=== PATIENT | male | born 1960 | race Caucasian/White ===

== ENCOUNTER 2017-08-08 12:03 | Emergency (ER) | payer OTHER, SELFPAY | END 2017-08-08 13:15 | disposition home or self-care (01) | PROVIDERS: Emergency Provider Nurse Practitioner Family; Family Provider Nurse Practitioner Family; Visit Provider Nurse Practitioner Family | DX: M54.2 Cervicalgia (principal); M25.511 Pain in right shoulder; F17.210 Nicotine dependence, cigarettes, uncomplicated | CPT/HCPCS: 96372; 99201 ==

== ENCOUNTER → 2017-08-09 | Outpatient (CLI) | payer OTHER, SELFPAY | PROVIDERS: Family Provider Nurse Practitioner Family; Visit Provider Nurse Practitioner Family | DX: M25.511 Pain in right shoulder (principal) | CPT/HCPCS: 73030 ==

== ENCOUNTER → 2017-11-06 11:39 | Outpatient (REF) | payer BC, SELFPAY ==
[2017-11-06 13:39] LABS: Basophils # 0.1 K/mm3 (0-0.2); Basophils % 1.4 % (0.1-2.0); Eosinophils # 0.1 K/mm3 (0.0-0.4); Eosinophils % 1.6 % (0.1-12.0); Hematocrit 45.2 % (42.0-52.0); Hemoglobin 14.9 g/dL (14.1-18.0); Lymphocytes # 1.7 K/mm3 (0.7-4.5); Lymphocytes % 34.7 K/mm3 (10-50); Mean Corpuscular Hemoglobin 30.3 pg (27.0-31.2); Mean Corpuscular Volume 91.9 fl (80-94); Mean Platelet Volume 8.4 fl (7.4-10.4); Monocytes # 0.3 K/mm3 (0.1-1.0); Monocytes % 6.9 % (1.7-9.3); Neutrophils # 2.7 K/mm3 (1.8-7.8); Neutrophils % 55.4 % (37.0-80.0); Platelet Count 253 K/mm3 (142-424); Red Blood Count 4.92 M/mm3 (4.60-6.20)
[2017-11-06 14:12] LABS: Alanine Aminotransferase 15 U/L (12-78); Albumin Level 3.7 gm/dL (3.4-5.0); Albumin/Globulin Ratio 1.2 (1.1-1.8); Alkaline Phosphatase 63 U/L (46-116); Anion Gap 11.3 mEq/L (5-15); Aspartate Amino Transferase 14 U/L (15-37); Bilirubin,Total 0.3 mg/dL (0.2-1.0); Blood Urea Nitrogen 9 mg/dL (7-18); Calcium 8.7 mg/dL (8.5-10.1); Carbon Dioxide 29 mmol/L (21.0-32.0); Chloride 104 mmol/L (98-107); Chol/HDL Ratio 2.9 (1-3.5); Cholesterol 179 mg/dL (140-200); Creatinine,Serum 0.75 mg/dL (0.70-1.30); Estimated Glomerular Filt Rate 109 ml/min (>60); Free T4 (Free Thyroxine) 0.99 ng/dl (0.76-1.46); GFR (African American) 131 ML/MIN (>60); Globulin 3.2 gm/dl (1.3-3.2); Glucose 104 mg/dL (74-106); HDL Cholesterol 62 mg/dL (27-67); LDL Cholesterol 105 mg/dL (0-130); Potassium 4.3 mmoL/L (3.5-5.1); Sodium 140 mmol/L (136-145); Thyroid Stimulating Hormone 0.81 uIU/ml (0.358-3.740); Total Protein,Serum 6.9 gm/dL (6.4-8.2); Triglycerides 60 mg/dL (30-200); VLDL Cholesterol 12 mg/dL (0-40)
[2017-11-06 14:35] LABS: Erythrocyte Sedimentation Rate 7 mm/hr (0-20)
[2017-11-07 06:21] LABS: Vitamin D 25 Hydroxy 13.6 ng/mL (30.0-100.0)
[2017-11-09 09:25] LABS: Vitamin B12 927 pg/mL (232-1245)
== END ==
LOC: LAB 11:39
PROVIDERS: Visit Provider Emergency Medicine
DX: R53.83 Other fatigue (principal); R53.1 Weakness
CPT/HCPCS: 80053; 80061; 82607; 82652; 84439; 84443; 85025; 85651

== ENCOUNTER → 2017-11-09 08:04 | Outpatient (CLI) | payer BC, SELFPAY ==
--- NOTE | 2017-11-09 08:09 | MR_ITS ---
MR cervical spine wo con, MR 3-d myelogram/MRCP HISTORY: Neck pain and numbness. Numbness, stinging, and burning in bilateral arms but worse in the RT. Symptoms Xmonths. No trauma. ORDERING PHYSICIAN: George Chowdhury MD PATIENT AGE: 56 years COMPARISON: Prior X-Ray 12 18 17 TECHNIQUE: Standard multiplanar multiecho sequences are performed without contrast. 3-D MIP and myelographic images are also rendered and reviewed FINDINGS: There is normal alignment. The craniocervical junction has an unremarkable appearance. There is mild degree of motion artifact which somewhat obscures fine detail especially of the cervical cord. C2-C3: Mild degenerative disc disease with minimal bulging disc slightly eccentric towards the right without impingement. C3-C4: Minimal bulging disc with minimal left-sided uncovertebral hypertrophy. C4-C5: Minimal bulging disc. C5-C6: Minimal bulging disc slightly eccentric towards the left. C6-C7: Unremarkable. C7-T1 and T1-T2: Unremarkable.. IMPRESSION: 1. Minimal cervical spondylosis with minimal bulging discs. 2. No canal stenosis, cord impingement, or extruded herniated disc evident.
== END ==
PROVIDERS: Family Provider Nurse Practitioner Family; PCP Nurse Practitioner Family; Visit Provider Emergency Medicine
DX: M54.2 Cervicalgia (principal)
CPT/HCPCS: 72141; 76376

== ENCOUNTER → 2017-12-25 09:34 | Outpatient (POV) | payer BC, SELFPAY ==
[2017-12-26 15:33] LABS: Angiotensin Converting Enzyme 45 U/L (14-82)
[2017-12-26 16:33] LABS: Albumin 3.9 g/dL (2.9-4.4); Alpha-1-Globulin 0.3 g/dL (0.0-0.4); Alpha-2-Globulin 0.8 g/dL (0.4-1.0); Gamma Globulin 1.3 g/dL (0.4-1.8); Protein, Total 7.4 g/dL (6.0-8.5)
== END ==
PROVIDERS: Family Provider Nurse Practitioner Family; PCP Nurse Practitioner Family; Visit Provider Specialist
DX: M54.2 Cervicalgia (principal); R29.898 Other symptoms and signs involving the musculoskeletal system
CPT/HCPCS: 36415; 82164; 84165; 95886; 95911

== ENCOUNTER → 2018-01-08 13:41 | Outpatient (CLI) | payer BC, SELFPAY ==
--- NOTE | 2018-01-08 13:51 | XR_ITS ---
XR shoulder RT min 2V HISTORY: ITS.REASON: pain ORDERING PHYSICIAN: Yesenia Loja MD PATIENT AGE: 57 years Comparison: None FINDINGS: No fracture or dislocation. No lytic or blastic change. There is normal mineralization. The joint spaces are well-preserved. No significant degenerative/arthritic changes. No erosive changes evident. All right fourth and fifth rib fractures noted. No subacromial stenosis IMPRESSION: Old right fourth and fifth rib fractures otherwise negative right shoulder
--- NOTE | 2018-01-08 13:51 | XR_ITS ---
XR chest 2V HISTORY: ITS.REASON: weight loss ORDERING PHYSICIAN: Yesenia Loja MD PATIENT AGE: 57 years COMPARISON: None FINDINGS: The cardiomediastinal silhouette and pulmonary vascularity are within normal limits. The lungs are clear without infiltrates, suspicious nodules, or pleural effusions. No acute bony abnormalities. There are old fractures of the right fourth and fifth ribs anteriorly. IMPRESSION: No acute finding
[2018-01-09 14:30] LABS: HIV Screen 4th Generation wRfx Non Reactive (Non Reactive)
[2018-01-11 19:10] LABS: IgG P18 Ab. Absent (.); IgG P23 Ab. Absent (.); IgG P28 Ab. Absent (.); IgG P30 Ab. Absent (.); IgG P39 Ab. Absent (.); IgG P41 Ab. Absent (.); IgG P45 Ab. Absent (.); IgG P58 Ab. Absent (.); IgG P66 Ab. Absent (.); IgG P93 Ab. Absent (.); IgM P23 Ab. Present (.); IgM P39 Ab. Absent (.); IgM P41 Ab. Absent (.)
[2018-01-11 21:14] LABS: Lyme IgG WB Interp. Negative (.); Lyme IgM WB Interp. Negative (.)
== END ==
PROVIDERS: Family Provider Nurse Practitioner Family; PCP Nurse Practitioner Family; Visit Provider Specialist
DX: M25.511 Pain in right shoulder (principal); M50.90 Cervical disc disorder, unspecified, unspecified cervical region; R63.4 Abnormal weight loss; G62.9 Polyneuropathy, unspecified; F17.200 Nicotine dependence, unspecified, uncomplicated
CPT/HCPCS: 36415; 71046; 73030; 86618; 86703; G0432

== ENCOUNTER → 2018-05-07 11:20 | Outpatient (REF) | payer BC, SELFPAY ==
[2018-05-09 07:49] LABS: PSA, Free 0.34 ng/mL; Prostate Specific Ag 1.6 ng/mL (0.0-4.0)
== END ==
LOC: LAB 11:20
PROVIDERS: Visit Provider Emergency Medicine
DX: R35.0 Frequency of micturition (principal); N42.9 Disorder of prostate, unspecified; R19.07 Generalized intra-abdominal and pelvic swelling, mass and lump
CPT/HCPCS: 84153; 84154; 87086

== ENCOUNTER → 2018-06-20 07:57 | Outpatient (CLI) | payer BC, SELFPAY ==
--- NOTE | 2018-06-20 08:00 | MR_ITS ---
MR lumbar spine wo con, MR 3-d myelogram/MRCP HISTORY: LBP on LT side. Neuropathy in legs. Weakness bilateral legs. X 6-8 Months. No trauma. ITS.REASON: back pain ORDERING PHYSICIAN: George Chowdhury MD PATIENT AGE: 57 years Comparison: None TECHNIQUE: Standard multiplanar multiecho sequences are performed without contrast. 3-D MIP and myelographic images are also rendered and reviewed FINDINGS: There is normal alignment. Spinal cord ends at the L1-L2 level. The disc spaces are well-preserved. No canal stenosis or disc herniation. Mild facet hypertrophic changes are present at L3-L4, L4-5, and L5-S1 but no significant foraminal narrowing or lateral recess narrowing. IMPRESSION: Mild facet hypertrophic change otherwise negative MRI of the lumbar spine
== END ==
PROVIDERS: PCP Emergency Medicine; Visit Provider Emergency Medicine
DX: M54.9 Dorsalgia, unspecified (principal)
CPT/HCPCS: 72148; 76376

== ENCOUNTER → 2018-07-06 14:00 | Outpatient (CLI) | payer BC, SELFPAY ==
[2018-07-06 14:50] LABS: Amphetamine/Metha Screen,Urine Negative ng/mL (<1000); Barbiturates Screen,Urine Negative ng/mL (<200); Benzodiazepines Screen,Urine Negative ng/mL (<200); Cannabinoid Screen,Urine Positive ng/mL (<50); Cocaine Screen,Urine Negative ng/mL (<300); Methadone Screen,Urine Negative ng/mL (<300); Opiate Screen,Urine Negative ng/mL (<300); Phencyclidine Screen,Urine Negative ng/mL (<25)
[2018-07-15 17:34] LABS: Opiates Negative ng/mL (Cutoff=100)
== END ==
PROVIDERS: Visit Provider Emergency Medicine
DX: Z79.899 Other long term (current) drug therapy (principal)
CPT/HCPCS: 80305; 80361; G0480

== ENCOUNTER → 2018-08-03 13:54 | Outpatient (CLI) | payer BC, SELFPAY ==
[2018-08-03 16:34] LABS: Amphetamine/Metha Screen,Urine Negative ng/mL (<1000); Barbiturates Screen,Urine Negative ng/mL (<200); Benzodiazepines Screen,Urine Negative ng/mL (<200); Cannabinoid Screen,Urine Positive ng/mL (<50); Cocaine Screen,Urine Negative ng/mL (<300); Methadone Screen,Urine Negative ng/mL (<300); Opiate Screen,Urine Negative ng/mL (<300); Phencyclidine Screen,Urine Negative ng/mL (<25)
[2018-08-10 09:17] LABS: Alprazolam Negative (Cutoff=100); Benzodiazepines Negative ng/mL (Cutoff=100); Clonazepam Negative (Cutoff=100); Flurazepam Negative (Cutoff=100); Lorazepam Negative (Cutoff=100); Midazolam Negative (Cutoff=100); Temazepam Negative (Cutoff=100); Triazolam Negative (Cutoff=100)
== END ==
PROVIDERS: Visit Provider Emergency Medicine
DX: Z79.899 Other long term (current) drug therapy (principal)
CPT/HCPCS: 80305; 80346

== ENCOUNTER → 2018-08-31 14:17 | Outpatient (CLI) | payer BC, SELFPAY ==
[2018-08-31 16:00] LABS: Amphetamine/Metha Screen,Urine Negative ng/mL (<1000); Barbiturates Screen,Urine Negative ng/mL (<200); Benzodiazepines Screen,Urine Negative ng/mL (<200); Cannabinoid Screen,Urine Positive ng/mL (<50); Cocaine Screen,Urine Negative ng/mL (<300); Methadone Screen,Urine Negative ng/mL (<300); Opiate Screen,Urine Negative ng/mL (<300); Phencyclidine Screen,Urine Negative ng/mL (<25)
[2018-09-07 17:14] LABS: Opiates Negative (Cutoff=100)
== END ==
PROVIDERS: Visit Provider Nurse Practitioner Family
DX: Z79.899 Other long term (current) drug therapy (principal)
CPT/HCPCS: 80305; 80361; 80365; G0480

== ENCOUNTER → 2018-10-05 18:18 | Outpatient (CLI) | payer BC, SELFPAY ==
[2018-10-05 19:21] LABS: Amphetamine/Metha Screen,Urine Negative ng/mL (<1000); Barbiturates Screen,Urine Negative ng/mL (<200); Benzodiazepines Screen,Urine Negative ng/mL (<200); Cannabinoid Screen,Urine Positive ng/mL (<50); Cocaine Screen,Urine Negative ng/mL (<300); Methadone Screen,Urine Negative ng/mL (<300); Opiate Screen,Urine Negative ng/mL (<300); Phencyclidine Screen,Urine Negative ng/mL (<25)
[2018-10-12 10:51] LABS: Opiates Negative ng/mL (Cutoff=100)
== END ==
PROVIDERS: Visit Provider Nurse Practitioner Family
DX: Z79.899 Other long term (current) drug therapy (principal)
CPT/HCPCS: 80305; 80361; G0480

== ENCOUNTER → 2018-10-16 13:13 | Observation (INO) ==
[2018-10-15 14:08] LABS: Basophils % 0.3 % (0.1-2.0); Eosinophils % 0.3 % (0.1-12.0); Hematocrit 39.1 % (42.0-52.0); Hemoglobin 13.1 g/dL (14.1-18.0); Lymphocytes # 1.5 K/mm3 (0.7-4.5); Lymphocytes % 17.6 % (10-50); Mean Corpuscular HGB Conc 33.5 g/dL (31.8-35.4); Mean Corpuscular Hemoglobin 30.6 pg (27.0-31.2); Mean Corpuscular Volume 91.3 fl (80-94); Mean Platelet Volume 6.6 fl (7.4-10.4); Monocytes # 0.3 K/mm3 (0.1-1.0); Monocytes % 3.2 % (1.7-9.3); Neutrophils # 6.8 K/mm3 (1.8-7.8); Neutrophils % 78.5 % (37.0-80.0); Platelet Count 381 K/mm3 (142-424); Red Blood Count 4.28 M/mm3 (4.60-6.20); Red Cell Distribution Width 13.2 % (11.5-17.5); White Blood Count 8.6 K/mm3 (4.8-10.8)
[2018-10-15 14:21] LABS: Anion Gap 12.1 mEq/L (5-15); Calcium 9.2 mg/dL (8.5-10.1); Potassium 4.1 mmoL/L (3.5-5.1)
--- NOTE | 2018-10-15 15:30 | Progress Note ---
Subjective Date: 10/15/18 Time: 15:28 Interval history: Pt was seen in Cynthia's office today. Pt here for chest pain as a new patient. He states last he had an episodes of chest pain that felt more like pressure, like someone sitting on his chest. The pain stayed in his chest, and lasted around 45 minutes. He also was nauseated and diphoretic as well with the chest pain. He has had the chest pain today. Sob with exertion. BP is good today. Weight is stable. Family history of heart disease is present. Tobacco user, smokes around a pack a day, and has for around 35 years. Tobacco cessation encouraged. Denies being diabetic. Denies ever having heart attack or stroke before. He states he has had some blurry vision, with some lightheaded feeling when he is up doing something. EKG is SR with short TN, right atrial enlargement, rightward axis, pulmonary disease pattern, rate is 85 bpm. 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 Chowdhury to do a LHC now. Spoke with Dr. Chowdhury and he agrees to accept. RTC post op. Pt admitted and sent for LHC due to [facility]. ANGIOGRAPHIC RESULTS: 1. The left main artery normal 2. The left anterior descending artery is proximally normal and has a mid vessel 60-70% concentric stenosis immediately after the second diagonal artery. The LAD is a large vessel which wraps the apex 3. The circumflex artery is dominant and normal 4. The right coronary artery is nondominant with mild luminal irregularities nothing greater than 10% 5. The PETER ventriculogram reveals normal 65% 6. The left ventricular end-diastolic pressure 10 mmHg IMPRESSION: 1. Moderate to severe mid LAD disease as described above which produced an FFR index of 0.83 2. Normal ejection fraction 3. Normal left ventricular end-diastolic pressure PLAN: 1. Patient will be started on bisoprolol 10 mg daily along with long-acting nitrates. 2. LDL less than 55 3. Daily baby aspirin 4. Avoidance of tobacco products 5. Treatment of COPD 6. Recommend CTA of the pulmonary arteries to evaluate for possible pulmonary embolism based on patient's profound symptoms Exam Vital signs and Labs for Last 24 Hours: Temp Pulse Resp BP Pulse Ox 97.9 F 56 L 18 95/61 L 99 10/15/18 13:12 10/15/18 15:20 10/15/18 15:20 10/15/18 15:20 10/15/18 15:20 Laboratory Results - last 24 hr 10/15/18 13:45: Sodium 140, Potassium 4.1, Chloride 102, Carbon Dioxide 30, Anion Gap 12.1, BUN 9, Creatinine 0.78, Estimated Creat Clear 74, Estimated GFR 103, Est GFR ( Amer) 125, Glucose 102, Calcium 9.2 10/15/18 14:00: WBC 8.6, RBC 4.28 L, Hgb 13.1 L, Hct 39.1 L, MCV 91.3, MCH 30.6, MCHC 33.5, RDW 13.2, Plt Count 381, MPV 6.6 L, Neut % (Auto) 78.5, Lymph % (Auto) 17.6, [place] % (Auto) 3.2, Eos % (Auto) 0.3, Baso % (Auto) 0.3, Neut # (Auto) 6.8, Lymph # (Auto) 1.5, [place] # (Auto) 0.3, Eos # (Auto) 0.0, Baso # (Auto) 0.0 I & O for Last 24 hours: Intake & Output 10/12/18 10/13/18 10/14/18 10/15/18 23:59 23:59 23:59 23:59 Weight 107 lb 12.897 oz
--- NOTE | 2018-10-15 19:46 | Cardiology Report ---
PROCEDURE: Limited 2-D echo Doppler study INDICATIONS FOR THE TEST: Chest pain COPD Heart Murmur Tobacco Smoking+ Palpitations Fatigue Syncope Edema Hypertension Diabetes Mellitus Rheumatic Fever SOB KING+Obesity Hyperlipidemia Family History HD Additional History ABN EKG, ETOH USE, PT COMBATIVE, UNCOOPERATIVE, LIMITED EXAM. POST CATH PATIENT INFORMATION HEIGHT:69 WEIGHT:107 GENDER: Male B/P:110/78 2-D/M-MODE INTERPRETATION: 2-D MEASUREMENTS OBSERVED VALUES IN CMS Right Ventricular Dimension (RVDd) 2.3 Interventricular Septum (Thickness)(IVsd) 1.4 Left Ventricular Internal Dimensions(LVIDd) 4.1 Left Ventricular Posterior Wall (Thickness)(LVPWd) 0.7 Aortic Root 2.9 Aortic Cusp Separation 2.1 Left Atrial Dimensions (LAD) 3.0 2D 1. Left atrium is normal size, left ventricle is normal size, visually estimated ejection fraction probably 55% with no regional wall motion abnormality in the obtained views. 2. The right atrium and right ventricle are normal size and contractility. 3. The aortic valve is minimally thickened and fibrosed. 4. The mitral and tricuspid valvular grossly normal. 5. Pulmonic valve is poorly visualized. 6. No significant pericardial effusion noted. DOPPLER INTERROGATION: Doppler interrogation is suboptimal. Conclusions: 1. Limited study as described above 2. Probably preserved left ventricular systolic function without significant wall motion abnormality, visually estimated ejection fraction 55%. 3. No significant pericardial effusion noted.
--- NOTE | 2018-10-15 22:28 | History & Physical Report ---
*Admission Date: 10/15/18 *Chief complaint: chest pain *History of present illness: this wm presented to [facility]- here for chest pain as a new patient. He states last he had an episodes of chest pain that felt more like pressure, like someone sitting on his chest. The pain stayed in his chest, and lasted around 45 minutes. He also was nauseated and diphoretic as well with the chest pain. He has had the chest pain today. Sob with exertion. BP is good today. Weight is stable. Family history of heart disease is present. Tobacco user, smokes around a pack a day, and has for around 35 years. Tobacco cessation encouraged. Denies being diabetic. Denies ever having heart attack or stroke before. He states he has had some blurry vision, with some lightheaded feeling when he is up doing something. EKG is SR with short DC, right atrial enlargement, rightward axis, pulmonary disease pattern, rate is 85 bpm. 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 Chowdhury to do a LHC now. Spoke with Dr. Chowdhury and he agrees to accept. [facility] History I have reviewed the patient's past medical history: Yes Medical History: Reports:: Anxiety *Have you ever received a pneumonia vaccine?: No *Have you received a flu vaccine this season?: No Other Surgeries: Yes: Colonoscopy, Other Amputation: No Fractures: No - *Social History Smoking Status: Current every day smoker Tobacco Type: cigarettes # Packs/Day (cigarettes): 2 #Yrs smoked (if former smoker): 35 Alcohol Intake: never Alcohol Intake Frequency:: other Substance Use Type: denies use, marijuana *Occupational Status:: unemployed Housing: house Household Members: family *Travel in the last 8 weeks: None - Psychiatric History Expresses thoughts of harming self/others: None Suicide Plan Description: No Plan Pschychiatric History:: Reports:: Anxiety Family Hx:: Adopted Review of Systems - Review of Systems Review of systems:: pertinent systems reviewed and negative unless documented below - Constitutional Denies fever(s) - Eyes Denies change in vision - ENT Denies sore throat - *Cardiovascular Reports chest pain at rest, Reports chest pain with activity, Reports shortness of breath - *Respiratory Denies cough - *Gastrointestinal Denies abdominal pain - *Genitourinary Denies blood in urine - *Musculoskeletal Denies joint pain - Integumentary/Breasts Denies rash - *Neurologic Denies confusion, Denies seizure-like activity - Psychiatric Denies anxiety Meds Home Medications Medication Instructions Recorded Confirmed Type Cetirizine HCl 10 mg PO DAILYP PRN 10/16/18 10/16/18 History Hydrocodone/Acetaminophen 1 each PO BID 10/16/18 10/16/18 History [Hydrocodone-Acetamin 5-325 mg] clonazePAM [Clonazepam] 0.5 mg PO DAILYP PRN 10/16/18 10/16/18 History Allergies Allergy/AdvReac Type Severity Reaction Status Date / Time No Known Allergies Allergy Verified 10/15/18 12:08 Exam Vital signs and Labs for Last 24 Hours: Temp Pulse Resp BP Pulse Ox 98.3 F 57 L 17 85/50 L 99 10/15/18 19:24 10/15/18 20:05 10/15/18 20:05 10/15/18 20:05 10/15/18 20:09 Laboratory Results - last 24 hr 10/15/18 13:45: Sodium 140, Potassium 4.1, Chloride 102, Carbon Dioxide 30, Anion Gap 12.1, BUN 9, Creatinine 0.78, Estimated Creat Clear 74, Estimated GFR 103, Est GFR ( Amer) 125, Glucose 102, Calcium 9.2 10/15/18 14:00: WBC 8.6, RBC 4.28 L, Hgb 13.1 L, Hct 39.1 L, MCV 91.3, MCH 30.6, MCHC 33.5, RDW 13.2, Plt Count 381, MPV 6.6 L, Neut % (Auto) 78.5, Lymph % (Auto) 17.6, [place] % (Auto) 3.2, Eos % (Auto) 0.3, Baso % (Auto) 0.3, Neut # (Auto) 6.8, Lymph # (Auto) 1.5, [place] # (Auto) 0.3, Eos # (Auto) 0.0, Baso # (Auto) 0.0 I & O for Last 24 hours: Intake & Output 10/13/18 10/14/18 10/15/18 10/16/18 11:59 11:59 11:59 11:59 Intake Total 0 / 0 Balance 0 / 0 Weight 107 lb 12.897 oz - Constitutional no acute distress, thin - *Routine HEENT Exam Head: Present: normocephalic Eye: Present: EOMI, PERRL ENT: Present: mucous membranes dry - *Routine Neck Exam Absent: JVD - *Routine Respiratory Exam Present: CTA bilaterally - *Routine Cardiovascular Exam Present: RRR, murmur - *Routine Abdominal Exam Present: soft - *Routine Extremities Exam Absent: calf tenderness - *Routine Skin Exam Present: intact - *Routine Neurological Exam Present: alert, oriented X3, CN II-XII intact - Routine Psychiatric Exam Present: normal affect Assessment and Plan (1) Anxiety Current visit: Yes Status: Acute Category: Medical Code(s): F41.9 - Anxiety disorder, unspecified (2) Tobacco dependence syndrome Current visit: No Status: Chronic Category: Medical Code(s): F17.200 - Nicotine dependence, unspecified, uncomplicated (3) Angina, class IV Current visit: No Status: Acute Category: Medical Code(s): I20.9 - Angina pectoris, unspecified (4) COPD (chronic obstructive pulmonary disease) Current visit: Yes Status: Acute Category: Medical Code(s): J44.9 - Chronic obstructive pulmonary disease, unspecified
--- NOTE | 2018-10-16 07:29 | Pharmacy Consult Notes ---
[facility] Pharmacy VTE Monitoring - Patient Demographics Admission date: 10/15/18 Report Date: 10/16/18 Time: 07:29 Allergies/Adverse Reactions: Patient Allergies No Known Allergies Allergy (Verified 10/15/18 12:08) Height: 1.75 m Weight: 48.9 kg - VTE Risk Labs: VTE Related Lab Results Hgb 13.1 g/dL (14.1-18.0) L 10/15/18 14:00 Hct 39.1 % (42.0-52.0) L 10/15/18 14:00 Plt Count 381 K/mm3 (142-424) 10/15/18 14:00 BUN 9 mg/dL (7-18) 10/15/18 13:45 Creatinine 0.78 mg/dL (0.70-1.30) 10/15/18 13:45 Estimated Creat Clear 74 mL/min (50-200) 10/15/18 13:45 Was VTE Risk Assessment Performed: Yes VTE Score: 1 VTE Risk Level: Very Low Risk - Prophylaxis VTE Prophylaxis Ordered?: Yes Types of VTE Prophylaxis: TEDS Knee High Location of Applied Device: Bilateral Lower Extremeties - VTE Diagnosis Confirmed Treatment or plan recommended: Continue Current Treatment
--- NOTE | 2018-10-16 09:25 | Progress Note ---
Subjective Date: 10/16/18 Time: 09:21 Principal diagnosis: chest pain, SOA Interval history: 57 yo WM in bed in NAD. Cardiac cath showed moderate to severe CAD but did not meet criteria for coronary stenting. Recommendation is for CTA of chest to evaluate for PE. Due to [facility] yesterday, awaiting BMP today prior to CTA today. Patient describes bilateral upper arm numbness and weakness felt related to bulging disc in the neck. He relates left-sided back discomfort near the lower edge of the shoulder blade/spine area that has been intermittent over the last several weeks. He reports having a CT of the chest at another facility in the last year with no mention of etiology other than possible bulging disc with impingement upon the nerve. Patient's echocardiogram yesterday shows normal RV size and contractility. Exam Vital signs and Labs for Last 24 Hours: Temp Pulse Resp BP Pulse Ox 98.2 F 60 18 110/62 97 10/16/18 08:00 10/16/18 08:00 10/16/18 08:00 10/16/18 08:00 10/16/18 08:00 Laboratory Results - last 24 hr 10/15/18 13:45: Sodium 140, Potassium 4.1, Chloride 102, Carbon Dioxide 30, Anion Gap 12.1, BUN 9, Creatinine 0.78, Estimated Creat Clear 74, Estimated GFR 103, Est GFR ( Amer) 125, Glucose 102, Calcium 9.2 10/15/18 14:00: WBC 8.6, RBC 4.28 L, Hgb 13.1 L, Hct 39.1 L, MCV 91.3, MCH 30.6, MCHC 33.5, RDW 13.2, Plt Count 381, MPV 6.6 L, Neut % (Auto) 78.5, Lymph % (Auto) 17.6, [place] % (Auto) 3.2, Eos % (Auto) 0.3, Baso % (Auto) 0.3, Neut # (Auto) 6.8, Lymph # (Auto) 1.5, [place] # (Auto) 0.3, Eos # (Auto) 0.0, Baso # (Auto) 0.0 I & O for Last 24 hours: Intake & Output 10/13/18 10/14/18 10/15/18 10/16/18 11:59 11:59 11:59 11:59 Intake Total 240 / 240 Balance 240 / 240 Weight 107 lb 12.897 oz - *Routine Neck Exam Present: supple. Absent: JVD, carotid bruit - *Routine Respiratory Exam Present: CTA bilaterally, diminished air movement. Absent: accessory muscle use, rales, rhonchi, wheezes - *Routine Cardiovascular Exam Present: RRR. Absent: murmur, gallop, rubs - *Routine Extremities Exam Absent: edema, calf tenderness - *Routine Neurological Exam Present: alert, oriented X3, moving all extremities Progress Note: A&P (1) Chest pain Status: Acute Current Visit: Yes (2) Back pain Status: Acute Current Visit: Yes (3) Dyspnea Status: Acute Current Visit: No (4) Low body mass index (BMI) Status: Acute Current Visit: No (5) Anxiety Status: Chronic Current Visit: No (6) Neuropathy Status: Chronic Current Visit: No (7) Tobacco dependence syndrome Status: Chronic Current Visit: No Assessment and Plan for All Diagnoses:: 1. BMP from today is pending, if creatinine within normal limits then would recommend proceeding with CTA of the chest to evaluate for pulmonary embolus or other etiology for the patient's chest and back discomfort. 2. Would anticipate discharge home later today if CTA of chest negative for PE. Recommended home meds: aspirin 81 mg daily, bisoprolol 10 mg daily and isosorbide mononitrate 30 mg daily. 3. Follow up in our office in one week.
[2018-10-16 09:32] LABS: Anion Gap 9.8 mEq/L (5-15); Calcium 8.4 mg/dL (8.5-10.1); Potassium 3.8 mmoL/L (3.5-5.1)
--- NOTE | 2018-10-16 12:22 | Discharge Summary ---
General - General Admission date:: 10/15/18 Discharge date: 10/16/18 HPI HPI: this wm presented to [facility]- here for chest pain as a new patient. He states last he had an episodes of chest pain that felt more like pressure, like someone sitting on his chest. The pain stayed in his chest, and lasted around 45 minutes. He also was nauseated and diphoretic as well with the chest pain. He has had the chest pain today. Sob with exertion. BP is good today. Weight is stable. Family history of heart disease is present. Tobacco user, smokes around a pack a day, and has for around 35 years. Tobacco cessation encouraged. Denies being diabetic. Denies ever having heart attack or stroke before. He states he has had some blurry vision, with some lightheaded feeling when he is up doing something. EKG is SR with short [place], right atrial enlargement, rightward axis, pulmonary disease pattern, rate is 85 bpm. 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 Villatoro to do a LHC now. Spoke with Dr. Villatoro and he agrees to accept. Hospital Course Hospital Course: cath report: IMPRESSION: 1. Moderate to severe mid LAD disease as described above which produced an FFR index of 0.83 2. Normal ejection fraction 3. Normal left ventricular end-diastolic pressure PLAN: 1. Patient will be started on bisoprolol 10 mg daily along with long-acting nitrates. 2. LDL less than 55 3. Daily baby aspirin 4. Avoidance of tobacco products 5. Treatment of COPD 6. Recommend CTA of the pulmonary arteries to evaluate for possible pulmonary embolism based on patient's profound symptoms echo:2D 1. Left atrium is normal size, left ventricle is normal size, visually estimated ejection fraction probably 55% with no regional wall motion abnormality in the obtained views. 2. The right atrium and right ventricle are normal size and contractility. 3. The aortic valve is minimally thickened and fibrosed. 4. The mitral and tricuspid valvular grossly normal. 5. Pulmonic valve is poorly visualized. 6. No significant pericardial effusion noted. DOPPLER INTERROGATION: Doppler interrogation is suboptimal. Conclusions: 1. Limited study as described above 2. Probably preserved left ventricular systolic function without significant wall motion abnormality, visually estimated ejection fraction 55%. 3. No significant pericardial effusion noted. dc home today on asa 81 mg po daily, bisoprolol 10 mg po daily, isosorbide 30 mg po daily. follow up with cardiology in one week. cta neg for pe Objective Vital signs: Temp Pulse Resp BP Pulse Ox 98.2 F 60 18 110/62 99 10/16/18 08:00 10/16/18 08:00 10/16/18 08:00 10/16/18 08:00 10/16/18 08:00 no acute distress - *Routine HEENT Exam Head: Present: normocephalic Eye: Present: PERRL ENT: Present: mucous membranes moist - *Routine Respiratory Exam Present: CTA bilaterally - *Routine Cardiovascular Exam Present: RRR - *Routine Abdominal Exam Present: soft, normoactive bowel sounds - *Routine Extremities Exam Present: full ROM - *Routine Skin Exam Present: intact - *Routine Neurological Exam Present: alert, oriented X3 - Routine Psychiatric Exam Present: normal affect Results Labs on day of discharge: Labs from last 24 hours 10/16/18 10/15/18 10/15/18 08:19 14:00 13:45 WBC 8.6 RBC 4.28 L Hgb 13.1 L Hct 39.1 L MCV 91.3 MCH 30.6 MCHC 33.5 RDW 13.2 Plt Count 381 MPV 6.6 L Neut % (Auto) 78.5 Lymph % (Auto) 17.6 [place] % (Auto) 3.2 Eos % (Auto) 0.3 Baso % (Auto) 0.3 Neut # (Auto) 6.8 Lymph # (Auto) 1.5 [place] # (Auto) 0.3 Eos # (Auto) 0.0 Baso # (Auto) 0.0 Sodium 142 140 Potassium 3.8 4.1 Chloride 107 102 Carbon Dioxide 29 30 Anion Gap 9.8 12.1 BUN 8 9 Creatinine 0.74 0.78 Estimated Creat Clear 78 74 Estimated GFR 110 103 Est GFR ( Amer) 133 125 Glucose 97 102 Calcium 8.4 L 9.2 - Additional Comments rounded with dr villatoro all orders per shauna DS: Diagnosis - Discharge Diagnosis (1) Anxiety Status: Acute (2) Tobacco dependence syndrome Status: Chronic (3) Angina, class IV Status: Acute (4) COPD (chronic obstructive pulmonary disease) Status: Acute Discharge Plan - Patient Discharge Instructions ACTIVITY: Continue current activity DIET: continue same diet Patient Instructions: DI for Cardiac Catheterization, DI for Surgical Site Infection - Follow up Plan Follow up with: Mehul Marie MD [Staff Physician] - 1 week George Villatoro MD [Primary Care Provider] - 1 week Disposition: Home, Self-Prison Medications: Home Medications Medication Instructions Recorded Confirmed Type Aspirin [Aspirin 81mg chewable 81 mg PO DAILY 30 Days #30 tab.chew 10/16/18 Rx tab] Bisoprolol Fumarate [Zebeta 5mg 10 mg PO DAILY 60 Days #60 tablet 10/16/18 Rx tablet] Cetirizine HCl 10 mg PO DAILYP PRN 10/16/18 10/16/18 History Hydrocodone/Acetaminophen 1 each PO BID 10/16/18 10/16/18 History [Hydrocodone-Acetamin 5-325 mg] Isosorbide Mononitrate [Imdur 30mg 30 mg PO DAILY 30 Days #30 tablet 10/16/18 Rx ER tablet] Nicotine [Nicoderm 21mg/24hr 21 mg TD DAILYP PRN 30 Days #30 10/16/18 Rx patch] patch.td24 cephALEXin [Keflex 500mg Cap] 500 mg PO BID 10 Days #20 cap 10/16/18 Rx clonazePAM [Clonazepam] 0.5 mg PO DAILYP PRN 10/16/18 10/16/18 History Prescriptions/Medication Reconciliation: New Aspirin [Aspirin 81mg chewable tab] 81 mg PO DAILY 30 Days #30 tab.chew Bisoprolol Fumarate [Zebeta 5mg tablet] 10 mg PO DAILY 60 Days #60 tablet cephALEXin [Keflex 500mg Cap] 500 mg PO BID 10 Days #20 cap Nicotine [Nicoderm 21mg/24hr patch] 21 mg TD DAILYP PRN 30 Days #30 patch.td24 PRN Reason: Nicotine Cravings Isosorbide Mononitrate [Imdur 30mg ER tablet] 30 mg PO DAILY 30 Days #30 tablet Continue clonazePAM [Clonazepam] 0.5 mg PO DAILYP PRN PRN Reason: Anxiety Hydrocodone/Acetaminophen [Hydrocodone-Acetamin 5-325 mg] 1 each PO BID Discontinued Cetirizine HCl 10 mg PO DAILYP PRN PRN Reason: ALLERGY SYMPTOMS
== END | disposition home or self-care (01) ==
LOC: 2ND
PROVIDERS: ADMIT Emergency Medicine; ATTEND Emergency Medicine
CPT/HCPCS: 71275; 80048; 85025; 85347; 93306; 93308; 93458; 93571; 99152; 99153; C1725; C1769; G0378; J0153; J1644; Q9966; Q9967

== ENCOUNTER → 2018-10-26 10:05 | Outpatient (CLI) | payer BC, SELFPAY ==
[2018-10-26 11:36] LABS: ABG Base Excess 2.5 mmol/L (-2.4-2.3); ABG HCO3 27.6 mmhg (22.0-26.0); ABG Oxygen Saturation 95 % (90-100); ABG PCO2 47.6 mmhg (35.0-45.0); ABG PH 7.38 mmol/L (7.35-7.45); ABG PO2 75.6 mmhg (80-100); ABG TCO2 29.1 mmhg (23-27)
[2018-10-26 11:37] LABS: Allen's Test ACCEPTABLE; Oxygen ROOM AIR %; Source L. RADIAL
== END ==
PROVIDERS: PCP Emergency Medicine; Visit Provider Internal Medicine
DX: J43.2 Centrilobular emphysema (principal); R06.02 Shortness of breath
CPT/HCPCS: 82803; 94060; 94640; 94726; 94729

== ENCOUNTER → 2018-10-26 18:15 | Outpatient (CLI) | payer BC, SELFPAY ==
[2018-10-26 19:13] LABS: Amphetamine/Metha Screen,Urine Negative ng/mL (<1000); Barbiturates Screen,Urine Negative ng/mL (<200); Benzodiazepines Screen,Urine Negative ng/mL (<200); Cannabinoid Screen,Urine Positive ng/mL (<50); Cocaine Screen,Urine Negative ng/mL (<300); Methadone Screen,Urine Negative ng/mL (<300); Opiate Screen,Urine Negative ng/mL (<300); Phencyclidine Screen,Urine Negative ng/mL (<25)
[2018-11-03 03:43] LABS: Opiates Negative ng/mL (Cutoff=100)
== END ==
PROVIDERS: Visit Provider Nurse Practitioner Family
DX: Z79.899 Other long term (current) drug therapy (principal)
CPT/HCPCS: 80305; 80361; G0480

== ENCOUNTER 2019-08-16 16:57 | Emergency (ER) | payer BC, SELFPAY ==
[2019-08-16 17:17] VITALS: BP 141/82; PULSE 61; RESP 18; TEMP 37.1; O2SAT 100; BMI 14.8
--- NOTE | 2019-08-16 17:35 | HMH.EDUTC ---
[facility] [place] Clinical Impression: Rash Disposition: Home, Self-Care Condition on Discharge: Good Instructions: DI for Rash Additional Instructions: Use cream on rash as prescribed FOllow up with family doctor in the next 48 hours if no improvement or any worsening of symptoms Return if needed Straight to ER if any life threatening symptoms Prescriptions: Hydrocortisone [Hydrocortisone 1% Cream 30gm Tube] 1 applicatio TP BID 7 Days #2 tube Transmission Status: Pending to [facility] Referrals: George Chowdhury MD [Primary Care Provider] - As needed Time of Disposition: 18:08 Medical Decision Making - Humza Inquiry Pt receiving controlled substance: No Humza was queried for this patient: No Vital Signs: 08/16/19 17:17 Temperature 98.7 F Temperature Source Oral Pulse Rate [Radial] 61 Respiratory Rate 18 Blood Pressure [Right Arm] 141/82 H Blood Pressure Mean [Right Arm] 101 Blood Pressure Source [Right Arm] Automatic Cuff Blood Pressure Position [Right Arm] Sitting 02 Sat by Pulse Oximetry 100 Oxygen Delivery Method Room Air - Lab Data Lab results reviewed: Yes: I reviewed the patient's lab results. - Reevaluation(s) Time: 18:03 Reevaluation #1: Rash appears improved after steriod injection. [facility] [place] - General Stated complaint: rash Time Seen by Provider: 08/16/19 17:35 Mode of Arrival: Ambulatory Source of Information: Patient Limitations: No Limitations Description of Symptoms (Recalled from Triage Doc. by RN): 4-5 DAYS AGO HE STARTED WITH A BAD HEADACHE AND FEVER, COLD SWEATS AND RASH HEENT Symptoms (Recalled from RN notes): Yes Resp Symptoms (Recalled from RN notes): No Skin Symptoms (Recalled from RN notes): Yes MS Symptoms (Recalled from RN notes): No Functional Status (Recalled from RN notes): WNL - History of Present Illness Provider Complaint: Patient states that he thought he had the flu about week ago and for 4 days he had fever and body aches States that a couple days ago he started having itching and rash on his back that has continued to get worse and now on his chest and abdomen also States that it is itchy and maddox sometimes when he scratches it States that he is not sure if he may have been allergic to something or caught something - Related Data Previous Rx's Medication Instructions Recorded azithromycin 250 mg tablet See Rx Instructions PO .COMPLEX #6 03/27/19 tab doxycycline monohydrate 100 mg 100 mg PO BID 5 Days #10 cap 03/27/19 capsule Hydrocortisone [Hydrocortisone 1% 1 applicatio TP BID 7 Days #2 tube 08/16/19 Cream 30gm Tube] Allergies Allergy/AdvReac Type Severity Reaction Status Date / Time No Known Allergies Allergy Verified 03/27/19 11:44 - Worker's Comp Is this a Worker's Comp case?: No [facility] History - Hepatitis A Screen Drug use history?: No High risk sexual behaviors?: No History of sexually transmitted infection?: No Currently employed?: No Childcare worker?: No Do you have indoor plumbing?: Yes Do you have electricity?: Yes Attestation statement:: This patient has been screened for Hepatitis A risk factors. I have reviewed the patient's past medical history: Yes Medical History: Reports:: Anxiety, Chronic Obstructive Pulmonary Disease (COPD) Denies:: Diabetes Mellitus Type 1, Diabetes Mellitus Type 2, Lung Disease, Seizures Other Medical History: Reports: Sickle Cell Disease, Other Comment: CDD,neuropathy,Vitamin D deficiency Other Surgeries: Yes: Cardiac Catheterization, Colonoscopy, Other Amputation: No Fractures: No Comment: Hemorrhoidectomy - Social History Educational Level: Completed High School Smoking Status: Current every day smoker Tobacco Type: cigarettes # Packs/Day (cigarettes): 2 #Yrs smoked (if former smoker): 35 Alcohol Intake: never Alcohol Intake Frequency:: other Substance Use Type: denies use, marijuana Occupational Status: employed Housing: house Household Members:
[2019-08-16 18:04] LABS: UTC Influenza A Antigen Negative (Negative); UTC Influenza B Antigen Negative (Negative); UTC Strep Screen (Rapid) Negative (Negative)
[2019-08-16 18:11] VITALS: BP 141/82; PULSE 61; RESP 18; TEMP 37.1; O2SAT 100
== END 2019-08-16 18:13 | disposition home or self-care (01) ==
PROVIDERS: Emergency Provider Nurse Practitioner; PCP Emergency Medicine
DX: R21 Rash and other nonspecific skin eruption (principal); F41.9 Anxiety disorder, unspecified; J44.9 Chronic obstructive pulmonary disease, unspecified; F17.210 Nicotine dependence, cigarettes, uncomplicated; I10 Essential (primary) hypertension
CPT/HCPCS: 87804; 87880; 96372; 99201; 99202

== ENCOUNTER → 2019-11-25 15:38 | Outpatient (CLI) | payer BC, SELFPAY ==
[2019-11-25 16:04] LABS: Basophils # 0.1 K/mm3 (0-0.2); Eosinophils # 0.1 K/mm3 (0.0-0.4); Hematocrit 43.1 % (42.0-52.0); Hemoglobin 14.3 g/dL (14.1-18.0); Lymphocytes # 1.9 K/mm3 (0.7-4.5); Lymphocytes % 41.8 % (10-50); Mean Corpuscular HGB Conc 33.1 g/dL (31.8-35.4); Mean Corpuscular Hemoglobin 30.1 pg (27.0-31.2); Mean Platelet Volume 7.9 fl (7.4-10.4); Monocytes # 0.3 K/mm3 (0.1-1.0); Monocytes % 5.3 % (1.7-9.3); Neutrophils # 2.3 K/mm3 (1.8-7.8); Neutrophils % 49.9 % (37.0-80.0); Platelet Count 224 K/mm3 (142-424); Red Blood Count 4.73 M/mm3 (4.60-6.20); Red Cell Distribution Width 13.2 % (11.5-17.5); White Blood Count 4.6 K/mm3 (4.8-10.8)
[2019-11-25 16:30] LABS: Erythrocyte Sedimentation Rate 7 mm/hr (0-20)
[2019-11-25 17:04] LABS: Chloride 103 mmol/L (98-107); Potassium 4.1 mmoL/L (3.5-5.1); Sodium 136 mmol/L (136-145)
[2019-11-25 17:07] LABS: Alanine Aminotransferase 11 U/L (12-78); Alkaline Phosphatase 47 U/L (38-126); Amylase 66 U/L (30-110); Anion Gap 8.1 mEq/L (5-15); Aspartate Amino Transferase 28 U/L (17-59); Bilirubin,Total 0.4 mg/dl (0.2-1.3); Blood Urea Nitrogen 11 mg/dl (9-20); Calcium 9.3 mg/dl (8.4-10.2); Carbon Dioxide 29 mmol/L (22.0-30.0); Estimated Glomerular Filt Rate 100 ml/min (>60); GFR (African American) 121 ML/MIN (>60); Glucose 83 mg/dl (74-100); Lipase 156 U/L (23-300)
[2019-11-25 17:08] LABS: Albumin Level 4.3 g/dl (3.5-5.0); Albumin/Globulin Ratio 1.7 (1.1-1.8); Globulin 2.6 g/dL (1.3-3.2); Total Protein,Serum 6.9 g/dl (6.3-8.2)
== END ==
PROVIDERS: Visit Provider Emergency Medicine
DX: R10.9 Unspecified abdominal pain (principal)
CPT/HCPCS: 80053; 82150; 83690; 85025; 85651

== ENCOUNTER → 2019-12-06 06:33 | Outpatient (CLI) | payer BC, SELFPAY ==
--- NOTE | 2019-12-06 | CA_ITS ---
APPROVED REPORT Exam: Exercise Treadmill Technologist: Karma Gallardo, Ht: 5 ft 8 in Wt: 110 lbs BSA: 1.59 m2 HR: 52 bpm BP: 128/69 mmHg Rhythm: SINUS JERALD Medical History Medical History: Smoking Allergies: No known drug allergies Cardiac Risk Factors: FHX of CAD, Smoking Stress Test Details Test: Sheldon HR Resting HR: 61 bpm Max Heart Rate (APMHR): 163 bpm Max HR Achieved: 132 bpm Target HR (85% APMHR): 138 bpm % of APMHR: 80 Recovery HR: 74 bpm BP Resting BP: 128/69 mmHg Max BP: 140/72 mmHg Recovery BP: 135.0/73.0 mmHg ECG Resting ECG: SINUS BRADYCARDIA Clinical Exercise duration: 09:06 min Highest Stage Achieved: Exercise capacity: 10.1 METs Stress ECG Conclusion SHELDON PROTOCOL COMPLETED. EXERCISED 09:036. METS = 10.1. MAX BP 160/72. MAX HEART RATE 132 BPM. STOPPED DUE TO LEG PAIN. VISUALLY APPEARED SOA AT PEAK EXERCISES. NO ECTOPY. LESS THAN 1.[address] DEPRESSION, IMAGES TO FOLLOW Test Summary RECOVERY 03:00 0.0 0.0 64 . 124/ 61 . . REST . . . . . . . Sitting REST 16:22 0.0 0.0 61 . 128/ 69 . . Stage 1 01:00 10.0 1.7 82 . . . . Stage 1 02:00 10.0 1.7 81 . 130/ 72 . . Stage 1 03:00 10.0 1.7 82 . 130/ 72 . . Stage 2 01:00 12.0 2.5 95 . . . . Stage 2 02:00 12.0 2.5 96 . 140/ 72 . . Stage 2 03:00 12.0 2.5 99 . 140/ 72 . . Stage 3 01:00 14.0 3.4 112 . . . . Stage 3 02:00 14.0 3.4 130 . . . . Stage 3 . . . . . . . Stage held Stage 3 03:00 14.0 3.4 126 . . . . Stage 3 . . . . . . . Stage resumed Stage 3 03:06 14.0 3.4 127 . . . Stop exercise at 09:06 RECOVERY 01:00 0.0 0.0 96 . . . . RECOVERY 02:00 0.0 0.0 73 . 135/ 73 . . RECOVERY 03:00 0.0 0.0 64 . 124/ 61 . . RECOVERY 04:00 0.0 0.0 56 . 124/ 61 . . RECOVERY 04:30 0.0 0.0 62 . 127/ 64 . . Electronically signed by : Riccardo Fernandez, 12/06/2019 12:37:03
--- NOTE | 2019-12-06 06:41 | NM_ITS ---
APPROVED REPORT Exam: Nuclear Stress Test Indication: Chest pain, Fatigue, Tobacco use, CAD, Family history Patient Location: Outpatient Stress Tech: Ivory Paulina NM Tech:Rochelle Ramires, ARRT, RT (R)(N) Ht: 5 ft 8 in Wt: 110 lbs HR: 52 bpm BP: 128/69 mmHg BSA: 1.59 m2 BMI: 16.7 History: Chest pain, Fatigue, Tobacco use, CAD, Family history Procedure: Patient exercised on Sheldon protocol 9:06 minutes and sec, resting heart rate 52 bpm, resting blood pressure 128/69 mmHg, with exercise maximum heart rate achived was 132 bpm which is Less than 85 % of the maximum predicted heart rate and blood pressure was 140/72 mmHg. Test was stopped due to leg fatigue. Patient denied any complaint of chest pain. Patient has Good exercise capacity, achieved 10.1 METs of workload on treadmill, the blood pressure response to exercise was Adequate. Electrocardiogram Resting electrocardiogram showed sinus bradycardia, with exercise there is less than 1.[address] segment depression noted from the baseline EKG. The EKG portion of the exercise Myoview is nondiagnostic as patient did not achieve the target heart rate. Cardiac Stress and Resting SPECT Images: Cardiac Stress and Resting SPECT images were obtained using technetium 99m Myoview 31.3 mCi stress and 10.01 mCi at rest. Gated SPECT for analysis of segmental wall motion and calculation of the ejection fraction also done. Cardiac stress and resting SPECT images show a mild fixed defect in the inferior wall with normal contractility and the gated SPECT is likely secondary to soft tissue attenuation, no reversible ischemia seen. Computer derived ejection fraction is 58% with no regional wall motion abnormality, right ventricle is normal size and contractility. Conclusion: 1. The EKG portion of the exercise Myoview is nondiagnostic as patient did not achieve the target heart rate, patient has good exercise capacity achieved 10.1 mets of workload on treadmill, the blood pressure response to exercise was adequate, there was no exercise-induced chest discomfort, test was stopped due to shortness of breath. 2. No scintigraphic evidence of reversible ischemia seen at this level of exercise, computer derived ejection fraction is 58% with no regional wall motion abnormality, right ventricle is normal size and contractility. Electronically signed by : Riccardo Fernandez 12/06/2019 12:40:21
== END ==
LOC: RT 06:35 → RAD 08:00
PROVIDERS: PCP Emergency Medicine; Visit Provider Emergency Medicine
DX: R07.9 Chest pain, unspecified (principal)
CPT/HCPCS: 78452; 93017; A9502

== ENCOUNTER → 2019-12-16 10:44 | Outpatient (POV) | payer BC, SELFPAY | PROVIDERS: PCP Emergency Medicine; Visit Provider Specialist | DX: M79.602 Pain in left arm (principal); M79.601 Pain in right arm; R10.9 Unspecified abdominal pain | CPT/HCPCS: 95886; 95910 ==

== ENCOUNTER → 2020-01-14 14:12 | Outpatient (CLI) | payer BC, SELFPAY ==
[2020-01-14 22:56] LABS: Coronavirus 19 IgG Antibody Negative (Negative); Coronavirus 19 IgM Antibody Negative (Negative)
== END ==
PROVIDERS: Visit Provider Emergency Medicine
DX: Z03.818 Encounter for observation for suspected exposure to other biological agents ruled out (principal)
CPT/HCPCS: 36415; 86328

== ENCOUNTER 2020-02-06 15:13 | Emergency (ER) | payer BC, SELFPAY ==
[2020-02-06 15:14] VITALS: BP 159/96; PULSE 68; RESP 18; O2SAT 99; BMI 16.2
--- NOTE | 2020-02-06 15:39 | XR_ITS ---
PROCEDURE: XR HIP BI W PEL1V CLINICAL INDICATION: FALL Fall with injury and pain COMPARISON: No exams were available for comparison FINDINGS: No acute fracture or dislocation. There are mild osteoarthritic changes of the hips on both sides. IMPRESSION: Mild osteoarthritis, no acute finding Dictated by: Washington Kearney MD 02/06/2020 17:36 Electronically signed by Washington Kearney MD in [place] 02/06/2020 17:36
--- NOTE | 2020-02-06 15:39 | XR_ITS ---
PROCEDURE: XR LUMBAR SPINE 2-3V CLINICAL INDICATION: FALL Posttraumatic pain COMPARISON: No exams were available for comparison FINDINGS: No fracture or dislocation. No lytic or blastic change. There is normal mineralization. The joint spaces are well-preserved. No significant degenerative/arthritic changes. No erosive changes evident. Other findings:None. IMPRESSION: No acute findings. Dictated by: Washington Kearney MD 02/06/2020 17:35 Electronically signed by Washington Kearney MD in [place] 02/06/2020 17:35
--- NOTE | 2020-02-06 15:39 | CT_ITS ---
PROCEDURE: CT HEAD/BRAIN WO CON CLINICAL INDICATION: FALL Head injury with headache/pain, contusion, abrasion or hematoma COMPARISON: No exams were available for comparison TECHNIQUE: Axial images obtained. All CT scans at the facility use one or more dose reduction, viz: automated exposure control, ma/kV adjustment per patient size (including targeted exams where dose is matched to indication, i.e. head), or iterative reconstruction technique. FINDINGS: No midline shift, mass effect, intracranial hemorrhage, hydrocephalus, or extra-axial fluid collection is evident. The calvarium has an unremarkable appearance. No mastoid effusion. No sinus air-fluid level. IMPRESSION: No acute intracranial finding Dictated by: Washington Kearney MD 02/06/2020 17:07 Electronically signed by Washington Kearney MD in [place] 02/06/2020 17:07
[2020-02-06 15:44] VITALS: BP 116/62; PULSE 58; O2SAT 100
--- NOTE | 2020-02-06 16:37 | CT_ITS ---
PROCEDURE: CT CERVICAL SPINE WO CON CLINICAL INDICATION: fALL Neck injury with pain, contusion/abrasion or hematoma, cervical sprain/strain the COMPARISON: No exams were available for comparison TECHNIQUE: Axial images obtained with sagittal and coronal reformats. All CT scans at the facility use one or more dose reduction, viz: automated exposure control, ma/kV adjustment per patient size (including targeted exams where dose is matched to indication, i.e. head), or iterative reconstruction technique. Axial spiral CT scanning performed of the cervical spine beginning at the base of the skull and continuing to the upper T-spine. 3-D multiplanar reconstruction with 3-D manipulation of volumetric data set in image rendering was completed by the radiologist and/or technologist with the supervision of the radiologist on independent workstation. FINDINGS: No fracture nor subluxation is evident. Normal prevertebral soft tissues. Facets, neural foramen and vertebral bodies intact and unremarkable. Normal C1/C2 relationships. Apices of lungs are clear with no acute findings. There is a small lucency involving the C4 vertebral body posteriorly and on the right at 4 mm possibly due to small hemangioma. No acute finding in the lung apices IMPRESSION: Cervical spine intact with no fracture nor subluxation. Dictated by: Washington Kearney MD 02/06/2020 17:10 Electronically signed by Washington Kearney MD in [place] 02/06/2020 17:10
[2020-02-06 17:17] VITALS: BP 107/72; PULSE 62; O2SAT 99
[2020-02-06 17:34] VITALS: BP 112/68; PULSE 58; O2SAT 99
--- NOTE | 2020-02-06 18:04 | HMH.EDFALL ---
ED Disposition Clinical Impression: Multiple contusions Disposition: Home, Self-Care Condition on Discharge: Good Instructions: How to Prevent Falls Referrals: Saran Dubon APRN [Primary Care Provider] - - Critical Care Critical Care Time: No Attestation: On 02/06/20, the high probability of a clinically significant, sudden or life threatening deterioration of the following system(s) required my full and direct attention, intervention and personal management. The time I documented below is in addition to time spent performing reported procedures but includes the following listed in this critical care notation. Medical Decision Making - Medical Records Medical records reviewed: Yes: I reviewed the patient's medical records. - Humza Inquiry Pt receiving controlled substance: No Vital Signs: 02/06/20 15:14 02/06/20 15:44 02/06/20 17:17 Pulse Rate [Radial] 68 58 L 62 Respiratory Rate 18 Blood Pressure [Right Arm] 159/96 H 116/62 107/72 L Blood Pressure Mean [Right Arm] 117 80 83 Blood Pressure Source [Right Arm] Automatic Cuff Automatic Cuff Automatic Cuff Blood Pressure Position [Right Arm] Supine Sitting Sitting 02 Sat by Pulse Oximetry 99 100 99 Oxygen Delivery Method Room Air Room Air Room Air 02/06/20 17:34 Pulse Rate [Radial] 58 L Respiratory Rate Blood Pressure [Right Arm] 112/68 Blood Pressure Mean [Right Arm] 82 Blood Pressure Source [Right Arm] Automatic Cuff Blood Pressure Position [Right Arm] Sitting 02 Sat by Pulse Oximetry 99 Oxygen Delivery Method Room Air - Lab Data Lab results reviewed: Yes: I reviewed the patient's lab results. - Radiology Data #1 Image(s): C-Spine, L-Spine, Pelvis Preliminary Findings: Normal/NAD - CT Data CT Scan: Head, C-Spine Time Received: 17:00 Preliminary Findings: Normal/NAD Fall HPI - General Chief Complaint: Fall Stated Complaint: [place] 0617 fell BP dropped Time Seen by Provider: 02/06/20 17:00 Mode of Arrival: Wheelchair Source of Information: Patient Limitations: No Limitations Description of Symptoms (Recalled from ER Triage Doc. by RN): Fell two days ago and again yesterday. States he laid in the floor for 2 hours before his coworkers found him and when he woke up they were taking pictures and videos of him. States his user experience team lead told him to go to the medical room and left. As patient was trying to get up he was unable to walk and fell again. Went to see Saran today and was sent here for neck, hip and lower back pain. States he is losing parts of his day. - History of Present Illness MD complaint: fall Onset (ago): hour(s) Fall from: standing Fall witnessed: yes, by family Place fall occurred: work Loss of consciousness: none Length of LOC: second(s) Prolonged down time: no Symptoms prior to fall: lightheadedness Context: tripped/slipped Location of injury: other (Patient complains of pain in his lower back head and neck.) Severity: mild Severity scale (1-10): 2 Quality: sharp Associated symptoms (after fall): denies - Related Data Home Medications Medication Instructions Recorded Confirmed No Known Home Medications 11/25/19 02/06/20 Allergies Allergy/AdvReac Type Severity Reaction Status Date / Time No Known Allergies Allergy Verified 02/06/20 14:19 [facility] History - Hepatitis A Screen Drug use history?: No High risk sexual behaviors?: No History of sexually transmitted infection?: No Currently employed?: No Childcare worker?: No Do you have indoor plumbing?: Yes Do you have electricity?: Yes Attestation statement:: This patient has been screened for Hepatitis A risk factors. I have reviewed the patient's past medical history: Yes Medical History: Reports:: Anxiety, Chronic Obstructive Pulmonary Disease (COPD) Denies:: Diabetes Mellitus Type 1, Diabetes Mellitus Type 2, Lung Disease, Seizures Other Medical History: Reports: Sickle Cell Disease, Other Comment: CDD,neuropathy,Vitamin D deficien
[2020-02-06 18:28] VITALS: BP 107/52; PULSE 56; RESP 15; TEMP 36.6; O2SAT 99
== END 2020-02-06 18:32 | disposition home or self-care (01) ==
PROVIDERS: Emergency Provider Family Medicine; PCP Nurse Practitioner Family
DX: T07.XXXA Unspecified multiple injuries, initial encounter (principal); W01.0XXA Fall on same level from slipping, tripping and stumbling without subsequent striking against object, initial encounter; Y92.89 Other specified places as the place of occurrence of the external cause; S16.1XXA Strain of muscle, fascia and tendon at neck level, initial encounter; M54.5 Low back pain; M25.551 Pain in right hip; M25.552 Pain in left hip; J44.9 Chronic obstructive pulmonary disease, unspecified; F41.9 Anxiety disorder, unspecified; E55.9 Vitamin D deficiency, unspecified; F17.210 Nicotine dependence, cigarettes, uncomplicated
CPT/HCPCS: 70450; 72100; 72125; 73521; 99283

== ENCOUNTER → 2020-02-07 12:54 | Outpatient (CLI) | payer BC, SELFPAY ==
[2020-02-07 15:16] LABS: Basophils # 0.1 K/mm3 (0-0.2); Basophils % 0.8 % (0.1-2.0); Eosinophils # 0.1 K/mm3 (0.0-0.4); Eosinophils % 0.8 % (0.1-12.0); Hematocrit 47.4 % (42.0-52.0); Hemoglobin 16.1 g/dL (14.1-18.0); Lymphocytes # 2.7 K/mm3 (0.7-4.5); Lymphocytes % 37.4 % (10-50); Mean Corpuscular Hemoglobin 31.4 pg (27.0-31.2); Mean Corpuscular Volume 92.4 fl (80-94); Mean Platelet Volume 7.6 fl (7.4-10.4); Monocytes # 0.4 K/mm3 (0.1-1.0); Neutrophils # 3.9 K/mm3 (1.8-7.8); Neutrophils % 55.1 % (37.0-80.0); Platelet Count 246 K/mm3 (142-424); Red Blood Count 5.13 M/mm3 (4.60-6.20); Red Cell Distribution Width 13.4 % (11.5-17.5); White Blood Count 7.1 K/mm3 (4.8-10.8)
[2020-02-07 15:37] LABS: Chloride 100 mmol/L (98-107); Potassium 3.6 mmoL/L (3.5-5.1); Sodium 137 mmol/L (136-145)
[2020-02-07 15:40] LABS: Alanine Aminotransferase 12 U/L (12-78); Alkaline Phosphatase 69 U/L (38-126); Anion Gap 8.6 mEq/L (5-15); Aspartate Amino Transferase 40 U/L (17-59); Bilirubin,Direct 0.3 mg/dl (0.0-0.4); Bilirubin,Indirect 0.5 mg/dL (0.0-0.9); Bilirubin,Total 0.8 mg/dl (0.2-1.3); Bilirubin,Unconjugated 0.5 mg/dL (0.0-1.1); Blood Urea Nitrogen 11 mg/dl (9-20); Calcium 9.2 mg/dl (8.4-10.2); Carbon Dioxide 32 mmol/L (22.0-30.0); Estimated Glomerular Filt Rate 100 ml/min (>60); GFR (African American) 121 ML/MIN (>60); Glucose 98 mg/dl (74-100)
[2020-02-07 15:41] LABS: Albumin Level 4.6 g/dl (3.5-5.0); Total Protein,Serum 7.7 g/dl (6.3-8.2)
[2020-02-11 08:18] LABS: Chlordiazepoxide <0.1 ug/mL (0.1-0.9)
[2020-02-11 10:44] LABS: Acetone Negative % (0.000-0.010); Butalbital <1 ug/mL (1-10); Diazepam <0.1 ug/mL (0.1-0.9); Ethanol Negative % (0.000-0.010); Isopropanol Negative % (0.000-0.010); Pentobarbital <1 ug/mL (1-5)
== END ==
PROVIDERS: PCP Emergency Medicine; Visit Provider Physician Assistant
DX: R55 Syncope and collapse (principal)
CPT/HCPCS: 36415; 80048; 80076; 80306; 85025; 93225

== ENCOUNTER 2020-02-25 08:37 | Day surgery (SDC) | payer MEDICAID, SELFPAY ==
[2020-02-25] VITALS (7 sets, daily range): BP systolic 100–113; BP diastolic 59–74; PULSE 57–66; RESP 16; TEMP 36.6; O2SAT 99–100; BMI 16.4
--- NOTE | 2020-02-25 09:46 | HMH.LOOP ---
[facility] Loop Recorder Date: 02/25/20 Time: 09:46 Procedure Performed:: Implantation of loop recorder Indication:: Syncope Technique:: Patient was brought to the cardiac Heel Shaper. After informed consent obtained, 1% lidocaine with epinephrine was used to anesthetize the site along the left anterior aspect of the chest near the sternal border. Using the preformed scalpel, an incision was made and using the supplied preloaded apparatus, the loop recorder was placed subcutaneously without difficulty. Following the deployment of the loop recorder interrogation of the device was performed to ensure appropriate voltage was being detected (0.24 mV). Once this was verified, Steri-Strips were placed over the incision and the patient was prepped to discharge home. Patient tolerated the procedure well with minimal discomfort. Impression:: Successful loop recorder implantation Serial Number:: [id number] Plan:: Routine postop care
== END 2020-02-25 10:00 | disposition home or self-care (01) ==
LOC: CATHLAB 08:38
PROVIDERS: PCP Emergency Medicine; Visit Provider Internal Medicine
DX: R55 Syncope and collapse (principal); I25.118 Atherosclerotic heart disease of native coronary artery with other forms of angina pectoris; I10 Essential (primary) hypertension
CPT/HCPCS: 33285

== ENCOUNTER → 2020-06-10 09:37 | Outpatient (CLI) | payer OTHER, SELFPAY ==
--- NOTE | 2020-06-10 09:38 | CA_ITS ---
APPROVED REPORT EXAM: Comprehensive 2D, Doppler, and color-flow Echocardiogram Project Technician: Ericka Pereira RDCS Ht: 5 ft 9 in Wt: 108lbs BSA: 1.59 BP: 116/82 mmHg Indications: PALPS,COPD,CP,CAD,HTN, 2D Dimensions LVOT 1.91 cm (M/F) 1.5-2.5 M-Mode Dimensions RVDd 1.97 cm (0.9-2.6) LA Diam 1.82 cm (1.9-4.0) LVDd 4.54 cm (3.5-5.7) Ao Diam 3.39 cm (2.0-3.7) LVDs 3.13 cm (3.5-5.7) IVSd 0.50 cm (0.6-1.1) PWd 0.66 cm (0.6-1.1) EF (Teich) 58.90% FS 31.10% EDV (Teich) 94.40 mL ESV (Teich) 38.80 mL LV Diastology E Decel Time 287.00 (160-240 msec) E/A Ratio 1.0 MED E' 7.10 (< 7 cm/sec) E'/MED E' Ratio 6.93 (>14) LAT E' 10.60 (<10 cm/sec) E/LAT E' Ratio 4.64 (>14) Mitral Valve MV E Max Howie. 49.00 (40-130 cm/s) MV A Velocity 49.00 (40-130 cm/s) E/A Ratio 1.01 MV Decel. Time 287.00 (160-240 ms) MV PHT 84.00 ms Left Ventricle Left atrium is normal size, left ventricle is normal size, there is no concentric left ventricular hypertrophy, visually estimated ejection fraction 55% with no regional wall motion abnormality. Diastolic parameters are within normal range, a prominent echo density seen in the lateral wall, a repeat study with Definity contrast is recommended to exclude presence of artifact versus intracardiac mass. Right Ventricle Right atrium and right ventricle are normal size and contractility. Aortic Valve Aortic valve is minimally thickened and fibrosed, there is no aortic stenosis or aortic insufficiency. Mitral Valve Mitral valve is grossly normal, there is mild mitral regurgitation. Tricuspid Valve Tricuspid valve grossly normal, there is mild tricuspid regurgitation, tricuspid regurgitation jet velocity is inadequate for calculation of the right ventricular systolic pressure. Pulmonic Valve Pulmonic valve is poorly visualized. Great Vessels Aortic root is normal size. Pericardium No significant pericardial effusion noted. Conclusion 1. Normal left ventricular size, preserved left ventricular systolic function, visually estimated ejection fraction 55% with no regional wall motion abnormality, a prominent echodensity seen in the lateral wall a repeat study with Definity contrast is recommended to exclude the presence of artifact versus mass. Diastolic parameters are within normal range. 2. Mild mitral and tricuspid regurgitation 3. No significant pericardial effusion noted. Electronically signed by : Riccardo Fernandez, 06/11/2020 16:13:29
== END ==
PROVIDERS: PCP Nurse Practitioner Family; Visit Provider Urology
DX: R06.02 Shortness of breath (principal); I20.9 Angina pectoris, unspecified; F41.9 Anxiety disorder, unspecified; I10 Essential (primary) hypertension; R07.9 Chest pain, unspecified
CPT/HCPCS: 93306

== ENCOUNTER → 2020-06-26 13:13 | Outpatient (CLI) | payer OTHER, SELFPAY ==
--- NOTE | 2020-06-26 13:14 | CA_ITS ---
APPROVED REPORT EXAM: Comprehensive 2D, Doppler, and color-flow Echocardiogram Hurl Shaker: Ericka Pereira RDCS Ht: 5 ft 9 in Wt: 113lbs BSA: 1.62 BP: 110/60 mmHg Indications: DEFINITY ONLY TO RULE OUT THROMBUS Conclusion 1. Limited echo was performed with Definity contrast performed. 2. Normal left ventricular size, preserved left ventricular systolic function, visually estimated ejection fraction 50% with no regional wall motion abnormality, there is no intracardiac mass or thrombus seen. Electronically signed by : Riccardo Fernandez, 06/30/2020 04:56:45
== END ==
PROVIDERS: PCP Nurse Practitioner Family; Visit Provider Urology
DX: R06.09 Other forms of dyspnea (principal); I25.118 Atherosclerotic heart disease of native coronary artery with other forms of angina pectoris; I10 Essential (primary) hypertension; R93.1 Abnormal findings on diagnostic imaging of heart and coronary circulation; J43.2 Centrilobular emphysema; F17.200 Nicotine dependence, unspecified, uncomplicated
CPT/HCPCS: 93308; Q9957

== ENCOUNTER → 2020-06-29 13:06 | Outpatient (CLI) | payer OTHER, SELFPAY ==
--- NOTE | 2020-06-29 13:06 | CT_ITS ---
PROCEDURE: CT CHEST WO CON CLINICAL INDICATION: Nodule followup Shortness of air, follow-up nodule [facility] TECHNIQUE: Axial images obtained with sagittal and coronal reformats. All CT scans at the facility use one or more dose reduction, viz: automated exposure control, ma/kV adjustment per patient size (including targeted exams where dose is matched to indication, i.e. head), or iterative reconstruction technique. FINDINGS: HEART AND MEDIASTINAL STRUCTURES: Coronary artery calcifications are evident. No mediastinal or hilar mass or adenopathy. LUNGS AND PLEURAL SPACES: COPD changes. Calcified granuloma left lower lobe laterally. There is a 5 mm noncalcified nodule in the left lower lobe posteriorly 57 series 3 not significantly changed. There was a 2nd nodule in this area on the previous exam is no longer apparent. No new nodules are evident. A loop recorder device is in place. This overlies the left anterior chest wall medially. Previously the area of pneumonia in the right lower lobe has resolved. BONY STRUCTURES: No acute bony abnormalities apparent. UPPER ABDOMEN: Unremarkable. ADDITIONAL FINDINGS: No other significant abnormalities. IMPRESSION: COPD. Stable left lower lobe nodule. No change with no acute finding. No suspicious abnormalities apparent Dictated by: Washington Kearney MD 06/30/2020 09:57 Washington Kearney MD in [place] 06/30/2020 09:57
== END ==
PROVIDERS: PCP Nurse Practitioner Family; Visit Provider Internal Medicine Pulmonary Disease
DX: R91.8 Other nonspecific abnormal finding of lung field (principal)
CPT/HCPCS: 71250

== ENCOUNTER → 2020-07-03 12:34 | Outpatient (CLI) | payer OTHER, SELFPAY | PROVIDERS: PCP Nurse Practitioner Family; Visit Provider Internal Medicine Pulmonary Disease | DX: R06.00 Dyspnea, unspecified (principal) | CPT/HCPCS: 94060; 94726; 94729 ==

== ENCOUNTER → 2020-07-06 11:06 | Outpatient (POV) | payer OTHER, SELFPAY ==
[2020-07-06 11:34] VITALS: BP 122/84; PULSE 63; RESP 18; TEMP 37; O2SAT 98; BMI 17.6
--- NOTE | 2020-07-06 12:17 | HMH.PMCON ---
Assessment and Plan (1) Neck pain Status: Chronic Category: Medical Code(s): M54.2 - Cervicalgia (2) Back pain Status: Chronic Qualifiers: Chronicity: chronic Category: Medical Code(s): M54.9 - Dorsalgia, unspecified - Assessment and plan all Dx Assessment and Plan for all problems:: We will start the patient on diclofenac 75 mg 1 p.o. twice daily. And will start him in physical therapy. He does not want to move forward with physical therapy until August. He is travel plans at this time. He has been instructed to call the office if he has any issues prior to his next appointment. Dr. Cardenas has reviewed this note and agrees with this plan of care. This note was dictated using voice recognition software and may contain errors or omissions HPI - Data of Consult Consult date: 07/06/20 Requesting Physician: Amarilys العلي APRN Primary Care Provider: Saran Dubon APRN - Consult Narrative Reason for consult: Back pain, neck pain History of present illness: Mr. Ponce is a 59 year old male Who presents today for consultation in regards to his neck and back pain. Patient had an accident back in January at work he states he fell into an oven and then consecutively passed out for several hours. Patient since then has had neck and back pain. At this time his diagnostic imaging is negative. Patient states that his pain is in his spine and is like an electrical shock at times. He did go to the chiropractor for 1 visit. He states it helped a little bit. Patient has not done physical therapy yet at this time. He is not on any anti-inflammatories. He rates his pain today a 7 out of 10 he states all activity makes it worse well nothing makes it better. CC: Amarilys اللعي APRN [facility] History I have reviewed the patient's past medical history: Yes Medical History: Reports:: Anxiety, Chronic Obstructive Pulmonary Disease (COPD), Coronary Artery Disease, Depression, Hypertension Denies:: Cancer, Diabetes Mellitus Type 1, Diabetes Mellitus Type 2, Lung Disease, MRSA, Seizures *Have you ever received a pneumonia vaccine?: Yes *Have you received a flu vaccine this season?: Yes Other Medical History: Reports: Sickle Cell Disease, Other Other Surgeries: Yes: Cardiac Catheterization, Colonoscopy, Other Amputation: No Fractures: No - *Social History Smoking Status: Unknown if ever smoked Tobacco Type: cigarettes # Packs/Day (cigarettes): 1 #Yrs smoked (if former smoker): 35 Alcohol Intake: never Alcohol Intake Frequency:: other Substance Use Type: denies use, marijuana *Occupational Status:: other Housing: house Household Members: other *Travel in the last 8 weeks: None - Psychiatric History Pschychiatric History:: Reports:: Anxiety, Depression Family Hx:: Unable to obtain Review of Systems - Review of Systems ROS General: no recent weight change, no fever, no sleep disturbances Respiratory: no cough, no shortness of air, no recurring pulmonary infections Cardiovascular/Peripheral Vascular: No chest pain, No palpitations, no edema, no shortness of breath. Gastrointestinal: no new onset incontinence, normal bowel movements reported Genitourinary: no new onset incontinence Musculoskeletal: [] Psychiatric: normal mood/ affect Neurological: [denies new onset weakness in extremities], [denies new onset balance issues] Meds Home Medications Medication Instructions Recorded Confirmed Type doxepin 25 mg capsule 25 mg PO QHS #30 cap 05/27/20 07/06/20 Rx fluoxetine 40 mg capsule 40 mg PO DAILY #30 cap 05/27/20 07/06/20 Rx trazodone 50 mg tablet 50 mg PO QHS PRN #30 tab 05/27/20 07/06/20 Rx metoprolol succinate 25 mg 25 mg PO QDAY #90 tab 06/03/20 07/06/20 Rx tablet,extended release 24 hr tizanidine 4 mg tablet 4 mg PO TID PRN tab 07/02/20 07/06/20 History Diclofenac Sodium [Diclofenac 75mg 75 mg PO BID #60 tab 07/06/20 Rx Tab] albuterol sulfate 90 mcg/actuation 1 inh INHAL
== END ==
PROVIDERS: PCP Nurse Practitioner Family; Visit Provider Clinical Nurse Specialist Family Health
DX: M54.9 Dorsalgia, unspecified (principal); M54.2 Cervicalgia
CPT/HCPCS: 99202

== ENCOUNTER → 2020-09-07 11:46 | Outpatient (POV) | payer OTHER, SELFPAY ==
[2020-09-07 12:07] VITALS: BP 143/90; PULSE 86; RESP 18; TEMP 36.2; O2SAT 98; BMI 17.8
--- NOTE | 2020-09-07 12:11 | HMH.PAINSOAP ---
[facility] Pain Management SOAP Note Subjective:: Patient is a pleasant 59-year-old white male who presents today for follow-up after physical therapy. Patient has not started his diclofenac. We discussed starting that. Patient is continuing his physical therapy stating that it is helping significantly with his range of motion. He rates his pain today a 6 out of 10. Patient is going to try anti-inflammatories for a month to see if this benefits him he will also continue his physical therapy. Most of his pain is in his neck and it increases with motion. ROS General: no recent weight change, no fever, no sleep disturbances Respiratory: no cough, no shortness of air, no recurring pulmonary infections Cardiovascular/Peripheral Vascular: No chest pain, No palpitations, no edema, no shortness of breath. Gastrointestinal: no new onset incontinence, normal bowel movements reported Genitourinary: no new onset incontinence Musculoskeletal: Neck pain, arm pain Psychiatric: normal mood/ affect Neurological: [denies new onset weakness in extremities], [denies new onset balance issues] Objective:: Physical Exam General: Alert and oriented x3, no acute distress, pleasant and cooperative, [on room air] Lungs: Resps E/U, Symmetrical chest expansion, Eyes: PERRL Musculoskeletal: Flexion and extension of cervical spine somewhat guarded secondary to pain, deep tendon reflexes normal, strength in upper and lower extremities [5/5], normal gait noted Neurological: speech clear, reed man equal, no gross sensory deficits Assessment:: Neck pain, back pain Plan:: Patient is going to start his diclofenac 75 mg 1 p.o. twice daily. We will follow-up with him in 1 month reassess his symptoms at that time. Patient's been instructed to call the office if he has any issues prior to his next appointment. Dr. Cardenas has reviewed this note and agrees with this plan of care. This note was dictated using voice recognition software and may contain errors or omissions [facility] History I have reviewed the patient's past medical history: Yes Medical History: Reports:: Anxiety, Chronic Obstructive Pulmonary Disease (COPD), Coronary Artery Disease, Depression, Hypertension Denies:: Cancer, Diabetes Mellitus Type 1, Diabetes Mellitus Type 2, Lung Disease, MRSA, Seizures *Have you ever received a pneumonia vaccine?: Yes *Have you received a flu vaccine this season?: Yes Other Medical History: Reports: Sickle Cell Disease, Other Other Surgeries: Yes: Cardiac Catheterization, Colonoscopy, Other Amputation: No Fractures: No - *Social History Smoking Status: Unknown if ever smoked Tobacco Type: cigarettes # Packs/Day (cigarettes): 1 #Yrs smoked (if former smoker): 35 Alcohol Intake: never Alcohol Intake Frequency:: other Substance Use Type: denies use, marijuana *Occupational Status:: other Housing: house Household Members: other *Travel in the last 8 weeks: None - Psychiatric History Pschychiatric History:: Reports:: Anxiety, Depression Family Hx:: Unable to obtain
== END ==
PROVIDERS: Visit Provider Clinical Nurse Specialist Family Health
DX: M54.2 Cervicalgia (principal); M54.9 Dorsalgia, unspecified
CPT/HCPCS: 99212; G0463

== ENCOUNTER 2020-09-28 09:00 | Outpatient (RCR) | payer OTHER, SELFPAY ==
--- NOTE | 2020-07-08 10:01 | HMH.PTOPEV ---
PT Outpatient Evaluation Rehab PT Outpatient Evaluation Start: 07/08/20 09:18 Freq: Status: Active Protocol: Document 07/08/20 09:46 INES (Rec: 07/08/20 10:00 INES [id number]) Electronically Signed By Darryl Hackett, PT 07/08/20 09:46 Outpatient Therapy Subjective History Subjective History Patient is a 59 year old male presenting to outpatient PT with reports of chronic lumbar and cervical spine pain as a result of a fall at work. Patient reports intermittent B lumbar spine radicular symptoms, as well as LUE radicular symptoms. Imaging after accident negative for any fractures. Comorbidities include cardiac arrythmia, hx of heart cath and COPD. Chief Complaint Pain,Paresthesia Symptom Type Numbness,Shooting Symptoms Relieved By Rest/Positioning,Heat, Prescription Meds Symptoms Aggravated By Standing,Bending/Stooping, Physical Activity,Walking, Lifting Prior Functional Limitations None Current Functional Limitations Reaching,Lifting,Housework, Standing,Sitting,Squatting, Recreation Activity,Walking, Bending/Stooping Symptom Description Constant but Variable Level of pain today (0-10) 6 Pain scale - at its best (0-10) 5 Pain scale - at its worst (0-10) 9 Cervical Eval Palpation Cervical Muscles L Cervical Paraspinal,L Upper Trapezius,L Thoracic Paraspinals Cervical/Thoracic Palpation Findings Tenderness Posture Head/C-Spine Posture Sitting Position C-Spine Flattened Head/C-Spine Posture Standing Position C-Spine Flattened Flexibility Deficits Upper Trapezius Muscle Length (R) Mild Tightness,(L) Moderate Tightness Levaetor Scapulae Muscle Length (R) Mild Tightness,(L) Moderate Tightness Pectoralis Minor Muscle Length (R) Moderate Tightness,(L) Moderate Tightness Passive Joint Mobility Cervical PIVM Dec: R OA L OA R AA L AA R C2/3 L C2/3 WNL: R C3/4 L C3/4
--- NOTE | 2020-08-25 09:33 | HMH.RHREAS ---
Rehab Reassessment Rehab OP Re-assessment Start: 08/25/20 09:26 Freq: Status: Active Protocol: Document 08/25/20 09:27 PRICE (Rec: 08/25/20 09:32 [place] [id number]) Electronically Signed By Ismael Pop, PT 08/25/20 09:27 Rehab Re-assessment Subjective Subjective Pt reports he had increased pain in lumbar spine last night that kept him awake a lot. He also reports pain in L side of neck and shoulder. Pain this date: 02/27 Objective Objective Notes Cervical AROM (in deg): Flex= 0-50, Ext= 0-55, R SB= 0-40, L SB= 0-40 (remains painful). Lumbar AROM (in deg): Flex= 0- 63, Ext= 0-24, R SB= 0-25 ( remains painful on L), L SB= 0 -25. Tenderness to Palpation: Lumbar spine 09/24 Assessment Progress Assessment Progressing as Expected Assessment Notes Pt has improved overall with less pain and no current radicular symptoms in L UE or either LE. He has some increased freedom of movement, but continued pain. Patient goals met ST,2 Goals Not Met LT,2,3,4,5,6,7,8,9,10 Revised Goals none Plan Plan Continue per initial POC. Frequency of Therapy 2 x/wk Duration of therapy 8 wks Time and Billing Re-Eval Time 15 Re-Eval Billing Units 1 PHYSICIAN CERTIFICATION: I certify the specified therapy services for Thai Ponce are required, authorized, and reviewed every 30 days.
== END 2020-09-28 09:05 | disposition home or self-care (01) ==
LOC: PT 09:00
PROVIDERS: PCP Nurse Practitioner Family; Visit Provider Clinical Nurse Specialist Family Health
DX: M54.2 Cervicalgia; M54.5 Low back pain
CPT/HCPCS: 97010; 97012; 97014; 97035; 97110; 97163; 97164; G0283

== ENCOUNTER → 2020-10-12 13:09 | Outpatient (POV) | payer OTHER, SELFPAY ==
--- NOTE | 2020-10-12 13:27 | P.CONS_ITS ---
[facility] Pain Management SOAP Note Subjective:: Patient is a pleasant 59-year-old white male who presents today for follow-up. Patient is completed physical therapy. Patient rates his pain today a 5 out of 10 mostly in his low back and down his legs. Patient has completed 6 months of conservative therapy including physical therapy and medication management. He is not gotten much relief. Patient is interested in pursuing a epidural steroid injection I do believe this would benefit him. Patient is not on any anticoagulation therapy. ROS General: no recent weight change, no fever, no sleep disturbances Respiratory: no cough, no shortness of air, no recurring pulmonary infections Cardiovascular/Peripheral Vascular: No chest pain, No palpitations, no edema, no shortness of breath. Gastrointestinal: no new onset incontinence, normal bowel movements reported Genitourinary: no new onset incontinence Musculoskeletal: Back pain, leg pain Psychiatric: normal mood/ affect Neurological: [denies new onset weakness in extremities], [denies new onset balance issues] Objective:: Physical Exam General: Alert and oriented x3, no acute distress, pleasant and cooperative, [on room air] Lungs: Resps E/U, Symmetrical chest expansion, Eyes: PERRL Musculoskeletal: Flexion and extension of lumbar spine somewhat guarded secondary to pain, deep tendon reflexes normal, strength in upper and lower extremities [5/5], [abnormal gait noted] Neurological: 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 If patient does not get any relief from this we will move forward with a updated MRI. Patient is agreeable. I will follow-up with him after his injection reassess his symptoms at that time he he was instructed to call the office if he has any issues prior to his next appointment. Dr. Cardenas has reviewed this note and agrees with this plan of care. This note was dictated using voice recognition software and may contain errors or omissions [facility] History I have reviewed the patient's past medical history: Yes Medical History: Reports:: Anxiety, Chronic Obstructive Pulmonary Disease (COPD), Coronary Artery Disease, Depression, Hypertension Denies:: Cancer, Diabetes Mellitus Type 1, Diabetes Mellitus Type 2, Lung Disease, MRSA, Seizures *Have you ever received a pneumonia vaccine?: No *Have you received a flu vaccine this season?: Yes Other Medical History: Reports: Sickle Cell Disease, Other Other Surgeries: Yes: Cardiac Catheterization, Colonoscopy, Other Amputation: No Fractures: No - *Social History Smoking Status: Unknown if ever smoked Tobacco Type: cigarettes # Packs/Day (cigarettes): 1 #Yrs smoked (if former smoker): 35 Alcohol Intake: never Alcohol Intake Frequency:: other Substance Use Type: denies use, marijuana *Occupational Status:: other Housing: house Household Members: other *Travel in the last 8 weeks: None - Psychiatric History Pschychiatric History:: Reports:: Anxiety, Depression Family Hx:: Unable to obtain
[2020-10-12 15:17] VITALS: BP 136/88; PULSE 65; RESP 18; O2SAT 98; BMI 17.7
== END ==
PROVIDERS: Visit Provider Clinical Nurse Specialist Family Health
DX: M51.16 Intervertebral disc disorders with radiculopathy, lumbar region (principal)
CPT/HCPCS: 99212; G0463

== ENCOUNTER 2020-10-23 09:51 | Day surgery (SDC) | payer OTHER, SELFPAY ==
[2020-10-23 09:55] VITALS: BP 106/78; BP 119/71; PULSE 60; PULSE 61; RESP 12; RESP 14; TEMP 36.3; TEMP 36.9; O2SAT 96; O2SAT 98; BMI 18.4
[2020-10-23 10:47] VITALS: BP 132/71; PULSE 65; RESP 18; TEMP 36.8; O2SAT 98
[2020-10-23 10:49] VITALS: BP 128/85; PULSE 73; RESP 18; O2SAT 98
--- NOTE | 2020-10-23 10:51 | HMH.PMPROC ---
- Procedure Date: 10/23/20 Time: 10:51 Anesthesiologist:: Lefty Cardenas MD Complications:: None Pre-procedure Diagnosis:: Degenerative disc disease of lumbar spine with lumbar radiculopathy symptoms Post-procedure Diagnosis:: Same Indications for Procedure:: Patient is a pleasant 59-year-old white male who we are treating for low back pain with lumbar radicular symptoms. He has increasing pain in his low back and down his left leg. We will do a lumbar epidural steroid injection today to help him with his pain symptoms. Procedure Details:: Lumbar epidural steroid injection under fluoroscopy Informed consent was obtained and the risk and benefits of the procedure was explained to the patient. The patient was taken to the procedure room. The patient was placed prone on the procedure table. The patient was prepped and draped in sterile fashion. C-arm fluoroscopy was used to view the lumbar spine. Skin and subcutaneous tissues were anesthetized using lidocaine. I placed an 18-gauge epidural needle and advanced into the L4-L5 interspace using fluoroscopic guidance and [id number] to air. After confirmation of needle placement in the epidural space with dye I injected 2 mL of lidocaine 1.5% with Depo-Medrol 80 mg. Patient tolerated the procedure well with no complications. Plan and Disposition:: We will follow-up with him in 2 weeks. Will reevaluate his symptoms at that time.
== END 2020-10-23 10:50 | disposition home or self-care (01) ==
LOC: SC.PAINP 09:53
PROVIDERS: Visit Provider Anesthesiology
DX: M51.16 Intervertebral disc disorders with radiculopathy, lumbar region (principal); I10 Essential (primary) hypertension; I25.10 Atherosclerotic heart disease of native coronary artery without angina pectoris; J44.9 Chronic obstructive pulmonary disease, unspecified; Z72.0 Tobacco use; N40.0 Benign prostatic hyperplasia without lower urinary tract symptoms; F41.9 Anxiety disorder, unspecified; F32.9 Major depressive disorder, single episode, unspecified; Z79.899 Other long term (current) drug therapy
CPT/HCPCS: 62323; J1040; Q9966

== ENCOUNTER → 2020-11-19 08:57 | Outpatient (POV) | payer OTHER, SELFPAY ==
--- NOTE | 2020-11-19 10:46 | P.CONS_ITS ---
[facility] Pain Management SOAP Note Subjective:: Patient is a pleasant 59-year-old white male who presents today for follow-up after his lumbar epidural steroid injection. Rates pain 0 out of 10. Overall doing extremely well after his injection. Patient was seen by Liz Singh in regards to his anxiety. He was put on Prozac he does not want to be on Prozac and was taken off yesterday. Patient states he wants to be on gabapentin for anxiety I discussed with him that I do not feel comfortable with this but I will reach out to Liz Singh. We did call her office she is to call us back. Overall patient doing well will follow up as needed. ROS General: no recent weight change, no fever, no sleep disturbances Respiratory: no cough, no shortness of air, no recurring pulmonary infections Cardiovascular/Peripheral Vascular: No chest pain, No palpitations, no edema, no shortness of breath. Gastrointestinal: no new onset incontinence, normal bowel movements reported Genitourinary: no new onset incontinence Musculoskeletal: Back pain at times Psychiatric: normal mood/ affect Neurological: [denies new onset weakness in extremities], [denies new onset balance issues] Objective:: Physical Exam General: Alert and oriented x3, no acute distress, pleasant and cooperative, Lungs: Resps E/U, Symmetrical chest expansion, Eyes: PERRL Musculoskeletal: Flexion and extension of lumbar spine somewhat guarded secondary to pain, deep tendon reflexes normal, strength in upper and lower extremities [5/5], normal gait noted Neurological: speech clear, education officer equal, no gross sensory deficits Assessment:: Degenerative disc disease lumbar spine lumbar radiculopathy Plan:: We will see the patient back in the next as-needed basis. I will speak with Liz Singh in regards to his gabapentin. I do not feel comfortable prescribing this for anxiety but I can make suggestions for dosing. Dr. Cardenas has reviewed this note and agrees with this plan of care. This note was dictated using voice recognition software and may contain errors or omissions [facility] History I have reviewed the patient's past medical history: Yes Medical History: Reports:: Anxiety, Chronic Obstructive Pulmonary Disease (COPD), Coronary Artery Disease, Depression, Hypertension Denies:: Cancer, Diabetes Mellitus Type 1, Diabetes Mellitus Type 2, Lung Disease, MRSA, Seizures *Have you ever received a pneumonia vaccine?: No *Have you received a flu vaccine this season?: No Other Medical History: Reports: Sickle Cell Disease, Other. Denies: Blood Transfusion Reaction Other Surgeries: Yes: Cardiac Catheterization, Colonoscopy, Other Amputation: No Fractures: No - *Social History Smoking Status: Current every day smoker Tobacco Type: cigarettes # Packs/Day (cigarettes): 30 #Yrs smoked (if former smoker): 35 Alcohol Intake: never Alcohol Intake Frequency:: other Substance Use Type: denies use, marijuana *Occupational Status:: retired Housing: house Household Members: spouse *Travel in the last 8 weeks: None - Psychiatric History Pschychiatric History:: Reports:: Anxiety, Depression Family Hx:: Unable to obtain
[2020-11-19 10:51] VITALS: BP 132/78; PULSE 65; RESP 18; O2SAT 98; BMI 18.2
== END ==
PROVIDERS: Visit Provider Clinical Nurse Specialist Family Health
DX: M51.16 Intervertebral disc disorders with radiculopathy, lumbar region (principal)
CPT/HCPCS: 99212; G0463

== ENCOUNTER → 2021-06-22 12:53 | Outpatient (CLI) | payer OTHER, SELFPAY ==
--- NOTE | 2021-06-22 12:54 | CT_ITS ---
PROCEDURE: CT LUNG SCREENING CLINICAL INDICATION: lung cancer screening COMPARISON: CT CT CHEST WO CON from 06/29/2020 TECHNIQUE: The exam was performed on a GE Light Speed [address] scanner using 2.90 mGy CTDI. A low dose helical CT CHEST was performed on a multi-detector scanner. All CT scans at the facility use one or more dose reduction, viz: automated exposure control, ma/kV adjustment per patient size (including targeted exams where dose is matched to indication, i.e. head), or iterative reconstruction technique. The LDCT was performed in a facility that meets the criteria for the screening program. Data regarding this exam was submitted to ACR which is an approved registry. The order for this exam indicates that it came as a result of a lung cancer screening counseling shard decision-making visit that included all the elements required of such a visit including smoking cessation. The radiologist interpreting this exam meets the CMS criteria for the LDCT lung cancer screening program. The exam is reported using the Lung-RADS classification scale and reported to the ACR registry. NOTE: This study was performed for the specific purposes of lung cancer screening and is not an alternative to diagnostic chest CT. RADIATION DOSE: CTDI vol(CT dose Index-volume) = 2.90mG DLP (Dose Length Product) = 120.89 mGcm FINDINGS: COPD with scattered areas of scarring with centrilobular emphysema. No change in the 5 mm noncalcified nodule in the left lower lobe. No new nodules apparent. OTHER FINDINGS: Coronary artery calcification. Enlarged left adrenal gland unchanged. Old right-sided rib fractures. IMPRESSION: Lung-RADS Category 2 Benign Appearance or Behavior Follow-up: Continue annual screening with LDCT in 12 months Dictated by: Washington Kearney MD 07/05/2021 07:29 Washington Kearney MD in [facility] 07/05/2021 07:29
== END ==
PROVIDERS: PCP Internal Medicine; Visit Provider Internal Medicine Pulmonary Disease
DX: Z87.891 Personal history of nicotine dependence (principal); Z12.2 Encounter for screening for malignant neoplasm of respiratory organs
CPT/HCPCS: 71271

== ENCOUNTER 2021-07-22 10:46 | Emergency (ER) | payer OTHER, SELFPAY ==
[2021-07-22 10:47] VITALS: BP 121/85; PULSE 74; RESP 18; TEMP 37.9; O2SAT 98; BMI 16.7
--- NOTE | 2021-07-22 10:49 | XR_ITS ---
PROCEDURE: XR CHEST 2V CLINICAL HISTORY: cough, covid symptoms COMPARISON: CR CXR2V XR chest 2V from 01/08/[address] CHEST WO CON from 06/29/2020 FINDINGS: The cardiomediastinal silhouette and pulmonary vascularity are within normal limits. The lungs are clear without infiltrates, suspicious nodules, or pleural effusions. Loop recorder device is present over the left precordial region. No acute bony findings. IMPRESSION: No acute findings. Dictated by: Washington Kearney MD 07/22/2021 12:32 Washington Kearney MD in [facility] 07/22/2021 12:32
[2021-07-22 10:56] LABS: Coronavirus 19, PCR Not Detected (NotDetected); Influenza B, PCR Not Detected (NotDetected)
[2021-07-22 11:00] VITALS: BP 115/73; PULSE 83; O2SAT 94
[2021-07-22 11:22] LABS: Influenza A, PCR Detected (NotDetected)
--- NOTE | 2021-07-22 11:24 | HMH.EDGENADL ---
ED Disposition Clinical Impression: Influenza A Disposition: Home, Self-Care Condition on Discharge: Good Instructions: Influenza Prescriptions: methylPREDNISolone [Medrol 4mg tab] 4 mg PO DIRECTED #21 tab Transmission Status: Pending to [facility] Oseltamivir Phosphate 75 mg PO BID 5 Days #10 cap Transmission Status: Pending to [facility] Referrals: Ruddy Branch [Primary Care Provider] - - Critical Care Critical Care Time: No Attestation: On 07/22/21, the high probability of a clinically significant, sudden or life threatening deterioration of the following system(s) required my full and direct attention, intervention and personal management. The time I documented below is in addition to time spent performing reported procedures but includes the following listed in this critical care notation. Medical Decision Making - Medical Records Medical records reviewed: Yes: I reviewed the patient's medical records. - Humza Inquiry Pt receiving controlled substance: No Vital Signs: 07/22/21 10:47 07/22/21 11:00 07/22/21 11:46 Temperature 100.3 F H Temperature Source Oral Pulse Rate 83 70 Pulse Rate [Radial] 74 Respiratory Rate 18 Blood Pressure 115/73 107/72 L Blood Pressure [Right Arm] 121/85 Blood Pressure Mean [Right Arm] 97 Blood Pressure Position [Right Arm] Sitting 02 Sat by Pulse Oximetry 98 94 L 96 Oxygen Delivery Method Room Air Room Air - Lab Data Lab Results 07/22/21 10:56: SARS-CoV-2 (PCR) Not detected, Influenza A Untype (PCR) Detected A, Influenza Type B (PCR) Not detected Orders (Tests/Meds): ED MEDICATIONS Discontinued Medications Generic Name Dose Route Start Last Admin Trade Name Freq PRN Reason Stop Dose Admin Acetaminophen 1,000 mg 07/22/21 10:50 07/22/21 10:53 Acetaminophen 500mg Tab PO 07/22/21 10:51 1,000 mg ONCE ONE Administration Diphenhydramine HCl 25 mg 07/22/21 11:11 07/22/21 11:17 Diphenhydramine 25mg Capsule PO 07/22/21 11:12 25 mg ONCE ONE Administration Prednisone 60 mg 07/22/21 11:11 07/22/21 11:17 Prednisone 20mg Tab PO 07/22/21 11:12 60 mg ONCE ONE Administration ORDERS Category Date Time Status Chest XR 2 view (NOT portable) [XR chest 2V] Stat Exams 07/22/21 10:49 Taken - Radiology Data #1 Image(s): Chest Image Reviewed: Yes I reviewed the patient's radiology results, Yes I reviewed the patient's radiology image Preliminary Findings: Normal/NAD, No Fracture Seen - Reevaluation(s) Time: 12:01 Reevaluation #1: On reevaluation, patient is feeling better. Nontoxic. Patient did test positive for influenza A. Likely contributing to his symptoms. Patient be discharged on short course of oseltamavir as well as steroids. Need to follow-up with PCP in 48 hours. Given strict return precautions. Verbalized understanding. Medical Decision Narrative: 60-year-old male presenting with flulike symptoms. The patient symptoms are consistent with a viral upper respiratory infection. He does have a low-grade fever. Antipyretics provided. Patient appears nontoxic. Hemodynamically stable. Work-up initiated. General Adult HPI - General Chief complaint: Upper Respiratory Infection Stated complaint: uri Time Seen by Provider: 07/22/21 10:50 Mode of Arrival: Ambulatory Limitations: No Limitations Description of Symptoms (Recalled from ER Triage Doc. by RN): TO ED PER PVT CAR WITH C/O FEVER OF 101.6, COUGH, CONGESTION, CHILLS, HEADACHE, X 2 DAYS. DENIES ANY CHEST PAIN, SOB. CPTA NONE - History of Present Illness HPI narrative: This is a 60-year-old male presented to the emergency department with some flulike symptoms. Patient states that for the last 2 days has had some fevers chills myalgias. Is also had some cough. Patient is a longstanding history of COPD. He has been using his nebulizer with some relief. Patient states that his cough
[2021-07-22 11:46] VITALS: BP 107/72; PULSE 70; O2SAT 96
[2021-07-22 12:15] VITALS: BP 101/66; PULSE 68; RESP 16; TEMP 36.8; O2SAT 96
== END 2021-07-22 12:16 | disposition home or self-care (01) ==
PROVIDERS: Emergency Provider Emergency Medicine; PCP Family Medicine
DX: J10.1 Influenza due to other identified influenza virus with other respiratory manifestations (principal); F41.8 Other specified anxiety disorders; I10 Essential (primary) hypertension; J44.9 Chronic obstructive pulmonary disease, unspecified; F17.210 Nicotine dependence, cigarettes, uncomplicated
CPT/HCPCS: 71046; 99282; C9803; U0003; U0005

== ENCOUNTER 2025-04-14 09:33 | Outpatient (CLI) | payer OTHER, SELFPAY ==
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
--- OUTSIDE RECORDS SUMMARY | 2025-03-25 14:30 | XMS_ITS | Encounter Summary ---
Author Organization [facility] Address [address] [place] [address] Care Team Providers Care Legal File Clerk Name Role Phone Ruddy Branch MD Primary Care Provider [phone] Reason for Visit * Reason Comments Follow-up Encounter Details Date Type Department Care Team (Latest Contact Info) Description 03/25/2025 2:30 PM EDT Office Visit [place] [facility] [address] 1st [address] [place] [address] Cristian Rea MD [address] [place] [address] Chronic osteomyelitis of right tibia [...] and Family Not on file 03/19/2024 Attends Anabaptism Services Not on file 03/19 Active Member [...] Recorded Patient Health Questionnaire-2 Score 0 10/15/2024 [facility] Occupat ional Health - Occupational [...] place to sleep or slept in a [facility] (including now)? No 03/19/2024 PHQ-9 Answer Date [...] drink first t trupti in the morning (EYE-STICK PULLER) to steady your nerves or to get rid of a hangover? 0 03/14/2024 CAGE Questionnaire Score 0 024 Utilities Answer Date Recorded In the past 12 months has th e [employer], gas, oil, or water company threatened to [...] Description 04/14/2025 2:30 PM EDT Office Visit [facility] [address] [place] [address] Jennifer Novak MD [address] [place] [address] 05/06/2025 8:30 AM EDT Office Visit [facility] [address] [place] [address] Catalina Ruiz, PROFESSOR OF FOOD BIOCHEMISTRY [address] [facility] [address] [place] [address] 05/06/2025 2:30 PM EDT Office Visit [facility] Surgery [facility] Medicine [address] [place] [address] Cristian Rea MD [address] [place] [address] 05/20/2025 1:00 PM EDT Office Visit [address] [address] Catalina Ruiz, PROFESSOR OF FOOD BIOCHEMISTRY [address] [facility] [address] [place] [address] Scheduled Orders Name Type Priority [...] documented as of this encounter Care Teams Legal File Clerk Relationship Specialty Start Date End Date Ruddy Branch MD PCP - General 12/14/22 documented as of this encounter
--- OUTSIDE RECORDS SUMMARY | 2025-04-09 11:33 | XMS_ITS | Encounter Summary ---
Author Organization [facility] Address [address] [id number] Care Team Providers Care Administrative Sales Assistant Name Role Phone Ruddy Branch MD Primary Care Provider [phone] Reason for Referral * Home Health (Routine) - Authorized Specialty Diagnoses / Procedures Referred By Sunil hardy Referred To Contact Home Health Services / Case Management Diagnoses 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) Cristian Rea MD [address] [facility] [address] [place] [address] Phone: tel: fax: CASE MANAGEMENT [address] [place] [address] Phone: tel: Referral ID Status Reason Start Date Expiration Date Visits Requested Visits Authorized [id number] Authorized Specialty Services Required 04/11/2025 10/11/[phone] Reason for Visit * Auth/Cert (Routine) Specialty Diagnoses / Procedures Referred By Contnadira t Referred To Contact Diagnoses 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) 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) [M86.461] Procedures WV REMOVAL DEEP IMPLANT WV ADJ TISS XFER SCALP,EXTREM <10 SQCM WV MUSCLE-SKIN FLAP,LEG WV SPLIT GRFT TRUNK,ARM,LEG <100 SQCM WV ADJ TISS XFER SCALP,EXTREM <10 SQCM REMOVAL, HARDWARE Rotational Flap, Adjacent tissue transfer, split thickness skin graft RIGHT leg Cristian Rea MD [address] [place] [address] Phone: tel: fax: [facility] A OPERATING ROOM [address] [place] [address] Phone: tel: Referral ID Status Reason Start Date Expiration Date Visits Re quested Visits Authorized [id number] 1 1 Encounter Details Date Type Department Care Team (Latest Contact Info) Description 04/09/2025 11:33 AM EDT - 04/11/2025 5:45 PM EDT Hospital Encounter [facility] P[facility] 9 T2 UNI [address] [place] [address] Cristian Rea MD [id number] [place] [address] 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) Discharge Disposition: Home or Self Care Social History Tobacco Use Types Packs/Day Years Used Date Smoking Tobacco: Former Cigarettes 0.7 73.1 0 11/19/1980 - 12/13/2023 Passive Smoke Exposure: Current Smokeless Tobacco: Never Tobacco Cessation:Counseling Given: Not Answered Comments:1 ppd Alcohol Use Standard Drinks/Week Comments Not Currently 0 (1 standard drink = 0.6 oz pur e alcohol) Social Connection and Isolation Panel Answer Date Recorded Frequency of Communication with Friends and Fami ly Not on file 03/19/2024 Frequency of Social Gatherings with Friends and Family Not on file 03/19/2024 Attends Latter-Day Services Not on file 03/19 Active Member [...] Recorded Patient Health Questionnaire-2 Score 0 10/15/2024 [facility] of Occupat ional [facility] - Occupational Stress Questionnaire Answer Date Recorded Do you feel stress - tense, restless, nervous, or anxious, or unable to sleep at night because your mind is troubled all the time - these days? To some extent 03/19/2024 Housing Stability Vital Sign Answer Jc [...] place to sleep or slept in a custodial (including now)? No 03/19/2024 PHQ-9 Answer Date Recorded Patient Health Questionnaire-9 Score 0 10/15/2024 Humiliation, Afraid, Rape, and Kick questionnair e Answer Date Recorded Within the last year, have y ou been afraid of your partner or ex-partner? No 04/11/2025 Within the last year, have y ou been humiliated or emotionally abused in other ways by your partner or ex-partner? No Within the last year, have y ou been kicked, hit, slapped, or otherwise physically hurt by your partner or ex-partner? No 04/11/2025 Within the last year, have y ou been raped or forced to have any kind of sexual activity by your partner or ex-partner? No 04/11/2025 Social Connection and Isolation Panel Answer Date Recorded Frequency of Communication with Friends and Fami ly Not on file 04/11/2025 Frequency of Social Gatherings with Friends and Family Not on file 04/11/2025 Attends Latter-Day Services Not on file 04/11 Active Member of Clubs or Organizations Not on f ile 04/11/2025 Attends Club or Organization Meetings Not on vandana e 04/11/2025 Are you , , di vorced, , never , or living with a partner? 04/11/2025 AUDIT-C Answer Date Recorded Q1: How often do you have a drink containing alcohol? Never 04/11/2025 Q2: How many drinks containi ng alcohol do you have on a typical day when you are drinking? Patient does not drink Q3: How often do you have si x or more drinks on one occasion? Never 04/11/2025 Hunger Vital Sign Answer Date Recorded Within the past 12 months, y ou worried that your food would run out before you got the money to buy more. Never true 04/11/20 Within the past 12 months, t he food you bought just didn't last and you didn't have money to get more. Never true 04/11/2025 PRAPARE - Transportation Answer Date Re corded In the past 12 months, has l ack of transportation kept you from medical appointments or from getting medications? No 03/22 In the past 12 months, has l ack of transportation kept you from meetings, work, or from getting things needed for daily living? No 04/11/2025 Housing Stability Vital Sign Answer Jc e Recorded In the last 12 months, was t here a time when you were not able to pay the mortgage or rent on time? No 04/11/2025 Number of Times Moved in the Last Year Not on fi le 04/11/2025 At any time in the past 12 m [facility], were you homeless or living in a custodial (including now)? 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 0 03/14/2024 CAGE Questionnaire Score 0 024 Utilities Answer Date Recorded In the past 12 months has th e electric, gas, oil, or water company threatened to shut off services in your home? No 04/11/2025 Sex and Gender Information Value Date Recorded Sex Assigned at Male 02/29/2024 10:05 AM EDT Legal Sex Male 8:34 PM EDT Gender Identity Male 02/29/2024 10:05 AM EDT Sexual Orientation Straight 02/29/2024 10 :05 AM EDT documented as of this encounter Last Filed Vital Signs Vital Sign Reading Time Taken Comments Blood Pressure 121/84 04/11/2025 11:25 AM EDT Pulse 64 04/11/2025 11:25 AM EDT Temperature 36.8 C (98.2 F) 04/11/2025 11:25 AM EDT Respiratory Rate 17 04/11/2025 11:25 AM EDT Oxygen Saturation 95% 04/11/2025 11:25 AM EDT Inhaled Oxygen Concentration - - Weight 42.4 kg (93 lb 8 oz) 04/09/2025 1:36 PM E DT Height 172.7 cm (5' 8 ) 03/28/2025 10:09 AM EDT Body Mass Index 14.22 03/28/2025 10:09 AM EDT documented in this encounter Functional Status * AUDIT-C Score Answer Date of Assessment Author 0 04/11/2025 1:25 PM EDT Clari Verde RN * Question Answer Date of Assessment Author Q1: How often do you have a drink containing alcohol? Never 04/11/2025 1:25 PM EDT Clari Verde RN Q2: How many drinks containing alcohol do you have on a typical day when you are drinking? Patient does not drink 04/11/2025 1:25 PM EDT Clari Verde RN Q3: How often do you have six or more drinks on one occasion? Never 04/11/2025 1:25 PM EDT Clari Vrede RN * Calculated C-SSRS Risk Score (Lifetime/Recent) Answer Date of Assessment Author No Risk Indicated 04/09/2025 8:00 PM EDT Qiana Nuno RN * Question Answer Date of Assessment Author 1. Wish to be (Past 1 Month) No 025 8:00 PM EDT Qiana Nuno RN 2. Non-Specific Active Suici bianka Thoughts (Past 1 Month) No 04/09/2025 8:00 PM EDT Yaakov, Jasmi ne A, RN 6. Suicidal Behavior (Lifetime) No 8:00 PM EDT Qiana Nuno, RN documented as of this encounter Medications at Time of Discharge acetaminophen (Tylenol) 500 MG tablet Take 2 tablets by mouth every 6 hours as needed for pain. 50 tablet 04/11/2025 DAPTOmycin (Cubicin) injectionIndicatio ns: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) Infuse 9 mL into a venous catheter 1 (one) time each day at the same time over 3 minutes. Inpatient/[place] specific directions only. Mix and deliver per institution/facil ity policy. Thru 05/20/25 351 mL 04/11/2025 05/20/20 25 gabapentin (Neurontin) 800 MG tablet Take 1 tablet by mouth nightly. ibuprofen 400 MG tablet Take 1 tablet by mouth every 6 hours as needed for moderate pain. 50 tablet 04/11/2025 methocarbamol (Robaxin) 750 MG tablet Take 1 tablet by mouth every 6 hours as needed for muscle spasms. 50 tablet 04/11/2025 naloxone (Narcan) 4 mg/0.1 mL nasal spray 1. Give 1 spray in nostril for no/slow breathing or cannot wake after opioid use 2. Call 911 3. Repeat in other nostril if symptoms continue 1 each 04/11/2025 Nutritional Supplements (Boost High Protein) liquidIndications: Poor nutrition Take 1 Bottle by mouth 3 times a day. 93264 mL 5 01/08/2025 oxyCODONE (Roxicodone) 5 MG immediate release tablet Take 1 tablet by mouth every 4 hours as needed for severe pain. 20 tablet 04/11/2025 senna-docusate (Angela-Colace) 8.6-50 MG tablet Take 1 tablet by mouth 2 times a day. 28 tablet 04/11/2025 sulfamethoxazole-t rimethoprim (Bactrim DS) 800-160 MG tabletIndications: Surgical site infection Take 1 tablet by mouth 2 times a day. 60 tablet 5 01/14/2025 traMADol (Ultram) 50 MG tablet Take 1 tablet by mouth every 4 hours as needed for severe pain (Severe pain unresponsive to opiods). 30 tablet 04/11/2025 documented as of this encounter Miscellaneous Notes * Christian Terry, TITUS - 04/11/2025 5:07 PM EDT Images from the original note were not included. 450 Safe Use of Controlled Substances Taking a medicine may be an important part of your treatment. Your body should heal faster if you take medicine safely. Some medicines are called Controlled Substances. This means their use is controlled by law. Some of these can harm you if you do not take them safely. What can I do to make sure I take my medicine safely? ? Follow the instructions we give you for how to take your medicine. ? We will give you an instruction sheet for each of your medicines. Ask your doctor or nurse if youdo not get these instructions. ? Some medicines make you sleepy or cloud your thinking. Do not drive, use heavy machines or do dangerous activities while taking these medicines. ? Read the label on the bottle each time you take your medicine. ? Do not take your medicine with alcohol or other sedatives. ? Do not take medicine after the expiration date. ? It is against the law to sell your medicine or share it with others. ? Do not drive while using your medicine. How should I store my medicine? Store it in a safe place. This will keep others from taking your medicine and help you keep track of it. ? Store controlled substances in a cabinet or container that you can lock. ? Keep it in a place that is cool, dry and out of direct sunlight. ? Do not leave it in the car. ? Do not store in a refrigerator or freezer, unless your doctor tells you to. ? Call your doctor right away if your medicine is lost or stolen. How should I dispose of medicine that is or no longer needed? You may have medicine left over that you do not need or should not take. You must dispose of it theright way to protect yourself and others. You can ask your local pharmacist how to dispose of them.You can also visit these Web sites to learn more about disposal of controlled substances: ? Drug Enforcement Agency ([place]): http://www.deadiversion.Vaultizeoj.gov/drug_disposal/takeback/index.htm ? National Association of Drug Diversion Investigators (NADDI): http://rxdrugdropbox.org/ ? [place] Office of Drug Control Policy: http://odcp.[place].gov/Prescription+Drug+Drop+Box+Sites.htm Are there concerns about or ? ? Before you take a medicine, tell your doctor if you are or plan to get . This could harm your baby. ? Tell your doctor if you breastfeed. Medicine in breast milk may be bad for your child. What if I have low or impaired vision? If you have vision problems, take extra care with your medicine. ? Wear your glasses when you take your medicine. ? Do not take medicine in the dark. What are the signs of overdose? Some controlled substances may cause breathing problems if you take more than your doctor recommends. This may lead to serious health problems or even . You and your caregivers should watch for the following signs of overdose. ? Slurred speech, confusion or stumbling ? Feeling dizzy or faint ? Acting drowsy or groggy ? Unusual snoring, gasping or snorting during sleep ? Hard to wake up or keep awake What should I or my caregiver do if I overdose? You or your caregiver should call 911 if you have any of these problems: ? Cannot wake up ? Cannot talk after waking up ? Shortness of breath, slow or light breathing, or breathing has stopped ? Heartbeat is slow or stopped ? Gurgling noise comes from the mouth or throat ? Body is limp or seems lifeless ? Face is pale or clammy ? Fingernails or lips look blue or purple What is a VIDYA report? [facility] is a system that tracks prescriptions of controlled substances in [place]. The VIDYA report tells your doctor if you have been prescribed controlled substances in the past. Doctors must get a VIDYA report before prescribing controlled substances. What can I do if the information in my VIDYA report is wrong? You or your doctor may contact the dispenser who reported the information to VIDYA. If the dispenser agrees that the information should be changed, he or she can fix the VIDYA report. However, the dispenser may certify that the report is correct. If that is the case, you or your doctor may then call the [place] Drug Enforcement and Professional Practices Branch at .This will start an investigation of the error. * Christian Terry, TITUS - 04/11/2025 5:07 PM EDT Images from the original note were not included. [id number] Recognizing and Treating Wound Infection Wounds can become infected with harmful germs (bacteria). This prevents healing. It also increases your risk of scars. In some cases, the infection may spread to other parts of your body. An infection with the bacteria that causes tetanus can be fatal. Know what to look for and get prompt treatmentfor infection. A wound that is healing normally is bright, beefy red. A wound that is not healing normally may be dark in color or have red streaks. What are the risk factors for infection? A wound is more likely to become infected if it: ? Results from a hole (puncture), such as from a nail or piece of glass. ? Results from a human or animal bite, especially a cat. ? Isn't cleaned or treated soon after occurring. ? Occurs in your hand, foot, leg, armpit, or groin (the area where your belly meets your thighs). ? Contains dirt or saliva. ? Heals very slowly. ? Occurs and you have diabetes, alcoholism, a weak immune system, or poor blood circulation. What are the symptoms of infection? Call your health care provider at the first sign of infection, such as: ? Redness or warmth around the wound. ? Edges look like they are opening. ? Yellow, yellow-green, white, or foul-smelling drainage from a wound. ? More pain, swelling, or redness in or near a wound. ? A change in the color or increase in the size of a wound. ? Red streaks in the skin around the wound. ? A fever. How are infections treated? Treatment depends on the type of infection you have, and how serious it is. Your health care provider may prescribe oral antibiotics to help fight bacteria. Your provider may also clean the wound with an antibiotic solution or apply an antibiotic ointment. Sometimes a pocket of pus (abscess) may form. In that case, the abscess will be opened and the fluid drained. You may need hospital care if the infection is very severe. Preventing wound infection Follow these steps to help keep wounds from getting infected: ? Wash the wound right away with soap and water. ? Consider applying a small amount of antibiotic ointment. You can buy this without a prescription. ? Cover wounds with a bandage or gauze dressing. Change it daily or whenever it gets wet or dirty. ? Keep the wound clean and dry for the first 24 hours. ? Wash your hands before and after you care for your wound. ? Change the dressing daily. Follow the instructions your health care provider gave you. Last Reviewed Date: 2024 00:00:00 ?? [id number] [employer]. All rights reserved. This information is not intended as a substitute for professional medical care. Always follow your healthcare professional's instructions. * Vitaliy PaulPHYLICIA - Christian Jay RN - 04/11/2025 5:07 PM EDT Images from the original note were not included. 96670 Preventing a Surgical Site Infection A risk of any surgery is an infection at the surgical site. The surgical site is a cut the surgeon makes in the skin to do the surgery. Surgical site infections can range in type. It may be a minor skin infection. Or it may be severe and include tissue under the skin or other organs. In some cases,a severe infection can cause . The information below tells you: ? About surgical site infections. ? What hospitals do to prevent them. ? How they?re treated if they do occur. ? What you can do to prevent an infection. Hand washing reduces the risk of infection. What causes a surgical site infection? Germs are everywhere. They?re on your skin, in the air, and on things you touch. Many germs are good. Some are harmful. Surgical site infections occur when harmful germs enter your body through the incision in your skin. Some infections are caused by germs that are in the air or on objects. But most are caused by germs found on and in your own body. Who is at risk for a surgical site infection? Anyone can have a surgical site infection. Your risk is higher if you: ? Are an older adult. ? Have a weak immune system. ? Have other health conditions such as diabetes. ? Take certain medicines, such as steroids. ? Are a smoker. ? Have certain types of surgery, such as abdominal surgery. ? Have poor nutrition. ? Are very overweight. ? Have a surgery that lasts longer than 2 hours. What are the symptoms of a surgical site infection? An infection often shows up as skin redness, pain, and swelling around the incision that gets worse. Later, a cloudy or greenish-yellow fluid may come from the incision. The fluid may smell bad. The incision may pull apart or open up. You are likely to have a fever and may feel very ill. Symptoms can appear at any time. They may happen from hours to weeks after surgery. Implants such as an artificial knee or hip can become infected at any time after the surgery. How is a surgical site infection treated? ? A surgical site infection is treated with antibiotics. The type of medicine you get will depend on what may be causing the infection. Most serious wound infections need wound care. In some cases, surgery may be needed on the infected wound. ? An infected skin wound may be reopened and cleaned. A deep wound may need to be packed with gauze. The gauze is changed often until the wound starts to heal from the inside out. Your health care provider will decide the best way to treat your infection. ? If an infection occurs where an implant is placed, the implant may be removed. ? If you have an infection deeper in your body, you may need surgery to treat it. What hospitals do to prevent surgical site infections Many hospitals take these steps to help prevent surgical site infections: ? Handwashing. Before the surgery, your surgeon and all surgery staff scrub their hands and arms with an antiseptic soap. ? Clean skin. The site where your incision is made is carefully cleaned with an antiseptic solution. ? Sterile clothing and drapes. The surgical team wears medical uniforms. These are known as scrub suits. They wear long-sleeved surgical gowns, masks, caps, shoe covers, and sterile gloves. Your bodyis fully covered with a large sterile sheet (sterile drape). There is an opening in the sheet wherethe incision is made. ? Clean air. Operating rooms have special air filters. They use positive pressure airflow to prevent unfiltered air from entering the room. ? Careful use of antibiotics. Antibiotics are given no more than 60 minutes before the incision is made. They are generally stopped within 24 hours after surgery. This depends on the type of surgery.This helps kill germs but prevents problems that can occur when antibiotics are taken longer. ? Controlled blood sugar levels. Your blood sugar level may rise. This can be because of the stressof the surgery. Your blood sugar level is watched closely to make sure it stays within a normal range. High blood sugar delays wound healing. This increases the risk of infection. ? Controlled body temperature. A eptpp-sdtu-obpmmt temperature during or after surgery prevents oxygen from reaching the wound. This makes it harder for your body to fight infection. Hospitals may warm I.V. fluids, and provide warm-air blankets. Your temperature is watched throughout the surgery. ? Safe hair removal. Any hair that must be removed is clipped right before the incision, not shavedwith a razor. This prevents tiny nicks and cuts where germs can enter. ? Wound care. After surgery, a closed wound is covered with a sterile dressing for 1 to 2 days. Open wounds are packed with sterile gauze and covered with a sterile dressing. What you can do to prevent a surgical site infection ? Ask questions. Learn what your hospital is doing to prevent infection. ? If instructed, shower or bathe with plain soap the night before and the day of your surgery. Follow all instructions you're given. You may be asked to use a special cleanser that you don?t rinse off. ? If you smoke, stop as long as possible before and after the surgery. Ask your provider about waysto quit. ? Take antibiotics only when your provider tells you to. Using antibiotics when they?re not needed can create germs that are harder to kill. Finish the entire prescription of your antibiotics even ifyou feel better. ? Ask health care workers to clean their hands with plain soap and water or with an alcohol-based hand tarring machine operator before and after caring for you. Don?t be afraid to remind them. ? After surgery, eat healthy foods. Care for your incision as directed by your health care team. When to contact your doctor Contact your provider or seek medical care right away if: ? The pain at the surgical site gets worse. ? A red streak, worse redness, or puffiness appears near the incision. ? Yellowish, cloudy, or bad-smelling fluid leaks from the incision. ? Your stitches dissolve before the wound heals. ? You have a fever of 100.4?? F ( 38??C ) or higher, or as advised by your provider. ? You have a tired feeling that doesn?t go away. Last Reviewed Date: 2024 00:00:00 ?? [id number] [employer]. All rights reserved. This information is not intended as a substitute for professional medical care. Always follow your healthcare professional's instructions. * Vitaliy PaulFHPHYLICIA - Christian Jay RN - 04/11/2025 5:07 PM EDT Images from the original note were not included. 203 Managing Pain - Orthopaedic Patients What should I expect? Injuries to bones are often very painful. We cannot make your pain go away completely. But we will do everything we can to help with your pain. We want you to be comfortable and able to move. It is also normal to have pain after an injury or surgery. Treating your pain is an important part of your care.We will do our best to manage your pain while you heal. It is important that you be able to move, take deep breaths, and be ready to care for yourself at home. Pain treatments may includemedicine, ice or heat, changing positions, distraction, relaxing, listening to music. How should I use pain medicine? ? When you leave the hospital, you will get a prescription for pain medicine. Always take pain medicine as directed. ? If you need more than prescribed - or take more than directed - and have not contacted your doctor, you will not get a new prescription when you run out. ? You should take pain medicine 30 to 60 minutes before you do exercise or physical therapy. ? As your body heals, you will have less pain. When this happens, you will start taking less pain medicine. Do this by taking a smaller dose or by taking it less often. Which pain medicine should I take? Only take the pain medicine your doctor orders. Do not take other medicines unless your doctor saysit is OK. Ask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 right tibia wound whowas started on IV vancomycin. Pharmacy was consulted for management of vancomycin. Dose History: Recent Vancomycin Admin vancomycin HCl (Vancocin) 750 mg in sodium chloride 0.9% 250 mL IVPB (vial adapter required) (mg) 750 mg New Bag 04/10/25 1107 vancomycin (Vancocin) vial for injection (g) 1 g Given 04/09/25 1652 vancomycin IVPB 1500 mg in 250 mL NS (premix) (mg) 750 mg Given 04/09/25 1550 vancomycin HCl (Vancocin) 750 mg in sodium chloride 0.9% 250 mL IVPB (vial adapter required) (mg) 750 mg New Bag 04/09/25 1507 Wt Readings from Last 1 Encounters: 04/09/25 42.4 kg (93 lb 8 oz) BMI: 14.22 kg/m?? Creatinine, Plasma (mg/dL) Date/Time Value 04/10/2025 0229 0.80 04/09/2025 1501 0.80 01/21/2025 1340 0.81 Estimated Creatinine Clearance: 57.4 mL/min (by C-G formula based on SCr of 0.8 mg/dL). Assessment Estimated kinetic evaluation utilizing population kinetics: Vancomycin Dosing Method Vancomycin Dose Calculation Method Area under the curve (AUC) dosing General Parameters for Vancomycin Dose Calculation (AUC) Dosing Weight 42.4 kg (93 lb 7.6 oz) Vancomycin clearance calculation method Matzke equation Administer over 60 minutes AUC 24 hr goal (mg-hr/L) 500 mg??hr/L Estimated creatinine clearance (mL/min 57.4 mL/min Matzke Equation Parameters for Vancomycin Dose Calculation (AUC) Estimated vancomycin Vd (0.7 L/kg typically) 0.7 L/kg (Typical) Crass Equation Parameters for Vancomycin Dose Calculation (AUC) Serum creatinine (mg/dL) 0.8 mg/dL Recommended Initial Vancomycin Dosing Estimated Ke (hr ^-1) 0.052 hr^-1 Estimated half-life (hr) 13.33 hr Estimated vancomycin Cl (L/hr) 1.543 Recommended TDD (mg) 771.5 Plan 1. Loading dose not required. Vancomycin 750 mg x 1 given 04/09. 2. Recommend initiating vancomycin 750 mg IV every 24 hours to target an AUC of 400-600. 3. Monitor renal function (Scr and BUN) and UOP at least 2-3x/week or more frequently if renal function changes. 4. Obtain vancomycin levels around the 4th dose of new regimen if therapy is to be continued. Pharmacy will continue to follow. Monet Chambers PharmD Surgery Clinical Float Pharmacist Available via [employer] Secure Chat * Progress Notes - Chasidy Rocha CCC-BENZENE OPERATOR - 04/10/2025 12:04 PM EDT Speech Language Pathology Clinical Swallow Initial Evaluation or Discharge Evaluation Patient Name: Thai Ponce Age: 64 y.o. Today's Date: 04/10/2025 Recommendations: Regular (IDDSI Level 7) diet w/ thin liquids (Level 0). Meds as able. No further BENZENE OPERATOR services indicated at this time. Will sign off. Please re- consult if needed. History/Background Information Hospital course: 64 yoM presents 04/09 with right tibia wound. Pt was previously evaluated and deemed a candidate for surgery. Pt underwent right leg I&D and removal of hardware due to chronic infection. Subjective Thai Ponce was alert and cooperative. Identified by name and . RN provided verbal consent for evaluation. Objective Current diet: Adult diet Diet texture: Full liquid Respiratory Status: room air WBC: 5.60 Relevant Imaging: No recent relevant imaging Direction Following: Follows multi-step and complex directions Oral Mechanism Report: Dentition: edentulous Oral hygiene: WFL Focused Cranial Nerve Exam: Trigeminal Nerve (V): facial sensation intact and mandible strength/ROM intact Facial Nerve (VII): WFL Vagus Nerve (X): intact palate elevation Spinal Accessory (XI): Not assessed Hypoglossal Nerve (XII): WFL Function Exam: Secretion Management: adequate Vocal Quality: adequate Cough: - Volitional adequate - Reflexive adequate Oral Feeding Trials: Positionin degrees, upright Feeding assistance: independent, self-fed Consistencies Administered: thin liquid via straw, puree via teaspoon, and dry solid consistency Risk Factors: Subjective complaints of swallowing difficulties [place] Swallow Protocol (Héctor and Lashayr, 2014) - 3 Oz water challenge: not tested this date Assessment Pt presents with no overt signs/symptoms of aspiration across consistencies. Pt reported an occasional hx of feeling food and soda sticking in his throat that improved with liquid washes. Pt denied that sensation with solid trials during this exam. Recommend upgrade of diet to regular and thins. Ifany difficulty with current po, recommend a MBS to further assess safety of the swallow. Prognosis: Good for improved function with skilled speech pathology services focusing on stated goals. Patient Education was provided via verbal instruction to patient regarding risk factors for dysphagia, clinical indicators of dysphagia following evaluation, and plan of care . Will continue to provide education in subsequent sessions as warranted. Results and recommendations of this evaluation were communicated to: RN/Team Plan / Recommendations Diet recommendations: Regular and IDDSI 0-thin liquids FOIS (Functional Oral Intake Scale) 7 -Total oral diet with no restriction Goals No further skilled speech services indicated. Please re-consult if any further difficulties or needfor an instrumental exam. * Nursing Note - Oh Paulson, RN - 04/10/2025 11:30 AM EDT Orthopedic Transition Nurse Note General: Spoke with: Patient and Bedside color buffer and Interventions: Assessed: Dressing and Splint Dressing Interventions: CDI and RLE Prevena dressing in place; Prevena alarming; notified team to contact Plastics and Splint Interventions: CDI Negative Pressure Wound Therapy Leg Anterior;Distal;Lower;Right (Active) Dressing Type Silver impregnated foam 04/10/25 07 Dressing Status Clean;Dry;Intact 04/10/25 07 Number of Foam Pieces Used 4 04/09/25 1809 Cycle Continuous 04/10/25 07 Target Pressure (mmHg) 125 04/10/25 07 Canister Changed Yes 04/10/25 09 Output (mL) 45 mL 04/10/25 09 Wound 04/09/25 Surgical Open Surgical Incision Pretibial Distal;Right (Active) Wound Assessment Unable to assess 04/10/25 07 Margins Unable to assess 04/10/25 0700 Angela-Wound Assessment Unable to assess 04/10/25 07 Closure Unable to assess 04/10/25 07 Drainage Amount None 04/10/25 07 Dressing Dry dressing 04/10/25 07 Dressing Status Clean;Dry;Intact 04/10/25 07 Education: Education provided on: Splint, Signs and symptoms of infection, Weight bearing mobility, and Pain protocol/management Plan of Care: Follow up with Dr. Rea on 05/06/2025 at 1430. Op-Plan: Completed Contact Card Given: yes Comments: Patient in chair. Educated patient on the importance of Jonnathan in promoting wound healing. Orthopedic team recommends post-operative patients take at least 2 packets per day of Jonnathan for 14 days aftersurgery. PT/OT recs HWA. Awaiting cultures/ID recs, and Prevena plan from Plastic surgery. RLE: Prevena present. Splint must remain clean, dry, and intact at all times. If you must shower, cover the splint with plastic. For medical questions or concerns after discharge, please contact the Orthopedic Transition Nurse at [phone] Monday through Monday 8:00 am to 2:30 pm. If you feel your concern is a medical emergency please call 911 immediately. * Consults - Brook Alvarado PA - 04/10/2025 10:55 AM EDTAssociated Order(s): Inpatient consult to Infectious Diseases Inpatient consult to Infectious Diseases Consult performed by: Brook Alvarado PA Consult ordered by: Cristian Rea MD Reason for consult: chronic tibial OM BONE & JOINT INFECTIOUS DISEASE INPATIENT CONSULT Date of Consult: 04/10/2025 Date of Admission: 04/09/2025 HPI OBTAINED FROM: [X] Patient [ ] Family [ ] Friend [ ] Technical Solutions Engineer [X] Medical records HISTORY OF PRESENT ILLNESS: Thai Ponce is a 64 y.o. male with a PMH of right distal tibia/fibular surgical site infection and OM s/p 01/31/24 I&D, cultures with MRSA. Prior to his I&D he received almost 21d of Bactrim (01/08-01/29). He then received 6 weeks of daptomycin and cefepime with normalization of CRP, which ended 03/13/24 and he was transitioned to PO doxycycline. He was re-treated with IV daptomycin for another 6 weeks followed by transition to PO doxycycline (potentially lifelong) for suppression inSept 2024. He later was transitioned to Bactrim suppression due to inability to tolerate doxycylinedue to vomiting. He followed regularly in ID clinic, last seen 01/14/25. He had a repeat CT right ankle 02/04/25 which showed focal destruction of the anterior distal tibia diaphysis near the metaphysis with soft tissue density within the marrow concerning for possible granulomatous tissue. Ortho reviewed and felt that his fracture had healed enough to tolerate removal of hardware and planned a combined case with plastic surgery for coverage. Dr. Rea recommended removal of medial based implants given this was closest to his chronic wound/draining sinus tract.He was admitted on 04/09/25 and underwent excision of sinus tract, I&D of infected tibia, partial removal of hardware from distal medial tibia, adjacent tissue transfer from right leg with Integraand incisional wound vac placement. Surgical bone cultures collected and pending. He has been started on vancomycin. Patient seen resting comfortably in bed. He reports he is feeling well, tolerating IV antibiotics so far. He reports he has been taking his Bactrim as prescribed, there was a 2-3 week period in December where he tried to decrease his dose but did have increase in his CRP which was noted by outpatient IDprovider. He had his wound vac changed this morning. He was concerned about the defect from his tissue flap, reassured him this was expected. He confirmed he still lives in [place] with his . He is agreeable to OPAT/PICC line placement if it needed but overall not excited about a long course of IV antibiotics. ROS: 14 point ROS was reviewed and negative except as detailed above. PAST MEDICAL HISTORY: Past Medical History[1] PAST SURGICAL HISTORY: Surgical History[2] ALLERGIES: Allergies[3] HOME MEDICATIONS: Prior to Admission medications Medication Sig Start Date End Date Taking? Authorizing Provider gabapentin (Neurontin) 800 MG tablet Take 1 tablet by mouth nightly. Yes Provider, Historical Nutritional Supplements (Boost High Protein) liquid Take 1 Bottle by mouth 3 times a day. 01/08/25 Yes Ria Hansen APRN oxyCODONE (Roxicodone) 5 MG immediate release tablet Take 1 tablet by mouth every 8 hours. 01/10/25 Yes Provider, Historical sulfamethoxazole-trimethoprim (Bactrim DS) 800-160 MG tablet Take 1 tablet by mouth 2 times a day. Patient not taking: Reported on 04/09/2025 01/14/25 Ria Hansen APRN mupirocin (Bactroban) 2 % ointment Apply 1 Application topically 2 times a day. Apply to each nostril twice daily for 5 days before surgery. 03/25/25 04/10/25 Cristian Rea MD CURRENT MEDICATIONS: Current Medications[4] SOCIAL HISTORY: Social History[5] FAMILY HISTORY: Family History[6] PHYSICAL EXAMINATION: GEN: chronically ill-appearing, very thin, pleasant SKIN: warm, well-perfused, no rashes or lesions on exposed skin, wound photos reviewed on patient'sphone from W change this morning demonstrate anteriomedial incision is well approximated with sutures in place and adjacent medial tissue donor site with integra in place EYES: sclera anicteric, EOMI, PERRL HENT: NCAT, mmm, neck supple, full ROM, edentulous LUNGS: unlabored VASC: no cyanosis, no edema MSK: no obvious deformity, full ROM NEURO: A&OX3, no focal neurologic deficits PSYCH: appropriate mood and affect VITAL SIGNS: Patient Vitals for the past 24 hrs: BP Temp Temp src Pulse Resp SpO2 Weight 04/10/25 0427 87/58 -- -- 52 -- -- -- 04/10/25 0408 (!) 78/48 36.6 ??C (97.8 ??F) -- 50 -- 98 % -- 04/09/25 2321 101/66 36.6 ??C (97.8 ??F) -- 57 -- 99 % -- 04/09/25 1924 105/66 36.6 ??C (97.8 ??F) Oral 69 16 97 % -- 04/09/25 1900 91/64 -- -- 58 16 98 % -- 04/09/25 1845 (!) 107/95 -- -- 91 16 94 % -- 04/09/25 1830 109/73 36.4 ??C (97.5 ??F) Oral 59 16 97 % -- 04/09/25 1815 96/67 -- -- 64 16 96 % -- 04/09/25 1810 118/75 -- -- 88 18 98 % -- 04/09/25 1805 108/78 -- -- 82 17 100 % -- 04/09/25 1800 132/83 36.5 ??C (97.7 ??F) Oral 88 16 100 % -- 04/09/25 1336 110/70 37 ??C (98.6 ??F) Oral 69 14 98 % 42.4 kg (93 lb 8 oz) LABS: Labs in last 18 hours CBC WBC 5.60 Hb 12.5 (L) Plt 251 Hct 37.2 (L) ANC ?? INR ??, PTT ??, Anti-Xa ?? BMP Na 138 Cl 106 BUN 11 Glu 168 (H) K 4.8 Co2 22 Cr 0.80 Ca 8.8 (L) iCa ?? Mg ??, Phos ?? Lactate ?? LFT AST ?? AlkPhos ?? T Prot ?? ALK ?? Bili ?? Alb ?? D.Bili ?? Lab Results Component Value Date CRP <3.0 04/10/2025 CRP 5.6 01/21/2025 CRP 19.7 (H) 01/14/2025 CRP 4.3 10/15/2024 CRP 11.7 (H) 09/03/2024 Patient records reviewed and pertinent findings outlined below. IMAGING/STUDIES: Reviewed 04/09/2025 01/14/2025 ANTIMICROBIAL REVIEW: Vancomycin 04/09-present Bactrim quality liaison suppression TOURISM RADIO PRESENTER MICROBIOLOGY: 04/09 Anaerobe bone culture: pending 04/09 Bone culture: pending 04/09 Fungal bone culture: pending 04/09 Bone culture: pending ASSESSMENT: Thai Ponce is a 64 y.o. male with a PMH of right distal tibia/fibular surgical site infection and OM s/p 01/31/24 I&D, cultures with MRSA. Prior to his I&D he received almost 21d of Bactrim (01/08-01/29). He then received 6 weeks of daptomycin and cefepime with normalization of CRP, which ended 03/13/24 and he was transitioned to PO doxycycline. He was re-treated with IV daptomycin for another 6 weeks followed by transition to PO doxycycline (potentially lifelong) for suppression inS2024. He later was transitioned to Bactrim suppression due to inability to tolerate doxycyline. He followed regularly in ID clinic, last seen 01/14/25. He had a repeat CT right ankle 02/04/25 which showed focal destruction of the anterior distal tibia diaphysis near the metaphysis with soft tissue density within the marrow concerning for possible granulomatous tissue. Ortho reviewed and felt that his fracture had healed enough to tolerate removal of hardware and planned a combined case with plastic surgery for coverage. Dr. Rea recommended removal of medial based implants given this was closest to his chronic wound/draining sinus tract.He was admitted on 04/09/25 and underwent excision of sinus tract, I&D of infected tibia, partial removal of hardware from distal medial tibia, adjacent tissue transfer from right leg with Integraand incisional wound vac placement. Surgical bone cultures collected and pending. He has been started on vancomycin. PROBLEM LIST: Chronic tibial OM/HW associated infection -S/p removal of medial HW and adjacent tissue transfer for coverage 04/09/25, culture pending Tobacco use disorder Low BMI/poor PO intake RECOMMENDATIONS: -For now, continue vancomycin, pharmacist to dose, empirically given all historic cultures grew MRSA -Monitor CBC w/diff, BMP, CRP, and vancomycin levels on antibiotics above -I am inclined to offer a repeat induction course of IV antibiotics given removal of hardware and aggressive debridement per ortho, as well as presence of new tissue graft; anticipated duration of therapy is 6 weeks -Surgical cultures may not grow due to pre-treatment (chronic suppressive Bactrim) -Will refer patient for OPAT, he was previously enrolled and did well in standard OPAT -Will likely need a single lumen PICC line Thank you for allowing us to participate in this patient's care. ID will follow. Brook Alvarado PA-C Division of Infectious Diseases Available on [employer] Chat History, assessment, and plan discussed with ID attending, Dr. Cates The following complex inpatient infectious disease services were performed today: Complex antimicrobial therapy counseling and treatment [1] Past Medical History: Diagnosis Date Anxiety COPD (chronic obstructive pulmonary disease) ([facility]) Coronary artery disease last cardiology appt. 08/2022 - patient states no longer sees cardiology Deep vein thrombosis ([facility]) 2023 Depression Dysphagia unknown reason as of 04/01/25 History of methicillin resistant Staphylococcus aureus HL (hearing loss) no hearing aids at this time Hyperlipidemia Hypertension Limited mobility holds on to furniture and paniagua Myocardial infarction ([facility]) 2017 Peripheral neuropathy PTSD (post-traumatic stress disorder) [2] Past Surgical History: Procedure Laterality Date ABSCESS DRAINAGE FOOT SURGERY HARDWARE REMOVAL 09/2024 KNEE SURGERY LEG SURGERY Right 12/12/2023 SKIN GRAFT [3] No Known Allergies [4] Current Facility-Administered Medications Medication Dose Route Frequency Provider Last Rate Last Admin acetaminophen (Tylenol) tablet 1,000 mg 1,000 mg Oral q6h Edison Arora MD 1,000 mg at 04/10/25 0614 aspirin chewable tablet 81 mg 81 mg Oral Daily Garcia Soriano DO gabapentin (Neurontin) capsule 800 mg 800 mg Oral Nightly Dick Mendez MD ketorolac (Toradol) injection 15 mg 15 mg Intravenous q6h Edison Arora MD Followed by [START ON 04/11/2025] ibuprofen tablet 400 mg 400 mg Oral q6h Edison Arora MD methocarbamol (Robaxin) tablet 750 mg 750 mg Oral q6h PRN Edison Nathan MD 750 mg at 04/10/25 1045 mupirocin (Bactroban) 2 % ointment 1 Application 1 Application Each Nostril BID Benita Masters MD 1 Application at 04/10/25 0949 oxyCODONE (Roxicodone) immediate release tablet 5 mg 5 mg Oral q4h PRN Edison Nathan MD Or oxyCODONE (Roxicodone) immediate release tablet 10 mg 10 mg Oral q4h PRN Edison Nathan MD 10 mg at 04/10/25 1045 [START ON 04/11/2025] oxyCODONE (Roxicodone) immediate release tablet 5 mg 5 mg Oral q4h PRN Edison Nathan MD Followed by [START ON 04/12/2025] oxyCODONE (Roxicodone) immediate release tablet 5 mg 5 mg Oral q6h PRN Edison Nathan MD Followed by [START ON 04/15/2025] oxyCODONE (Roxicodone) immediate release tablet 5 mg 5 mg Oral q8h PRN Edison Nathan MD polyethylene glycol (Miralax) packet 17 g 17 g Oral Daily Garcia Soriano DO rosuvastatin (Crestor) tablet 20 mg 20 mg Oral Nightly Garcia Soriano DO senna-docusate (Angela-Colace) 8.6-50 MG per tablet 1 tablet 1 tablet Oral BID Garcia Soriano DO vancomycin HCl (Vancocin) 750 mg in sodium chloride 0.9% 250 mL IVPB (vial adapter required) 750 mgIntravenous q24h Benita Masters MD [5] Social History Tobacco Use Smoking status: Former Current packs/day: 0.00 Average packs/day: 0.7 packs/day for 73.1 years (51.5 ttl pk-yrs) Types: Cigarettes Start date: 11/19/1980 Quit date: 12/13/2023 Years since quittin.3 Passive exposure: Current Smokeless tobacco: Never Tobacco comments: 1 ppd Vaping Use Vaping status: Never Used Substance Use Topics Alcohol use: Not Currently Drug use: Yes Types: Marijuana Comment: daily [6] Family History Adopted: Yes Cosigned by Michael Cates MD at 04/10/2025 3:20 PM EDT * Progress Notes - Jaci Oliveira - 04/10/2025 10:20 AM EDT Physical Therapy Evaluation Patient Name: Thai Ponce Today's Date: 04/10/2025 PT Discharge Recommendations: Home with assistance Equipment Recommended: Crutches - provided Discharge Transportation Recommendations: Car History Thai Ponce is 64 y.o. 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) 03/25/2025 Procedures Procedure(s): REMOVAL, HARDWARE ADJACENT TISSUE TRANSFER OR REARRANGEMENT, FACE APPLICATION OR REPLACEMENT, WOUND VAC IRRIGATION AND DEBRIDEMENT, LOWER EXTREMITY Past Medical History Patient has a past medical history of Anxiety, COPD (chronic obstructive pulmonary disease) (CMS/HCC), Coronary artery disease, Deep vein thrombosis (CMS/HCC), Depression, Dysphagia, History of methicillin resistant Staphylococcus aureus, HL (hearing loss), Hyperlipidemia, Hypertension, Limited mobility, Myocardial infarction (CMS/HCC), Peripheral neuropathy, and PTSD (post-traumatic stress disorder). Past Surgical History Patient has a past surgical history that includes Leg Surgery (Right, 12/12/2023); Foot surgery; Knee surgery; Abscess drainage; Skin graft; and Hardware Removal (09/2024). Precautions Mobility Protocol: Ortho/Trauma/Spine Mobility Guidelines Spinal Precautions: No cranial, cervical or thoracolumbar spinal precautions necessary Extremity Precautions: Extremity Precautions Extremity: RLE Mobility Restrictions (RLE): Non-weight bear (NWB) Type of Brace (RLE): Plaster Splint Plaster Splint Wear Time Protocol: At All Times Other mobility precautions: No other precautions required Subjective Patient agreeable to PT evaluation this date. Participants in Care Family/Caregiver Present: No Presentation Oxygen Therapy: None (Room air) Lines and Tubes: Intravenous access, Wound vac Pre-Session: Supine Post-Session: Sitting in chair, Chair alarm, Lines intact, RN notified, Call light in reach Home Living/Set-up Lives With: Spouse Home Type: Mobile home Home Adaptive Equipment: None Home Layout: One level Bathroom: Tub/Shower: Tub/Shower combo Bathroom: Toilet: Standard Bathroom: Accessibility: Accessible Home Living Comments: Patient lives with , 6 steps to enter home. Prior Level of Function Receives Help From: No assist required prior to admission Level of Mobility: Ambulatory- community Mobility [place]: Independent gait without device History of Falls: No ADL Performance: Independent Patient/Family Goals Patient agreeable to PT evaluation this date. Objective Pain Pain Score (0-10): Patient with no complaints of pain at this time. Location: right leg Intervention: ambulation/increased activity, position adjusted, prescribed exercises encouraged, and pillow support provided Response: comfortable at end of session Delirium Screening RASS: Alert and calm Confusion Assessment Method-ICU (CAM-ICU/PCAM-ICU) Feature 3: Altered Level of Consciousness: Negative Cognition Overall Cognitive Status: Within Functional Limits Arousal/Alertness: Appropriate responses to stimuli Mood/Behavior: Alert Orientation Level: Oriented X4 Single Step Commands: Consistently Method of Communication: Verbal Vision - Basic Assessment Current Vision: Intact Right Upper Extremity Examination RUE Assessment: Within Functional Limits Manual Muscle Testing - RUE: Within functional limits Sensation Light Touch: Right Upper Extremity: Intact Left Upper Extremity Examination LUE ROM Assessment LUE Assessment: Within Functional Limits Manual Muscle Testing - LUE Manual Muscle Testing - LUE: Within functional limits Sensation Light Touch: Left Upper Extremity: Intact Right Lower Extremity Examination RLE ROM Assessment RLE Assessment: (hip and knee AROM WFL's, ankle NT secondary to splint) Manual Muscle Testing - RLE Manual Muscle Testing - RLE: (hip and knee WFL's, ankle NT secondary to splint) Sensation Light Touch: Right Lower Extremity: Intact Left Lower Extremity Examination LLE Assessment: Within Functional Limits Manual Muscle Testing: Within functional limits Sensation Light Touch: Left Lower Extremity: Intact Bed Mobility Bed Mobility Exam: Rolling/Turning Level of [place]: Modified independence Physical/Nonphysical Assist: Verbal Cues Assistive Device: Bed rails Bed Mobility Exam: Scooting/Bridging Level of [place]: Modified independence Physical/Nonphysical Assist: Verbal Cues Assistive Device: Bed rails Bed Mobility Exam: Supine to Sit Level of [place]: Modified [place] Physical/Nonphysical Assist: Verbal Cues Assistive Device: Bed rails Bed Mobility Exam: Sit to Supine Level of [place]: (Patient left OOBTC.) Transfers Transfer Exam: Sit to stand Level of [place]: Modified independence Physical/Nonphysical Assist: Verbal Cues Assistive Device: Walker, rolling Transfer Exam: Stand to Sit Level of [place]: Modified independence Physical/Nonphysical Assist: Verbal Cues Assistive Device: Walker, rolling Gait Training (20 minutes) Device: Axillary crutches Assistance: Modified independence, Minimal verbal cues, Minimal tactile cues Distance: 200 feet Gait Analysis: Patient with decreased mahi and gait speed with rolling walker and axillary crutches this date. Gait Training Interventions: Patient with verbal and tactile cues for assistive device placement. Therapeutic Exercise (8 minutes) Pt given written HEP: AP, QS, GS, TKE, HS, SLR, hip ab/adduction to be performed 3x/day 20 reps each. Pt demonstrates understanding of HEP with verbal and tactile cues. Balance Dynamic Standing Balance Dynamic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 For all other medicines, you will receive instructions during your Anesthesia Preoperative Clinic visit or phone screening. Updates from the operating room It is important to protect your privacy when you are in the hospital. We also want to make it easy for your family to find out how you are doing while you are in surgery. To do this, on the day of your surgery a nurse will ask you to choose a password and share it with just one family member or friend. This password will then be put on your chart. When your family member calls to check on your condition, he or she must give the password to the nurse. The nurse will look on your chart to make sure it is the correct password and then give the person information on your condition. If you have any questions about this process, please ask. Our mission is to give you the very best care, including protecting your privacy. Feel better faster You should take walks if possible and do plenty of deep breathing. This will help you feel better more quickly after surgery. Walking and deep breathing help prevent blood clots and pneumonia and mayhelp ease any muscle soreness. Surgery do's ? Be sure to bring your current insurance card and a picture ID. ? Please bring copies of the following,if you have them: living will, health care surrogate, power of developmental writing instructor or guardianship papers. ? Bring a responsible adult to drive you home (or ride with you in a taxi) if you are having outpatient surgery. ? Plan to have someone stay with you at home for 24 hours after your surgery. ? Bring a list of your current medicines, including how much you take and when you take it. You mayalso just bring the medicines (in their original containers) with you. ? Tell your doctor about any allergies you have to medicines or food. ? Wear comfortable, loose-fitting clothes and low-heeled shoes. ? Bring a case to store glasses, contact lenses or dentures during surgery. Label the containers with your name. ? Pack an overnight bag that includes personal care items, such as a toothbrush and lotion, if you are staying in the hospital. ? Bring a parent or guardian if you are younger than 18. ? Bring a favorite toy or blanket for children having surgery. Surgery don'ts ? Starting at midnight, don?t eat anything on the day of your surgery. ? Don?t drink anything after midnight (unless told otherwise by your doctor or nurse) the day before your surgery. ? Don?t smoke, use smokeless tobacco, eat mints or chew gum after midnight the day of your surgery. ? Don?t drink alcohol 24 hours before your surgery. ? Don?t wear makeup, jewelry (including body piercing) or nail barbadian. ? Don?t bring money or valuables to the hospital. ? Don?t drive a motor vehicle for 24 hours after your surgery. ? Don?t make important decisions or sign any legal documents for 24 hours after your surgery. ? Don?t drink alcohol or take medicine not prescribed by your doctor for 24 hours after your surgery. Need to cancel? If you decide not to have surgery or if you need to cancel because of a fever, a breathing or viralillness, or a family emergency, please call your surgeon?s office and the Preoperative Anesthesia Clinic at [phone] or [phone]. If it is the day of surgery, call the location where you are scheduled to have your surgery: [facility] at [phone] or [phone] [facility] at [phone] or [phone]. For more information Visit [email or web address] or call [phone] or [phone]. [facility] does not discriminate. [facility] complies with applicable Federal civil rights laws and does not discriminate on the basis of race, color, national origin, age, disability, or sex. * Vitaliy Wahl - Negin Aguirre RN - 03/28/2025 10:14 AM EDT Images from the original note were not included. 489 Map to [facility] Facilities Directions Easy directions to and from [address] (from [address]) Directions from I-75/I-64 to the [facility] Parking Garage: ? From [address], turn right off the exit ramp onto [address] ([place] [address] [address]) toward [place]. ? In 4.1 miles, turn left onto [address] (at the [employer] gas station). ? In a half-mile, turn right onto [address]. ? In .3 miles, turn right onto [address] (just past the [employer] gas station). Garage entrance is on the left. ? Important: This garage address will change to [address] [place] [address] on February 18, 2025. Directions from [facility] Parking Garage to I-75/I-64: ? Turn left out of the garage onto [address]. ? Turn left onto [address]. ? In .3 miles, turn left down [address] ? In a half-mile, turn right onto [address]) (at the [employer] station). ? In 4.1 miles, merge onto [address] /[address] (near the [employer] [address] [employer]). Parking Any patients or visitors of [facility] can park in the following areas: ? [facility] Parking Garage (main garage): [address] (Levels A-F) ? [facility] Garage: [address] (Levels 1-6) ? [facility] lot: Located off [address] (limited parking for [facility] outpatients only). Upon Your Arrival ? Patients and visitors going to Pavilion A, H, G and [facility]?s [facility] may walk across the pedway, located at Level C of the main parking garage ([address] or take the free shuttle from Level A. Golf carts are available on the pedway. ? Patients and visitors going to all other hospital pavilions are encouraged to take a free shuttleat Level A of the main garage. ? Emergency Department (ED) patients in need of immediate treatment may be dropped off at the ED entrance at the 15-minute dropoff area. Vehicles in this lot must be moved to the main hospital garage after 15 minutes. The ED may also be accessed via the pedway off [facility] garage on Level C. If you need a shuttle to the ED, one can be called for you at Level A of the main garage or contact any of the information desks, . Additional Information For additional information, please visit our information desks located throughout Healthcare. Information desks have additional maps and resources. Information desks are located at the main entrances of: [facility] (first floor and ground floor), [facility]?s [facility], Pavilion H, Pavilion CC, Pavilion WH, [facility] (first and third floor), and [facility]. Informationdesk number: [phone]. Important Addresses [address] [place] [address] ? [facility] entrance ? Pavilion A ? Pavilion G ([facility]) ? Emergency Department [address] ? Pavilion H ? Pavilion CC ([facility]) ? [facility] [facility] ([facility]) ? [facility] [employer] [address] [facility] ? [facility] [facility] ? [address] ? [facility] ? [facility] * PAT Phone Note - Negin Aguirre RN - 03/28/2025 10:13 AM EDT HPI Thai Ponce is a 64 y.o. 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 Rea (Right). Date scheduled is 04/02/2025. Patient denies changes in health since previous anesthesia on (09/25/24). Denies recent CP, SOA, or URI. Medications reviewed and updated with pt. Past Medical History[1] Family History[2] Social History[3] SURGICAL HISTORY: Surgical History[4] Visit Vitals Ht 1.727 m (5' 8 ) Wt 43.1 kg (95 lb) BMI 14.44 kg/m?? Smoking Status Some Days BSA 1.44 m?? Allergies[5] MEDICATIONS: Current Medications[5] Negin Aguirre RN [1] Past Medical History: Diagnosis Date Anxiety COPD (chronic obstructive pulmonary disease) (CMS/HCC) Coronary artery disease Deep vein thrombosis (CMS/HCC) Depression History of methicillin resistant Staphylococcus aureus Hyperlipidemia Hypertension Myocardial infarction (CMS/HCC) Peripheral neuropathy PTSD (post-traumatic stress disorder) [2] Family History Adopted: Yes [3] Social History Tobacco Use Smoking status: Some Days Current packs/day: 0.00 Average packs/day: 0.7 packs/day for 73.1 years (51.5 ttl pk-yrs) Types: Cigarettes Start date: 11/19/1980 Last attempt to quit: 12/13/2023 Years since quittin.2 Passive exposure: Current Smokeless tobacco: Never Tobacco comments: 1 ppd Vaping Use Vaping status: Never Used Substance Use Topics Alcohol use: Not Currently Drug use: Yes Types: Marijuana Comment: daily [4] Past Surgical History: Procedure Laterality Date ABSCESS DRAINAGE FOOT SURGERY KNEE SURGERY LEG SURGERY Right 12/12/2023 SKIN GRAFT [5] No Known Allergies [5] No current facility-administered medications for this encounter. Current Outpatient Medications: gabapentin, Take 1 tablet by mouth nightly. Boost High Protein, Take 1 Bottle by mouth 3 times a day. oxyCODONE, Take 1 tablet by mouth every 8 hours. sulfamethoxazole-trimethoprim, Take 1 tablet by mouth 2 times a day. mupirocin, Apply 1 Application topically 2 times a day. Apply to each nostril twice daily for 5 days before surgery. * Preprocedure Instructions - Negin Aguirre RN - 03/28/2025 10:10 AM EDT Home Medication Instructions Current Medications Medication Instructions gabapentin (Neurontin) 800 MG tablet Take night before surgery Nutritional Supplements (Boost High Protein) liquid Hold day of surgery oxyCODONE (Roxicodone) 5 MG immediate release tablet Take morning of surgery sulfamethoxazole-trimethoprim (Bactrim DS) 800-160 MG tablet Take morning of surgery- unless causesnausea while fasting General Preoperative Instructions You will be called the business day before surgery with your arrival time No food or milk products after midnight the night before surgery. Clear liquids are encouraged until 2 hours prior to arrival time, clear liquids defined as water, Pedialyte, and Gatorade (avoid red,blue, or purple). No carbonated beverages. No alcohol or marijuana 24 hours prior to surgery. No tobacco use (smoking, vaping, chewing/dip) after midnight prior to surgery. Arrive on time to avoid delays Parking/Registration procedure explained. The address to the parking garage is [address] The bridge to the hospital is located on level C, once across the bridge, turn down the fist hallwayon the right. Surgery registration/waiting is located on the right side of the hallway. You MUST have a responsible adult available for transport to and from hospital Visitation policy for the day of surgery reviewed Bring insurance card, photo ID, along with power of developmental writing instructor, guardianship or advanced directives if applicable Do not bring money, jewelry (Including wedding rings) or other valuables. Do not wear any makeup, nail barbadian, or contact lens the day of surgery. Hibiclens bathing instructions reviewed if applicable Notify surgeon of fever, illness, any changes or if you decide not to have surgery. If you have anysurgery specific questions or concerns, please contact your surgeon, * Cristian Rea S - Primary. If you are unable to keep your surgery day (04/02/2025) please contact your surgeon's office. If it is the day of surgery, call the location where you are scheduled to have your surgery: [facility] at [phone] or [phone] or [facility] at [phone] or [phone]. documented in this encounter Plan of Treatment Upcoming Encounters Date Type Department Care Team (Late st Contact Info) Description 04/14/2025 2:30 PM EDT Office Visit [facility] [address] [place] [address] Jennifer Novak MD [address] [place] [id number] 05/06/2025 8:30 AM EDT Office Visit [facility] [address] [place] [address] Catalina Ruiz APRN [address] [facility] [address] [place] [address] 05/06/2025 2:30 PM EDT Office Visit [facility] [address] [place] [id number] Cristian Rea MD [address] [place] [address] 05/20/2025 1:00 PM EDT Office Visit [facility] [address] [place] [address] Catalina Ruiz, AZRA [address] [facility] [address] [place] [address] Pending Results Name Type Priority Associated Diagnoses Date /Time Fungal Culture, Tissue and JACKELYN Microbiology Routine 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) 04/09/2025 4:34 PM EDT Scheduled Orders Name Type Priority Associated Diagnoses Orde r Schedule Multi Drug Resistance Test Microbiology Routine Once (Lab) for 1 Occurrences starting 04/09/2025 until 04/09/2025 Scheduled Referrals Name Type Priority Associated Diagnoses Orde r Schedule Discharge Ambulatory referral to [facility] Referral Routine 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) 1 Occurrences starting 04/11/2025 until 10/13/2026 documented as of this encounter Procedures Procedure Name Priority Date/Time Associated Diagnosis Comments INSERT PICC LINE Routine 04/11/2025 3:49 PM EDT HIV 1/2 ANTIBODY/ANTIGEN SCREEN W/REFLEX TO HIV 1/2 ANTIBODY DIFFERENTIATION Routine 04/11/2025 1:00 PM EDT CREATINE KINASE, TOTAL, PLASMA Routine 04/11/2025 1:00 PM EDT HIV 1/2 ANTIBODY/ANTIGEN SCREEN WITH REFLEX TO HIV I/II DIFFERENTIATION Routine 04/11/2025 1:00 PM EDT CBC W/O DIFFERENTIAL Routine 04/10/2025 2:29 AM EDT C-REACTIVE PROTEIN, PLASMA Add-On 04/10/2025 2:29 AM EDT PREALBUMIN, PLASMA Add-On 04/10/2025 2: 29 AM EDT BASIC METABOLIC PANEL, PLASMA Routine 04/10/2025 2:29 AM EDT FL LESS THAN 1 HOUR (NON-REPORTABLE) Routine 04/09/2025 5:08 PM EDT FUNGAL CULTURE, TISSUE AND JACKELYN Routine 04/09/2025 4:34 PM EDT 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) BONE CULTURE AND GRAM STAIN Routine 04/09/2025 4:34 PM EDT 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) ANAEROBIC CULTURE Routine 04/09/2025 4:3 4 PM EDT 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) BONE CULTURE AND GRAM STAIN Routine 04/09/2025 4:16 PM EDT 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) IRRIGATION AND DEBRIDEMENT, LOWER EXTREMITY 04/09/2025 3:20 PM EDT 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) APPLICATION OR REPLACEMENT, WOUND VAC 04/09/2025 3:20 PM EDT 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) ADJACENT TISSUE TRANSFER OR REARRANGEMENT, FACE 04/09/2025 3:20 PM EDT 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) WV REMOVAL DEEP IMPLANT 04/09/20 25 3:20 PM EDT 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) ECG ADULT Routine 04/09/2025 3:13 PM EDT CBC W/O DIFFERENTIAL Routine 04/09/2025 3:01 PM EDT TYPE AND SCREEN Routine 04/09/2025 3:01 PM EDT BASIC METABOLIC PANEL, PLASMA Routine 04/09/2025 3:01 PM EDT documented in this encounter Results * PICC SINGLE LUMEN (SMARTFORM LINK) (04/11/2025 3:49 PM EDT) Narrative Judi Lorenzo RN - 04/11/2025 3:49 PM EDT Judi Lorenzo RN 04/11/2025 3:51 PM Insert PICC line Date/Time: 04/11/2025 3:49 PM Performed by: Judi Lorenzo RN Authorized by: Cristian Rea MD [place] Protocol: Verbal consent obtained?: Yes Written consent obtained?: Yes Risks and benefits: Risks, benefits and alternatives were discussed Consent given by: Patient Patient states understanding of procedure being performed: Yes Patient's understanding of procedure matches consent: Yes Procedure consent matches procedure scheduled: Yes Relevant documents present and verified: Yes Test results available and properly labeled: Yes Site marked: Yes Imaging studies available: Yes Patient identity confirmed: Verbally with patient, arm band and hospital-assigned identification number Time out: Immediately prior to the procedure a time out was called Indications: Vascular access (6 weeks IV antibiotics) Local anesthetic: Lidocaine 1% without epinephrine (3mL) Sedation: Patient sedated: No Preparation: Skin prepped with 2% chlorhexidine Skin prep agent dried: Skin prep agent completely dried prior to procedure Sterile barriers: All five maximal sterile barriers used - gloves, gown, cap, mask and large sterile sheet Hand hygiene: Hand hygiene performed prior to catheter insertion Orientation: Left Location (Adult): Brachial vein Site selection rationale: Patient preference Patient position: Flat Catheter Lot #: [id number] Catheter scarifier operator: Bard PowerPICC Solo Catheter placed: Single lumen Catheter size: 4 Fr Catheter trimmed length: 43 Catheter threaded length: 43 Vein placed in: SVC Catheter cm indwellin Catheter cm outside: 0 Placement confirmed by: Pro[employer] Point 3CG technology Pre-procedure: Landmarks identified Ultrasound guidance: Yes Sterile ultrasound techniques: Sterile gel and sterile probe covers were used Number of attempts: 1 Post-procedure: Adhesive securement device and sterile access caps placed on each lumen Dressing applied: CHG tegaderm Assessment: Blood return through all ports Complications: None. Patient tolerated the procedure well with no immediate complications.: Yes Comments: Pertinent ultrasound and/or 3CG images sent to PACS. us Cristian Rea MD IV THERAPY ORDERABLES Leora stockton Result * Creatine Kinase (CK), Total (04/11/2025 1:00 PM EDT) [facility] Creatine Kinase, Plasma 143 49 - 320 U/L 04/11/2025 2:10 PM EDT [facility] Blood Venous blood specimen / Unknown Venipuncture / Unknown 04/11/2025 1:00 PM EDT 04/11/2025 1:41 PM EDT us [facility] LAB BLOOD ORDERABLES Final Res ult Performing Organization Address City/[facility]/ZIP Co de Phone Number [facility] [address] [place] [address] * HIV 1 & 2 Antibody/Antigen Screen (04/11/2025 1:00 PM EDT) [facility] HIV 1 & 2 Antibody/Antigen Screen Non Reactive Non Reactive 04/11/2025 2:38 PM EDT [facility] Comment:Screening for HIV 1 & 2 antibodies, and P24 antigen is NONREACTIVE. No confirmatory testing is required. Blood Venous blood specimen / Unknown Venipuncture / Unknown 04/11/2025 1:00 PM EDT 04/11/2025 1:41 PM EDT us George Fox MD LAB BLOOD ORDERABLES Final R esult Performing Organization Address [facility] Co de Phone Number [facility] [address] [place] [address] * C-reactive protein (04/10/2025 2:29 AM EDT) [facility] CRP, Plasma <3.0 <=8.0 mg/L 04/10/2025 12:01 PM EDT [facility] Blood Venous blood specimen / Unknown Venipuncture / Unknown 04/10/2025 2:29 AM EDT 04/10/2025 2:39 AM EDT Narrative [facility] - 04/10/2025 12:01 PM EDT This CRP test is appropriate for assessment of infection, systemic inflammation and/or tissue injury. To assess cardiovascular disease risk order high sensitivity CRP (CRPH). us [facility] LAB BLOOD ORDERABLES Final Res ult [facility] [address] [place] [address] * (ABNORMAL) Prealbumin (04/10/2025 2:29 AM EDT) Prealbumin, Plasma 17.1(L) 20.0 - 41.0 mg/dL 04/10/2025 11:03 AM EDT [facility] Blood Venous blood specimen / Unknown Venipuncture / Unknown 04/10/2025 2:29 AM EDT 04/10/2025 2:39 AM EDT us Cristian Rea MD LAB BLOOD ORDERABLES Final Result Performing Organization Address [facility]/ZIP Co de Phone Number [facility] [address] [place] [address] * (ABNORMAL) Basic metabolic panel (04/10/2025 2:29 AM EDT) Glucose, Plasma 168(H) 74 - 99 mg/dL 04/10/2025 3:07 AM EDT [facility] BUN, Plasma 11 8 - 23 mg/dL 04/10/2025 3:07 AM EDT [facility] Creatinine, Plasma 0.80 0.70 - 1.20 mg/dL 04/10/2025 3:07 AM EDT [facility] BUN/Creatinine Ratio 14 04/10/2025 3:07 AM EDT [facility] Sodium, Plasma 138 136 - 145 mmol/L 04/10/2025 3:07 AM EDT [facility] Potassium, Plasma 4.8 3.6 - 4.9 mmol/L 04/10/2025 3:07 AM EDT [facility] Chloride, Plasma 106 97 - 107 mmol/L 04/10/2025 3:07 AM EDT [facility] CO2, Plasma 22 22 - 29 mmol/L 04/10/2025 3:07 AM EDT [facility] Anion Gap 10 6 - 16 mmol/L 04/10/2025 3:07 AM EDT [facility] Total Calcium, Plasma 8.8(L) 8.9 - 10.2 mg/dL 04/10/2025 3:07 AM EDT [facility] eGFRcr 100.1 mL/min/1.7 3m*2 04/10/2025 3:07 AM EDT [facility] Comment:Reported eGFRcr in m L/min/1.73m2 is based the CKD-EPI 2020 equation that does not use a race coefficient. Blood Venous blood specimen / Unknown Venipuncture / Unknown 04/10/2025 2:29 AM EDT 04/10/2025 2:39 AM EDT Cristian Rea MD LAB BLOOD ORDERABLES Final Result [facility] [address] [place] [address] * (ABNORMAL) CBC (04/10/2025 2:29 AM EDT) WBC Count 5.60 3.70 - 10.30 10*3/uL LAB HEMATOLOGY METHOD 04/10/2025 2:50 AM EDT [facility] RBC Count 4.18(L) 4.60 - 6.10 10*6/uL LAB HEMATOLOGY METHOD 04/10/2025 2:50 AM EDT [facility] HGB 12.5(L) 13.7 - 17.5 g/dL LAB HEMATOLOGY METHOD 04/10/2025 2:50 AM EDT [facility] HCT 37.2(L) 40.0 - 51.0 % LAB HEMATOLOGY METHOD 04/10/2025 2:50 AM EDT [facility] Platelet Count 251 155 - 369 10*3/uL LAB HEMATOLOGY METHOD 04/10/2025 2:50 AM EDT [facility] MCV 89 79 - 98 fL LAB HEMATOLOGY METHOD 04/10/2025 2:50 AM EDT [facility] MCH 29.9 26.0 - 32.0 pg LAB HEMATOLOGY METHOD 04/10/2025 2:50 AM EDT [facility] MCHC 33.6 30.7 - 35.5 g/dL LAB HEMATOLOGY METHOD 04/10/2025 2:50 AM EDT [facility] RDW 14.0 11.5 - 14.5 % LAB HEMATOLOGY METHOD 04/10/2025 2:50 AM EDT [facility] MPV 9.2 8.8 - 12.5 fL LAB HEMATOLOGY METHOD 04/10/2025 2:50 AM EDT [facility] nRBC 0.0 <=0.0 per 100 WBCs LAB HEMATOLOGY METHOD 04/10/2025 2:50 AM EDT [facility] Blood Venous blood specimen / Unknown Venipuncture / Unknown 04/10/2025 2:29 AM EDT 04/10/2025 2:39 AM EDT Cristian Rea MD LAB BLOOD ORDERABLES Final Result [facility] [address] [place] [address] * [place] Less than 1 Hour Intraoperative (04/09/2025 5:08 PM EDT) Narrative IMAGING - 04/09/2025 5:09 PM EDT Images were obtained for surgical purposes. See Cristian Rea's surgical note in the patient's chart for the findings. us Cristian Rea MD IMG FLUOROSCOPY PROCEDURES Final Result Performing Organization Address City/[facility]/ZIP Co de Phone Number IMAGING * (ABNORMAL) Bone Culture and Gram Stain (04/09/2025 4:34 PM EDT) Culture Light Growth 04/12/2025 7:38 AM EDT [facility] Culture Staphylococcus aureus(A) 04/12/2025 7:38 AM EDT [facility] Comment: (small colony variant) - Positive for MRSA by PBP2a assay. The organism value for this result has been updated. These results have been appended to the previously preliminary verified report. Gram Stain Result No organisms seen 04/12/2025 7:38 AM EDT [facility] Gram Stain Result No polymorphonuclear leukocytes seen 04/12/2025 7:38 AM EDT [facility] Bone Topography unknown / Unknown 04/09/2025 4:34 PM EDT 04/09/2025 5:07 PM EDT Comment:Pre-op diagnosis: 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) [M86.461] Cristian Rea MD LAB MICROBIOLOGY - GENERAL ORDERABLES Final Result Performing Organization Address City/[facility]/ZIP Co de Phone Number [facility] [address] [place] [address] * Anaerobic Culture (04/09/2025 4:34 PM EDT) Culture No anaerobes isolated 04/13/2025 10:52 AM EDT [facility] Bone Topography unknown / Unknown 04/09/2025 4:34 PM EDT 04/09/2025 5:07 PM EDT Comment:Pre-op diagnosis: 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) [M86.461] Cristian Rea MD LAB MICROBIOLOGY - GENERAL ORDERABLES Final Result Performing Organization Address City/[facility] Co de Phone Number [facility] [address] [place] [address] * (ABNORMAL) Bone Culture and Gram Stain (04/09/2025 4:16 PM EDT) Culture Light Growth 04/12/2025 12:25 PM EDT [facility] Culture Methicillin-Resistan t Staphylococcus aureus(AA) 04/12/2025 12:25 PM EDT [facility] Comment: (small colony variant) - Positive for MRSA by PBP2a assay. The organism value for this result has been updated. These results have been appended to the previously preliminary verified report. <null> has been updated to reportable. Gram Stain Result No organisms seen 04/12/2025 12:25 PM EDT [facility] Gram Stain Result No polymorphonuclear leukocytes seen 04/12/2025 12:25 PM EDT [facility] Bone Topography unknown / Unknown 04/09/2025 4:16 PM EDT 04/09/2025 5:06 PM EDT Comment:Pre-op diagnosis: 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) [M86.461] us Cristian Rea MD LAB MICROBIOLOGY - GENERAL ORDERABLES Final Result Performing Organization Address City/[facility]/ZIP Co de Phone Number [facility] [address] [place] [address] * 12 Lead ECG (04/09/2025 3:13 PM EDT) EKG DIAGNOSIS CLASS Abnormal MUSE ECG Ventricular Rate 59 BPM MUSE ECG Atrial Rate 59 BPM MUSE ECG WV Interval 122 ms MUSE ECG QRSD Interval 82 ms MUSE ECG QT Interval 432 ms MUSE ECG QTC Interval 427 ms MUSE ECG P [place] 67 degrees MUSE ECG R [place] 92 degrees MUSE ECG T Wave [place] 76 degrees MUSE ECG Diagnosis Sinus bradycardia MUSE ECG Diagnosis Rightward axis MUSE ECG Diagnosis Poor R-wave progression MUSE ECG Diagnosis Abnormal ECG MUSE ECG Diagnosis MUSE ECG Diagnosis Confirmed by Isacc Arciniega ([id number]) on 04/09/2025 5:30:16 PM MUSE ECG 04/09/2025 3:13 PM EDT 04/09/2025 5:30 PM EDT us Rubens Guy MD ECG ORDERABLES Final Result Performing Organization Address [facility] Co de Phone Number MUSE ECG * (ABNORMAL) CBC (04/09/2025 3:01 PM EDT) WBC Count 8.61 3.70 - 10.30 10*3/uL LAB HEMATOLOGY METHOD 04/09/2025 3:44 PM EDT [facility] RBC Count 4.58(L) 4.60 - 6.10 10*6/uL LAB HEMATOLOGY METHOD 04/09/2025 3:44 PM EDT [facility] HGB 13.4(L) 13.7 - 17.5 g/dL LAB HEMATOLOGY METHOD 04/09/2025 3:44 PM EDT [facility] HCT 41.0 40.0 - 51.0 % LAB HEMATOLOGY METHOD 04/09/2025 3:44 PM EDT [facility] Platelet Count 269 155 - 369 10*3/uL LAB HEMATOLOGY METHOD 04/09/2025 3:44 PM EDT [facility] MCV 90 79 - 98 fL LAB HEMATOLOGY METHOD 04/09/2025 3:44 PM EDT [facility] MCH 29.3 26.0 - 32.0 pg LAB HEMATOLOGY METHOD 04/09/2025 3:44 PM EDT [facility] MCHC 32.7 30.7 - 35.5 g/dL LAB HEMATOLOGY METHOD 04/09/2025 3:44 PM EDT [facility] RDW 14.0 11.5 - 14.5 % LAB HEMATOLOGY METHOD 04/09/2025 3:44 PM EDT [facility] MPV 9.2 8.8 - 12.5 fL LAB HEMATOLOGY METHOD 04/09/2025 3:44 PM EDT [facility] nRBC 0.0 <=0.0 per 100 WBCs LAB HEMATOLOGY METHOD 04/09/2025 3:44 PM EDT [facility] Blood Venous blood specimen / Unknown Venipuncture / Unknown 04/09/2025 3:01 PM EDT 04/09/2025 3:35 PM EDT Cristian Rea MD LAB BLOOD ORDERABLES Final Result [facility] [address] [place] [address] * Basic metabolic panel (04/09/2025 3:01 PM EDT) Pathologist [facility] [place] Glucose, Plasma 96 74 - 99 mg/dL 04/09/2025 4:02 PM EDT [facility] BUN, Plasma 8 8 - 23 mg/dL 04/09/2025 4:02 PM EDT [facility] Creatinine, Plasma 0.80 0.70 - 1.20 mg/dL 04/09/2025 4:02 PM EDT [facility] BUN/Creatinine Ratio 10 04/09/2025 4:02 PM EDT [facility] Sodium, Plasma 139 136 - 145 mmol/L 04/09/2025 4:02 PM EDT [facility] Potassium, Plasma 4.0 3.6 - 4.9 mmol/L 04/09/2025 4:02 PM EDT [facility] Chloride, Plasma 104 97 - 107 mmol/L 04/09/2025 4:02 PM EDT [facility] CO2, Plasma 24 22 - 29 mmol/L 04/09/2025 4:02 PM EDT [facility] Anion Gap 11 6 - 16 mmol/L 04/09/2025 4:02 PM EDT [facility] Total Calcium, Plasma 9.0 8.9 - 10.2 mg/dL 04/09/2025 4:02 PM EDT [facility] eGFRcr 100.1 mL/min/1.7 3m*2 04/09/2025 4:02 PM EDT [facility] Comment:Reported eGFRcr in m L/min/1.73m2 is based the CKD-EPI 2020 equation that does not use a race coefficient. Blood Venous blood specimen / Unknown Venipuncture / Unknown 04/09/2025 3:01 PM EDT 04/09/2025 3:31 PM EDT us Rubens Guy MD LAB BLOOD ORDERABLES Final Re sult [facility] [address] [place] [address] * Type and screen (04/09/2025 3:01 PM EDT) ABO/Rh A Positive 04/09/2025 2:52 PM EDT BLOOD BANK Antibody Screen Negative 04/09/2025 2:52 PM EDT BLOOD BANK Specimen Expiration 04/12/2025 23:59 04/09/2025 2:52 PM EDT BLOOD BANK Blood Venous blood specimen / Unknown Venipuncture / Unknown 04/09/2025 3:01 PM EDT 04/09/2025 3:06 PM EDT us Rubens Guy MD LAB BLOOD BANK TEST ORDERABLE S Final Result Performing Organization Address City/[facility]/ZIP Co de Phone Number BLOOD BANK [address] [place] [address], [place] documented in this encounter Visit Diagnoses Diagnosis 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)- Primary Osteomyelitis of right tibia, unspecified type (CMS/HCC) documented in this encounter Admitting Diagnoses Diagnosis 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) Osteomyelitis of right tibia, unspecified type (CMS/HCC) documented in this encounter Administered Medications Inactive Administered Medications - up to 3 most recent administrations Medication Order MAR Action Action Date Dose Rate Site acetaminophen (Tylenol) tablet 1,000 mg 1,000 mg, Oral, Once, 1 dose, On Mon04/09/25 at 1430, Routine, Holding - Preprocedure Given 04/09/2025 2:01 PM EDT 1,000 mg acetaminophen (Tylenol) tablet 1,000 mg 1,000 mg, Oral, Every 6 hours scheduled, First dose on Maryellen 04/10/25 at 0000, Until Discontinued, Routine, Recovery(Phase II-Outpatient)/On Unit(Inpatient) Given 04/11/2025 11:53 AM EDT 1,000 mg Given 04/11/2025 12:36 AM EDT 1,000 mg Given 04/10/2025 5:27 PM EDT 1,000 mg aspirin chewable tablet 81 mg 81 mg, Oral, Daily, First dose on Maryellen 04/10/25 at 1145, Until Discontinued, Routine Given 04/11/2025 8:59 AM EDT 81 mg Given 04/10/2025 11:12 AM EDT 81 mg DAPTOmycin (Cubicin) 450 mg in sodium chloride 0.9 % 100 mL IVPB 450 mg, Intravenous, Once, 1 dose, On Mon04/11/25 at 1245, STAT New Bag 04/11/2025 12:50 PM EDT 450 mg 2 38 mL/hr enoxaparin (Lovenox) syringe 30 mg 30 mg, Subcutaneous, Daily, First dose on Mon04/11/25 at 1015, Until Discontinued, Routine famotidine (Pepcid) tablet 20 mg 20 mg, Oral, Once, 1 dose, On Mon04/09/25 at 1430, Routine, Holding - Preprocedure Given 04/09/2025 2:01 PM EDT 20 mg fentaNYL (Sublimaze) injection 50 mcg 50 mcg, Intravenous, Every 5 min PRN, 2 doses, Starting on Mon04/09/25 at 1822, Until Mon04/09/25 at 1911, Routine, Recovery (Phase I only), pain score of 5-8 out of 10 Given 04/09/2025 6:28 PM EDT 50 mcg gabapentin (Neurontin) capsule 200 mg 200 mg, Oral, Once, 1 dose, On Mon04/09/25 at 2130, Routine Given 04/09/2025 8:46 PM EDT 200 mg gabapentin (Neurontin) capsule 600 mg 600 mg, Oral, Once, 1 dose, On Mon04/09/25 at 1545, Routine, Holding - Preprocedure Given 04/09/2025 3:13 PM EDT 600 mg gabapentin (Neurontin) capsule 800 mg 800 mg, Oral, Nightly, First dose on Mon04/10/25 at 2100, Until Discontinued, Routine Given 04/10/2025 9:57 PM EDT 800 mg ibuprofen tablet 400 mg 400 mg, Oral, Every 6 hours scheduled, First dose on Mon04/11/25 at 0015, Until Discontinued, Routine, Recovery(Phase II-Outpatient)/On Unit(Inpatient) Given 04/11/2025 11:53 AM EDT 400 mg Given 04/11/2025 5:28 AM EDT 400 mg Given 04/11/2025 12:36 AM EDT 400 mg ipratropium-albuterol (Duo-Neb) 0.5-2.5 mg/3 mL nebulizer solution 3 mL 3 mL, Nebulization, Once, 1 dose, On Mon04/09/25 at 1500, Routine, Holding - Preprocedure Given 04/09/2025 2:20 PM EDT 3 mL ipratropium-albuterol (Duo-Neb) 0.5-2.5 mg/3 mL nebulizer solution 3 mL 3 mL, Nebulization, Every 6 hours PRN, Starting on Mon04/11/25 at 0437, Until Mon04/11/25 at 1945, Routine, wheezing, shortness of breath Jonnathan powder 1 packet 1 packet, Oral, Daily, First dose on Mon04/10/25 at 1300, Until Discontinued, Routine Given 04/11/2025 9:06 AM EDT 1 packet Given 04/10/2025 1:26 PM EDT 1 packet methocarbamol (Robaxin) tablet 750 mg 750 mg, Oral, Every 6 hours PRN, Starting on Mon04/09/25 at 2031, Until Mon04/11/25 at 1945, Routine, Recovery(Phase II-Outpatient)/On Unit(Inpatient), muscle spasms Given 04/11/2025 3:27 AM EDT 750 mg Given 04/10/2025 5:27 PM EDT 750 mg Given 04/10/2025 10:45 AM EDT 750 mg mupirocin (Bactroban) 2 % ointment 1 Application Each Nostril, 2 times daily, 10 doses, First dose on Mon04/10/25 at 0900, Last dose on Mon04/14/25 at 2100, Routine Given 04/11/2025 8:59 AM EDT 1 Application Given 04/10/2025 9:57 PM EDT 1 Application Given 04/10/2025 9:49 AM EDT 1 Application oxyCODONE (Roxicodone) immediate release tablet 10 mg 10 mg, Oral, Once as needed, 2 doses, Starting on Mon04/09/25 at 1822, Until Mon04/09/25 at 1911, Routine, Recovery (Phase I only), pain score of 6-8 out of 10 Given 04/09/2025 6:28 PM EDT 10 mg oxyCODONE (Roxicodone) immediate release tablet 10 mg 10 mg, Oral, Every 4 hours PRN, Starting on Mon04/09/25 at 2031, Until Mon04/11/25 at 0830, Routine, Recovery(Phase II-Outpatient)/On Unit(Inpatient), severe pain Given 04/11/2025 6: 49 AM EDT 10 mg Given 04/11/2025 3:28 AM EDT 10 mg Given 04/10/2025 10:06 PM EDT 10 mg oxyCODONE (Roxicodone) immediate release tablet 5 mg 5 mg, Oral, Once, 1 dose, On Mon04/09/25 at 1545, Routine, Holding - Preprocedure Given 04/09/2025 3:13 PM EDT 5 mg oxyCODONE (Roxicodone) immediate release tablet 5 mg 5 mg, Oral, Every 4 hours PRN, Starting on Mon04/11/25 at 0831, Until Mon04/11/25 at 1945, Routine, Recovery(Phase II-Outpatient)/On Unit(Inpatient), moderate pain Given 04/11/2025 4:12 PM EDT 5 mg Given 04/11/2025 11:53 AM EDT 5 mg oxyCODONE (Roxicodone) immediate release tablet 5 mg 5 mg, Oral, Every 6 hours PRN, Starting on Mon04/12/25 at 0831, Until Mon04/11/25 at 1945, Routine, Recovery(Phase II-Outpatient)/On Unit(Inpatient), moderate pain oxyCODONE (Roxicodone) immediate release tablet 5 mg 5 mg, Oral, Every 8 hours PRN, Starting on Mon04/15/25 at 0831, Until Mon04/11/25 at 1945, Routine, Recovery(Phase II-Outpatient)/On Unit(Inpatient), moderate pain polyethylene glycol (Miralax) packet 17 g 17 g, Oral, Daily, First dose on Maryellen 04/10/25 at 1145, Until Discontinued, Routine Povidone-Iodine 5 % swab solution 1 Application Nasal, Once, 1 dose, On Mon04/09/25 at 1545, Routine Given 04/09/2025 3:07 PM EDT 1 Application rosuvastatin (Crestor) tablet 20 mg 20 mg, Oral, Nightly, First dose on Mon04/10/25 at 2100, Until Discontinued, Routine Given 04/10/2025 9:57 PM EDT 20 mg senna-docusate (Angela-Colace) 8.6-50 MG per tablet 1 tablet 1 tablet, Oral, 2 times daily, First dose on Mon04/10/25 at 1145, Until Discontinued, Routine Given 04/10/2025 9:56 PM EDT 1 tablet Given 04/10/2025 11:12 AM EDT 1 tablet traMADol (Ultram) tablet 50 mg 50 mg, Oral, Every 4 hours PRN, Starting on Mon04/10/25 at 1654, Until Mon04/11/25 at 1945, Routine, Sign, severe pain, Severe pain unresponsive to opiods vancomycin HCl (Vancocin) 750 mg in sodium chloride 0.9% 250 mL IVPB (vial adapter required) 750 mg, Intravenous, Once, 1 dose, On Mon04/09/25 at 1545, at 275 mL/hr, STAT New Bag 04/09/2025 3:07 PM EDT 750 mg 275 mL/hr vancomycin HCl (Vancocin) 750 mg in sodium chloride 0.9% 250 mL IVPB (vial adapter required) 750 mg, Intravenous, Every 24 hours, First dose on Maryellen 04/10/25 at 1115, Until Discontinued, at 275 mL/hr, Routine New Bag 04/10/2025 11:07 AM EDT 750 mg 275 mL/hr documented in this encounter Active and Recently Administered Medications Times are shown in EDT. Scheduled Medication Order 04/09/2025 04/10/2025 04/11/2025 acetaminophen (Tylenol) tablet 1,000 mg (COMPLETED) 1,000 mg, Oral, Once, 1 dose, On Mon04/09/25 at 1430, Routine, Holding - Preprocedure 1401 (Given - Provider: Sunny Dwyer RN) acetaminophen (Tylenol) tablet 1,000 mg 1,000 mg, Oral, Every 6 hours scheduled, First dose on Maryellen 04/10/25 at 0000, Until Discontinued, Routine, Recovery(Phase II-Outpatient)/On Unit(Inpatient) 0026 (Given - Provider: Qiana Nuno RN)0614 (Given - Provider: Qiana Nuno RN)1117 (Given - Provider: Nesha Deng RN)1727 (Given - Provider: Nesha Deng RN) 0036 (Given - Provider: Bryan Gibbs RN)0528 (Not Given - Provider: Bryan Gibbs RN - Reason: Order parameters not met)1153 (Given - Provider: Christian Jay RN)1800 (Canceled Entry - Provider: Automatic Discharge Provider - Comment: Automatically canceled at discontinue of medication order) aspirin chewable tablet 81 mg 81 mg, Oral, Daily, First dose on Maryellen 04/10/25 at 1145, Until Discontinued, Routine 1112 (Given - Provider: Nesha eDng RN) 0859 (Given - Provider: Christian Jay, TITUS) DAPTOmycin (Cubicin) 450 mg in sodium chloride 0.9 % 100 mL IVPB (COMPLETED) 450 mg, Intravenous, Once, 1 dose, On Mon04/11/25 at 1245, STAT 1250 (New Bag - Provider: Christian Jay, RN) enoxaparin (Lovenox) syringe 30 mg 30 mg, Subcutaneous, Daily, First dose on Mon04/11/25 at 1015, Until Discontinued, Routine 1015 (Canceled Entry - Provider: Automatic Discharge Provider - Comment: Automatically canceled at discontinue of medication order) famotidine (Pepcid) tablet 20 mg (COMPLETED) 20 mg, Oral, Once, 1 dose, On Mon04/09/25 at 1430, Routine, Holding - Preprocedure 1401 (Given - Provider: Sunny Dwyer RN) gabapentin (Neurontin) capsule 200 mg (COMPLETED) 200 mg, Oral, Once, 1 dose, On Mon04/09/25 at 2130, Routine 2046 (Given - Provider: Qiana Nuno RN) gabapentin (Neurontin) capsule 600 mg (COMPLETED) 600 mg, Oral, Once, 1 dose, On Mon04/09/25 at 1545, Routine, Holding - Preprocedure 1513 (Given - Provider: Sunny Dwyer RN) gabapentin (Neurontin) capsule 800 mg 800 mg, Oral, Nightly, First dose on Mon04/10/25 at 2100, Until Discontinued, Routine 2157 (Given - Provider: Bryan Gibbs RN) ibuprofen tablet 400 mg(Linked Group 1) 400 mg, Oral, Every 6 hours scheduled, First dose on Mon04/11/25 at 0015, Until Discontinued, Routine, Recovery(Phase II-Outpatient)/On Unit(Inpatient) 0036 (Given - Provid er: Bryan Gibbs RN)0528 (Given - Provider: Bryan Gibbs RN)1153 (Given - Provider: Christian Jay RN)1800 (Canceled Entry - Provider: Automatic Discharge Provider - Comment: Automatically canceled at discontinue of medication order) ipratropium-albuterol (Duo-Neb) 0.5-2.5 mg/3 mL nebulizer solution 3 mL (COMPLETED) 3 mL, Nebulization, Once, 1 dose, On Mon04/09/25 at 1500, Routine, Holding - Preprocedure 1420 (Given - Provider: Mi Cam) Jonnathan powder 1 packet 1 packet, Oral, Daily, First dose on Mon04/10/25 at 1300, Until Discontinued, Routine 1326 (Given - Provider: Nesha Deng RN) 0906 (Given - Provider: Christian Jay, TITUS) lactated Ringer's infusion (COMPLETED) 100 mL/hr, Intravenous, Once, 1 dose, On Mon04/09/25 at 1430, Routine 1536 (New Bag - Provider: Lilli Cisneros MD)1810 (Stopped - Provider: Lilli Cisneros MD) mupirocin (Bactroban) 2 % ointment 1 Application Each Nostril, 2 times daily, 10 doses, First dose on Mon04/10/25 at 0900, Last dose on Mon04/14/25 at 2100, Routine 0949 (Given - Provider: Nesha Deng RN)2157 (Given - Provider: Bryan Gibbs RN) 0859 (Given - Provider: Christian Jay RN) oxyCODONE (Roxicodone) immediate release tablet 5 mg (COMPLETED) 5 mg, Oral, Once, 1 dose, On Mon04/09/25 at 1545, Routine, Holding - Preprocedure 1513 (Given - Provider: Sunny Dwyer RN) polyethylene glycol (Miralax) packet 17 g 17 g, Oral, Daily, First dose on Mon04/10/25 at 1145, Until Discontinued, Routine 1112 (Not Given - Provider: Nesha Deng RN - Reason: Patient/family refused) 0859 (Not Given - Provider: Christian Jay RN - Reason: Patient/family refused)0901 (Not Given - Provider: Christian Jay RN - Reason: Patient/family refused) Povidone-Iodine 5 % swab solution 1 Application (COMPLETED) Nasal, Once, 1 dose, On Mon04/09/25 at 1545, Routine 1507 (Given - Provider: Sunny Dwyer RN) rosuvastatin (Crestor) tablet 20 mg 20 mg, Oral, Nightly, First dose on Mon04/10/25 at 2100, Until Discontinued, Routine 2157 (Given - Provider: Bryan Gibbs RN) senna-docusate (Angela-Colace) 8.6-50 MG per tablet 1 tablet 1 tablet, Oral, 2 times daily, First dose on Mon04/10/25 at 1145, Until Discontinued, Routine 1112 (Given - Provider: Nesha Deng RN)2156 (Given - Provider: Bryan Gibbs, RN) 0859 (Not Given - Provider: Christian Jay RN - Reason: Patient/family refused) vancomycin HCl (Vancocin) 750 mg in sodium chloride 0.9% 250 mL IVPB (vial adapter required) (COMPLETED) 750 mg, Intravenous, Once, 1 dose, On Mon04/09/25 at 1545, at 275 mL/hr, STAT 1507 (New Bag - Provider: Sunny Dwyer RN) vancomycin HCl (Vancocin) 750 mg in sodium chloride 0.9% 250 mL IVPB (vial adapter required) (CANCELED) 750 mg, Intravenous, Every 24 hours, First dose on Maryellen 04/10/25 at 1115, Until Discontinued, at 275 mL/hr, Routine 1107 (New Bag - Provider: Nesha Deng RN) 1153 (Not Given - Provider: Christian Jay RN - Reason: Order changed) PRN Medication Order 04/09/2025 04/10/2025 04/11/2025 fentaNYL (Sublimaze) injection 50 mcg (CANCELED) 50 mcg, Intravenous, Every 5 min PRN, 2 doses, Starting on Mon04/09/25 at 1822, Until Mon04/09/25 at 191, Routine, Recovery (Phase I only), pain score of 5-8 out of 10 1827 (Given - Provider: Giovain Cowan RN) ipratropium-albuterol (Duo-Neb) 0.5-2.5 mg/3 mL nebulizer solution 3 mL 3 mL, Nebulization, Every 6 hours PRN, Starting on Mon04/11/25 at 0437, Until Mon04/11/25 at 1945, Routine, wheezing, shortness of breath methocarbamol (Robaxin) tablet 750 mg 750 mg, Oral, Every 6 hours PRN, Starting on Mon04/09/25 at 2031, Until Mon04/11/25 at 1945, Routine, Recovery(Phase II-Outpatient)/On Unit(Inpatient), muscle spasms 1045 (Given - Provider: Nesha Deng RN)1727 (Given - Provider: Nesha Deng RN) 0327 (Given - Provider: Bryan Gibbs RN) oxyCODONE (Roxicodone) immediate release tablet 10 mg (CANCELED)(Linked Group 2) 10 mg, Oral, Once as needed, 2 doses, Starting on Mon04/09/25 at 1822, Until Mon04/09/25 at 1911, Routine, Recovery (Phase I only), pain score of 6-8 out of 10 1828 (Given - Provider: Giovani Cowan RN) oxyCODONE (Roxicodone) immediate release tablet 10 mg(Linked Group 3) 10 mg, Oral, Every 4 hours PRN, Starting on Mon04/09/25 at 203, Until Mon04/11/25 at 0830, Routine, Recovery(Phase II-Outpatient)/On Unit(Inpatient), severe pain 0031 (Given - Provider: Qiana Nuno RN)0619 (Given - Provider: Qiana Nuno RN)1045 (Given - Provider: Nesha Deng RN)1443 (Given - Provider: Nesha Deng RN)1852 (Given - Provider: Nesha Deng RN)220 (Given - Provider: Bryan Gibbs RN) 0328 (Given - Provider: Bryan Gibbs RN)0649 (Given - Provider: Bryan Gibbs RN) oxyCODONE (Roxicodone) immediate release tablet 5 mg(Linked Group 3) 5 mg, Oral, Every 4 hours PRN, Starting on Mon04/09/25 at 203, Until Mon04/11/25 at 0830, Routine, Recovery(Phase II-Outpatient)/On Unit(Inpatient), moderate pain 0031 (See Alternative - Provider: Qiana Nuno RN)0619 (See Alternative - Provider: Qiana Nuno RN)1045 (See Alternative - Provider: Nesha Deng RN)1443 (See Alternative - Provider: Nesha Deng RN)1852 (See Alternative - Provider: Nesha Deng RN)2206 (See Alternative - Provider: Bryan Gibbs RN) 0328 (See Alternative - Provider: Bryan Gibbs RN)0649 (See Alternative - Provider: Bryan Gibbs RN) oxyCODONE (Roxicodone) immediate release tablet 5 mg(Linked Group 4) 5 mg, Oral, Every 4 hours PRN, Starting on Mon04/11/25 at 0831, Until Mon04/11/25 at 1945, Routine, Recovery(Phase II-Outpatient)/On Unit(Inpatient), moderate pain 1153 (Given - Provider: Christian Jay RN)1612 (Given - Provider: Christian Jay RN) oxyCODONE (Roxicodone) immediate release tablet 5 mg(Linked Group 4) 5 mg, Oral, Every 6 hours PRN, Starting on 04/12/25 at 0831, Until Mon04/11/25 at 1945, Routine, Recovery(Phase II-Outpatient)/On Unit(Inpatient), moderate pain oxyCODONE (Roxicodone) immediate release tablet 5 mg(Linked Group 4) 5 mg, Oral, Every 8 hours PRN, Starting on Tu04/15/25 at 0831, Until Mon04/11/25 at 1945, Routine, Recovery(Phase II-Outpatient)/On Unit(Inpatient), moderate pain traMADol (Ultram) tablet 50 mg 50 mg, Oral, Every 4 hours PRN, Starting on Maryellen 04/10/25 at 1654, Until Mon04/11/25 at 1945, Routine, Sign, severe pain, Severe pain unresponsive to opiods 1727 (Not Given - Provider: Nesha Deng RN - Reason: Patient/family refused)2218 (Not Given - Provider: Bryan Gibbs RN - Reason: Order parameters not met - Comment: painscore low) vancomycin (Vancocin) vial for injection (CANCELED) As needed, Starting on Mon04/09/25 at 1652, Until Mon04/09/25 at 1803, Routine, Intraprocedure 165 (Given - Provider: Cristian Rea MD - Comment: placed inside incision prior to closure) Linked Groups Order Group 1: ketorolac (Toradol) injection 15 mg () 15 mg, Intravenous, Every 6 hours scheduled, 4 doses, First dose on Maryellen 04/10/25 at 0000, Last dose on Maryellen 04/10/25 at 1800, Routine, Recovery(Phase II- Outpatient)/On Unit(Inpatient) Followed by ibuprofen tablet 400 mgJump to med 400 mg, Oral, Every 6 hours scheduled, First dose on Mon04/11/25 at 0015, Until Discontinued, Routine, Recovery(Phase II-Outpatient)/On Unit(Inpatient) Group 2: oxyCODONE (Roxicodone) immediate release tablet 5 mg (CANCELED) 5 mg, Oral, Once as needed, 2 doses, Starting on Mon04/09/25 at 1822, Until Mon04/09/25 at 191, Routine, Recovery (Phase I only), pain score of 3-5 out of 10 Or oxyCODONE (Roxicodone) immediate release tablet 10 mg (CANCELED)Jump to med 10 mg, Oral, Once as needed, 2 doses, Starting on Mon04/09/25 at 1822, Until Mon04/09/25 at 191, Routine, Recovery (Phase I only), pain score of 6-8 out of 10 Group 3: oxyCODONE (Roxicodone) immediate release tablet 5 mgJump to med 5 mg, Oral, Every 4 hours PRN, Starting on Mon04/09/25 at 203, Until Mon04/11/25 at 0830, Routine, Recovery(Phase II-Outpatient)/On Unit(Inpatient), moderate pain Or oxyCODONE (Roxicodone) immediate release tablet 10 mgJump to med 10 mg, Oral, Every 4 hours PRN, Starting on Mon04/09/25 at 203, Until Mon04/11/25 at 0830, Routine, Recovery(Phase II-Outpatient)/On Unit(Inpatient), severe pain Group 4: oxyCODONE (Roxicodone) immediate release tablet 5 mgJump to med 5 mg, Oral, Every 4 hours PRN, Starting on Mon04/11/25 at 0831, Until Mon04/11/25 at 1945, Routine, Recovery(Phase II-Outpatient)/On Unit(Inpatient), moderate pain Followed by oxyCODONE (Roxicodone) immediate release tablet 5 mgJump to med 5 mg, Oral, Every 6 hours PRN, Starting on Mon04/12/25 at 0831, Until Mon04/11/25 at 1945, Routine, Recovery(Phase II-Outpatient)/On Unit(Inpatient), moderate pain Followed by oxyCODONE (Roxicodone) immediate release tablet 5 mgJump to med 5 mg, Oral, Every 8 hours PRN, Starting on Mon04/15/25 at 0831, Until Mon04/11/25 at 1945, Routine, Recovery(Phase II-Outpatient)/On Unit(Inpatient), moderate pain documented in this encounter Additional Health Concerns Infection Onset Date Last Indicated Resolved Time 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
--- OUTSIDE RECORDS SUMMARY | 2025-04-09 13:30 | XMS_ITS | Encounter Summary ---
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 clinic entrance. We are open Monday-Monday from 8 a.m. to 4:30 p.m. A clinic dermatology sales representative can be reached at [phone]. Parking is available in the [facility] garage on [facility] or in the [facility] garage located at [address] [place] [address], directly across [facility] from [facility]. The day before surgery You will receive a phone call telling you what time you need to arrive at the hospital for surgery.If you miss the call, please call one of the following numbers (depending on where your surgery is scheduled): ? [facility]: [phone] or [phone] ? [facility]: [phone] or [phone] The day of surgery ? Arrive on time to avoid delays or cancellation. ? Park in the [facility] parking garage located at [address] It is directly across [facility] from the medical campus. ? If you are scheduled for surgery at [facility], take the hospital garage elevator to Level C, then cross the concourse bridge to the Surgery Waiting Room to register for your surgery. [facility] is located down the first hallway to the right at the end of the concourse bridge. If you need help crossing the concourse, you may berry picker the patient golf cart shuttle directlyto the right of the elevators on Level C. ? If you are scheduled for surgery at the [facility], take the garage elevator to Level A and catch the free shuttle to the hospital. (Be careful not to take the [facility] shuttle - there is an ambassador [...] checked many times throughout your stay at [facility] to ensure your safety. ? Go over [...] talk to them after your surgery. A hospital unit clerk is available in the waiting room [...] living will, health care surrogate, power of ip technology transactions attorney or guardianship papers. ? Bring a [...] makeup, jewelry (including body piercing) or nail greek. ? Don?t bring money or valuables to [...] office and the Preoperative Anesthesia Clinic at [phone] or [phone]. If it is the day of surgery, call the location where you are scheduled to have your surgery: [facility] at [phone] or [phone] or [facility] at [phone] or [phone]. For more information Visit www.counts include 234 beds at the [facility] or call [phone] or [phone]. [facility] does not discriminate. [facility] complies with applicable Federal civil rights laws and does not discriminate on the basis of race, color, national origin, age, disability, or sex. * Vitaliy PaulPHYLICIA - Negin Aguirre RN - 03/28/2025 10:14 AM EDT Images from the original note were not included. 489 Map to [facility] Facilities Directions Easy directions to and from [address] (from [address]) Directions from I-75/[address]-64 to the HealthCare Parking Garage: ? From [address], turn right off the exit ramp onto [employer] ([place] [address]/[place] [address]) toward [place]. ? In 4.1 miles, turn left onto [employer]. (at the [employer]). ? In a half-mile, turn right onto [address]. ? In .3 miles, turn right onto [address] (just past the [employer] gas station). Garage entrance is on the left. ? Important: This garage address will change to Dayo Benavidez on February 18, 2025. Directions from HealthCare Parking Garage to I-75/I-64: ? Turn left out of the garage onto [facility] [address]. ? Turn left onto [address]. ? In .3 miles, turn left down [address] ? In a half-mile, turn right onto [address] (at the [employer] gas station). ? In 4.1 miles, merge onto [address] /[address] (near the [facility] by Yen Barroso). Parking Any patients or visitors of [facility] can park in the following areas: ? [facility] Parking Garage (main garage): [address] (Levels A-F) ? [facility] Garage: [address] (Levels 1-6) ? [facility] Cancer lot: Located off [employer] (limited parking for [facility] outpatients only). Upon Your Arrival ? Patients and visitors going to Pav[facility] A, H, G and [facility] may walk across the pedway, [...] also be accessed via the pedway off [facility] garage on Level C. If you need a shuttle to the ED, one can be called for you at Level A of the main garage or contact any of the information desks, . Additional Information For additional information, please visit our information desks located throughout [facility]. Information desks have additional maps and resources. Information desks are located at the main entrances of: [facility] (first floor and ground floor), [facility], [facility] H, [facility] CC, [facility] WH, [facility] (first and third floor), and [facility]. Informationdesk number: [phone]. Important Addresses [address] [place] [address] ? [facility] entrance ? Pavilion A ? Pavilion G ([facility]) ? Emergency Department [address] ? Pavilion H ? [facility] CC ([facility]) ? [facility] WH ([facility]) ? [facility] [address] [facility] ? [facility] [address] [facility] ? [facility] [address] [facility] ? [facility] ? [facility] [...] split thickness skin graft right leg cpt 98740, 67835, [address] [address] Rea (Right). [...] card, photo ID, along with power of ip technology transactions attorney, guardianship or advanced directives if applicable Do not bring money, jewelry (Including wedding rings) or other valuables. Do not wear any makeup, nail greek, or contact lens the day of surgery. Hibiclens bathing instructions reviewed if applicable Notify surgeon of fever, illness, any changes or if you decide not to have surgery. If you have anysurgery specific questions or concerns, please contact your surgeon, * Cristian Rea S - Anabela. If you are unable to keep your surgery day (04/02/2025) please contact your surgeon's office. If it is the day of surgery, call the location where you are scheduled to have your surgery: [facility] at [phone] or [phone] or [facility] at [phone] or [phone]. documented in this encounter Plan of Treatment Upcoming Encounters Date Type Department Care Team (Late st Contact Info) Description 04/14/2025 2:30 PM EDT Office Visit [facility] [address] [place] [phone] Jennifer Novak MD [address] [place] [phone] 05/06/2025 8:30 AM EDT Office Visit [facility] [address] [place] [phone] Catalina Ruiz, SHANK THREADER [address] [place] [address] 05/06/2025 2:30 PM EDT Office Visit [facility] [address] [place] [address] Cristian Rea MD [address] [place] [address] 05/20/2025 1:00 PM EDT Office Visit [facility] [address] [place] [address] Catalina Ruiz, SHANK THREADER [address] [facility] [address] [place] [address] Pending Results Name Type Priority [...] Orde r Schedule Discharge Ambulatory referral to [facility] Outpatient Referral Routine Chronic osteomyelitis [...] of right tibia with draining sinus (CMS/HCC) MT REMOVAL DEEP IMPLANT 04/09/20 3:20 PM EDT [...] Lorenzo RN Authorized by: Cristian Rea MD [place] Protocol: Verbal consent obtained?: Yes Written consent [...] preference Patient position: Flat Catheter Lot #: [id number] Catheter agriculture laboratory technician: Bard PowerPICC Solo Catheter placed: Single lumen [...] Kinase (CK), Total (04/11/2025 1:00 PM EDT) [facility] Creatine Kinase, Plasma 143 49 - 320 U/L 04/11/2025 2:10 PM EDT [facility] Blood Venous blood specimen / Unknown Venipuncture / Unknown 04/11/2025 1:00 PM EDT 04/11/2025 1:41 PM EDT [place] [facility] LAB BLOOD ORDERABLES Final Res ult Performing Organization Address City/[facility]/ZIP Co de Phone Number [facility] [address] [place] [address] * HIV 1 & 2 Antibody/Antigen Screen (04/11/2025 1:00 PM EDT) [facility] HIV 1 & 2 Antibody/Antigen Screen [...] ORDERABLES Final R esult Performing Organization Address City/[facility]/ZIP Co de Phone Number [facility] [address] [place] [address] * C-reactive protein (04/10/2025 2:29 AM EDT) [facility] CRP, Plasma <3.0 <=8.0 mg/L 04/10/2025 [...] ORDERABLES Final Res ult Performing Organization Address City/[facility]/ZIP Co de Phone Number [facility] [address] [place] [address] * (ABNORMAL) Prealbumin (04/10/2025 2:29 AM EDT) Prealbumin, Plasma 17.1(L) 20.0 - 41.0 mg/dL 04/10/2025 11:03 AM EDT [facility] Blood Venous blood specimen / Unknown Venipuncture / Unknown 04/10/2025 2:29 AM EDT 04/10/2025 2:39 AM EDT us Cristian Rea MD LAB BLOOD ORDERABLES Final Result Performing Organization Address City/[facility]/ZIP Co de Phone Number [facility] [address] [place] [address] * (ABNORMAL) Basic metabolic panel (04/10/2025 2:29 [...] Result [facility] [address] [place] [address] * (ABNORMAL) CBC (04/10/2025 2:29 AM EDT) [...] Result [facility] [address] [place] [address] * [place] Less than 1 Hour Intraoperative [...] GENERAL ORDERABLES Final Result Performing Organization Address 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/ZIP Co de Phone Number [facility] [address] [place] [address] * (ABNORMAL) Bone Culture and Gram Stain [...] GENERAL ORDERABLES Final Result Performing Organization Address City/[facility] Co de Phone Number [facility] [address] [place] [address] * 12 Lead ECG (04/09/2025 3:13 PM EDT) EKG DIAGNOSIS CLASS Abnormal MUSE ECG Ventricular Rate 59 BPM MUSE ECG Atrial Rate 59 BPM MUSE ECG MT Interval 122 ms MUSE ECG QRSD Interval 82 ms MUSE ECG QT Interval 432 ms MUSE ECG QTC Interval 427 ms MUSE ECG P [place] 67 degrees MUSE ECG R [place] 92 degrees MUSE ECG T Wave [place] 76 degrees MUSE ECG Diagnosis Sinus bradycardia MUSE ECG Diagnosis Rightward axis MUSE ECG Diagnosis Poor R-wave progression MUSE ECG Diagnosis Abnormal ECG MUSE ECG Diagnosis MUSE ECG Diagnosis Confirmed by Isacc Arciniega ([id number]) on 04/09/2025 5:30:16 PM MUSE ECG 04/09/2025 3:13 PM EDT 04/09/2025 5:30 PM EDT us Rubens Guy MD ECG ORDERABLES Final Result Performing Organization Address City/[facility]/ZIP Co de Phone Number MUSE ECG * [...] Result [facility] [address] [place] [address] * Basic metabolic panel (04/09/2025 3:01 PM [...] sult [facility] [address] [place] [address] * Type and screen (04/09/2025 3:01 PM [...] ORDERABLE S Final Result Performing Organization Address City/State/[facility] Co de Phone Number BLOOD BANK [address] documented in this encounter Visit Diagnoses Diagnosis [...] STAT 1250 (New Bag - Provider: Christian Jay RN) enoxaparin (Lovenox) syringe 30 mg 30 [...] 2130, Routine 2046 (Given - Provider: Qiana Nnuo RN) gabapentin (Neurontin) capsule 600 mg (COMPLETED) [...] pain score of 5-8 out of 10 1828 (Given - Provider: Giovani Cowan RN) ipratropium-albuterol [...] Qiana Nuno RN)1045 (Given - Provider: Nesha Deng, TITUS)1443 (Given - Provider: Nesha Deng RN)1852 (Given - Provider: Nesha Deng RN)2206 (Given - Provider: Bryan Gibbs RN) 0328 (Given - Provider: Bryan Gibbs RN)0649 (Given - Provider: Bryan Gibbs RN) oxyCODONE (Roxicodone) immediate release tablet 5 mg(Linked Group 3) 5 mg, Oral, Every 4 hours PRN, Starting on 04/09/25 at 2031, Until Mon04/11/25 at 0830, Routine, Recovery(Phase II-Outpatient)/On Unit(Inpatient), moderate pain 0031 (See Alternative - Provider: Qiana Nuno RN)0619 (See Alternative - Provider: Qiana Nuno RN)1045 (See Alternative - Provider: Nesha Deng, RN)1443 (See Alternative - Provider: Nesha Deng [...] Oral, Every 4 hours PRN, Starting on 04/11/25 at 0831, Until Mon04/11/25 at 1945, Routine, [...] documented as of this encounter Care Teams Poultry Hatchery Laborer Relationship Specialty Start Date End Date Ruddy Branch MD PCP - General 12/14/22 documented as of this encounter
--- OUTSIDE RECORDS SUMMARY | 2025-04-09 15:36 | XMS_ITS | Encounter Summary ---
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) [M86.461] Procedures ID REMOVAL DEEP IMPLANT ID ADJ TISS XFER SCALP,EXTREM <10 SQCM ID MUSCLE-SKIN FLAP,LEG ID SPLIT GRFT TRUNK,ARM,LEG <100 SQCM ID ADJ TISS XFER SCALP,EXTREM <10 SQCM REMOVAL, HARDWARE Rotational Flap, Adjacent tissue transfer, split thickness skin graft RIGHT leg Cristian Rea MD [address] [facility] [address] [place] [address] Phone: tel: fax: [facility]PERATING ROOM [address] [place] [address] Phone: tel: Referral ID Status Reason Start Date Expiration Date Visits Re quested Visits Authorized [id number] 1 1 Encounter Details Date Type Department Care Team (Late st Contact Info) Description 04/09/2025 3:36 PM EDT Anesthesia Event [facility] [address] [place] [address] Rubens Guy MD [address] [place] [address] Lilli Cisneros MD [address] [place] [address] Anesthesia Record Procedure Summary Procedure Name Responsible [...] injection 4 mg/ mL 4 mg phenylephrine (Umair-Synephrine) prefilled syringe 1 mg/10 mL 150 mcg [...] Wound 04/09/25; Surgical; Open Surg; Pretibial; Distal, Right 04/09/25 0000 by Abbey Moreira RN Negative Pressure Wound Therapy 04/09/25; 1640; dr martinez; Yes; Surgical; Leg; Anterior, Distal, Lower, Right 04/09/25 1640 by Abbey Moreira RN Peripheral IV Placement Date: 03/22 ; Placement Time: 1357; Catheter Size: 20 G; Orientation: Right; Location: Antecubital; Site Prep: Chlorhexidine ; Local Anesth: [place]; Technique: Anatomical landmarks; Inserted by: susu; Insertion [...] 17504/09/25 1547 by Lilli Cisneros MD 04/09/25 1752 by Lilli Cisneros MD documented in this [...] and Family Not on file 03/19/2024 Attends Bahai Services Not on file 03/19 Active Member [...] Recorded Patient Health Questionnaire-2 Score 0 10/15/2024 [facility] - Occupational Stress [...] place to sleep or slept in a nursing home (including now)? No 03/19/2024 PHQ-9 Answer [...] and Family Not on file 04/11/2025 Attends Bahai Services Not on file 04/11 Active Member [...] any time in the past 12 m [facility], were you homeless or living in a nursing home (including now)? 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 0 03/14/2024 CAGE Questionnaire Score 0 024 Utilities Answer Date Recorded In the past 12 months has e [employer], gas, oil, or water [employer] threatened to shut off services in your [...] portions of the procedure(s) and immediately available [facility] services the entire duration. See resident note for details. * Anesthesia Preprocedure Evaluation - Rubens Guy MD - 04/09/2025 12:21 PM EDT No anesthesia staff entered. Patient: Thai Ponce HPI Thai Ponce is a 64 y.o. male with history of [place], anxiety/depression, smoker, COPD, and bodymass index is [...] graft RIGHT leg (Right: Leg Lower) Location: [facility] OR / [place] [facility] Surgeons: Cristian Rea MD ~4 METs [...] ABG No results found for: PHART , QZC2MNM , PO2ART , SO2ART , BEART , CTK2UKS , HCTART , SODIUMART , POTASSIUMART , POCTCL , POCGLU , IONCALART , LACTATE Lab Results Component Value Date HCTSYR 19.4 (LL) 12/13/2023 KSYR 3.8 12/13/2023 CLSYR 106 12/13/2023 GLUSYR 111 (H) 12/13/2023 CAION 4.3 (L) 12/13/2023 ECHO No echocardiogram results found for the past 12 months PFTs No results found for: TCT6DQH , MBC6TESY , XGL3SZD , FVCPRED BP Readings from Last 5 [...] to OR ROS Cardiovascular: Cardio additional comments: [facility] 60 to 70% LAD, normal circumflex, less than 10% RCA OS last Cards note 08/2022 1. Coronary artery disease involving [place] heart with other form of angina pectoris, unspecified vessel or lesion type ([facility]) (Primary), recurrent chest pain. Known moderate LAD [...] Date Anxiety COPD (chronic obstructive pulmonary disease) ([facility]) Coronary artery disease last cardiology appt. 08/2022 - patient states no longer sees cardiology Deep vein thrombosis ([facility]) 2023 Depression Dysphagia unknown reason as of 04/01/25 History of methicillin resistant Staphylococcus aureus HL (hearing loss) no hearing aids at this time Hyperlipidemia Hypertension Limited mobility holds on to furniture and paniagua Myocardial infarction ([facility]) 2017 Peripheral neuropathy PTSD (post-traumatic stress disorder) [3] [...] Description 04/14/2025 2:30 PM EDT Office Visit [facility] Plastic & Reconstructive Surgery [address] [place] [address] Jennifer Martinez MD [address] [facility] [address] [place] [address] 05/06/2025 8:30 AM EDT Office Visit [facility] [address] [place] [address] Catalina Ruiz APRN [address] [facility] [address] [place] [address] 05/06/2025 2:30 PM EDT Office Visit [facility] Orthopaedic Surgery & Sports Medicine [address], 1st Floor [address] [place] [address] Cristian Rea MD [address] [place] [address] 05/20/2025 1:00 PM EDT Office Visit [facility] [address] [place] [address] Catalina Ruiz, DIRECTOR OF VOCATIONAL TRAINING [address] [facility] [address] [place] [address] documented as of this encounter Procedures Procedure Name Priority Date/Time Associated Diagnosis Comments PB ANESTHESIA PLACEHOLDER Routine 04/09/2025 3:47 PM EDT ID AN ELECTIVE ENDOTRACHEAL AIRWAY Routine 04/09/2025 3:47 PM EDT documented in this encounter Results * ID AN ELECTIVE ENDOTRACHEAL AIRWAY, PB ANESTHESIA PLACEHOLDER [...] documented as of this encounter Care Teams Manager Photo Relationship Specialty Start Date End Date Ruddy Branch MD PCP - General 12/14/22 documented as of this encounter
--- OUTSIDE RECORDS SUMMARY | 2025-04-14 10:18 | XMS_ITS | Encounter Summary ---
Author Organization [facility] Address [address] [place] [address] Care Team Providers Care Copier Repair Technician Name Role Phone Ruddy Branch MD Primary Care Provider [phone] Encounter Details Date Type Department Care Team (Late st Contact Info) Description 04/14/2025 Clinical Support [facility] [address] [place] [id number] Alondra Marsh, PharmD Social History Tobacco Use Types Packs/Day Years [...] 0 10/15/2024 [facility] of Occupat ional [facility] - Occupational Stress Questionnaire Answer Date [...] place to sleep or slept in a longterm (including now)? No 03/19/2024 PHQ-9 Answer Date [...] and Family Not on file 04/11/2025 Attends Christian Services Not on file 04/11 Active Member [...] any time in the [facility], were you homeless or living in a longterm (including now)? No 04/11/2025 CAGE ASSESSMENT Answer [...] drink first t trupti in the morning (EYE-SCOOP DRIVER) to steady your nerves or to get [...] AM EDT documented as of this encounter Plan of Treatment Upcoming Encounters Date Type Department Care Team (Late st Contact Info) Description 04/14/2025 2:30 PM EDT Office Visit [facility] Plastic & Reconstructive Surgery [address] [place] [address] Jennifer Novak MD [address] [place] [address] 05/06/2025 8:30 AM EDT Office Visit [facility] [address] [place] [address] Catalina Ruiz, GAS PLANT WORKER [address] [facility] [address] [place] [address] 05/06/2025 2:30 PM EDT Office Visit [facility] [address] [place] [address] Cristian Rea MD [address] [place] [address] 05/20/2025 1:00 PM EDT Office Visit [facility] [address] [place] [address] Catailna Ruiz, GAS PLANT WORKER [address] [facility] [address] [place] [address] documented as of this encounter Visit Diagnoses Not on filedocumented in this encounter Additional Health Concerns Infection Onset Date Last Indicated Resolved Time MRSA 01/31/2024 04/09/2025 Assessment Noted Time PHQ-9 Depression Total Score: 0 10/15/19 9:42 AM EST A fall risk assessment has been complete d for the patient 03/25/2025 2:49 PM EDT A Body Mass Index follow-up plan has been documented for the patient 04/14/2025 8:32 AM EDT documented as of this encounter Care Teams Copier Repair Technician Relationship Specialty Start Date End Date Ruddy Branch MD PCP - General 12/14/22 documented as of this encounter
--- OUTSIDE RECORDS SUMMARY | 2025-04-14 10:18 | XMS_ITS | Encounter Summary ---
Author Organization [employer] ([place], [place], [place], [place]) Address [address] [place] [address] Care Team Providers Care Judo Teacher Name Role Phone Unavailable Primary Care Provider Unavailabl e Reason for Referral * Consultation (Routine) - Canceled Specialty Diagnoses / Procedures Referred By Contac t Referred To Contact Psychology / Behavioral Health Diagnoses Other chronic pain Memory loss Segundo Zelaya MD [address] [address] [place] [address] Phone: tel: fax: [place], [place] [address] [place] [address] Phone: tel: fax: Referral ID Status Reason Start Date Expiration Date Visits Requested Visits Authorized [id number] Canceled Specialty Services Required 10/22/2024 10/22/2025 1 1 Encounter Details Date Type Department Care Team (Late st Contact Info) Description 10/22/2024 Outside Orders [facility] Scheduling [address] [place] [address] Segundo Zelaya MD [address] [address] [place] [address] Other chronic pain (Primary Dx); Memory loss Social History Tobacco Use Types Packs/Day Years Used Date Smoking Tobacco: Never Assessed Sex and Gender Information Value Date Recorded Sex Assigned at Not on file Legal Sex Male 12:33 PM LOCOMOTIVE PIPE FITTER Gender Identity Not on file Sexual Orientation Not on file documented as of this encounter Plan of Treatment Scheduled Referrals Name Type Priority Associated Diagnoses Order Schedule Ambulatory referral to Psychology Outpatient Referral Routine Other chronic pain Memory loss Expected: 10/22/2024, Expires: 10/22/2025 documented as of this encounter Visit Diagnoses Diagnosis Other chronic pain- Primary Memory loss documented in this encounter
--- OUTSIDE RECORDS SUMMARY | 2025-04-14 10:18 | XMS_ITS | Encounter Summary ---
Author Organization Healthcare Address [address] [place] [address] Care Team Providers Care Armed Security Professional Name Role Phone Ruddy Branch MD Primary Care Provider [phone] Encounter Details Date Type Department Care Team (Latest Contact Info) Description 02/26/2025 Travel Social History Tobacco Use Types Packs/Day Years [...] and Family Not on file 03/19/2024 Attends [employer] Services Not on file 03/19 Active Member [...] Recorded Patient Health Questionnaire-2 Score 0 10/15/2024 [facility] [place] of Occupat ional Health - Occupational Stress [...] drink first t trupti in the morning (EYE-OPERATIONAL COMMUNICATION CHIEF) to steady your nerves or to get rid of a hangover? 0 03/14/2024 CAGE Questionnaire Score 0 024 Utilities Answer Date Recorded In the past 12 months has [employer], gas, oil, or water [employer] threatened to shut off services in your home? No 03/19/2024 Sex and Gender Information Value Date Recorded Sex Assigned at Male 02/29/2024 10:05 AM EDT Legal Sex Male 8:34 PM EDT Gender Identity Male 02/29/2024 10:05 AM EDT Sexual Orientation Straight 02/29/2024 10 :05 AM EDT documented as of this encounter Functional Status * AUDIT-C Score [...] Danica Frye documented as of this encounter Plan of Treatment Upcoming Encounters Date Type Department Care Team (Late st Contact Info) Description 04/14/2025 2:30 PM EDT Office Visit [facility] Plastic & Reconstructive Surgery [address] [place] [address] Jennifer Novak MD [address] [place] [address] 05/06/2025 8:30 AM EDT Office Visit [address] [address] Catalina Ruiz, AIRFLIGHT ATTENDANTS SUPERVISOR [address] [facility] [address] [place] [address] 05/06/2025 2:30 PM EDT Office Visit [facility] Orthopaedic Surgery & [facility] Medicine [address] [place] [address] Cristian Rea MD [address] [place] [address] 05/20/2025 1:00 PM EDT Office Visit [address] [address] Catalina Ruiz, AIRFLIGHT ATTENDANTS SUPERVISOR [address] [facility] [address] [place] [address] documented as of this encounter [...] documented as of this encounter Care Teams Armed Security Professional Relationship Specialty Start Date End Date Ruddy Branch MD PCP - General 12/14/22 documented as of this encounter
--- OUTSIDE RECORDS SUMMARY | 2025-04-14 10:18 | XMS_ITS | Encounter Summary ---
Author Organization Healthcare Address [address] [facility] [place] [address] Care Team Providers Care Analyzer Sales Name Role Phone Ruddy Branch MD Primary Care Provider [phone] Encounter Details Date Type Department Care Team (Latest Contact Info) Description 04/09/2025 Travel Social History Tobacco Use Types Packs/Day [...] and Family Not on file 03/19/2024 Attends [employer] Services Not on file 03/19 Active Member [...] Recorded Patient Health Questionnaire-2 Score 0 10/15/2024 [facility] of Occupat ional [facility] - Occupational Stress Questionnaire Answer [...] drink first t trupti in the morning (EYE-COAT EXAMINER) to steady your nerves or to get rid of a hangover? 0 03/14/2024 CAGE Questionnaire Score 0 024 Utilities Answer Date Recorded In the past 12 months has [employer], gas, oil, or water [employer] threatened to shut off services in your [...] Nuno RN documented as of this encounter Plan of Treatment Upcoming Encounters Date Type Department Care Team (Late st Contact Info) Description 04/14/2025 2:30 PM EDT Office Visit [facility] Plastic & Reconstructive Surgery [address] [place] [address] Jennifer Novak MD [address] [place] [address] 05/06/2025 8:30 AM EDT Office Visit [address] [address] Catalina Ruiz, TIME CLOCK REPAIRER [address] [facility] [address] [place] [address] 05/06/2025 2:30 PM EDT Office Visit [facility] Orthopaedic Surgery & Sports Medicine [address] [place] [address] Cristian Rea MD [address] [place] [address] 05/20/2025 1:00 PM EDT Office Visit [address] [address] Catalina Ruzi, TIME CLOCK REPAIRER [address] [facility] [address] [place] [address] documented as of this encounter [...] documented as of this encounter Care Teams Analyzer Sales Relationship Specialty Start Date End Date Ruddy Branch MD PCP - General 12/14/22 documented as of this encounter
--- OUTSIDE RECORDS SUMMARY | 2025-04-14 10:18 | XMS_ITS ---
Author Organization [facility] Address [address] [place] [id number] Care Team Providers Care Screen Tacker Name Role Phone Ruddy Branch MD Primary Care Provider [facility] Status:Enrolled (Active) Start date:01/08/2025 Enrollment date:01/09/2025 Enrollment reason:Identified using claims or encounter data Current support & services provided:Adherence- Cholesterol Linked medications:Rosuvastatin Calcium (Active) Linked problems:Hypercholesterolemia (Active) Case Team Name Relationship Phone Susan Noland LPN(Responsible Staff) Licensed Practical Nurse Continued Care and Services Coordination
--- OUTSIDE RECORDS SUMMARY | 2025-04-14 10:18 | XMS_ITS | Referral Summary ---
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
--- OUTSIDE RECORDS SUMMARY | 2025-04-14 10:18 | XMS_ITS | Clinical Summary ---
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 [facility] RDW 14.0 11.5 - 14.5 % LAB HEMATOLOGY METHOD 04/10/2025 2:50 AM EDT [facility] MPV 9.2 8.8 - 12.5 fL LAB HEMATOLOGY METHOD 04/10/2025 2:50 AM EDT [facility] nRBC 0.0 <=0.0 per 100 WBCs LAB HEMATOLOGY METHOD 04/10/2025 2:50 AM EDT [facility] Blood Venous blood specimen / Unknown Venipuncture / Unknown 04/10/2025 2:29 AM EDT 04/10/2025 2:39 AM EDT us Cristian Rea MD LAB BLOOD ORDERABLES Final Result [facility] [address] [place] [address] * C-reactive protein (04/10/2025 2:29 AM EDT) Only the most recent of3 resultswithin the time period is included. CRP, Plasma <3.0 <=8.0 mg/L 04/10/2025 12:01 PM EDT [facility] Blood Venous blood specimen / Unknown Venipuncture / Unknown 04/10/2025 2:29 AM EDT 04/10/2025 2:39 AM EDT Narrative [facility] - 04/10/2025 12:01 PM EDT This CRP test is appropriate for assessment of infection, systemic inflammation and/or tissue injury. To assess cardiovascular disease risk order high sensitivity CRP (CRPH). [facility] LAB BLOOD ORDERABLES Final Res ult [facility] [address] [place] [address] * (ABNORMAL) Prealbumin (04/10/2025 2:29 AM EDT) [facility] Prealbumin, Plasma 17.1(L) 20.0 - 41.0 mg/dL 04/10/2025 11:03 AM EDT [facility] Blood Venous blood specimen / Unknown Venipuncture / Unknown 04/10/2025 2:29 AM EDT 04/10/2025 2:39 AM EDT us Cristian Rea MD LAB BLOOD ORDERABLES Final Result [facility] [address] [place] [address] * (ABNORMAL) Basic metabolic panel (04/10/2025 2:29 AM EDT) Only the most recent of2 resultswithin the time period is included. [facility] Glucose, Plasma 168(H) 74 - 99 mg/dL 04/10/2025 3:07 AM EDT [facility] BUN, Plasma 11 8 - 23 mg/dL 04/10/2025 3:07 AM EDT [facility] Creatinine, Plasma 0.80 0.70 - 1.20 mg/dL 04/10/2025 3:07 AM EDT [facility] BUN/Creatinine Ratio 14 04/10/2025 3:07 AM EDT [facility] Sodium, Plasma 138 136 - 145 mmol/L 04/10/2025 3:07 AM EDT [facility] Potassium, Plasma 4.8 3.6 - 4.9 mmol/L 04/10/2025 3:07 AM EDT [facility] Chloride, Plasma 106 97 - 107 mmol/L 04/10/2025 3:07 AM EDT [facility] CO2, Plasma 22 22 - 29 mmol/L 04/10/2025 3:07 AM EDT [facility] Anion Gap 10 6 - 16 mmol/L 04/10/2025 3:07 AM EDT [facility] Total Calcium, Plasma 8.8(L) 8.9 - 10.2 mg/dL 04/10/2025 3:07 AM EDT [facility] eGFRcr 100.1 mL/min/1.7 3m*2 04/10/2025 3:07 AM EDT [facility] Comment:Reported eGFRcr in m L/min/1.73m2 is based the CKD-EPI 2020 equation that does not use a race coefficient. Blood Venous blood specimen / Unknown Venipuncture / Unknown 04/10/2025 2:29 AM EDT 04/10/2025 2:39 AM EDT us Cristian Rea MD LAB BLOOD ORDERABLES Final Result [facility] [address] [place] [address] * [place] Less than 1 Hour Intraoperative (04/09/2025 5:08 PM EDT) Narrative IMAGING - 04/09/2025 5:09 PM EDT Images were obtained for surgical purposes. See Cristian Rae's surgical note in the patient's chart for the findings. Cristian Rea MD IMG FLUOROSCOPY PROCEDURES Final Result Performing Organization Address City/[facility] Co de Phone Number IMAGING * (ABNORMAL) Bone Culture and Gram Stain (04/09/2025 4:34 PM EDT) Only the most recent of2 resultswithin the time period is included. Culture Light Growth 04/12/2025 7:38 AM EDT [facility] Culture Staphylococcus aureus(A) 04/12/2025 7:38 AM EDT [facility] Comment: (small colony variant) - Positive for MRSA by PBP2a assay. The organism value for this result has been updated. These results have been appended to the previously preliminary verified report. 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) [M86.461] Cristian Rea MD LAB MICROBIOLOGY - GENERAL ORDERABLES Final Result Performing Organization Address [facility] Co de Phone Number [facility] [address] [place] [address] * Anaerobic Culture (04/09/2025 4:34 PM EDT) Culture No anaerobes isolated 04/13/2025 10:52 AM EDT [facility] Bone Topography unknown / Unknown 04/09/2025 4:34 PM EDT 04/09/2025 5:07 PM EDT Comment:Pre-op diagnosis: 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) [M86.461] Cristian Rea MD LAB MICROBIOLOGY - GENERAL ORDERABLES Final Result Performing Organization Address City/[facility]/ZIP Co de Phone Number [facility] [address] [place] [address] * AL AN ELECTIVE ENDOTRACHEAL AIRWAY, PB ANESTHESIA PLACEHOLDER [...] Guy MD ANESTHESIA ORDERABLES Final R esult * 12 Lead ECG (04/09/2025 3:13 PM EDT) EKG DIAGNOSIS CLASS Abnormal MUSE ECG Ventricular Rate 59 BPM MUSE ECG Atrial Rate 59 BPM MUSE ECG AL Interval 122 ms MUSE ECG QRSD Interval 82 ms MUSE ECG QT Interval 432 ms MUSE ECG QTC Interval 427 ms MUSE ECG P [place] 67 degrees MUSE ECG R [place] 92 degrees MUSE ECG T Wave [place] 76 degrees MUSE ECG Diagnosis Sinus bradycardia MUSE ECG Diagnosis Rightward axis MUSE ECG Diagnosis Poor R-wave progression MUSE ECG Diagnosis Abnormal ECG MUSE ECG Diagnosis MUSE ECG Diagnosis Confirmed by Isacc Arciniega ([id number]) on 04/09/2025 5:30:16 PM MUSE ECG 04/09/2025 3:13 PM EDT 04/09/2025 5:30 PM EDT Rubens Guy MD ECG ORDERABLES Final Result MUSE ECG * Type and screen (04/09/2025 3:01 PM [...] ORDERABLE S Final Result Performing Organization Address [facility] de Phone Number BLOOD BANK [address] [place] [address], [place] * CT Ankle Right wo IV Contrast (02/04/2025 12:40 PM EDT) Anatomical Region Laterality Modality Ankle Right Computed Tomogra phy Impressions 02/04/2025 1:19 PM EDT There is focal cortical destruction along the anterior distal tibia diaphysis near the metaphysis with soft tissue density within the marrow concerning for possible granulomatous tissue, though chronic infection cannot be entirely excluded. Severe osteoarthrosis of the tibiotalar joint. CRITICAL RESULT: No. COMMUNICATION: Per this written report. Drafted by Sarah Austin MD on 02/04/2025 1:11 PM Final report signed by Sarah Austin MD on 02/04/2025 1:19 PM Narrative 02/04/2025 1:19 PM EDT CLINICAL INDICATION: Ankle trauma, fracture, xray done (Age >= 5y) TECHNIQUE: Multiple axial CT images were obtained through the right lower extremity. The axial CT data set was used to generate high resolution reformatted images in the coronal and sagittal planes to facilitate diagnostic accuracy and treatment planning. Total DLP (Dose-Length Product): 175.60 mGy.cm. Please note: The reported value represents the total of one or more individual components during the CT acquisition on this date and at this time, and as such, the same value may appear in more than one CT report depending on the interpreting/reporting physicians. COMPARISON: Radiographs from 01/14/2025, CT from 01/31/2024 FINDINGS: Plate-screw fixation of the distal tibia and distal fibula. Screw fixation of the medial malleolus. No CT evidence of hardware loosening or failure. Diffuse severe demineralization. Severe tibiotalar joint space loss. No acute fracture or dislocation. Ossific densities adjacent to the distal tips of the fibula and medial malleolus likely reflect sequelae of prior injuries. There is focal cortical destruction along the anterior distal tibia diaphysis near the metaphysis with soft tissue density within the marrow concerning for possible granulomatous tissue, though chronic infection cannot be entirely excluded (series 5, image 70; series 603, image 19). Evaluation of the adjacent soft tissues is somewhat limited due to metallic artifact. No deep soft tissue gas is appreciated. There is irregularity of the soft tissues over the distal medial foreleg/medial ankle consistent with known wound. Procedure Note Sarah Austin MD - 02/04/2025 CLINICAL INDICATION: Ankle trauma, fracture, xray done (Age >= 5y) TECHNIQUE: Multiple axial CT images were obtained through the right lower extremity.The axial CT data set was used to generate high resolution reformattedimages in the coronal and sagittal planes to facilitate diagnosticaccuracy and treatment planning. Total DLP (Dose-Length Product): 175.60 mGy.cm. Please note: The reportedvalue represents the total of one or more individual components during theCT acquisition on this date and at this time, and as such, the same valuemay appear in more than one CT report depending on theinterpreting/reporting physicians. COMPARISON: Radiographs from 01/14/2025, CT from 01/31/2024 FINDINGS: Plate-screw fixation of the distal tibia and distal fibula. Screw fixationof the medial malleolus. No CT evidence of hardware loosening or failure.Diffuse severe demineralization. Severe tibiotalar joint space loss. Noacute fracture or dislocation. Ossific densities adjacent to the distaltips of the fibula and medial malleolus likely reflect sequelae of priorinjuries. There is focal cortical destruction along the anterior distal tibiadiaphysis near the metaphysis with soft tissue density within the marrowconcerning for possible granulomatous tissue, though chronic infectioncannot be entirely excluded (series 5, image 70; series 603, image 19).Evaluation of the adjacent soft tissues is somewhat limited due tometallic artifact. No deep soft tissue gas is appreciated. There isirregularity of the soft tissues over the distal medial foreleg/medialankle consistent with known wound. IMPRESSION: There is focal cortical destruction along the anterior distal tibiadiaphysis near the metaphysis with soft tissue density within the marrowconcerning for possible granulomatous tissue, though chronic infectioncannot be entirely excluded. Severe osteoarthrosis of the tibiotalar joint. CRITICAL RESULT: No. COMMUNICATION: Per this written report. Drafted by Sarah Austin MD on 02/04/2025 1:11 PM Final report signed by Sarah Austin MD on 02/04/2025 1:19 PM [facility] IMG CT PROCEDURES Final Resu lt * CBC and differential (01/21/2025 1:40 PM EDT) Only the most recent of2 resultswithin the time period is included. WBC Count 6.33 3.70 - 10.30 10*3/uL LAB HEMATOLOGY METHOD 01/21/2025 3:23 PM EDT [facility] RBC Count 4.72 4.60 - 6.10 10*6/uL LAB HEMATOLOGY METHOD 01/21/2025 3:23 PM EDT [facility] HGB 13.8 13.7 - 17.5 g/dL LAB HEMATOLOGY METHOD 01/21/2025 3:23 PM EDT [facility] HCT 42.0 40.0 - 51.0 % LAB HEMATOLOGY METHOD 01/21/2025 3:23 PM EDT [facility] Platelet Count 300 155 - 369 10*3/uL LAB HEMATOLOGY METHOD 01/21/2025 3:23 PM EDT [facility] MCV 89 79 - 98 fL LAB HEMATOLOGY METHOD 01/21/2025 3:23 PM EDT [facility] MCH 29.2 26.0 - 32.0 pg LAB HEMATOLOGY METHOD 01/21/2025 3:23 PM EDT [facility] MCHC 32.9 30.7 - 35.5 g/dL LAB HEMATOLOGY METHOD 01/21/2025 3:23 PM EDT [facility] RDW 13.8 11.5 - 14.5 % LAB HEMATOLOGY METHOD 01/21/2025 3:23 PM EDT [facility] MPV 9.3 8.8 - 12.5 fL LAB HEMATOLOGY METHOD 01/21/2025 3:23 PM EDT [facility] nRBC 0.0 <=0.0 per 100 WBCs LAB HEMATOLOGY METHOD 01/21/2025 3:23 PM EDT [facility] Differential Type Automated LAB HEMATOLOGY METHOD 01/21/2025 3:23 PM EDT [facility] Neutrophils % 47 % LAB HEMATOLOGY METHOD 01/21/2025 3:23 PM EDT [facility] Lymphocytes % 44 % LAB HEMATOLOGY METHOD 01/21/2025 3:23 PM EDT [facility] Monocytes % 7 % LAB HEMATOLOGY METHOD 01/21/2025 3:23 PM EDT [facility] Eosinophils % 1 % LAB HEMATOLOGY METHOD 01/21/2025 3:23 PM EDT [facility] Basophils % 1 % LAB HEMATOLOGY METHOD 01/21/2025 3:23 PM EDT [facility] Immature Granulocytes % 0 % LAB HEMATOLOGY METHOD 01/21/2025 3:23 PM EDT [facility] Neutrophils Absolute 3.00 1.60 - 6.10 10*3/uL LAB HEMATOLOGY METHOD 01/21/2025 3:23 PM EDT [facility] Lymphocytes Absolute 2.77 1.20 - 3.90 10*3/uL LAB HEMATOLOGY METHOD 01/21/2025 3:23 PM EDT [facility] Monocytes Absolute 0.44 0.30 - 0.90 10*3/uL LAB HEMATOLOGY METHOD 01/21/2025 3:23 PM EDT [facility] Eosinophils Absolute 0.05 0.00 - 0.50 10*3/uL LAB HEMATOLOGY METHOD 01/21/2025 3:23 PM EDT [facility] Basophils Absolute 0.07 0.00 - 0.10 10*3/uL LAB HEMATOLOGY METHOD 01/21/2025 3:23 PM EDT [facility] Immature Granulocytes Absolute 0.00 0.00 - 0.06 10*3/uL LAB HEMATOLOGY METHOD 01/21/2025 3:23 PM EDT [facility] Blood Venous blood specimen / Unknown Venipuncture / Unknown 01/21/2025 1:40 PM EDT 01/21/2025 1:42 PM EDT Narrative [facility] - 01/21/2025 3:23 PM EDT Therapeutic decision making should be based on absolute values, rather than percentages. Ria Hansen APRN LAB BLOOD ORDERABLES Final Result [facility] [address] [place] [address] * (ABNORMAL) Comprehensive metabolic panel (01/21/2025 1:40 PM EDT) Only the most recent of2 resultswithin the time period is included. Glucose, Plasma 105(H) 74 - 99 mg/dL 01/21/2025 3:02 PM EDT [facility] BUN, Plasma 8 8 - 23 mg/dL 01/21/2025 3:02 PM EDT [facility] Creatinine, Plasma 0.81 0.70 - 1.20 mg/dL 01/21/2025 3:02 PM EDT [facility] BUN/Creatinine Ratio 10 01/21/2025 3:02 PM EDT [facility] Sodium, Plasma 135(L) 136 - 145 mmol/L 01/21/2025 3:02 PM EDT [facility] Potassium, Plasma 3.8 3.6 - 4.9 mmol/L 01/21/2025 3:02 PM EDT [facility] Chloride, Plasma 99 97 - 107 mmol/L 01/21/2025 3:02 PM EDT [facility] CO2, Plasma 25 22 - 29 mmol/L 01/21/2025 3:02 PM EDT [facility] Anion Gap 11 6 - 16 mmol/L 01/21/2025 3:02 PM EDT [facility] Total Calcium, Plasma 9.1 8.9 - 10.2 mg/dL 01/21/2025 3:02 PM EDT [facility] Total Protein 7.5 6.3 - 7.9 g/dL 01/21/2025 3:02 PM EDT [facility] Albumin, Plasma 4.0 3.5 - 5.2 g/dL 01/21/2025 3:02 PM EDT [facility] AST, Plasma 19 10 - 50 U/L 01/21/2025 3:02 PM EDT [facility] ALT, Plasma 11 10 - 50 U/L 01/21/2025 3:02 PM EDT [facility] Alkaline Phosphatase, Plasma 95 40 - 115 U/L 01/21/2025 3:02 PM EDT [facility] Total Bilirubin, Plasma 0.3 0.2 - 1.1 mg/dL 01/21/2025 3:02 PM EDT [facility] eGFRcr 99.7 mL/min/1.7 3m*2 01/21/2025 3:02 PM EDT [facility] Comment:Reported eGFRcr in m L/min/1.73m2 is based the CKD-EPI 2020 equation that does not use a race coefficient. Blood Venous blood specimen / Unknown Venipuncture / Unknown 01/21/2025 1:40 PM EDT 01/21/2025 1:42 PM EDT Ria Hansen APRN LAB BLOOD ORDERABLES Final Result [facility] [address] [place] [address] * XR Ankle Right 3+ Views (01/14/2025 7:42 AM EDT) Anatomical Region Laterality Modality Lower Extremities, Ankle Right Digital Radiography Impressions 01/14/2025 8:23 AM EDT Femoral nail as well as distal tibial and fibular ORIF without hardware failure or loosening. Healing distal tibial fracture. CRITICAL RESULT: No. COMMUNICATION: Per this written report. Drafted by Denzel Sommers MD on 01/14/2025 8:21 AM Final report signed by Denzel Sommers MD on 01/14/2025 8:23 AM Narrative 01/14/2025 8:23 AM EDT CLINICAL INDICATION: pain TECHNIQUE: XR TIBIA FIBULA RIGHT 2+ VIEWS, XR ANKLE RIGHT 3+ VIEWS, XR FEMUR RIGHT 2+ VIEWS COMPARISON: 05 November 2024 FINDINGS: Moderate right hip joint space narrowing with osteophytosis. Retrograde femoral nail is seen spanning fractures of the proximal and distal femur which are in similar alignment. Extensive mid to distal tibial ORIF is seen as well as posterolateral distal fibular ORIF. Demineralization of the lower extremity. Progressive healing of the distal tibial fracture. Similar alignment of distal tibial and fibular fractures. Continued soft tissue prominence at the anterior ankle. Calcaneal external fixation site. Procedure Note Denzel Sommers MD - 01/14/2025 CLINICAL INDICATION: pain TECHNIQUE: XR TIBIA FIBULA RIGHT 2+ VIEWS, XR ANKLE RIGHT 3+ VIEWS, XR FEMUR RIGHT 2+VIEWS COMPARISON: 05 November 2024 FINDINGS: Moderate right hip joint space narrowing with osteophytosis. Retrogradefemoral nail is seen spanning fractures of the proximal and distal femurwhich are in similar alignment. Extensive mid to distal tibial ORIF isseen as well as posterolateral distal fibular ORIF. Demineralization ofthe lower extremity. Progressive healing of the distal tibial fracture.Similar alignment of distal tibial and fibular fractures. Continued softtissue prominence at the anterior ankle. Calcaneal external fixationsite. IMPRESSION: Femoral nail as well as distal tibial and fibular ORIF without hardwarefailure or loosening. Healing distal tibial fracture. CRITICAL RESULT: No. COMMUNICATION: Per this written report. Drafted by Denzel Sommers MD on 01/14/2025 8:21 AM Final report signed by Denzel Sommers MD on 01/14/2025 8:23 AM Cristian Rea MD IMG XR PROCEDURES Final Re sult * XR Tibia Fibula Right 2+ Views (01/14/2025 7:42 AM EDT) Anatomical Region Laterality Modality Lower Extremities, Lower Leg Right Dig ital Radiography Impressions 01/14/2025 8:23 AM EDT Femoral nail as well as distal tibial and fibular ORIF without hardware failure or loosening. Healing distal tibial fracture. CRITICAL RESULT: No. COMMUNICATION: Per this written report. Drafted by Denzel Sommers MD on 01/14/2025 8:21 AM Final report signed by Denzel Sommers MD on 01/14/2025 8:23 AM Narrative 01/14/2025 8:23 AM EDT CLINICAL INDICATION: pain TECHNIQUE: XR TIBIA FIBULA RIGHT 2+ VIEWS, XR ANKLE RIGHT 3+ VIEWS, XR FEMUR RIGHT 2+ VIEWS COMPARISON: 05 November 2024 FINDINGS: Moderate right hip joint space narrowing with osteophytosis. Retrograde femoral nail is seen spanning fractures of the proximal and distal femur which are in similar alignment. Extensive mid to distal tibial ORIF is seen as well as posterolateral distal fibular ORIF. Demineralization of the lower extremity. Progressive healing of the distal tibial fracture. Similar alignment of distal tibial and fibular fractures. Continued soft tissue prominence at the anterior ankle. Calcaneal external fixation site. Procedure Note Denzel Sommers MD - 01/14/2025 CLINICAL INDICATION: pain TECHNIQUE: XR TIBIA FIBULA RIGHT 2+ VIEWS, XR ANKLE RIGHT 3+ VIEWS, XR FEMUR RIGHT 2+VIEWS COMPARISON: 05 November 2024 FINDINGS: Moderate right hip joint space narrowing with osteophytosis. Retrogradefemoral nail is seen spanning fractures of the proximal and distal femurwhich are in similar alignment. Extensive mid to distal tibial ORIF isseen as well as posterolateral distal fibular ORIF. Demineralization ofthe lower extremity. Progressive healing of the distal tibial fracture.Similar alignment of distal tibial and fibular fractures. Continued softtissue prominence at the anterior ankle. Calcaneal external fixationsite. IMPRESSION: Femoral nail as well as distal tibial and fibular ORIF without hardwarefailure or loosening. Healing distal tibial fracture. CRITICAL RESULT: No. COMMUNICATION: Per this written report. Drafted by Denzel Sommers MD on 01/14/2025 8:21 AM Final report signed by Denzel Sommers MD on 01/14/2025 8:23 AM us Rosa Borges KELLER MACHINE OPERATOR IMG XR PROCEDURES Final Re sult * XR Femur Right 2+ Views (01/14/2025 7:42 AM EDT) Anatomical Region Laterality Modality Lower Extremities, Femur Right Digital Radiography Impressions 01/14/2025 8:23 AM EDT Femoral nail as well as distal tibial and fibular ORIF without hardware failure or loosening. Healing distal tibial fracture. CRITICAL RESULT: No. COMMUNICATION: Per this written report. Drafted by Denzel Sommers MD on 01/14/2025 8:21 AM Final report signed by Denzel Smomers MD on 01/14/2025 8:23 AM Narrative 01/14/2025 8:23 AM EDT CLINICAL INDICATION: pain TECHNIQUE: XR TIBIA FIBULA RIGHT 2+ VIEWS, XR ANKLE RIGHT 3+ VIEWS, XR FEMUR RIGHT 2+ VIEWS COMPARISON: 05 November 2024 FINDINGS: Moderate right hip joint space narrowing with osteophytosis. Retrograde femoral nail is seen spanning fractures of the proximal and distal femur which are in similar alignment. Extensive mid to distal tibial ORIF is seen as well as posterolateral distal fibular ORIF. Demineralization of the lower extremity. Progressive healing of the distal tibial fracture. Similar alignment of distal tibial and fibular fractures. Continued soft tissue prominence at the anterior ankle. Calcaneal external fixation site. Procedure Note Denzel Sommers MD - 01/14/2025 CLINICAL INDICATION: pain TECHNIQUE: XR TIBIA FIBULA RIGHT 2+ VIEWS, XR ANKLE RIGHT 3+ VIEWS, XR FEMUR RIGHT 2+VIEWS COMPARISON: 05 November 2024 FINDINGS: Moderate right hip joint space narrowing with osteophytosis. Retrogradefemoral nail is seen spanning fractures of the proximal and distal femurwhich are in similar alignment. Extensive mid to distal tibial ORIF isseen as well as posterolateral distal fibular ORIF. Demineralization ofthe lower extremity. Progressive healing of the distal tibial fracture.Similar alignment of distal tibial and fibular fractures. Continued softtissue prominence at the anterior ankle. Calcaneal external fixationsite. IMPRESSION: Femoral nail as well as distal tibial and fibular ORIF without hardwarefailure or loosening. Healing distal tibial fracture. CRITICAL RESULT: No. COMMUNICATION: Per this written report. Drafted by Denzel Sommers MD on 01/14/2025 8:21 AM Final report signed by Denzel Sommers MD on 01/14/2025 8:23 AM us Cristian Rea MD IMG XR PROCEDURES Final Re sult * CT Angio Chest (12/12/2023 2:21 PM EDT) Anatomical Region Laterality Modality Chest Computed Tomogra phy Impressions 12/12/2023 3:30 PM EDT 1. No acute aortic injury. 2. No acute traumatic visceral findings within chest. 3. No evidence of acute intra-abdominal or retroperitoneal visceral injury. 4. No acute osseous pelvic injury identified. CRITICAL RESULT: No. COMMUNICATION: Per this written report. Drafted by Gary Marino MD on 12/12/2023 3:22 PM Final report signed by Gary Marino MD on 12/12/2023 3:30 PM Narrative 12/12/2023 3:30 PM EDT CLINICAL INDICATION: poly trauma TECHNIQUE: Imaging of the chest abdomen and pelvis was performed, from thoracic inlet through pubic symphysis, using spiral technique, following administration of IV contrast, Omnipaque 350, 100 mL according to the CTA thoracic aorta/chest and CTA Abdomen/Pelvis protocol. Reformatted images in the coronal, sagittal, and oblique planes were generated from the axial data set to facilitate diagnostic accuracy. In addition, 3D images were created and reviewed. Contiguous axial CT images of the osseous pelvis were reformatted from a CT of the abdomen and pelvis. Reconstructed images in the coronal and sagittal planes were generated from the axial data set to facilitate diagnostic accuracy and/or surgical planning. Total DLP (Dose-Length Product): 3196. Please note: The reported value represents the total of one or more individual components during the CT acquisition on this date and at this time, and as such, the same value may appear in more than one CT report depending on the interpreting/reporting physicians. COMPARISON: None. FINDINGS: Chest: Arch vessels patent. Thoracic aorta without acute finding. Cardiac size within normal limits, no pericardial effusion. No filling defects in central pulmonary arteries. No retrosternal hematoma. Upper lobe predominant centrilobular emphysema. No pneumothorax, no pleural effusions. No concerning adenopathy. No acute esophageal findings. No acute chest wall hematomas. See separately dictated CT of the T-spine. No acute displaced rib fractures, several old appearing right-sided rib fractures anteriorly. ABDOMEN: Abdominal aorta without acute abnormality. Aortoiliac atherosclerotic disease. Visceral and pelvic arteries patent. No free abdominal gas. No free pelvic or abdominal fluid Gallbladder, liver, spleen, adrenals, pancreas, and kidneys without acute findings. Small cyst dome of the right liver. No perigastric or periduodenal fluid. No significant dilation of the small bowel or appreciable mesenteric hemorrhage. No acute colonic findings. Unremarkable appendix. Pelvic viscera without acute findings. No concerning pelvic or retroperitoneal adenopathy. No body wall or retroperitoneal hematomas. See separately dictated CT of the L-spine. Osseous pelvis: No widening of the SI joints. No acute sacral fracture. No widening of the symphysis, adjacent superior and inferior pubic rami intact. Hips anatomically aligned. Acetabula are intact. Proximal femurs intact. Procedure Note Gary Marino MD - 12/12/2023 CLINICAL INDICATION: poly trauma TECHNIQUE: Imaging of the chest abdomen and pelvis was performed, from thoracic inletthrough pubic symphysis, using spiral technique, following administrationof IV contrast, Omnipaque 350, 100 mL according to the CTA thoracicaorta/chest and CTA Abdomen/Pelvis protocol. Reformatted images in thecoronal, sagittal, and oblique planes were generated from the axial dataset to facilitate diagnostic accuracy. In addition, 3D images were createdand reviewed. Contiguous axial CT images of the osseous pelvis were reformatted from aCT of the abdomen and pelvis. Reconstructed images in the coronal andsagittal planes were generated from the axial data set to facilitatediagnostic accuracy and/or surgical planning. Total DLP (Dose-Length Product): 3196. Please note: The reported valuerepresents the total of one or more individual components during the CTacquisition on this date and at this time, and as such, the same value mayappear in more than one CT report depending on the interpreting/reportingphysicians. COMPARISON: None. FINDINGS: Chest: Arch vessels patent. Thoracic aorta without acute finding. Cardiac sizewithin normal limits, no pericardial effusion. No filling defects incentral pulmonary arteries. No retrosternal hematoma. Upper lobe predominant centrilobular emphysema. No pneumothorax, nopleural effusions. No concerning adenopathy. No acute esophageal findings. No acute chest wall hematomas. See separately dictated CT of the T-spine. No acute displaced rib fractures, several old appearing right-sided ribfractures anteriorly. ABDOMEN: Abdominal aorta without acute abnormality. Aortoiliac atheroscleroticdisease. Visceral and pelvic arteries patent. No free abdominal gas. No free pelvic or abdominal fluid Gallbladder, liver, spleen, adrenals, pancreas, and kidneys without acutefindings. Small cyst dome of the right liver. No perigastric or periduodenal fluid. No significant dilation of the smallbowel or appreciable mesenteric hemorrhage. No acute colonic findings.Unremarkable appendix. Pelvic viscera without acute findings. No concerning pelvic or retroperitoneal adenopathy. No body wall or retroperitoneal hematomas. See separately dictated CT of the L-spine. Osseous pelvis: No widening of the SI joints. No acute sacral fracture. No widening of the symphysis, adjacent superior and inferior pubic ramiintact. Hips anatomically aligned. Acetabula are intact. Proximal femurs intact. IMPRESSION: 1. No acute aortic injury. 2. No acute traumatic visceral findings within chest. 3. No evidence of acute intra-abdominal or retroperitoneal visceralinjury. 4. No acute osseous pelvic injury identified. CRITICAL RESULT: No. COMMUNICATION: Per this written report. Drafted by Gary Marino MD on 12/12/2023 3:22 PM Final report signed by Gary Marino MD on 12/12/2023 3:30 PM Ran Upton MD IMG CT PROCEDURES Final Re sult * Hepatitis C Antibody - ED (12/12/2023 1:33 PM EDT) Hepatitis C Antibody Negative Negative 12/12/2023 2:27 PM EDT [facility] Blood Venous blood specimen / Unknown Venipuncture / Unknown 12/12/2023 1:33 PM EDT 12/12/2023 1:44 PM EDT Ran Upton MD LAB BLOOD ORDERABLES Final Result [facility] [address] [place] [address] from Last 3 Months or Most Recently Relevant to Health Maintenance Additional Health Concerns Infection Onset 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 Yes * Full Code Date Activated Date Inactivated Comments 01/30/2024 3:23 PM 02/05/2024 9:01 PM Question Answer Comments Patient has decision-making capacity? Yes * Full Code Date Activated Date Inactivated Comments 12/17/2023 2:53 PM 12/18/2023 7:32 PM Question Answer Comments Patient has decision-making capacity? Yes Care Teams Armhole Feller Handstitching Machine Relationship Specialty Start Date End Date Ruddy Branch MD PCP - General 12/14/22
[2025-04-14 10:19] LABS: Hematocrit 35.9 % (42.0-52.0); Hemoglobin 12.0 g/dL (14.1-18.0); Immature Granulocytes % 0.1 %; Mean Corpuscular HGB Conc 33.4 g/dL (31.8-35.4); Mean Corpuscular Hemoglobin 29.8 pg (27.0-31.2); Mean Corpuscular Volume 89.1 fl (80-94); Nucleated Red Blood Cells % 0 %; Platelet Count 237 K/mm3 (142-424); Red Blood Count 4.03 M/mm3 (4.60-6.20); Red Cell Distribution Width-SD 44.7 fL; White Blood Count 7.6 K/mm3 (4.8-10.8)
--- OUTSIDE RECORDS SUMMARY | 2025-04-14 10:19 | XMS_ITS | Clinical Summary ---
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 Gender Identity Not on file Sexual Orientation Not on file Plan of Treatment Health Maintenance Due Date Last Done Comments CT Colonography 1962 Colonoscopy 1962 Colorectal Cancer Screening 1962 FOBT/FIT 1962 Fit-DNA (Cologuard) 1962 Sigmoidoscopy 1962 Depression Screening (12+) 1974 Tobacco Cessation Counseling and Screening (12+) 1974 HIV Screening 1977 Hepatitis C Screening 1980 Lipid Panel 1997 Shingles Vaccine (Zoster) (1 of 2) 2012 COVID-19 VACCINE ( season) 2024, 04/16/2021 Medicare IPPE (Welcome to Medicare) [id number] 09/21/2024 Influenza Vaccine (#1) 2025 DTAP/TDAP/TD VACCINES (3 - Td or Tdap) 12/11/2033, 03/02/2012 Respiratory Syncytial Virus (RSV) Adult or (1 - 1-dose 75+ series) 2037 Pneumococcal 50+ years Completed 07/27/2023, 2019 Insurance [employer] MEDICARE HMO
--- OUTSIDE RECORDS SUMMARY | 2025-04-14 10:19 | XMS_ITS | Encounter Summary ---
Author Organization [facility] Address [address] [place] [address] Care Team Providers Care Candy Separator Enrobing Name Role Phone Ruddy Branch MD Primary Care Provider [phone] Reason for Referral * Consultation (Routine) - Authorized Specialty Diagnoses / Procedures Referred By Contnadira t Referred To Contact Pain Medicine Diagnoses Open wound Jennifer Novak MD [address] [address] Phone: tel: fax: Referral ID Status Reason Start Date Expiration Date Visits Requested Visits Authorized [id number] Authorized Specialty Services Required 03/10/2025 09/09/2026 1 1 Encounter Details Date Type Department Care Team (Late st Contact Info) Description 03/10/2025 Orders Only [facility] [address] [facility] 5th Floor [address] [place] [address] Peter Delarosa, RN Open wound (Primary Dx) Social History Tobacco [...] Recorded Patient Health Questionnaire-2 Score 0 10/15/2024 [facility] - Occupational Stress Questionnaire Answer Date Recorded [...] drink first t trupti in the morning (EYE-BOWLING ALLEY REFINISHER) to steady your nerves or to get [...] 2:30 PM EDT Office Visit [facility] Plastic & Reconstructive Surgery [address] [place] [address] Jennifer Novak MD [address] [place] [address] 05/06/2025 8:30 AM EDT Office Visit [facility] [address] [place] [address] Catalina Ruiz, POPPED CORN OVEN ATTENDANT [address] [facility] [address] [place] [address] 05/06/2025 2:30 PM EDT Office Visit [facility] Orthopaedic Surgery & Sports Medicine [address], 1st [address] [place] [address] Cristian Rea MD [address] [place] [address] 05/20/2025 1:00 PM EDT Office Visit [facility] [address] [place] [address] Catalina Ruiz, POPPED CORN OVEN ATTENDANT [address] [facility] [address] [place] [address] Scheduled Referrals Name Type Priority Associated Diagnoses Order Schedule Ambulatory referral to Pain Medicine Outpatient Referral Routine Open wound Expected: 03/10/2025 (Approximate), Expires: 09/11/2026 documented as of this encounter Visit Diagnoses [...] documented as of this encounter Care Teams Candy Separator Enrobing Relationship Specialty Start Date End Date Ruddy Branch MD PCP - General 12/14/22 documented as of this encounter
--- OUTSIDE RECORDS SUMMARY | 2025-04-14 10:19 | XMS_ITS | Encounter Summary ---
Author Organization [facility] Address [address] [place] [address] Care Team Providers Care Door To Door Salesperson Name Role Phone Ruddy Branch MD Primary Care Provider [phone] Encounter Details Date Type Department Care Team (Latest Contact Info) Description 03/25/2025 Travel Social History Tobacco Use Types Packs/Day [...] and Family Not on file 03/19/2024 Attends [employer] Services Not on file 03/19 Active [...] Recorded Patient Health Questionnaire-2 Score 0 10/15/2024 [facility] [place] [facility] - Occupational Stress [...] place to sleep or slept in a residential (including now)? No 03/19/2024 PHQ-9 Answer Date [...] drink first t trupti in the morning (EYE-CAMP MANAGER) to steady your nerves or to get rid of a hangover? 0 03/14/2024 CAGE Questionnaire Score 0 024 Utilities Answer Date Recorded In the past 12 months has [employer], gas, oil, or water Home Inns threatened to shut off services in your [...] 2:30 PM EDT Office Visit [facility] Plastic & Reconstructive Surgery [address] [place] [phone] Jennifer Novak MD [address] [place] [phone] 05/06/2025 8:30 AM EDT Office Visit [facility] [address] [place] [address] Catalina Ruiz, AIR CARRIER MAINTENANCE INSPECTOR [address] [facility] [address] [place] [address] 05/06/2025 2:30 PM EDT Office Visit [facility] Orthopaedic Surgery & Sports Medicine [address] 1st [address] [place] [address] Cristian Rea MD [address] [place] [address] 05/20/2025 1:00 PM EDT Office Visit [facility] [address] [place] [address] Catalina Ruiz, AIR CARRIER MAINTENANCE INSPECTOR [address] [facility] [address] [place] [address] documented as of this encounter [...] documented as of this encounter Care Teams Door To Door Salesperson Relationship Specialty Start Date End Date Ruddy Branch MD PCP - General 12/14/22 documented as of this encounter
--- OUTSIDE RECORDS SUMMARY | 2025-04-14 10:19 | XMS_ITS | Encounter Summary ---
Author Organization Address [address] [place] [address] Care Team Providers Care Stenotypist Name Role Phone Ruddy Branch MD Primary Care Provider [phone] Reason for Visit * Reason Onset Date Comments HCN Clinical Concern/Question 03/10/2025 Encounter Details Date Type Department Care Team (Late st Contact Info) Description 03/10/2025 Telephone [facility] Plastic & Reconstructive Surgery [address] [place] [address] Jennifer Novak MD [address] [address] HCN Clinical Concern/Question Social History Tobacco Use Types Packs/Day Years [...] and Family Not on file 03/19/2024 Attends [employer] Services Not on file 03/19 Active Member [...] Recorded Patient Health Questionnaire-2 Score 0 10/15/2024 [facility]at ional Health - [...] drink first t trupti in the morning (EYE-PHOTO FINISHER) to steady your nerves or to get [...] AM EDT documented as of this encounter Miscellaneous Notes * Telephone Encounter - Solitario Delarosa RN - 03/10/2025 1:12 PM EDT Per pt, appt is already set up and no referral is needed. * Telephone Encounter - Dianne Cindy A - 03/10/2025 12:22 PM EDT Clinical Concern/Question Reason for Call: pt returning call to solitario about referral. Please call at listed number Best contact number: [phone] (mobile) Optimal time of day to reach caller: ANYTIME Additional comments/information from caller: None Note: Please do not reply to this message. Follow-up communication and further actions as a result of this message need to be communicated with the patient directly, if the patient is not active onMyChart. If the patient is active on MyChart, they will receive notification of the communication/outcome via Arisokohart. documented in this encounter Plan of Treatment Upcoming Encounters Date Type Department Care Team (Late st Contact Info) Description 04/14/2025 2:30 PM EDT Office Visit [facility] Plastic & Reconstructive Surgery [address] [place] [address] Jennifer Novak MD [address] [address] 05/06/2025 8:30 AM EDT Office Visit [facility] [address] [place] [address] Catalina Ruiz, CRAFT COORDINATOR [address] [facility] [address] [place] [address] 05/06/2025 2:30 PM EDT Office Visit [facility] Orthopaedic Surgery & Sports Medicine [address] 1st [address] [place] [address] Cristian Rea MD [address] [place] [address] 05/20/2025 1:00 PM EDT Office Visit [facility] [address] [place] [address] Catalina Ruiz, CRAFT COORDINATOR [address] [facility] [address] [place] [address] documented as of this encounter [...] documented as of this encounter Care Teams Stenotypist Relationship Specialty Start Date End Date Ruddy Branch MD PCP - General 12/14/22 documented as of this encounter
--- OUTSIDE RECORDS SUMMARY | 2025-04-14 10:19 | XMS_ITS | Encounter Summary ---
Author Organization [facility] Address [address] [place] [address] Care Team Providers Care Offal Roller Name Role Phone Ruddy Branch MD Primary Care Provider [phone] Reason for Visit * Reason Onset Date Comments HCN Clinical Concern/Question 03/07/2025 Encounter Details Date Type Department Care Team (Late st Contact Info) Description 03/07/2025 Telephone [facility] [address] [facility] 5th Floor [address] [place] [address] Jennifer Novak MD [address] [address] HCN Clinical Concern/Question Social History [...] and Family Not on file 03/19/2024 Attends Baptism Services Not on file 03/19 Active Member [...] Recorded Patient Health Questionnaire-2 Score 0 10/15/2024 [facility] - Occupational Stress Questionnaire Answer [...] place to sleep or slept in a skilled nursing (including now)? No 03/19/2024 PHQ-9 Answer Date [...] drink first t trupti in the morning (EYE-CARDIAC NURSE) to steady your nerves or to get [...] encounter Miscellaneous Notes * Telephone Encounter - Peter Delarosa RN - 03/10/2025 11:43 AM EDT RN left clinic call back number asked pt to call back. RN seeking to verify clinic/MD info for painreferral as ordered by Dr. Novak. * Telephone Encounter - Miguel Chavis - 03/07/2025 3:06 PM EDT Clinical Concern/Question Reason for Call: A referral was sent to Pain Management but it needs to be sent to Dr.James Raymond office. Best contact number: [phone] Optimal time of day to reach caller: ANYTIME Additional comments/information from caller: None Note: Please do not reply to this message. Follow-up communication and further actions as a result of this message need to be communicated with the patient directly, if the patient is not active onMyChart. If the patient is active on MyChart, they will receive notification of the communication/outcome via Folloyuhart. documented in this encounter Plan of Treatment Upcoming Encounters Date Type Department Care Team (Late st Contact Info) Description 04/14/2025 2:30 PM EDT Office Visit [facility] Plastic & Reconstructive Surgery [address] [place] [address] Jennifer Novak MD [address] [address] 05/06/2025 8:30 AM EDT Office Visit [facility] [address] [facility] [place] [address] Catalina Ruiz, AZRA [address] [facility] [address] [place] [address] 05/06/2025 2:30 PM EDT Office Visit [facility] Orthopaedic Surgery & Sports Medicine [address] 1st [address] [place] [address] Cristian Rea MD [address] [place] [address] 05/20/2025 1:00 PM EDT Office Visit [facility] [address] [place] [address] Catalina Ruiz APRN [address] [facility] [address] [place] [address] documented as of this encounter [...] documented as of this encounter Care Teams Offal Roller Relationship Specialty Start Date End Date Ruddy Branch MD PCP - General 12/14/22 documented as of this encounter
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
--- OUTSIDE RECORDS SUMMARY | 2025-04-14 10:19 | XMS_ITS | Encounter Summary ---
Author Organization [facility] Address [address] [place] [address] Care Team Providers Care Supervisor Feed Mill Name Role Phone Ruddy Branch MD Primary Care Provider [phone] Reason for Visit * Reason Onset Date Comments HCN - Patient Message 04/07/2025 Encounter Details Date Type Department Care Team (Late st Contact Info) Description 04/07/2025 Telephone [facility] [address] [place] [address] Cristian Rea MD [address] [place] [address] HCN - Patient Message Social History Tobacco Use Types Packs/Day Years [...] and Family Not on file 03/19/2024 Attends [employer] Not on file 03/19 Active Member [...] place to sleep or slept in a [place] facility (including now)? No 03/19/2024 PHQ-9 Answer Date [...] and Family Not on file 04/11/2025 Attends [employer] Not on file 04/11 Active Member [...] any time in the past 12 m [facility], were you homeless or living in a [place] facility (including now)? No 04/11/2025 CAGE ASSESSMENT Answer [...] drink first t trupti in the morning (EYE-COAL SHOVELER) to steady your nerves or to get rid of a hangover? 0 03/14/2024 CAGE Questionnaire Score 0 024 Utilities Answer Date Recorded In the past 12 months has e electric, gas, oil, or water company [...] encounter Miscellaneous Notes * Telephone Encounter - Aleja Allen RN - 04/08/2025 1:46 PM EDT Spoke with pt, he states he was supposed to get a spray and want's to know what to do. I asked pt if he got the ointment that was prescribed. Pt said he has and has been using it but thought he was supposed to have a spray. Pt also wanted to know what time he needs to present tomorrow since he hasnot gotten a call yet. Liz will reach out to pt. * Telephone Encounter - Jessica Ugarte - 04/07/2025 1:42 PM EDT Clinical Concern/Question Reason for Call: Pt is requesting call back regarding nose spray before surgery please call Best contact number: [phone] (mobile) Optimal time of day to reach caller: ANYTIME Additional comments/information from caller: None Note: Please do not reply to this message. Follow-up communication and further actions as a result of this message need to be communicated with the patient directly, if the patient is not active onMyChart. If the patient is active on MyChart, they will receive notification of the communication/outcome via MyChart. documented in this encounter Plan of Treatment Upcoming Encounters Date Type Department Care Team (Late st Contact Info) Description 04/14/2025 2:30 PM EDT Office Visit [facility] [address] [place] [address] Jennifer Novak MD [address] [address] 05/06/2025 8:30 AM EDT Office Visit [address] [phone] Catalina Ruiz, AZRA [address] [place] [address] [address] [place] [address] 05/06/2025 2:30 PM EDT Office Visit [facility] [address] [place] [phone] Cristian Rea MD [address] [place] [phone] 05/20/2025 1:00 PM EDT Office Visit [address] [phone] Catalina Ruiz APRN [address] [place] [address] [address] [place] [address] documented as of this encounter Visit Diagnoses [...] documented as of this encounter Care Teams Supervisor Feed Mill Relationship Specialty Start Date End Date Ruddy Branch MD PCP - General 12/14/22 documented as of this encounter
[2025-04-14 10:26] LABS: Albumin Level 3.9 g/dl (3.5-5.0)
[2025-04-14 10:29] LABS: Alanine Aminotransferase 12 U/L (12-78); Alkaline Phosphatase 69 U/L (38-126); Aspartate Amino Transferase 25 U/L (17-59); Bilirubin,Direct 0.0 mg/dl (0.0-0.4); Bilirubin,Indirect 0.4 mg/dL (0.0-0.9); Bilirubin,Total 0.4 mg/dl (0.2-1.3); Bilirubin,Unconjugated 0.4 mg/dL (0.0-1.1); Blood Urea Nitrogen 13 mg/dl (9-20); Creatinine,Serum 0.60 mg/dl (0.66-1.25); Estimated Glomerular Filt Rate 137 ml/min (>60); GFR (African American) 165 ML/MIN (>60); Total Protein,Serum 6.7 g/dl (6.3-8.2)
[2025-04-14 10:30] LABS: Creatine Kinase 30 U/L (55-170)
[2025-04-14 10:35] LABS: C-Reactive Protein 28.7 mg/L (0-4)
== END 2025-04-14 09:50 | disposition home or self-care (01) ==
LOC: INF 09:40
PROVIDERS: Visit Provider Orthopaedic Surgery Orthopaedic Trauma
DX: M86.461 Chronic osteomyelitis with draining sinus, right tibia and fibula (principal)
CPT/HCPCS: 36592; 80076; 82550; 82565; 84520; 85025; 86140; 96523

== ENCOUNTER 2025-04-22 12:44 | Outpatient (CLI) | payer OTHER, SELFPAY ==
--- OUTSIDE RECORDS SUMMARY | 2025-02-26 10:20 | XMS_ITS | Encounter Summary ---
Author Organization [facility] Address [address] [place] [address] Care Team Providers Care Housekeeping Manager Name Role Phone Ruddy Branch MD Primary Care Provider [phone] Reason for Visit * Reason Comments Wound Check Encounter Details Date Type Department Care Team (Late st Contact Info) Description 02/26/2025 10:20 AM EDT Office Visit [facility] [address] [facility] 5th Floor [address], [address] [place] [phone] Doug Gregory MD [address] [facility] [address] [place] [address] Open wound (Primary Dx) Social [...] and Family Not on file 03/19/2024 Attends [employer] Services Not on file 03/19 Active Member [...] Recorded Patient Health Questionnaire-2 Score 0 10/15/2024 [facility]at [facility] Health - Occupational Stress [...] place to sleep or slept in a fpc (including now)? No 03/19/2024 PHQ-9 Answer Date [...] drink first t trupti in the morning (EYE-SURGICAL TECHNOLOGY INSTRUCTOR) to steady your nerves or to get [...] Delarosa RN - 02/26/2025 10:20 AM EDT [facility] Physician Orders/Patient Instructions Should you notice [...] and remove before bed Interventional Pain Medicine [facility] [address], [place] [address] * Addendum Note - Doug Gregory MD [...] Care Team (Late st Contact Info) Description 04/25/2025 10:20 AM EDT Office Visit [facility] [address] 5th Floor [address] [place] [address] Doug Gregory MD [address] [place] [address] 05/06/2025 8:30 AM EDT Office Visit [address] [address] Catalina Ruiz, TOYS INSPECTOR [address] [facility] [address] [place] [address] 05/06/2025 2:30 PM EDT Office Visit [facility] Orthopaedic Surgery & Sports Medicine [address] 1st [address] [place] [address] Cristian Rea MD [address] [facility] [address] [place] [address] 05/20/2025 1:00 PM EDT Office Visit [address] [address] Catalina Ruiz, TOYS INSPECTOR [address] [facility] [address] [place] [address] documented as of this encounter [...] documented as of this encounter Care Teams Housekeeping Manager Relationship Specialty Start Date End Date Ruddy Branch MD PCP - General 12/14/22 documented as of this encounter
--- OUTSIDE RECORDS SUMMARY | 2025-03-25 14:30 | XMS_ITS | Encounter Summary ---
Author Organization [facility] Address [address] 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.] place to sleep or slept in a care home (including now)? No 03/19/2024 PHQ-9 Answer Date [...] drink first t trupti in the morning (EYE-RESEARCH CONSULTANT) to steady your nerves or to get rid of a hangover? 0 03/14/2024 CAGE Questionnaire Score 0 024 Utilities Answer Date Recorded In the past 12 months has th e [employer], gas, oil, or water company threatened to [...] Sign Reading Time Taken Comments Blood Pressure 118/76 03/25/2025 2:50 PM EDT Pulse 65 03/25/2025 2:50 PM EDT Temperature 36.9 C (98.4 F) 03/25/2025 2:50 PM EDT Respiratory Rate - - Oxygen Saturation 99% 03/25/2025 2:50 PM EDT Inhaled Oxygen Concentration - - Weight 43.1 kg (95 lb) 03/25/2025 2:50 PM EDT Height 172.7 cm (5' 8 ) 03/25/2025 2:50 PM EDT Body Mass Index 14.44 03/25/2025 2:50 PM EDT documented in this encounter Miscellaneous Notes * Progress Notes - Cristian Rea MD - 03/25/2025 2:30 PM EDT Thai returns today for follow up regarding his right tibial osteomyelitis and chronic draining sinus. He has seen Dr. Novak who has agreed to proceed with soft tissue debridement and coverage if possible. He would like to proceed with removal of the implants. We discussed the fact that I would liketo try to limit this to just the medial based implants close to his wound to limit any soft tissue trauma because he is at high risk for inability for soft tissue coverage with any extensor procedures I do not think he will be a free flap candidate. He has agreed to proceed. We will obtain informedconsent in clinic today and get him scheduled to surgery and combination with Dr. Novak. we discussed the risks, benefits, expected outcomes, and potential complications of this as well as the prognosis associated. he/she/they: he understood the risks of treatment to include but not be limited to infection, bleeding, wound complications, neurovascular injury, RSD/CRPS, loss of fixation, fracture, as well as the need for potential revision surgery. Furthermore we discussed the potential for postoperative pain, stiffness, disability, instability, loss of limb, loss of life, as well as other anesthetic or thromboembolic and tourniquet related complications and need for further soft tissue coverage surgeries. Decision was made to proceed to surgery. All his questions were answered and informedconsent was obtained. documented in this encounter Plan of Treatment Upcoming Encounters Date Type Department Care Team (Late st Contact Info) Description 04/25/2025 10:20 AM EDT Office Visit [facility] [address] 5[address] [place] [address] Jennifer Novak MD [address] [facility] [address] [place] [address] 05/06/2025 8:30 AM EDT Office Visit [facility] [address] [place] [address] Catalina Ruiz, HEALTHCARE EDUCATOR [address] [facility] [address] [place] [address] 05/06/2025 2:30 PM EDT Office Visit [facility] [address] [place] [address] Cristian Rea MD [address] [facility] [address] [place] [address] 05/20/2025 1:00 PM EDT Office Visit [facility] [address] [place] [address] Catalina Ruiz, HEALTHCARE EDUCATOR [address] [facility] [address] [place] [address] Scheduled Orders Name Type Priority Associated Diagnoses Orde r Schedule Methicillin Resistant Staphylococcus aureus (MRSA) by PCR Microbiology Routine 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) Ordered: 03/25/2025 documented as of this encounter Visit Diagnoses Diagnosis 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)- Primary documented in this encounter Additional Health Concerns Infection Onset Date Last Indicated Resolved Time MRSA 01/31/2024 04/09/2025 Assessment Noted Time PHQ-9 Depression Total Score: 0 10/15/19 25 9:42 AM EST A fall risk assessment has been complete d for the patient 03/25/2025 2:49 PM EDT A Body Mass Index follow-up plan has been documented for the patient 03/25/2025 3:28 PM EDT documented as of this encounter Care Teams Waterproof Bag Cutting Machine Operator Relationship Specialty Start Date End Date Ruddy Branch MD PCP - General 12/14/22 documented as of this encounter
--- OUTSIDE RECORDS SUMMARY | 2025-04-09 11:33 | XMS_ITS | Encounter Summary ---
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 (post-traumatic stress [...] card, photo ID, along with power of civil rights attorney, guardianship or advanced directives if applicable Do not bring money, jewelry or other valuables Hibiclens bathing instructions reviewed if applicable Notify surgeon of fever, illness, any changes or if you decide not to have surgery * eNgin Ortiz RN - 03/28/2025 10:14 AM EDT [...] welcome you, your family, and friends to [facility]. We offer access to more than [...] will help you be more comfortable with [facility] and the surgical process. This information [...] located on the first floor of the [facility] near the Pharmacy and main clinic entrance. We are open Monday-Monday from 8 a.m. to 4:30 p.m. A clinic escrow representative can be reached at [phone]. Parking is available in the [facility] garage on [facility] or in the [facility] garage located at [address] [place] [address], directly across [facility] from [facility]. The day before surgery You will receive a phone call telling you what time you need to arrive at the hospital for surgery.If you miss the call, please call one of the following numbers (depending on where your surgery is scheduled): ? [facility]: [phone] or [phone] ? [facility]: [phone] or [phone] The day of surgery ? Arrive on time to avoid delays or cancellation. ? Park in the [facility] parking garage located at [address] It is directly across [facility] from the medical campus. ? If you are scheduled for surgery at [facility], take the hospital garage elevator to Level C, then cross the concourse bridge to the Surgery Waiting Room to register for your surgery. [facility] is located down the first hallway to the right at the end of the concourse bridge. If you need help crossing the concourse, you may product picker the patient golf cart shuttle directlyto the right of the elevators on Level C. ? If you are scheduled for surgery at the [facility], take the garage elevator to Level A and catch the free shuttle to the hospital. (Be careful not to take the [facility] shuttle - there is an ambassador [...] checked many times throughout your stay at [facility] to ensure your safety. ? Go [...] talk to them after your surgery. A recording clerk is available in the waiting room [...] living will, health care surrogate, power of civil rights attorney or guardianship papers. ? Bring a [...] makeup, jewelry (including body piercing) or nail belarusian. ? Don?t bring money or valuables to [...] office and the Preoperative Anesthesia Clinic at [phone] or [phone]. If it is the day of surgery, call the location where you are scheduled to have your surgery: [facility] at [phone] or [phone] or [facility] at [phone] or [phone]. For more information Visit [email or web address] or call [phone] or [phone]. [facility] does not discriminate. [facility] complies with applicable Federal civil rights laws and does not discriminate on the basis of race, color, national origin, age, disability, or sex. * Beatrisari Vish - Negin Aguirre RN - 03/28/2025 10:14 AM EDT Images from the original note were not included. 489 Map to [facility] Facilities Directions Easy directions to and from [address] (from [address]) Directions from I-75/[place]-64 to the [facility] Parking Garage: ? From [address], turn right off the exit ramp onto [facility] ([place] [address] [address]) toward [place]. ? In 4.1 miles, turn left onto [address] (at the [employer] station). ? In a half-mile, turn right onto [address] ? In .3 miles, turn right onto [address] (just past the [employer] gas station). Garage entrance is on the left. ? Important: This garage address will change to [facility] on February 18, 2025. Directions from HealthCare Parking Garage to I-75/I-64: ? Turn left out of the garage onto [facility] [address]. ? Turn left onto [address]. ? In .3 miles, turn left down [address] ? In a half-mile, turn right onto [address] (at the [employer] gas station). ? In 4.1 miles, merge onto [address] /[address] (near the [employer] [facility]). Parking Any patients or visitors of [facility] can park in the following areas: ? [facility] Parking Garage (main garage): [address] (Levels A-F) ? [facility] Garage: [address] (Levels 1-6) ? [facility] Cancer lot: Located off [address] (limited parking for [facility] outpatients only). Upon Your Arrival ? Patients and visitors going [facility], and [facility] may walk across the pedway, located [...] also be accessed via the pedway off [facility] garage on Level C. If you need a shuttle to the ED, one can be called for you at Level A of the main garage or contact any of the information desks, . Additional Information For additional information, please visit our information desks located throughout [facility]. Information desks have additional maps and resources. Information desks are located at the main entrances of: [facility] (first floor and ground floor), [facility], [facility], [facility] CC, Pavilion , [facility] (first and third floor), and [facility]. Informationdesk number: [phone]. Important Addresses [address] [place] [address] ? [facility] entrance ? Pavilion A ? Pavilion G ([facility]) ? Emergency Department [address] ? [facility] H ? [facility] CC ([facility]) ? [facility] ([facility]) ? [facility] [address] [facility] ? [facility] [address] [facility] ? [facility] [address] [facility] ? [facility] ? [facility] [...] split thickness skin graft right leg cpt 640[address], [address], [address] [address] Rea (Right). [...] card, photo ID, along with power of civil rights attorney, guardianship or advanced directives if applicable Do not bring money, jewelry (Including wedding rings) or other valuables. Do not wear any makeup, nail belarusian, or contact lens the day of surgery. [...] you are scheduled to have your surgery: [facility] at [phone] or [phone] or [facility] at [phone] or [phone]. documented in this encounter Plan of Treatment Upcoming Encounters Date Type Department Care Team (Late st Contact Info) Description 04/25/2025 10:20 AM EDT Office Visit [facility] [address] 5th Floor [address] [place] [phone] Jennifer Novak MD [address] [place] [phone] 05/06/2025 8:30 AM EDT Office Visit [facility] [address] [place] [phone] Catalina Ruiz APRN [address] [facility] [address] [place] [phone] 05/06/2025 2:30 PM EDT Office Visit [facility] [address] 1st [address] [place] [address] Cristian Rea MD [address] [place] [address] 05/20/2025 1:00 PM EDT Office Visit [facility] [address] [place] [address] Catalina Ruiz, PROGRAMMING EQUIPMENT OPERATOR [address] [place] [address] Pending Results Name Type Priority [...] Orde r Schedule Discharge Ambulatory referral to [facility] Health Outpatient Referral Routine Chronic osteomyelitis [...] of right tibia with draining sinus (CMS/HCC) [place] REMOVAL DEEP IMPLANT 04/09/20 3:20 PM EDT [...] Lorenzo RN Authorized by: Cristian Rea MD [place] Protocol: Verbal consent obtained?: Yes Written consent [...] preference Patient position: Flat Catheter Lot #: [id number] Catheter novelty maker: Bard PowerPICC Solo Catheter placed: Single lumen [...] - 320 U/L 04/11/2025 2:10 PM EDT [facility] Blood Venous blood specimen / Unknown Venipuncture / Unknown 04/11/2025 1:00 PM EDT 04/11/2025 1:41 PM EDT [facility] LAB BLOOD ORDERABLES Final Res ult Performing Organization Address [facility] Co de Phone Number [facility] [address] [place] [address] * HIV 1 & 2 Antibody/Antigen Screen (04/11/2025 1:00 PM EDT) HIV 1 & 2 Antibody/Antigen Screen Non Reactive Non Reactive 04/11/2025 2:38 PM EDT [facility] Comment:Screening for HIV 1 & 2 antibodies, and P24 antigen is NONREACTIVE. No confirmatory testing is required. Blood Venous blood specimen / Unknown Venipuncture / Unknown 04/11/2025 1:00 PM EDT 04/11/2025 1:41 PM EDT George Fox MD LAB BLOOD ORDERABLES Final R esult Performing Organization Address City/[facility]/ZIP Co de Phone Number [facility] [address] [place] [address] * C-reactive protein (04/10/2025 2:29 AM EDT) CRP, Plasma <3.0 <=8.0 mg/L 04/10/2025 12:01 PM EDT [facility] Blood Venous blood specimen / Unknown Venipuncture / Unknown 04/10/2025 2:29 AM EDT 04/10/2025 2:39 AM EDT Narrative [facility] - 04/10/2025 12:01 PM EDT This CRP test is appropriate for assessment of infection, systemic inflammation and/or tissue injury. To assess cardiovascular disease risk order high sensitivity CRP (CRPH). us [facility] LAB BLOOD ORDERABLES Final Res ult Performing Organization Address City/[facility]/ZIP Co de Phone Number [facility] [address] [place] [address] * (ABNORMAL) Prealbumin (04/10/2025 2:29 AM EDT) Prealbumin, Plasma 17.1(L) 20.0 - 41.0 mg/dL 04/10/2025 11:03 AM EDT [facility] Blood Venous blood specimen / Unknown Venipuncture / Unknown 04/10/2025 2:29 AM EDT 04/10/2025 2:39 AM EDT us Cristian Rea MD LAB BLOOD ORDERABLES Final Result Performing Organization Address [facility] Co de Phone Number [facility] [address] [place] [address] * (ABNORMAL) Basic metabolic panel (04/10/2025 2:29 AM EDT) Glucose, Plasma 168(H) 74 - 99 mg/dL 04/10/2025 3:07 AM EDT [facility] BUN, Plasma 11 8 - 23 mg/dL 04/10/2025 3:07 AM EDT [facility] Creatinine, Plasma 0.80 0.70 - 1.20 mg/dL 04/10/2025 3:07 AM EDT [facility] BUN/Creatinine Ratio 14 04/10/2025 3:07 AM EDT [facility] Sodium, Plasma 138 136 - 145 mmol/L 04/10/2025 3:07 AM EDT [facility] Potassium, Plasma 4.8 3.6 - 4.9 mmol/L 04/10/2025 3:07 AM EDT [facility] Chloride, Plasma 106 97 - 107 mmol/L 04/10/2025 3:07 AM EDT [facility] CO2, Plasma 22 22 - 29 mmol/L 04/10/2025 3:07 AM EDT [facility] Anion Gap 10 6 - 16 mmol/L 04/10/2025 3:07 AM EDT [facility] Total Calcium, Plasma 8.8(L) 8.9 - 10.2 mg/dL 04/10/2025 3:07 AM EDT [facility] eGFRcr 100.1 mL/min/1.7 3m*2 04/10/2025 3:07 AM EDT [facility] Comment:Reported eGFRcr in m L/min/1.73m2 is based the CKD-EPI 2020 equation that does not use a race coefficient. Blood Venous blood specimen / Unknown Venipuncture / Unknown 04/10/2025 2:29 AM EDT 04/10/2025 2:39 AM EDT us Cristian Rea MD LAB BLOOD ORDERABLES Final Result [facility] [address] [place] [address] * (ABNORMAL) CBC (04/10/2025 2:29 AM EDT) WBC Count 5.60 3.70 - 10.30 10*3/uL LAB HEMATOLOGY METHOD 04/10/2025 2:50 AM EDT [facility] RBC Count 4.18(L) 4.60 - 6.10 10*6/uL LAB HEMATOLOGY METHOD 04/10/2025 2:50 AM EDT [facility] HGB 12.5(L) 13.7 - 17.5 g/dL LAB HEMATOLOGY METHOD 04/10/2025 2:50 AM EDT [facility] HCT 37.2(L) 40.0 - 51.0 % LAB HEMATOLOGY METHOD 04/10/2025 2:50 AM EDT [facility] Platelet Count 251 155 - 369 10*3/uL LAB HEMATOLOGY METHOD 04/10/2025 2:50 AM EDT [facility] MCV 89 79 - 98 fL LAB HEMATOLOGY METHOD 04/10/2025 2:50 AM EDT [facility] MCH 29.9 26.0 - 32.0 pg LAB HEMATOLOGY METHOD 04/10/2025 2:50 AM EDT [facility] MCHC 33.6 30.7 - 35.5 g/dL LAB HEMATOLOGY METHOD 04/10/2025 2:50 AM EDT [facility] RDW 14.0 11.5 - 14.5 % LAB HEMATOLOGY METHOD 04/10/2025 2:50 AM EDT [facility] MPV 9.2 8.8 - 12.5 fL LAB HEMATOLOGY METHOD 04/10/2025 2:50 AM EDT [facility] nRBC 0.0 <=0.0 per 100 WBCs LAB HEMATOLOGY METHOD 04/10/2025 2:50 AM EDT [facility] Blood Venous blood specimen / Unknown Venipuncture / Unknown 04/10/2025 2:29 AM EDT 04/10/2025 2:39 AM EDT Cristian Rea MD LAB BLOOD ORDERABLES Final Result [facility] [address] [place] [address] * FL Less than 1 Hour Intraoperative (04/09/2025 5:08 PM EDT) Narrative IMAGING - 04/09/2025 5:09 PM EDT Images were obtained for surgical purposes. See Cristian Rea's surgical note in the patient's chart for the findings. Cristian Rea MD IMG FLUOROSCOPY PROCEDURES Final Result IMAGING * (ABNORMAL) Bone Culture and Gram Stain (04/09/2025 4:34 PM EDT) Culture Light Growth 04/12/2025 7:38 AM EDT [facility] Culture Staphylococcus aureus(A) 04/12/2025 7:38 AM EDT [facility] Comment: (small colony variant) - Positive for MRSA by PBP2a assay. The organism value for this result has been updated. These results have been appended to the previously preliminary verified report. 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) [M86.461] us Cristian Rea MD LAB MICROBIOLOGY - GENERAL ORDERABLES Final Result Performing Organization Address [facility] Co de Phone Number [facility] [address] [place] [address] * Anaerobic Culture (04/09/2025 4:34 PM EDT) Culture No anaerobes isolated 04/13/2025 10:52 AM EDT [facility] Bone Topography unknown / Unknown 04/09/2025 4:34 PM EDT 04/09/2025 5:07 PM EDT Comment:Pre-op diagnosis: 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) [M86.461] us Cristian Rea MD LAB MICROBIOLOGY - GENERAL ORDERABLES Final Result Performing Organization Address City/[facility]/ZIP Co de Phone Number [facility] [address] [place] [address] * (ABNORMAL) Bone Culture and Gram Stain (04/09/2025 4:16 PM EDT) Culture Light Growth 04/12/2025 12:25 PM EDT [facility] Culture Methicillin-Resistan t Staphylococcus aureus(AA) 04/12/2025 12:25 PM EDT [facility] Comment: (small colony variant) - Positive for MRSA by PBP2a assay. The organism value for this result has been updated. These results have been appended to the previously preliminary verified report. <null> has been updated to reportable. Gram Stain Result No organisms seen 04/12/2025 12:25 PM EDT [facility] Gram Stain Result No polymorphonuclear leukocytes seen 04/12/2025 12:25 PM EDT [facility] Bone Topography unknown / Unknown 04/09/2025 4:16 PM EDT 04/09/2025 5:06 PM EDT Comment:Pre-op diagnosis: 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) [M86.461] Cristian Rea MD LAB MICROBIOLOGY - GENERAL ORDERABLES Final Result [facility] [address] [place] [address] * 12 Lead ECG (04/09/2025 3:13 PM EDT) EKG DIAGNOSIS CLASS Abnormal MUSE ECG Ventricular Rate 59 BPM MUSE ECG Atrial Rate 59 BPM MUSE ECG FL Interval 122 ms MUSE ECG QRSD Interval 82 ms MUSE ECG QT Interval 432 ms MUSE ECG QTC Interval 427 ms MUSE ECG P [place] 67 degrees MUSE ECG R [place] 92 degrees MUSE ECG T Wave [place] 76 degrees MUSE ECG Diagnosis Sinus bradycardia [...] LAB HEMATOLOGY METHOD 04/09/2025 3:44 PM EDT [facility] RBC Count 4.58(L) 4.60 - 6.10 10*6/uL LAB HEMATOLOGY METHOD 04/09/2025 3:44 PM EDT [facility] HGB 13.4(L) 13.7 - 17.5 g/dL LAB HEMATOLOGY METHOD 04/09/2025 3:44 PM EDT [facility] HCT 41.0 40.0 - 51.0 % LAB HEMATOLOGY METHOD 04/09/2025 3:44 PM EDT [facility] Platelet Count 269 155 - 369 10*3/uL LAB HEMATOLOGY METHOD 04/09/2025 3:44 PM EDT [facility] MCV 90 79 - 98 fL LAB HEMATOLOGY METHOD 04/09/2025 3:44 PM EDT [facility] MCH 29.3 26.0 - 32.0 pg LAB HEMATOLOGY METHOD 04/09/2025 3:44 PM EDT [facility] MCHC 32.7 30.7 - 35.5 g/dL LAB HEMATOLOGY METHOD 04/09/2025 3:44 PM EDT [facility] RDW 14.0 11.5 - 14.5 % LAB HEMATOLOGY METHOD 04/09/2025 3:44 PM EDT [facility] MPV 9.2 8.8 - 12.5 fL LAB HEMATOLOGY METHOD 04/09/2025 3:44 PM EDT [facility] nRBC 0.0 <=0.0 per 100 WBCs LAB HEMATOLOGY METHOD 04/09/2025 3:44 PM EDT [facility] Blood Venous blood specimen / Unknown Venipuncture / Unknown 04/09/2025 3:01 PM EDT 04/09/2025 3:35 PM EDT us Cristian Rea MD LAB BLOOD ORDERABLES Final Result [facility] [address] [place] [address] * Basic metabolic panel (04/09/2025 3:01 PM EDT) Glucose, Plasma 96 74 - 99 mg/dL 04/09/2025 4:02 PM EDT [facility] BUN, Plasma 8 8 - 23 mg/dL 04/09/2025 4:02 PM EDT [facility] Creatinine, Plasma 0.80 0.70 - 1.20 mg/dL 04/09/2025 4:02 PM EDT [facility] BUN/Creatinine Ratio 10 04/09/2025 4:02 PM EDT [facility] Sodium, Plasma 139 136 - 145 mmol/L 04/09/2025 4:02 PM EDT [facility] Potassium, Plasma 4.0 3.6 - 4.9 mmol/L 04/09/2025 4:02 PM EDT [facility] Chloride, Plasma 104 97 - 107 mmol/L 04/09/2025 4:02 PM EDT [facility] CO2, Plasma 24 22 - 29 mmol/L 04/09/2025 4:02 PM EDT [facility] Anion Gap 11 6 - 16 mmol/L 04/09/2025 4:02 PM EDT [facility] Total Calcium, Plasma 9.0 8.9 - 10.2 mg/dL 04/09/2025 4:02 PM EDT [facility] eGFRcr 100.1 mL/min/1.7 3m*2 04/09/2025 4:02 PM EDT [facility] Comment:Reported eGFRcr in m L/min/1.73m2 is based the CKD-EPI 2020 equation that does not use a race coefficient. Blood Venous blood specimen / Unknown Venipuncture / Unknown 04/09/2025 3:01 PM EDT 04/09/2025 3:31 PM EDT us Rubens Guy MD LAB BLOOD ORDERABLES Final Re sult [facility] [address] [place] [address] * Type and screen (04/09/2025 3:01 PM [...] ORDERABLE S Final Result BLOOD BANK [address] [place] [address], documented in this encounter Visit Diagnoses Diagnosis [...] 800 mg, Oral, Nightly, First dose on Maryellen [...] for injection (CANCELED) As needed, Starting on 04/09/25 at 1652, Until Mon04/09/25 at 1803, Routine, [...] documented as of this encounter Care Teams Lemon Picker Relationship Specialty Start Date End Date Ruddy Branch MD PCP - General 12/14/22 documented as of this encounter
--- OUTSIDE RECORDS SUMMARY | 2025-04-09 13:30 | XMS_ITS | Encounter Summary ---
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 Qiana Nuno, TITUS) Bowel Elimination Promotion: adequate fluid intake promoted * Consults - Jeanna Henry RD - 04/10/2025 7:17 AM EDT Adult Nutrition Evaluation Note Thai Ponce 64 y.o. male CSN: [id number] Room/Bed 237/237A Nutrition evaluation type: assessment Reason [...] BMI (Calculated): 14.22 Weight Evaluation: Underweight (BMI<18.5) [place] Body Weight (kg): 70 Percent [place] Body Weight: 60 Wt Readings from Last [...] Provided: Will monitor Pertinent home medications: reviewed Roman [employer] needs: Nutrition Focused Physical Exam: Physical exam performed on (date): Assessment of Malnutrition: Nutrition Problem: Underweight related to presumed decrease in energy intake as evidenced by BMI 14.22. Status of Nutrition Diagnosis: New Nutrition Interventions and Recommendations: Advance diet as tolerated Boost [facility] TID Encourage adequate po intake Record daily meal intakes on flowsheet Maintain weight during admission Nutrition Monitoring and Goals: Weight stability/therapeutic weight gain PO intake > 75% of most meals NFPE on follow up as able. Monitor po intake and tolerance, weight changes, labs, GI function and skin integrity. Acuity Level: 2 Jeanna Henry, RD, LD [1] Past Medical History: Diagnosis Date Anxiety COPD (chronic obstructive pulmonary disease) ([facility]/HCC) Coronary artery disease last cardiology appt. 08/2022 - patient states no longer sees cardiology Deep vein thrombosis ([facility]) 2023 Depression Dysphagia unknown reason as of 04/01/25 History of methicillin resistant Staphylococcus aureus HL (hearing loss) no hearing aids at this time Hyperlipidemia Hypertension Limited mobility holds on to furniture and paniagua Myocardial infarction ([facility]) 2018 Peripheral neuropathy PTSD (post-traumatic stress [...] -- Caesar Sheikh MD Orthopaedic Surgery PGY-3 [facility] Personal Pager: [phone] Orthopaedic Trauma Service Pager: [phone] Orthopaedic Recon/Spine/Foot and Ankle Service Pager: [phone] Cosigned by Cristian Rea MD at 04/10/2025 [...] Ongoing, Progressing Intervention: Promote Activity and Functional [place] Flowsheets (Taken 04/10/2025410) Self-Care Promotion: independence encouraged [...] tibia Irrigation and excisional debridement of osteomyelitis [id number] defect Application of incisional wound vac Attending Surgeon(s): Panel 1: * Cristian Rea - Primary Panel 2: * Jennifer Novak - Primary Provider Service Representative(s): Panel 1: * Edison Nathan MD - Fellow Anesthesia: Choice ASA: III Blood Administration: Blood Product Administration History Date Volume Status Transfuse RBC 12/13/2023 350 mL Completed 12/13/23 1613 Transfuse RBC 12/13/2023 350 mL Completed 12/13/23 1613 Estimated Blood Loss: Minimal Drains: * None in log * Implants Type Name Action Serial No. GRAFT CERAMENT G WITH GENTAMICIN 10ML - [id number] Implanted DRESSING WOUND 2IN X 2IN - [id number] Implanted Specimen: Specimens ID Source Frozen? A [...] PM EDT Operative Note Date: 04/09/25 Location: [place] [facility] Name: Thai Ponce, : 1960, Diagnoses: [...] Panel 2: * Jennifer Novak - Primary Provider Service Representative(s): Panel 1: * Edison Nathan MD - Fellow Anesthesia: Choice ASA: III Blood Administration: Blood Product Administration History Date Volume Status Transfuse RBC 12/13/2023 350 mL Completed 12/13/23 1613 Transfuse RBC 12/13/2023 350 mL Completed 12/13/23 1613 Estimated Blood Loss: Minimal Drains: * None in log * Implants Type Name Action Serial No. GRAFT CERAMENT G WITH GENTAMICIN 10ML - [id number] Implanted DRESSING WOUND 2IN X 2IN - [id number] Implanted Specimen: Specimens ID Source Frozen? A [...] surgery Edison Nathan MD Orthopedic Trauma Fellow [facility] [1] Family History Adopted: Yes [2] [...] 09/23/24 and last GA @ [facility] 09/25/24 for hardware removal. Thai Ponce is [...] Date Anxiety COPD (chronic obstructive pulmonary disease) ([facility]) Coronary artery disease last cardiology appt. 08/2022 - patient states no longer sees cardiology Deep vein thrombosis ([facility]) 2023 Depression Dysphagia unknown reason as of 04/01/25 History of methicillin resistant Staphylococcus aureus HL (hearing loss) no hearing aids at this time Hyperlipidemia Hypertension Limited mobility holds on to furniture and paniagua Myocardial infarction ([facility]) 2017 Peripheral neuropathy PTSD (post-traumatic stress disorder) [...] Preoperative Instructions You will be called the day before surgery with your arrival time [...] card, photo ID, along with power of consumer attorney, guardianship or advanced directives if applicable [...] your doctor as soon as possible! * Beatrisari Vish - Negin Aguirre RN - 03/28/2025 10:14 AM EDT Images from the original note were not included. 1072 Patient Surgery Guide The doctors and staff of Surgical Services would like to welcome you, your family, and friends to [facility]. We offer access to more than 1,500 [...] will help you be more comfortable with [facility] and the surgical process. This information provides [...] located on the first floor of the [facility] near the Pharmacy and main clinic entrance. We are open Monday-Monday from 8 a.m. to 4:30 p.m. A clinic correspondence representative can be reached at [phone]. Parking is available in the [facility] garage on [address] or in the [facility] garage located at [address] [place] [address], directly across [facility] from [facility]. The day before surgery You will receive a phone call telling you what time you need to arrive at the hospital for surgery.If you miss the call, please call one of the following numbers (depending on where your surgery is scheduled): ? The Medical Center: [phone] or [phone] ? [facility] Advanced Surgery: [phone] or [phone] The day of surgery ? Arrive on time to avoid delays or cancellation. ? Park in the [facility] parking garage located at [address] It is directly across [facility] from the medical campus. ? If you are scheduled for surgery at [facility], take the hospital garage elevator to Level C, then cross the concourse bridge to the Surgery Waiting Room to register for your surgery. [facility] is located down the first hallway to the right at the end of the concourse bridge. If you need help crossing the concourse, you may picker packer the patient golf cart shuttle directlyto the right of the elevators on Level C. ? If you are scheduled for surgery at the [place] [facility], take the garage elevator to Level A and catch the free shuttle to the hospital. (Be careful not to take the [facility] shuttle - there is an ambassador [...] checked many times throughout your stay at [facility] to ensure your safety. ? Go over [...] talk to them after your surgery. A continuity clerk is available in the waiting room [...] living will, health care surrogate, power of consumer attorney or guardianship papers. ? Bring a [...] makeup, jewelry (including body piercing) or nail sammarinese. ? Don?t bring money or valuables to [...] office and the Preoperative Anesthesia Clinic at [phone] or [phone]. If it is the day of surgery, call the location where you are scheduled to have your surgery: [facility] at [phone] or [phone] or Center for [facility] at [phone] or [phone]. For more information Visit [email or web address] or call [phone] or [phone]. [email or web address] does not discriminate. HealthCare complies with applicable Federal civil rights laws and does not discriminate on the basis of race, color, national origin, age, disability, or sex. * Vitaliy Wahl - Negin Aguirre RN - 03/28/2025 10:14 AM EDT Images from the original note were not included. 489 Map to HealthCare Facilities Directions Easy directions to and from [address] (from [address]) Directions from I-75/I-64 to the HealthCare Parking Garage: ? From [address], turn right off the exit ramp onto [address] ([place] [address] [address]) toward [place]. ? In 4.1 miles, turn left onto [address] (at the [employer] gas station). ? In a half-mile, turn right onto [address] ? In .3 miles, turn right onto [address] (just past the [employer] gas station). Garage entrance is on the left. ? Important: This garage address will change to [address] [place] [address] on February 18, 2025. Directions from HealthCare Parking Garage to I-75/I-64: ? Turn left out of the garage onto [address]. ? Turn left onto [address]. ? In .3 miles, turn left down [address] ? In a half-mile, turn right onto [address] (at the [employer] gas station). ? In 4.1 miles, merge onto [address] /[address] (near the [facility]). Parking Any patients or visitors of [facility] can park in the following areas: ? [facility] Parking Garage (main garage): [address] (Levels A-F) ? [facility] Garage: [address] (Levels 1-6) ? [facility] lot: Located off [address] (limited parking for [facility] outpatients only). Upon Your Arrival ? Patients and visitors going to [place] A, H, and [facility] may walk across the pedway, [...] also be accessed via the pedway off [facility] garage on Level C. If you need a shuttle to the ED, one can be called for you at Level A of the main garage or contact any of the information desks, . Additional Information For additional information, please visit our information desks located throughout [facility]. Information desks have additional maps and resources. Information desks are located at the main entrances of: [facility] (first floor and ground floor), [facility], Pav[facility] H, Pavilion CC, Pavilion , [facility] (first and third floor), and [facility]. Informationdesk number: [phone]. Important Addresses [address] [facility] ? [facility] entrance ? Pavilion A ? Pavilion G ([facility]) ? Emergency Department [address] ? [facility] H ? Pav[facility] CC ([facility]) ? Pavilion WH ([facility]) ? [facility] [employer] [address] [facility] ? [facility] [address] [facility] ? [address] ? [facility] ? [facility] & [...] split thickness skin graft right leg cpt 05084, [address], [address] [address] Rea (Right). [...] card, photo ID, along with power of consumer attorney, guardianship or advanced directives if applicable Do not bring money, jewelry (Including wedding rings) or other valuables. Do not wear any makeup, nail sammarinese, or contact lens the day of surgery. [...] you are scheduled to have your surgery: [facility] at [phone] or [phone] or [place] [facility] at [phone] or [phone]. documented in this encounter Plan of Treatment Upcoming Encounters Date Type Department Care Team (Late st Contact Info) Description 04/25/2025 10:20 AM EDT Office Visit [facility] Comprehensive [facility] [address] 5th Floor [address] [place] [address] Jennifer Novak MD [address] [facility] [address] [place] [address] 05/06/2025 8:30 AM EDT Office Visit [address] [address] Catalina Ruiz, FILM CRITIC [address] [facility] [address] [place] [address] 05/06/2025 2:30 PM EDT Office Visit [facility] Orthopaedic Surgery & Sports Medicine [address] 1st Floor [address] [place] [address] Cristian Rea MD [address] [place] [address] 05/20/2025 1:00 PM EDT Office Visit [address] [address] Catalina Ruiz, FILM CRITIC [address] [facility] [address] [place] [address] Pending Results Name Type Priority Associated Diagnoses Date /Time Fungal Culture, Tissue and JACKELYN Microbiology Routine 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 ([facility]/HCC) 04/09/2025 4:34 PM EDT Scheduled Orders Name Type Priority Associated Diagnoses Orde r Schedule Multi Drug Resistance Test Microbiology Routine Once (Lab) for 1 Occurrences starting 04/09/2025 until 04/09/2025 Scheduled Referrals Name Type Priority Associated Diagnoses Orde r Schedule Discharge Ambulatory referral to [facility] Outpatient Referral Routine Chronic osteomyelitis [...] of right tibia with draining sinus (CMS/HCC) DE REMOVAL DEEP IMPLANT 04/09/20 3:20 PM EDT [...] Lorenzo RN Authorized by: Cristian Rea MD [place] Protocol: Verbal consent obtained?: Yes Written consent [...] preference Patient position: Flat Catheter Lot #: [id number] Catheter locomotive firer: Publer PowerPICC Solo Catheter placed: Single lumen Catheter [...] Kinase (CK), Total (04/11/2025 1:00 PM EDT) [facility] Creatine Kinase, Plasma 143 49 - 320 U/L 04/11/2025 2:10 PM EDT [facility] Blood Venous blood specimen / Unknown Venipuncture / Unknown 04/11/2025 1:00 PM EDT 04/11/2025 1:41 PM EDT [facility] LAB BLOOD ORDERABLES Final Res ult [facility] [address] [place] [address] * HIV 1 & 2 Antibody/Antigen Screen (04/11/2025 1:00 PM EDT) [facility] HIV 1 & 2 Antibody/Antigen Screen Non Reactive Non Reactive 04/11/2025 2:38 PM EDT [facility] Comment:Screening for HIV 1 & 2 antibodies, and P24 antigen is NONREACTIVE. No confirmatory testing is required. Blood Venous blood specimen / Unknown Venipuncture / Unknown 04/11/2025 1:00 PM EDT 04/11/2025 1:41 PM EDT us George Fox MD LAB BLOOD ORDERABLES Final R esult Performing Organization Address [facility] Co de Phone Number [facility] [address] [place] [address] * C-reactive protein (04/10/2025 2:29 AM EDT) CRP, Plasma <3.0 <=8.0 mg/L 04/10/2025 12:01 PM EDT [facility] Blood Venous blood specimen / Unknown Venipuncture / Unknown 04/10/2025 2:29 AM EDT 04/10/2025 2:39 AM EDT Narrative [facility] - 04/10/2025 12:01 PM EDT This CRP test is appropriate for assessment of infection, systemic inflammation and/or tissue injury. To assess cardiovascular disease risk order high sensitivity CRP (CRPH). us Brook [facility] LAB BLOOD ORDERABLES Final Res ult Performing Organization Address [facility] Co de Phone Number [facility] [address] [place] [address] * (ABNORMAL) Prealbumin (04/10/2025 2:29 AM EDT) Prealbumin, Plasma 17.1(L) 20.0 - 41.0 mg/dL 04/10/2025 11:03 AM EDT [facility] Blood Venous blood specimen / Unknown Venipuncture / Unknown 04/10/2025 2:29 AM EDT 04/10/2025 2:39 AM EDT us Cristian Rea MD LAB BLOOD ORDERABLES Final Result [facility] [address] [place] [address] * (ABNORMAL) Basic metabolic panel (04/10/2025 2:29 AM EDT) Glucose, Plasma 168(H) 74 - 99 mg/dL 04/10/2025 3:07 AM EDT [facility] BUN, Plasma 11 8 - 23 mg/dL 04/10/2025 3:07 AM EDT [facility] Creatinine, Plasma 0.80 0.70 - 1.20 mg/dL 04/10/2025 3:07 AM EDT [facility] BUN/Creatinine Ratio 14 04/10/2025 3:07 AM EDT [facility] Sodium, Plasma 138 136 - 145 mmol/L 04/10/2025 3:07 AM EDT [facility] Potassium, Plasma 4.8 3.6 - 4.9 mmol/L 04/10/2025 3:07 AM EDT [facility] Chloride, Plasma 106 97 - 107 mmol/L 04/10/2025 3:07 AM EDT [facility] CO2, Plasma 22 22 - 29 mmol/L 04/10/2025 3:07 AM EDT [facility] Anion Gap 10 6 - 16 mmol/L 04/10/2025 3:07 AM EDT [facility] Total Calcium, Plasma 8.8(L) 8.9 - 10.2 mg/dL 04/10/2025 3:07 AM EDT [facility] eGFRcr 100.1 mL/min/1.7 3m*2 04/10/2025 3:07 AM EDT [facility] Comment:Reported eGFRcr in m L/min/1.73m2 is based the CKD-EPI 2020 equation that does not use a race coefficient. Blood Venous blood specimen / Unknown Venipuncture / Unknown 04/10/2025 2:29 AM EDT 04/10/2025 2:39 AM EDT Cristian Rea MD LAB BLOOD ORDERABLES Final Result [facility] [address] [place] [address] * (ABNORMAL) CBC (04/10/2025 2:29 AM EDT) WBC Count 5.60 3.70 - 10.30 10*3/uL LAB HEMATOLOGY METHOD 04/10/2025 2:50 AM EDT [facility] RBC Count 4.18(L) 4.60 - 6.10 10*6/uL LAB HEMATOLOGY METHOD 04/10/2025 2:50 AM EDT [facility] HGB 12.5(L) 13.7 - 17.5 g/dL LAB HEMATOLOGY METHOD 04/10/2025 2:50 AM EDT [facility] HCT 37.2(L) 40.0 - 51.0 % LAB HEMATOLOGY METHOD 04/10/2025 2:50 AM EDT [facility] Platelet Count 251 155 - 369 10*3/uL LAB HEMATOLOGY METHOD 04/10/2025 2:50 AM EDT [facility] MCV 89 79 - 98 fL LAB HEMATOLOGY METHOD 04/10/2025 2:50 AM EDT [facility] MCH 29.9 26.0 - 32.0 pg LAB HEMATOLOGY METHOD 04/10/2025 2:50 AM EDT [facility] MCHC 33.6 30.7 - 35.5 g/dL LAB HEMATOLOGY METHOD 04/10/2025 2:50 AM EDT [facility] RDW 14.0 11.5 - 14.5 % LAB HEMATOLOGY METHOD 04/10/2025 2:50 AM EDT [facility] MPV 9.2 8.8 - 12.5 fL LAB HEMATOLOGY METHOD 04/10/2025 2:50 AM EDT [facility] nRBC 0.0 <=0.0 per 100 WBCs LAB HEMATOLOGY METHOD 04/10/2025 2:50 AM EDT [facility] Blood Venous blood specimen / Unknown Venipuncture / Unknown 04/10/2025 2:29 AM EDT 04/10/2025 2:39 AM EDT us Cristian Rea MD LAB BLOOD ORDERABLES Final Result [facility] [address] [place] [address] * [place] Less than 1 Hour Intraoperative (04/09/2025 5:08 PM EDT) Narrative IMAGING - 04/09/2025 5:09 PM EDT Images were obtained for surgical purposes. See Cristian Rea's surgical note in the patient's chart for the findings. Cristian Rea MD IMG FLUOROSCOPY PROCEDURES Final Result Performing Organization Address City/[facility] Co de Phone Number IMAGING * (ABNORMAL) Bone Culture and Gram Stain (04/09/2025 4:34 PM EDT) Culture Light Growth 04/12/2025 7:38 AM EDT [facility] Culture Staphylococcus aureus(A) 04/12/2025 7:38 AM EDT [facility] Comment: (small colony variant) - Positive for MRSA by PBP2a assay. The organism value for this result has been updated. These results have been appended to the previously preliminary verified report. 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 The organism value for this result has been updated. These results have been appended to the previously preliminary verified report. <null> has been updated to reportable. 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) [M86.461] Cristian Rea MD LAB MICROBIOLOGY - GENERAL ORDERABLES Final Result Performing Organization Address [facility] Co de Phone Number [facility] [address] [place] [address] * 12 Lead ECG (04/09/2025 3:13 PM EDT) EKG DIAGNOSIS CLASS Abnormal MUSE ECG Ventricular Rate 59 BPM MUSE ECG Atrial Rate 59 BPM MUSE ECG DE Interval 122 ms MUSE ECG QRSD Interval 82 ms MUSE ECG QT Interval 432 ms MUSE ECG QTC Interval 427 ms MUSE ECG P [place] 67 degrees MUSE ECG R [place] 92 degrees MUSE ECG T Wave [place] 76 degrees MUSE ECG Diagnosis Sinus bradycardia MUSE ECG Diagnosis Rightward axis MUSE ECG Diagnosis Poor R-wave progression MUSE ECG Diagnosis Abnormal ECG MUSE ECG Diagnosis MUSE ECG Diagnosis Confirmed by Isacc Arciniega ([id number]) on 04/09/2025 5:30:16 PM MUSE ECG 04/09/2025 3:13 PM EDT 04/09/2025 5:30 PM EDT us Rubens Guy MD ECG ORDERABLES Final Result MUSE ECG * (ABNORMAL) CBC (04/09/2025 3:01 PM EDT) WBC Count 8.61 3.70 - 10.30 10*3/uL LAB HEMATOLOGY METHOD 04/09/2025 3:44 PM EDT [facility] RBC Count 4.58(L) 4.60 - 6.10 10*6/uL LAB HEMATOLOGY METHOD 04/09/2025 3:44 PM EDT [facility] HGB 13.4(L) 13.7 - 17.5 g/dL LAB HEMATOLOGY METHOD 04/09/2025 3:44 PM EDT [facility] HCT 41.0 40.0 - 51.0 % LAB HEMATOLOGY METHOD 04/09/2025 3:44 PM EDT [facility] Platelet Count 269 155 - 369 10*3/uL LAB HEMATOLOGY METHOD 04/09/2025 3:44 PM EDT [facility] MCV 90 79 - 98 fL LAB HEMATOLOGY METHOD 04/09/2025 3:44 PM EDT [facility] MCH 29.3 26.0 - 32.0 pg LAB HEMATOLOGY METHOD 04/09/2025 3:44 PM EDT [facility] MCHC 32.7 30.7 - 35.5 g/dL LAB HEMATOLOGY METHOD 04/09/2025 3:44 PM EDT [facility] RDW 14.0 11.5 - 14.5 % LAB HEMATOLOGY METHOD 04/09/2025 3:44 PM EDT [facility] MPV 9.2 8.8 - 12.5 fL LAB HEMATOLOGY METHOD 04/09/2025 3:44 PM EDT [facility] nRBC 0.0 <=0.0 per 100 WBCs LAB HEMATOLOGY METHOD 04/09/2025 3:44 PM EDT [facility] Blood Venous blood specimen / Unknown Venipuncture / Unknown 04/09/2025 3:01 PM EDT 04/09/2025 3:35 PM EDT Cristian eRa MD LAB BLOOD ORDERABLES Final Result [facility] [address] [place] [address] * Basic metabolic panel (04/09/2025 3:01 PM EDT) Glucose, Plasma 96 74 - 99 mg/dL 04/09/2025 4:02 PM EDT [facility] BUN, Plasma 8 8 - 23 mg/dL 04/09/2025 4:02 PM EDT [facility] Creatinine, Plasma 0.80 0.70 - 1.20 mg/dL 04/09/2025 4:02 PM EDT [facility] BUN/Creatinine Ratio 10 04/09/2025 4:02 PM EDT [facility] Sodium, Plasma 139 136 - 145 mmol/L 04/09/2025 4:02 PM EDT [facility] Potassium, Plasma 4.0 3.6 - 4.9 mmol/L 04/09/2025 4:02 PM EDT [facility] Chloride, Plasma 104 97 - 107 mmol/L 04/09/2025 4:02 PM EDT [facility] CO2, Plasma 24 22 - 29 mmol/L 04/09/2025 4:02 PM EDT [facility] Anion Gap 11 6 - 16 mmol/L 04/09/2025 4:02 PM EDT [facility] Total Calcium, Plasma 9.0 8.9 - 10.2 mg/dL 04/09/2025 4:02 PM EDT [facility] eGFRcr 100.1 mL/min/1.7 3m*2 04/09/2025 4:02 PM EDT [facility] Comment:Reported eGFRcr in m L/min/1.73m2 is based the CKD-EPI 2020 equation that does not use a race coefficient. Blood Venous blood specimen / Unknown Venipuncture / Unknown 04/09/2025 3:01 PM EDT 04/09/2025 3:31 PM EDT Rubens Guy MD LAB BLOOD ORDERABLES Final Re sult Performing Organization Address City/[facility]/ZIP Co de Phone Number [facility] [address] [place] [address] * Type and screen (04/09/2025 3:01 PM [...] ORDERABLE S Final Result Performing Organization Address [facility] de Phone Number BLOOD BANK [address] [place] [address] documented in this encounter Visit Diagnoses Diagnosis 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)- Primary Osteomyelitis of right tibia, unspecified type (CMS/HCC) 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) documented in this encounter Admitting Diagnoses [...] Maryellen 04/10/25 at 2100, Until Discontinued, Routine Given 04/10/2025 [...] pain, Severe pain unresponsive to opiods vancomycin (Vancocin) vial for injection As needed, Starting on Mon04/09/25 at 1652, Until Mon04/09/25 at 1803, Routine, Intraprocedure Given 04/09/2025 4:52 PM EDT 1 g Other vancomycin HCl (Vancocin) 750 mg in sodium [...] Qiana Nuno RN)0614 (Given - Provider: Qiana Nuno, RN)1117 (Given - Provider: Nesha Deng, TITUS)1727 (Given - Provider: Nesha Deng RN) 0036 [...] Discontinued, Routine 1326 (Given - Provider: Nesha Deng, TITUS) 0906 (Given - Provider: Christian Jay, TITUS) [...] on Mon04/10/25 at 2100, Until Discontinued, Routine 215 (Given - Provider: Bryan Gibbs RN) senna-docusate [...] Oral, Every 6 hours PRN, Starting on Mon25 at 0831, Until Mon04/11/25 at 1945, Routine, [...] documented as of this encounter Care Teams Orthotics Prosthetics Assistant Relationship Specialty Start Date End Date Ruddy Branch MD PCP - General 12/14/22 documented as of this encounter
--- OUTSIDE RECORDS SUMMARY | 2025-04-09 15:36 | XMS_ITS | Encounter Summary ---
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) [M86.461] Procedures VT REMOVAL DEEP IMPLANT VT ADJ TISS XFER SCALP,EXTREM <10 SQCM VT MUSCLE-SKIN FLAP,LEG VT SPLIT GRFT TRUNK,ARM,LEG <100 SQCM VT ADJ TISS XFER SCALP,EXTREM <10 SQCM REMOVAL, HARDWARE Rotational Flap, Adjacent tissue transfer, split thickness skin graft RIGHT leg Cristian Rea MD [address] [facility] [address] [place] [address] Phone: tel: fax: P[facility] A OPERATING ROOM [address] [place] [address] Phone: tel: Referral ID Status Reason Start Date Expiration Date Visits Re quested Visits Authorized [id number] 1 1 Encounter Details Date Type Department Care Team (Late st Contact Info) Description 04/09/2025 3:36 PM EDT Anesthesia Event [facility] RO[facility] [address] [place] [address] Rubens Guy MD [address] [place] [address] Lilli Cisneros MD [address] [place] [address] Anesthesia Record Procedure Summary Procedure Name Responsible [...] Antecubital; Site Prep: Chlorhexidine ; Local Anesth: [place]; Technique: Anatomical landmarks; Inserted by: susu; Insertion [...] and Family Not on file 03/19/2024 Attends Yarsanism Services Not on file 03/19 Active Member [...] Recorded Patient Health Questionnaire-2 Score 0 10/15/2024 [facility] Occupat ional Health - Occupational [...] and Family Not on file 04/11/2025 Attends Yarsanism Services Not on file 04/11 Active Member [...] any time in the past 12 m [facility], were you homeless or living in a senior living (including now)? No 04/11/2025 CAGE ASSESSMENT Answer [...] drink first t trupti in the morning (EYE-LITERATURE TEACHER) to steady your nerves or to get [...] portions of the procedure(s) and immediately available [facility] services the entire duration. See resident note for details. * Anesthesia Preprocedure Evaluation - Rubens Guy MD - 04/09/2025 12:21 PM EDT No anesthesia staff entered. Patient: Thai Ponce HPI Thai Ponce is a 64 y.o. male with history of [place], anxiety/depression, smoker, COPD, and bodymass index is [...] graft RIGHT leg (Right: Leg Lower) Location: [facility] / [place] [facility] Surgeons: Cristian Rea MD [...] ABG No results found for: PHART , MXB1DTB , PO2ART , SO2ART , BEART , MMN3HNP , HCTART , SODIUMART , POTASSIUMART , POCTCL , POCGLU , IONCALART , LACTATE Lab Results Component Value Date HCTSYR 19.4 (LL) 12/13/2023 KSYR 3.8 12/13/2023 CLSYR 106 12/13/2023 GLUSYR 111 (H) 12/13/2023 CAION 4.3 (L) 12/13/2023 ECHO No echocardiogram results found for the past 12 months PFTs No results found for: VJN1DGV , RGB0UNAI , ZUG8JJS , FVCPRED BP Readings from Last 5 [...] to OR ROS Cardiovascular: Cardio additional comments[facility] 60 to 70% LAD, normal circumflex, less than 10% RCA OS last Cards note 08/2022 1. Coronary artery disease involving [place] heart with other form of angina pectoris, unspecified vessel or lesion type ([facility]) (Primary), recurrent chest pain. Known [...] Date Anxiety COPD (chronic obstructive pulmonary disease) ([facility]) Coronary artery disease last cardiology appt. 08/2022 - patient states no longer sees cardiology Deep vein thrombosis ([facility]) 2023 Depression Dysphagia unknown reason as of 04/01/25 History of methicillin resistant Staphylococcus aureus HL (hearing loss) no hearing aids at this time Hyperlipidemia Hypertension Limited mobility holds on to furniture and paniagua Myocardial infarction ([facility]) 2017 Peripheral neuropathy PTSD (post-traumatic [...] Description 04/25/2025 10:20 AM EDT Office Visit [facility] Comprehensive Vascular Clinic [address] [facility] 5th Floor [address] [place] [address] Jnenifer Martinez MD [address] [facility] [address] [place] [address] 05/06/2025 8:30 AM EDT Office Visit [address] [address] Catalina Ruiz, STUDENT ADVISOR [address] [facility] [address] [place] [address] 05/06/2025 2:30 PM EDT Office Visit [facility] Orthopaedic Surgery & Sports Medicine [address] [facility], 1st Floor [address] [place] [address] Cristian Rea MD [address] [facility] [address] [place] [address] 05/20/2025 1:00 PM EDT Office Visit [address] [address] Catalina Ruiz, STUDENT ADVISOR [address] [facility] [address] [place] [address] documented as of this encounter Procedures Procedure Name Priority Date/Time Associated Diagnosis Comments PB ANESTHESIA PLACEHOLDER Routine 04/09/2025 3:47 PM EDT VT AN ELECTIVE ENDOTRACHEAL AIRWAY Routine 04/09/2025 3:47 PM EDT documented in this encounter Results * VT AN ELECTIVE ENDOTRACHEAL AIRWAY, PB ANESTHESIA PLACEHOLDER [...] Additional Comments Atraumatic. No change to dentition. Rubens Guy MD ANESTHESIA ORDERABLES Final R [...] on Mon04/09/25 at 1532, Until Mon04/09/25 at 181, Routine, Anesthesia Intraprocedure Given 04/09/2025 3:32 PM [...] documented as of this encounter Care Teams Boring And Filling Machine Operator Relationship Specialty Start Date End Date Ruddy Branch MD PCP - General 12/14/22 documented as of this encounter
--- OUTSIDE RECORDS SUMMARY | 2025-04-14 14:30 | XMS_ITS | Encounter Summary ---
Author Organization [facility] Address [address] [place] [address] Care Team Providers Care Automotive Mechanical Engineer Name Role Phone Ruddy Branch MD Primary Care Provider [phone] Reason for Visit * Auth/Cert (Routine) Specialty Diagnoses / Procedures Referred By Contac t Referred To Contact Diagnoses 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) 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) [M86.461] Procedures OR REMOVAL DEEP IMPLANT OR ADJ TISS XFER SCALP,EXTREM <10 SQCM OR MUSCLE-SKIN FLAP,LEG OR SPLIT GRFT TRUNK,ARM,LEG <100 SQCM OR ADJ TISS XFER SCALP,EXTREM <10 SQCM REMOVAL, HARDWARE Rotational Flap, Adjacent tissue transfer, split thickness skin graft RIGHT leg Cristian Rea MD [address] [place] [address] Phone: tel: fax: PAV A OPERATING ROOM [address] [place] [address] Phone: tel: Referral ID Status Reason Start Date Expiration Date Visits Re quested Visits Authorized [id number] 1 1 Encounter Details Date Type Department Care Team (Late st Contact Info) Description 04/14/2025 2:30 PM EDT Office Visit [facility] Plastic & Reconstructive Surgery [address] [place] [address] Jennifer Novak MD [address] [place] [phone] Encounter for postoperative care (Primary Dx) [...] and Family Not on file 03/19/2024 Attends Confucianist Services Not on file 03/19 Active Member [...] Recorded Patient Health Questionnaire-2 Score 0 10/15/2024 [facility] of Occupat ional Health - Occupational [...] and Family Not on file 04/11/2025 Attends Confucianist Services Not on file 04/11 Active Member [...] any time in the past [address] [facility], were you homeless or living in [...] first t trupti in the morning (EYE-CYLINDER HEAD ASSEMBLER) to steady your nerves or to get rid of a hangover? 0 03/14/2024 CAGE Questionnaire Score 0 024 Utilities Answer Date Recorded In the past 12 months has th [employer], gas, oil, or water company threatened to [...] from the original note were not included. [facility] of [facility] Department of Surgery Division of [...] R ankle pilon fracture who presents to [facility] on 04/14/25 for follow-up status-post ORIF on [...] form which was reviewed and scanned into [employer]. Negative for bleeding disorders, clotting disorders, or [...] on to furniture and paniagua Myocardial infarction ([facility]) 2017 Peripheral neuropathy PTSD [...] student. I discussed the case with the medical/SOAP SLABBER/PA student and agree with the findings and plan as documented. I personally performed the Exam and Medical Decision Making. documented in this encounter Plan of Treatment Upcoming Encounters Date Type Department Care Team (Late st Contact Info) Description 04/25/2025 10:20 AM EDT Office Visit [facility] [address] 5[address] Floor [address] [place] [address] Jennifer Novak MD [address] [address] 05/06/2025 8:30 AM EDT Office Visit [facility] [address] [place] [address] Catalina Ruiz, ALIGNMENT TECHNICIAN [address] [facility] [address] [place] [address] 05/06/2025 2:30 PM EDT Office Visit [facility] Orthopaedic Surgery & Sports Medicine [address], 1[address] [place] [address] Cristian Rea MD [address] [place] [address] 05/20/2025 1:00 PM EDT Office Visit [facility] [address] [place] [address] Catalina Ruiz, ALIGNMENT TECHNICIAN [address] [facility] [address] [place] [address] documented as of this encounter [...] documented as of this encounter Care Teams Automotive Mechanical Engineer Relationship Specialty Start Date End Date Ruddy Branch MD PCP - General 12/14/22 documented as of this encounter
[2025-04-22 12:48] VITALS: BMI 14.1
--- OUTSIDE RECORDS SUMMARY | 2025-04-22 12:52 | XMS_ITS | Encounter Summary ---
Author Organization [employer] ([place], [place], [place], [place]) Address [address] [place] [address] Care Team Providers Care Honey Grader And Blender Name Role Phone Unavailable Primary Care Provider Unavailabl e Reason for Referral * Consultation (Routine) - Canceled Specialty Diagnoses / Procedures Referred By Contac t Referred To Contact Psychology / Behavioral Health Diagnoses Other chronic pain Memory loss Segundo Zelaya MD [address] [address] [place] [address] Phone: tel: fax: [place], [place] [address] [place] [address] Phone: tel: fax: Referral ID Status Reason Start Date Expiration Date Visits Requested Visits Authorized [id number] Canceled Specialty Services Required 10/22/2024 10/22/2025 1 1 Encounter Details Date Type Department Care Team (Late st Contact Info) Description 10/22/2024 Outside Orders [facility] Central Scheduling [address] [place] [address] Segundo Zelaya MD [address] [address] [place] [address] Other chronic pain (Primary Dx); Memory loss Social History Tobacco Use Types Packs/Day Years Used Date Smoking Tobacco: Never Assessed Sex and Gender Information Value Date Recorded Sex Assigned at Not on file Legal Sex Male 12:33 PM SALVAGE WINDER AND INSPECTOR Gender Identity Not on file Sexual Orientation [...]
--- OUTSIDE RECORDS SUMMARY | 2025-04-22 12:52 | XMS_ITS | Referral Summary ---
Author Organization [employer] ([place], [place], [place]) Address [address] [place] [address] Care Team Providers Care Aerodynamics Professor Name Role Phone Unavailable Primary Care Provider Unavailabl e Social History Tobacco Use Types Packs/Day Years Used Date Smoking Tobacco: Never Assessed Sex and Gender Information Value Date Recorded Sex Assigned at Not on file Legal Sex Male 12:33 PM [employer]CHO[employer] PAT[employer] Gender Identity Not on file Sexual Orientation Not on file Plan of Treatment Not on file Insurance [employer] MEDICARE HMO
--- OUTSIDE RECORDS SUMMARY | 2025-04-22 12:53 | XMS_ITS ---
Author Organization [facility] Address [address] [place] [id number] Care Team Providers Care Wireless Engineer Name Role Phone Ruddy Branch MD Primary Care Provider [facility] Status:Enrolled (Active) Start date:01/08/2025 Enrollment date:01/09/2025 Enrollment reason:Identified using claims or encounter data Current support & services provided:Adherence- Cholesterol Linked medications:Rosuvastatin Calcium (Active) Linked problems:Hypercholesterolemia (Active) Case Team Name Relationship Phone Susan Noland LPN(Responsible Staff) Licensed Practical Nurse Continued Care and Services Coordination
--- OUTSIDE RECORDS SUMMARY | 2025-04-22 12:53 | XMS_ITS | Encounter Summary ---
Author Organization [facility] Address [address] [place] [address] Care Team Providers Care Pharmacy Technician Assistant Name Role Phone Ruddy Branch MD Primary Care Provider [phone] Encounter Details Date Type Department Care Team [...] Recorded Patient Health Questionnaire-2 Score 0 10/15/2024 [facility] - Occupational Stress [...] drink first t trupti in the morning (EYE-COMMUNITY PRODUCT SPECIALIST) to steady your nerves or to get rid of a hangover? 0 03/14/2024 CAGE Questionnaire Score 0 024 Utilities Answer Date Recorded In the past 12 months has [employer], gas, oil, or water [facility] threatened to shut off services in your [...] Description 04/25/2025 10:20 AM EDT Office Visit [facility] [address] [facility] 5th Floor [address] [place] [address] Jennifer Novak MD [address] [facility] [address] [place] [address] 05/06/2025 8:30 AM EDT Office Visit [address] [address] Catalina Ruiz, WOOD LATHE OPERATOR [address] [facility] [address] [place] [address] 05/06/2025 2:30 PM EDT Office [facility] [address] 1st [address] [place] [address] Cristian Rea MD [address] [facility] [address] [place] [address] 05/20/2025 1:00 PM EDT Office Visit [address] [address] Catalina Ruiz, WOOD LATHE OPERATOR [address] [facility] [address] [place] [address] documented as of this encounter [...] documented as of this encounter Care Teams Pharmacy Technician Assistant Relationship Specialty Start Date End Date Ruddy Branch MD PCP - General 12/14/22 documented as of this encounter
--- OUTSIDE RECORDS SUMMARY | 2025-04-22 12:53 | XMS_ITS | Encounter Summary ---
Author Organization Healthcare Address [address] [place] [address] Care Team Providers Care Personal Protection Specialist Name Role Phone Ruddy Branch MD Primary Care Provider [phone] Encounter Details Date Type Department Care Team [...] Recorded Patient Health Questionnaire-2 Score 0 10/15/2024 [facility] of Occupat ional [facility] - Occupational Stress Questionnaire Answer [...] place to sleep or slept in a prison (including now)? No 03/19/2024 PHQ-9 Answer Date [...] drink first t trupti in the morning (EYE-CUSTOMER SERVICE TELLER) to steady your nerves or to get rid of a hangover? 0 03/14/2024 CAGE Questionnaire Score 0 024 Utilities Answer Date Recorded In the past 12 months has [employer], gas, oil, or water [employer] threatened to shut off services in your [...] Description 04/25/2025 10:20 AM EDT Office Visit [facility] [address] [facility] 5th Floor [address] [place] [address] Jennifer Novak MD [address] [facility] [address] [place] [address] 05/06/2025 8:30 AM EDT Office Visit [address] [address] Catalina Ruiz, FRUIT THINNER MACHINE OPERATOR [address] [facility] [address] [place] [address] 05/06/2025 2:30 PM EDT Office Visit [facility] Orthopaedic Surgery & Sports Medicine [address] [facility] 1st Floor [address] [place] [address] Cristian Rea MD [address] [facility] [address] [place] [address] 05/20/2025 1:00 PM EDT Office Visit [address] [address] Catalina Ruiz, FRUIT THINNER MACHINE OPERATOR [address] [facility] [address] [place] [address] documented as of this encounter [...] documented as of this encounter Care Teams Personal Protection Specialist Relationship Specialty Start Date End Date Ruddy Branch MD PCP - General 12/14/22 documented as of this encounter
--- OUTSIDE RECORDS SUMMARY | 2025-04-22 12:53 | XMS_ITS | Encounter Summary ---
Author Organization [facility] Address [address] [place] [address] Care Team Providers Care Sports Book Server Name Role Phone Ruddy Branch MD Primary Care Provider [phone] Reason for Visit * Reason Onset Date Comments HCN Clinical Concern/Question 03/07/2025 Encounter Details Date Type Department Care Team (Late st Contact Info) Description 03/07/2025 Telephone [facility] [address] [facility] 5th Floor [address] [place] [address] Jennifer Novak MD [address] [address] HCN Clinical Concern/Question Social History [...] 0 10/15/2024 [facility] of Occupat ional [facility] - Occupational Stress Questionnaire Answer Date [...] place to sleep or slept in a ch[facility] (including now)? No 03/19/2024 PHQ-9 Answer Date [...] drink first t trupti in the morning (EYE-GRAIN OILSEED OR PASTURE FARM WORKER) to steady your nerves or to get [...] to Dr.James Raymond office. Best contact number: [phone] Optimal time of day to reach caller: ANYTIME Additional comments/information from caller: None Note: Please do not reply to this message. Follow-up communication and further actions as a result of this message need to be communicated with the patient directly, if the patient is not active onMyChart. If the patient is active on MyChart, they will receive notification of the communication/outcome via [employer] [facility]. documented in this encounter Plan of Treatment Upcoming Encounters Date Type Department Care Team (Late st Contact Info) Description 04/25/2025 10:20 AM EDT Office Visit [facility] [address] 5th Floor [address] [place] [address] Jennifer Novak MD [address] [facility] [address] [place] [address] 05/06/2025 8:30 AM EDT Office Visit [facility] [address] [facility] [place] [address] Catalina Ruiz APRN [address] [facility] [address] [place] [address] 05/06/2025 2:30 PM EDT Office Visit [facility] Orthopaedic Surgery & Sports Medicine [address] 1st Floor [address] [place] [address] Cristian Rea MD [address] [place] [address] 05/20/2025 1:00 PM EDT Office Visit [facility] [address] [place] [address] Catalina Ruiz, CLINIC ASSISTANT [address] [facility] [address] [place] [address] documented as of this encounter [...] documented as of this encounter Care Teams Sports Book Server Relationship Specialty Start Date End Date Ruddy Branch MD PCP - General 12/14/22 documented as of this encounter
--- OUTSIDE RECORDS SUMMARY | 2025-04-22 12:53 | XMS_ITS | Encounter Summary ---
Author Organization [facility] Address [address] [place] [address] Care Team Providers Care Marbleizing Machine Tender Name Role Phone Ruddy Branch MD Primary Care Provider [phone] Reason for Referral * Consultation (Routine) - Authorized Specialty Diagnoses / Procedures Referred By Contnadira t Referred To Contact Pain Medicine Diagnoses Open wound Jennifer Novak MD [address] [address] Phone: tel: fax: Referral ID Status Reason Start Date Expiration Date Visits Requested Visits Authorized [id number] Authorized Specialty Services Required 03/10/2025 09/09/2026 1 1 Encounter Details Date Type Department Care Team (Late st Contact Info) Description 03/10/2025 Orders Only [facility] [address] [facility] 5th Floor [address] [place] [address] Peter Delarosa, RN Open wound [...] and Family Not on file 03/19/2024 Attends [employer] Not on file 03/19 Active Member [...] Recorded Patient Health Questionnaire-2 Score 0 10/15/2024 [facility] - Occupational Stress Questionnaire Answer [...] place to sleep or slept in a [facility] (including now)? No 03/19/2024 PHQ-9 Answer Date [...] drink first t trupti in the morning (EYE-FOOD COUNTER WORKER) to steady your nerves or to [...] Description 04/25/2025 10:20 AM EDT Office Visit [facility] [address] 5th Floor [address] [place] [address] Jennifer Novak MD [address] [facility] [address] [place] [address] 05/06/2025 8:30 AM EDT Office Visit [facility] [address] [place] [address] Catalina Ruiz, PLANT SECURITY GUARD [address] [facility] [address] [place] [address] 05/06/2025 2:30 PM EDT Office Visit [facility] [address] 1st Floor [address] [place] [address] Cristian Rea MD [address] [facility] [address] [place] [address] 05/20/2025 1:00 PM EDT Office Visit [facility] [address] [place] [address] Catalina Ruiz, PLANT SECURITY GUARD [address] [place] [address] [address] [place] [address] Scheduled Referrals Name Type Priority [...] documented as of this encounter Care Teams Marbleizing Machine Tender Relationship Specialty Start Date End Date Ruddy Branch MD PCP - General 12/14/22 documented as of this encounter
--- OUTSIDE RECORDS SUMMARY | 2025-04-22 12:53 | XMS_ITS | Clinical Summary ---
Author Organization Healthcare Address [address] [place] [address] Care Team Providers Care Groundman Name Role Phone Ruddy Branch MD Primary Care Provider [phone] Allergies No known active allergies Medications gabapentin (Neurontin) 800 MG tablet Take 1 tablet by mouth nightly. Active Nutritional Supplements (Boost High Protein) liquidIndications :Poor nutrition Take 1 Bottle by mouth 3 times a day. 17609 mL 5 01/09/20 25 Active sulfamethoxazole- trimethoprim [...] Resume home meds as appropriate History of MT (myocardial infarction) 12/17/2023 Overview (12/17/2023): Resume ASA when appropriate CAD (coronary artery disease) 12/17/2023 Overview (12/17/2023): Resume home meds as appropriate Neuropathy 12/17/2023 Overview (12/17/2023): Resume gabapentin Anxiety and depression 12/17/2023 Overview (12/17/2023): Resume lexapro Scrotum swelling 12/17/2023 Overview (12/17/2023): Ecchymosis noted Can place sling or ice or comfort RN to upload picture in digital associate media director ABLA (acute blood loss anemia) 12/16/2023 Overview [...] Encounters Date Type Department Care Team Description 04/15/2025 Telephone [facility] [address] 5th Floor [address] [place] [address] Jennifer Novak MD 04/14/2025 2:30 PM EDT Office Visit [facility]astic [facility] Re[facility] Surgery [address] [place] [address] Jennifer Novak MD Encounter for postoperative care (Primary Dx) 04/14/2025 Travel 04/14/[address] 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) Discharge Disposition: Home or Self Care 04/09/2025 Travel 04/07/2025 Telephone [facility] [address] 1st [address] [place] [address] Cristian Rea MD HCN - Patient Message 03/25/2025 2:30 PM EDT Office Visit [facility] [address] 1st [address] [place] [address] Cristian Rea MD 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) (Primary Dx) 03/25/2025 Travel 03/10/2025 Telephone [facility]astic [facility] Re[facility]ive Surgery [address] [place] [address] Jennifer Novak MD HCN Clinical Concern/Question 03/10/2025 Orders Only [facility] [address] 5th Floor [address] [place] [address] Peter Delarosa RN Open wound (Primary Dx) 03/07/2025 Telephone [facility] [address] 5th Floor [address] [place] [address] Jennifer Novak MD HCN Clinical Concern/Question 02/26/2025 10:20 AM EDT Office Visit [facility] [address] 5th [address] [place] [address] Jennifer Novak MD Open wound (Primary Dx) 02/26/2025 Travel 02/04/2025 2:30 PM EDT Office Visit [facility] [address] [facility] [address] [place] [address] Cristian Rea MD Displaced pilon fx right tibia, init for opn fx type I/2 (Primary Dx) 02/04/2025 12:25 PM EDT - 02/04/2025 11:59 PM EDT Hospital Encounter [facility] [address] [place] [phone] Displaced pilon fx right tibia, init for opn fx type I/2 Discharge Disposition: Home or Self Care 02/04/2025 Travel 01/21/2025 Travel from Last 3 Months Immunizations Immunization [...] and Family Not on file 03/19/2024 Attends [employer] Not on file 03/19 Active Member [...] Recorded Patient Health Questionnaire-2 Score 0 10/15/2024 [facility] - [...] and Family Not on file 04/11/2025 Attends [employer] Not on file 04/11 Active Member [...] in the past 12 m [facility], were you homeless or living in a usp (including now)? No 04/11/2025 CAGE ASSESSMENT Answer [...] drink first t trupti in the morning (EYE-LOSS PREVENTION CONSULTANT) to steady your nerves or to [...] Pulse 62 04/14/2025 2:21 PM EDT Temperature 36.8 C (98.2 F) 04/11/2025 11:25 AM EDT Respiratory Rate 17 04/11/2025 11:25 AM EDT Oxygen Saturation 100% 04/14/2025 2:21 PM EDT Inhaled Oxygen Concentration - - Weight 45.9 kg (101 lb 3.1 oz) 04/14/2025 2:21 P M EDT Height 172.7 cm (5' 8 ) 04/14/2025 2:21 PM EDT Body Mass Index 15.39 04/14/2025 2:21 PM EDT Plan of Treatment Upcoming Encounters Date Type Department Care Team (Late st Contact Info) Description 04/25/2025 10:20 AM EDT Office Visit [facility] [address] 5th Floor [address] [place] [address] Jennifer Novak MD [address] [place] [address] 05/06/2025 8:30 AM EDT Office Visit [facility] [address] [place] [address] Catalina Ruiz, HEAD CONTROL CLERK [address] [facility] [address] [place] [address] 05/06/2025 2:30 PM EDT Office Visit [facility] [address] 1st [address] [place] [address] Cristian Rea MD [address] [place] [address] 05/20/2025 1:00 PM EDT Office Visit [address] [address] Catalina Ruiz, HEAD CONTROL CLERK [address] [facility] [address] [place] [address] Health Maintenance Due Date Last Done Comments [facility]-/Child/Adol SDOH Screenings [address] Colonography 11/30/2007 Colonoscopy 11/30/2007 FIT-DNA 11/30/2007 FIT 11/30/2007 FOBT 11/30/2007 Sigmoidoscopy 11/30/2007 [facility]-Colorectal Cancer Screening 11/30/2007 [facility]-Zoster Vaccines (1 of 2) 2012 [facility]-Lung Cancer Screening 12/11/20242023, 05/11/2023 [id number] Vaccine ( season) 2025 05/11/2021, 04/16/2021 [facility]-Influenza Vaccine (#1) 04/21/202507/27, 06/29/2022 [facility]-Medicare Annual [...] topic Medical Devices Implanted Type Area Truck [employer] Motor Mechanic Device Identifier Shelf Expiration Date Model / Serial / Lot Screw 2.7mm R3con Nonlocking Plate 24mm - [id number] Implanted:Qty: 2 on 12/13/2023 by Cristian Rea MD at [facility] Right: Leg [employer]-[id number] Q50-910-09 24 / / Screw 2.5mm Baby Gorilla Ti Nonlock 38mm - [id number] Implanted:Qty: 1 on 12/13/2023 by Cristian Rea MD at [facility] Right: Leg [employer]-[id number] B29-243-02 38 / / Screw 2.5mm Baby Gorilla Ti Nonlock 45mm - [id number] Implanted:Qty: 1 on 12/13/2023 by Cristian Rea MD at [facility] Right: Leg [employer]-[id number] H75-030-44 45 / / Screw 2.5mm Baby Gorilla Ti Nonlock 22mm - [id number] Implanted:Qty: 1 on 12/13/2023 by Cristian Rea MD at [facility] Right: Leg [employer]-[id number] J83-813-42 22 / / Plate Anterolat Distal Tibia Rt 21 Hole - [id number] Implanted:Qty: 1 on 12/13/2023 by Cristian Rea MD at [facility] Right: Leg [employer]-[id number] T69-918-J5 14 / / Screw 2.7mm R3con Nonlocking Plate 40mm - [id number] Implanted:Qty: 1 on 12/13/2023 by Cristian Rea MD at [facility] Right: Leg [employer]-[id number] N40-836-45 40 / / Screw 3.5mm R3con Nonlocking Plate 36mm - [id number] Implanted:Qty: 1 on 12/13/2023 by Cristian Rea MD at [facility] Right: Leg [employer]-[id number] M10-096-15 36 / / Screw 3.5mm R3con Nonlocking Plate 42mm - [id number] Implanted:Qty: 1 on 12/13/2023 by Cristian Rea MD at [facility] Right: Leg [employer]-[id number] I73-886-99 42 / / Screw 3.5mm R3con Nonlocking Plate 32mm - [id number] Implanted:Qty: 1 on 12/13/2023 by Cristian Rea MD at [facility] Right: Leg [employer]-[id number] A04-930-85 32 / / Screw 3.5mm R3con Nonlocking Plate 38mm - [id number] Implanted:Qty: 1 on 12/13/2023 by Cristian Rea MD at [facility] Right: Leg [employer]-[id number] X40-360-68 38 / / Screw 2.7mm R3con Nonlocking Plate 22mm - [id number] Implanted:Qty: 2 on 12/13/2023 by Cristian Rea MD at [facility] Right: Leg [employer]-[id number] Y79-713-59 22 / / Screw 2.7mm R3con Locking Plate 28mm - [id number] Implanted:Qty: 1 on 12/13/2023 by Cristian Rea MD at [facility] Right: Leg [employer]-[id number] 12/12/2024 S73-779-44 28 / / Screw 3.5mm R3con Nonlocking Plate 26mm - [id number] Implanted:Qty: 1 on 12/13/2023 by Cristian Rea MD at [facility] Right: Leg [employer]-[id number] 12/12/2024 D03-838-66 26 / / Screw 3.5mm R3con Nonlocking Plate 44mm - [id number] Implanted:Qty: 1 on 12/13/2023 by Cristian Rea MD at [facility] Right: Leg [employer]-[id number] 12/12/2024 V62-049-09 44 / / Screw 3.5mm R3con Nonlocking Plate 70mm - [id number] Implanted:Qty: 1 on 12/13/2023 by Cristian Rea MD at [facility] Right: Leg [employer]-[id number] 12/12/2024 A49-586-36 70 / / Screw 3.5mm R3con Nonlocking Plate 24mm - [id number] Implanted:Qty: 1 on 12/13/2023 by Sly Isaacs MD at [facility] Right: Leg [employer]-[id number] E16-835-59 24 / / Screw 3.5mm R3con Nonlocking Plate 22mm - [id number] Implanted:Qty: 1 on 12/13/2023 by Sly Isaacs MD at [facility] Right: Leg [employer]-[id number] C70-646-34 22 / / Plate Fibular Straight 6 Hole - [id number] Implanted:Qty: 1 on 12/13/2023 by Cristian Rea MD at [facility] Right: Leg [employer]-[id number] F70-277-66 06 / / Screw Locking Adv T2 T2 D5xl80 - [id number] Implanted:Qty: 1 on 12/13/2023 by Sly Isaacs MD at [facility] Right: [employer] [facility][id number] 8 10/18/2033 2361-5080S / / [id number] Screw Locking Adv T2 T2 D5xl65 - [id number] Implanted:Qty: 1 on 12/13/2023 by Sly Isaacs MD at [facility] Right: [employer] ([facility])-[id number] 8 08/20/2033 2361-5065S / / [id number] Screw Locking Adv T2 T2 D5xl75 - [id number] Implanted:Qty: 1 on 12/13/2023 by Sly Isaacs MD at [facility] Right: [employer] ([facility])-[id number] 8 07/20/2033 2361-5075S / / [id number] Screw Locking Adv T2 T2 D5xl75 - [id number] Implanted:Qty: 1 on 12/13/2023 by Sly Isaacs MD at [facility] Right: [employer] ([facility])-[id number] 8 10/18/2033 2361-5075S / / [id number] Screw Locking T2 D5x35 - [id number] Implanted:Qty: 1 on 12/13/2023 by Sly Isaacs MD at [facility] Right: [employer] ([facility])-[id number] 8 10/18/2033 2360-5035S / / Screw Locking T2 D5x40 - [id number] Implanted:Qty: 1 on 12/13/2023 by Sly Isaacs MD at [facility] Right: [employer] ([facility])-[id number] 8 10/18/2033 2360-5040S / / Screw Locking T2 D5xl42.5 - [id number] Implanted:Qty: 1 on 12/13/2023 by Sly Isaacs MD at [facility] Right: Fem[employer] ([employer])-[id number] 8 10/15/2033 2360-5042S / / Screw 2.7mm R3con Nonlocking Plate 14mm - [id number] Implanted:Qty: 3 on 12/13/2023 by Cristian Rea MD at [facility] Right: Leg [employer]-[id number] H81-043-74 14 / / Screw 2.7mm R3con Nonlocking Plate 12mm - [id number] Implanted:Qty: 2 on 12/13/2023 by Cristian Rea MD at [facility] Right: Leg [employer]-[id number] T01-257-81 12 / / Plate Straight 10 Hole - [id number] Implanted:Qty: 1 on 12/13/2023 by Cristian Rea MD at [facility] Right: Leg [employer]-080095 N27-785-06 10 / / Screw 2.5mm Baby Gorilla Ti Nonlock 24mm - [id number] Implanted:Qty: 2 on 12/13/2023 by Cristian Rea MD at [facility] Right: Leg [employer]-[id number] U55-890-63 24 / / Screw 2.5mm Baby Gorilla Ti Nonlock 26mm - [id number] Implanted:Qty: 1 on 12/13/2023 by Cristian Rea MD at [facility] Right: Leg [employer]-[id number] T44-698-38 26 / / Screw 2.5mm Baby Gorilla Ti Nonlock 28mm - [id number] Implanted:Qty: 1 on 12/13/2023 by Cristian Rea MD at [facility] Right: Leg [employer]-743969 Q86-175-28 28 / / Graft Cerament G With Gentamicin 10ml - [id number] Implanted:Qty: 1 on 04/09/2025 by Cristian Rea MD at [facility] Right: Tibia [employer]-[id number] 07/20/2027 Z1278-54 / / [id number] Dressing Wound 2in X 2in - [id number] Implanted:Qty: 1 on 04/09/2025 by Jennifer Novak MD at [facility] Right: Leg Integra-[id number] 01/18/2027 [id number] / / [id number] Explanted Type 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 Truck [employer] Mechanic Device Identifier Shelf Expiration Date Model / Serial / Lot Nail Femoral Retro T2 Alpha 10mm X 400mm - [id number] Explanted:Qty: 1 on 12/13/2023 by Sly Isaacs MD at [facility] Nail Right: Fem[employer] ([facility])-[id number] 8 09/20/2033 2339-1040S / / [id number] Post Angled 30 Deg 8mm - [id number] Explanted:Qty: 2 on 12/13/2023 by Sly Isaacs MD at [facility] Right: Leg [employer] ([facility])-[id number] 8 12/12/2024 4922-2-140 / / Pin [id number] Blunt - [id number] Explanted:Qty: 2 on 12/13/2023 by Sly Isaacs MD at [facility] Right: Leg [employer] ([facility])-[id number] 8 12/12/2024 5020-3-150 / / Instrument Transfix 5/6 X300 X 50mm - [id number] Explanted:Qty: 1 on 12/13/2023 by Sly Isaacs MD at [facility] Right: Leg [employer] ([facility])-[id number] 8 12/12/2024 5050-5-300 / / Coupling Ángel To Ángel 8/8mm - [id number] Explanted:Qty: 1 on 12/13/2023 by Sly Isaacs MD at [facility] Right: Leg [employer] ([facility])-[id number] 8 12/12/2024 4922-1-010 / / Clamp Pin 5 Hole - [id number] Explanted:Qty: 1 on 12/13/2023 at [facility] Right: Leg [employer] ([employer])-[id number] 8 12/12/2024 4922-2-020 / / Procedures Procedure Name Priority Date/Time Associated Diagnosis Comments CK Routine 04/14/2025 CBC WITH AUTO DIFFERENTIAL Routine 04/14/2025 C-REACTIVE PROTEIN, PLASMA Routine 04/14/2025 UREA NITROGEN, PLASMA Routine 04/14/2025 CREATININE, PLASMA Routine 04/14/2025 HEPATIC FUNCTION PANEL Routine 04/14/2025 INSERT PICC LINE Routine 04/11/2025 3:49 PM [...] ANESTHESIA PLACEHOLDER Routine 04/09/2025 3:[address] AN ELECTIVE ENDOTRACHEAL AIRWAY Routine 04/09/2025 3:47 [...] of right tibia with draining sinus (CMS/HCC) CT REMOVAL DEEP IMPLANT 04/09/20 25 3:20 PM [...] 01/21/2025 1:40 PM EDT Surgical site infection CT ANGIO CHEST STAT 12/12/2023 2:21 PM EDT HEPATITIS C ANTIBODY - ED W/REFLEX TO HCV QUANT PCR STAT 12/12/2023 1:33 PM EDT from Last 3 Months or Most Recently Relevant to Health Maintenance Results * Creatinine, Plasma (04/14/2025) [facility] External Creatinine Blood 0.60 mg/dL Blood Venous blood specimen / Unknown 04/14/2025 Historical Provider LAB BLOOD ORDERABLES Final R esult * CBC and Differential (04/14/2025) Only the most recent of2 resultswithin the time period is included. [facility] External WBC 7.6 4.8 - 10.8 K/mm3 External Red Blood Cell (RBC) 4.03 External Hemoglobin (Hgb) 12.00 External Hematocrit (Hct) 35.9 External Platelet Count (Plt) 237 External Neutrophil Abs 4.4 External Lymphocyte-Absol ada 2.5 External Monocyte Absolute 0.5 External Eos-Absolute 0.1 External Basophil Abs 0.1 Blood Venous blood specimen / Unknown 04/14/2025 [facility] Provider LAB BLOOD ORDERABLES Edited Result - Final * (ABNORMAL) C-Reactive Protein, Plasma (04/14/2025) Only the most recent of3 resultswithin the time period is included. [facility] External C-Reactive Protein(CRP) 28.7(A) 0 - 4 mg/L Blood Venous blood specimen / Unknown 04/14/2025 Result [facility] LAB BLOOD ORDERABLES Edited Result - Final * Urea Nitrogen, Plasma (04/14/2025) External BUN 13 Blood Venous blood specimen / Unknown 04/14/2025 Result [facility] Provider LAB BLOOD ORDERABLES Final R esult * (ABNORMAL) CK (04/14/2025) External Creatine Kinase 30(A) 55 - 170 U/L Blood Venous blood specimen / Unknown 04/14/2025 Result [facility] LAB BLOOD ORDERABLES Final R esult * Hepatic Function Panel (04/14/2025) External Alkaline Phosphatase 69 External Bilirubin Total 0.4 mg/dL External ALT (SGPT) 12 External AST (SGOT) 25 Blood Venous blood specimen / Unknown 04/14/2025 Result [facility] LAB BLOOD ORDERABLES Final R esult * PICC SINGLE LUMEN (SMARTFORM LINK) (04/11/2025 3:49 PM EDT) Narrative Judi Lorenzo RN - 04/11/2025 3:49 PM EDT Judi Lorenzo RN 04/11/2025 3:51 PM Insert PICC line Date/Time: 04/11/2025 3:49 PM Performed by: Judi Lorenzo RN Authorized by: Cristian Rea MD [place] Protocol: Verbal consent obtained?: Yes Written consent [...] preference Patient position: Flat Catheter Lot #: [id number] Catheter wholesale loan processor: [employer] Solo Catheter placed: Single lumen Catheter size: 4 Fr Catheter trimmed length: 43 Catheter threaded length: 43 Vein placed in: SVC Catheter cm indwellin Catheter cm outside: 0 Placement confirmed by: [employer] 3CG technology Pre-procedure: Landmarks identified Ultrasound guidance: [...] - 320 U/L 04/11/2025 2:10 PM EDT [facility] Blood Venous blood specimen / Unknown Venipuncture / Unknown 04/11/2025 1:00 PM EDT 04/11/2025 1:41 PM EDT [facility] LAB BLOOD ORDERABLES Final Res ult [facility] [address] [place] [address] * HIV 1 & 2 Antibody/Antigen Screen (04/11/2025 1:00 PM EDT) [facility] HIV 1 & 2 Antibody/Antigen Screen Non Reactive Non Reactive 04/11/2025 2:38 PM EDT [facility] Comment:Screening for HIV 1 & 2 antibodies, and P24 antigen is NONREACTIVE. No confirmatory testing is required. Blood Venous blood specimen / Unknown Venipuncture / Unknown 04/11/2025 1:00 PM EDT 04/11/2025 1:41 PM EDT George Fox MD LAB BLOOD ORDERABLES Final R esult [facility] [address] [place] [address] * (ABNORMAL) CBC (04/10/2025 2:29 AM EDT) Only the most recent of2 resultswithin the time period is included. [facility] WBC Count 5.60 3.70 - 10.30 10*3/uL LAB HEMATOLOGY METHOD 04/10/2025 2:50 AM EDT [facility] RBC Count 4.18(L) 4.60 - 6.10 10*6/uL LAB HEMATOLOGY METHOD 04/10/2025 2:50 AM EDT [facility] HGB 12.5(L) 13.7 - 17.5 g/dL LAB HEMATOLOGY METHOD 04/10/2025 2:50 AM EDT [facility] HCT 37.2(L) 40.0 - 51.0 % LAB HEMATOLOGY METHOD 04/10/2025 2:50 AM EDT [facility] Platelet Count 251 155 - 369 10*3/uL LAB HEMATOLOGY METHOD 04/10/2025 2:50 AM EDT [facility] MCV 89 79 - 98 fL LAB HEMATOLOGY METHOD 04/10/2025 2:50 AM EDT [facility] MCH 29.9 26.0 - 32.0 pg LAB HEMATOLOGY METHOD 04/10/2025 2:50 AM EDT [facility] MCHC 33.6 30.7 - 35.5 g/dL LAB HEMATOLOGY METHOD 04/10/2025 2:50 AM EDT [facility] RDW 14.0 11.5 - 14.5 % LAB HEMATOLOGY METHOD 04/10/2025 2:50 AM EDT [facility] MPV 9.2 8.8 - 12.5 fL LAB HEMATOLOGY METHOD 04/10/2025 2:50 AM EDT [facility] nRBC 0.0 <=0.0 per 100 WBCs LAB HEMATOLOGY METHOD 04/10/2025 2:50 AM EDT [facility] Blood Venous blood specimen / Unknown Venipuncture / Unknown 04/10/2025 2:29 AM EDT 04/10/2025 2:39 AM EDT us Cristian Rea MD LAB BLOOD ORDERABLES Final Result Performing Organization Address City/[facility]/ZIP Co de Phone Number [facility] [address] [place] [address] * (ABNORMAL) Prealbumin (04/10/2025 2:29 AM EDT) Prealbumin, Plasma 17.1(L) 20.0 - 41.0 mg/dL 04/10/2025 11:03 AM EDT [facility] Blood Venous blood specimen / Unknown Venipuncture / Unknown 04/10/2025 2:29 AM EDT 04/10/2025 2:39 AM EDT us Cristina Rea MD LAB BLOOD ORDERABLES Final Result Performing Organization Address City/[facility]/ZIP Co de Phone Number [facility] [address] [place] [address] * (ABNORMAL) Basic metabolic panel (04/10/2025 2:29 AM EDT) Only the most recent of2 resultswithin the time period is included. Glucose, Plasma 168(H) 74 - 99 mg/dL 04/10/2025 3:07 AM EDT [facility] BUN, Plasma 11 8 - 23 mg/dL 04/10/2025 3:07 AM EDT [facility] Creatinine, Plasma 0.80 0.70 - 1.20 mg/dL 04/10/2025 3:07 AM EDT [facility] BUN/Creatinine Ratio 14 04/10/2025 3:07 AM EDT [facility] Sodium, Plasma 138 136 - 145 mmol/L 04/10/2025 3:07 AM EDT [facility] Potassium, Plasma 4.8 3.6 - 4.9 mmol/L 04/10/2025 3:07 AM EDT [facility] Chloride, Plasma 106 97 - 107 mmol/L 04/10/2025 3:07 AM EDT [facility] CO2, Plasma 22 22 - 29 mmol/L 04/10/2025 3:07 AM EDT [facility] Anion Gap 10 6 - 16 mmol/L 04/10/2025 3:07 AM EDT [facility] Total Calcium, Plasma 8.8(L) 8.9 - 10.2 mg/dL 04/10/2025 3:07 AM EDT [facility] eGFRcr 100.1 mL/min/1.7 3m*2 04/10/2025 3:07 AM EDT [facility] Comment:Reported eGFRcr in m L/min/1.73m2 is based the CKD-EPI 2020 equation that does not use a race coefficient. Blood Venous blood specimen / Unknown Venipuncture / Unknown 04/10/2025 2:29 AM EDT 04/10/2025 2:39 AM EDT us Cristian Rea MD LAB BLOOD ORDERABLES Final Result [facility] [address] [place] [address] * FL Less than 1 Hour Intraoperative [...] Culture Light Growth 04/12/2025 7:38 AM EDT [facility] Culture Staphylococcus aureus(A) 04/12/2025 7:38 AM EDT [facility] Comment: (small colony variant) - Positive for MRSA by PBP2a assay. The organism value for this result has been updated. These results have been appended to the previously preliminary verified report. 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/ZIP Co de Phone Number [facility] [address] [place] [address] * CT AN ELECTIVE ENDOTRACHEAL AIRWAY, PB ANESTHESIA PLACEHOLDER [...] ECG Atrial Rate [address] Interval 122 ms MUSE ECG QRSD Interval 82 ms MUSE ECG QT Interval 432 ms MUSE ECG QTC Interval 427 ms MUSE ECG P [place] 67 degrees MUSE ECG R [place] 92 degrees MUSE ECG T Wave [place] 76 degrees MUSE ECG Diagnosis Sinus bradycardia [...] ORDERABLE S Final Result [facility] [address] [place] [address], [place] * CT Ankle Right wo IV [...] Sarah Austin MD on 02/04/2025 1:19 PM us [facility] IMG CT PROCEDURES Final Resu lt * (ABNORMAL) Comprehensive metabolic panel (01/21/2025 1:40 PM EDT) Glucose, Plasma 105(H) 74 - 99 mg/dL 01/21/2025 3:02 PM EDT [facility] BUN, Plasma 8 8 - 23 mg/dL 01/21/2025 3:02 PM EDT [facility] [facility] Creatinine, Plasma 0.81 0.70 - 1.20 mg/dL 01/21/2025 3:02 PM EDT [facility] BUN/Creatinine Ratio 10 01/21/2025 3:02 PM EDT [facility] Sodium, Plasma 135(L) 136 - 145 mmol/L 01/21/2025 3:02 PM EDT [facility] Potassium, Plasma 3.8 3.6 - 4.9 mmol/L 01/21/2025 3:02 PM EDT [facility] Chloride, Plasma 99 97 - 107 mmol/L 01/21/2025 3:02 PM EDT [facility] CO2, Plasma 25 22 - 29 mmol/L 01/21/2025 3:02 PM EDT [facility] Anion Gap 11 6 - 16 mmol/L 01/21/2025 3:02 PM EDT [facility] Total Calcium, Plasma 9.1 8.9 - 10.2 mg/dL 01/21/2025 3:02 PM EDT [facility] Total Protein 7.5 6.3 - 7.9 g/dL 01/21/2025 3:02 PM EDT [facility] Albumin, Plasma 4.0 3.5 - 5.2 g/dL 01/21/2025 3:02 PM EDT [facility] AST, Plasma 19 10 - 50 U/L 01/21/2025 3:02 PM EDT [facility] ALT, Plasma 11 10 - 50 U/L 01/21/2025 3:02 PM EDT [facility] Alkaline Phosphatase, Plasma 95 40 - 115 U/L 01/21/2025 3:02 PM EDT [facility] Total Bilirubin, Plasma 0.3 0.2 - 1.1 mg/dL 01/21/2025 3:02 PM EDT [facility] eGFRcr 99.7 mL/min/1.7 3m*2 01/21/2025 3:02 PM EDT [facility] Comment:Reported eGFRcr in m L/min/1.73m2 is based the CKD-EPI 2020 equation that does not use a race coefficient. Blood Venous blood specimen / Unknown Venipuncture / Unknown 01/21/2025 1:40 PM EDT 01/21/2025 1:42 PM EDT Ria Hansen APRN LAB BLOOD ORDERABLES Final Result [facility] [address] [place] [address] * CT Angio Chest (12/12/2023 2:21 PM [...] 3:22 PM Final report signed by Gary aMrino MD on 12/12/2023 3:30 PM Narrative 12/12/2023 [...] Antibody Negative Negative 12/12/2023 2:27 PM EDT [facility] Blood Venous blood specimen / Unknown Venipuncture / Unknown 12/12/2023 1:33 PM EDT 12/12/2023 1:44 PM EDT Ran Upton MD LAB BLOOD ORDERABLES Final Result [facility] [address] [place] [phone] from Last 3 Months or Most Recently Relevant to Health Maintenance Additional Health Concerns Infection Onset Date Last Indicated MRSA 01/31/2024 04/09/2025 [place] [address] [address] [employer] [place] Advance Directives * Full Code (Latest Code [...] Patient has decision-making capacity? Yes Care Teams Groundman Relationship Specialty Start Date End Date Ruddy Branch MD PCP - General 12/14/22
--- OUTSIDE RECORDS SUMMARY | 2025-04-22 12:53 | XMS_ITS | Encounter Summary ---
Author Organization Healthcare Address [address] [place] [address] Care Team Providers Care Distilling Department Supervisor Name Role Phone Ruddy Branch MD Primary Care Provider [phone] Encounter Details Date Type Department Care Team [...] and Family Not on file 03/19/2024 Attends Congregation Services Not on file 03/19 Active Member [...] Recorded Patient Health Questionnaire-2 Score 0 10/15/2024 [facility] [place] of Occupat ional Health - Occupational Stress [...] place to sleep or slept in a group home (including now)? No 03/19/2024 PHQ-9 Answer [...] drink first t trupti in the morning (EYE-INTERNATIONAL FREIGHT FORWARDER) to steady your nerves or to get rid of a hangover? 0 03/14/2024 CAGE Questionnaire Score 0 024 Utilities Answer Date Recorded In the past 12 months has [employer], gas, oil, or water [employer] threatened to shut off services in your [...] Description 04/25/2025 10:20 AM EDT Office Visit [facility] [address] 5th Floor [address] [place] [address] Jennifer Novak MD [address] [facility] [address] [place] [address] 05/06/2025 8:30 AM EDT Office Visit [facility] [address] [place] [address] Catalina Ruiz, DIRECTOR OF ACQUISITIONS [address] [facility] [address] [place] [address] 05/06/2025 2:30 PM EDT Office Visit [facility]opa[facility] Surgery & Sports Medicine [address] 1st Floor [address] [place] [address] Cristian Rea MD [address] [place] [address] 05/20/2025 1:00 PM EDT Office Visit [facility] [address] [place] [address] Catalina Ruiz, AZRA [address] [facility] [address] [place] [address] documented as of this encounter [...] documented as of this encounter Care Teams Distilling Department Supervisor Relationship Specialty Start Date End Date Ruddy Branch MD PCP - General 12/14/22 documented as of this encounter
--- OUTSIDE RECORDS SUMMARY | 2025-04-22 12:53 | XMS_ITS | Encounter Summary ---
Author Organization [facility] Address [address] [place] [address] Care Team Providers Care Electronic Equipment Installer Name Role Phone Ruddy Branch MD Primary Care Provider [phone] Reason for Visit * Reason Onset Date Comments HCN Clinical Concern/Question 03/10/2025 Encounter Details Date Type Department Care Team (Late st Contact Info) Description 03/10/2025 Telephone [facility] [address] [place] [address] Jennifer Novak MD [address] [address] HCN Clinical Concern/Question Social History [...] and Family Not on file 03/19/2024 Attends Nondenominational Services Not on file 03/19 Active Member [...] Recorded Patient Health Questionnaire-2 Score 0 10/15/2024 [facility] of Occupat ional Health - Occupational Stress [...] place to sleep or slept in a snf (including now)? No 03/19/2024 PHQ-9 Answer Date [...] drink first t trupti in the morning (EYE-ART GILDER) to steady your nerves or to get [...] referral is needed. * Telephone Encounter - Bernadette Deanpreethi Hsu - 03/10/2025 12:22 PM EDT Clinical Concern/Question Reason for Call: pt returning call to solitario about referral. Please call at listed number Best contact number: [phone] (mobile) Optimal time of day to reach caller: ANYTIME Additional comments/information from caller: None Note: Please do not reply to this message. Follow-up communication and further actions as a result of this message need to be communicated with the patient directly, if the patient is not active onMyChart. If the patient is active on MyChart, they will receive notification of the communication/outcome via [employer]. documented in this encounter Plan of Treatment Upcoming Encounters Date Type Department Care Team (Late st Contact Info) Description 04/25/2025 10:20 AM EDT Office Visit [facility] [address] 5th Floor [address] [place] [address] Jennifer Novak MD [address] [facility] [address] [place] [address] 05/06/2025 8:30 AM EDT Office Visit [facility] [address] [place] [address] Catalina Ruiz, DOPING SUPERVISOR [address] [facility] [address] [place] [address] 05/06/2025 2:30 PM EDT Office Visit [facility] Orthopaedic Surgery & Sports Medicine [address] 1st Floor [address] [place] [address] Cristian Rea MD [address] [place] [address] 05/20/2025 1:00 PM EDT Office Visit [facility] [address] [place] [address] Catalina Ruiz, AZRA [address] [facility] [address] [place] [address] documented as of this encounter [...] documented as of this encounter Care Teams Electronic Equipment Installer Relationship Specialty Start Date End Date Ruddy Branch MD PCP - General 12/14/22 documented as of this encounter
--- OUTSIDE RECORDS SUMMARY | 2025-04-22 12:53 | XMS_ITS | Encounter Summary ---
Author Organization [facility] Address [address] [place] [address] Care Team Providers Care Hearing Aid Technician Name Role Phone Ruddy Branch MD Primary Care Provider [phone] Encounter Details Date Type Department Care Team (Late st Contact Info) Description 04/14/2025 Clinical Support [facility] [address] [place] [address] Alondra Marsh, PharmD Social History Tobacco Use [...] Recorded Patient Health Questionnaire-2 Score 0 10/15/2024 [facility] - Occupational Stress Questionnaire Answer Date [...] and Family Not on file 04/11/2025 Attends Jehovah'S Witness Services Not on file 04/11 Active Member [...] any time in the past 12 m [facility], were you homeless or living in a senior care (including now)? No 04/11/2025 CAGE ASSESSMENT Answer [...] drink first t trupti in the morning (EYE-WATER PROJECT MANAGER) to steady your nerves or to [...] [place] [facility] [address] [facility] 5th Floor Wing [address], [address] [place] [address] Jennifer Novak MD [address] [facility] [address] [place] [address] 05/06/2025 8:30 AM EDT Office Visit [address] [address] Catalina Ruiz, LOGISTICS AND PLANNING MANAGER [address] [facility] [address] [place] [address] 05/06/2025 2:30 PM EDT Office Visit [facility]opa[facility] Surgery & Sports Medicine [address] 1st Floor [address] [place] [address] Cristian Rea MD [address] [facility] [address] [place] [address] 05/20/2025 1:00 PM EDT Office Visit [address] [address] Catalina Ruiz, LOGISTICS AND PLANNING MANAGER [address] [facility] [address] [place] [address] documented as of this encounter [...] documented as of this encounter Care Teams Hearing Aid Technician Relationship Specialty Start Date End Date Ruddy Branch MD PCP - General 12/14/22 documented as of this encounter
--- OUTSIDE RECORDS SUMMARY | 2025-04-22 12:54 | XMS_ITS | Encounter Summary ---
Author Organization [facility] Address [address] [place] [address] Care Team Providers Care Account Support Analyst Name Role Phone Ruddy Branch MD Primary Care Provider [phone] Reason for Visit * Reason Onset Date Comments HCN - Patient Message 04/07/2025 Encounter Details Date Type Department Care Team (Late st Contact Info) Description 04/07/2025 Telephone [facility] Orthopaedic Surgery & Sports Medicine [address] 1st Floor [address] [place] [address] Cristian Rea MD [address] [place] [address] HCN - Patient Message Social [...] and Family Not on file 03/19/2024 Attends Orthodox Services Not on file 03/19 Active [...] Recorded Patient Health Questionnaire-2 Score 0 10/15/2024 [facility] - Occupational Stress Questionnaire Answer Date Recorded [...] and Family Not on file 04/11/2025 Attends Orthodox Services Not on file 04/11 Active Member [...] time in the past 12 m [facility], were you homeless or living in [...] drink first t trupti in the morning (EYE-LIFE SCIENCE RESEARCH ASSISTANT) to steady your nerves or to [...] encounter Miscellaneous Notes * Telephone Encounter - Oh Paulson RN - 04/14/2025 2:00 PM EDT General call back performed. Patient states pain is controlled with current pain regimen. Patient states dressings and splint are CDI. Patient is pulling up for his Plastics f/u appointment at this time. Patient has all clinic numbers and f/u appointment info. No apparent issues at this time. * Telephone Encounter - Aleja Allen RN [...] he needs to present tomorrow since he has not gotten a call yet. Liz will reach out to pt. * Telephone Encounter - Jessica Ugarte - 04/07/2025 1:42 PM EDT Clinical Concern/Question Reason for Call: Pt is requesting call back regarding nose spray before surgery please call Best contact number: [phone] (mobile) Optimal time of day to reach caller: ANYTIME Additional comments/information from caller: None Note: Please do not reply to this message. Follow-up communication and further actions as a result of this message need to be communicated with the patient directly, if the patient is not active onMyChart. If the patient is active on MyChart, they will receive notification of the communication/outcome via [employer]. documented in this encounter Plan of Treatment Upcoming Encounters Date Type Department Care Team (Late st Contact Info) Description 04/25/2025 10:20 AM EDT Office Visit [facility] [address] 5th Floor [address] [place] [address] Jennifer Novak MD [address] [facility] [address] [place] [address] 05/06/2025 8:30 AM EDT Office Visit [facility] [address] [place] [address] Catalina Ruiz, MILKING MACHINE MECHANIC [address] [facility] [address] [place] [address] 05/06/2025 2:30 PM EDT Office Visit [facility] Surgery [facility] Sports Medicine [address] 1st Floor [address] [place] [address] Cristian Rea MD [address] [place] [address] 05/20/2025 1:00 PM EDT Office Visit [facility] [address] [facility] [place] [address] Catalina Ruiz, MILKING MACHINE MECHANIC [address] [facility] [address] [place] [address] documented as of this encounter [...] documented as of this encounter Care Teams Account Support Analyst Relationship Specialty Start Date End Date Ruddy Branch MD PCP - General 12/14/22 documented as of this encounter
--- OUTSIDE RECORDS SUMMARY | 2025-04-22 12:54 | XMS_ITS | Encounter Summary ---
Author Organization [facility] Address [address] [place] [address] Care Team Providers Care Finished Metal Repairer Name Role Phone Ruddy Branch MD Primary Care Provider [phone] Encounter Details Date Type Department Care Team (Latest Contact Info) Description 04/14/2025 Travel Social History Tobacco Use Types Packs/Day [...] Recorded Patient Health Questionnaire-2 Score 0 10/15/2024 [facility] [place] of Occupat ional Health - Occupational Stress [...] drink first t trupti in the morning (EYE-ION EXCHANGE OPERATOR) to steady your nerves or to [...] [place] [facility] [address] [facility] 5th Floor [address], [address] [place] [address] Jennifer Novak MD [address] [facility] [address] [place] [address] 05/06/2025 8:30 AM EDT Office Visit [address] [address] Catalina Ruiz, TURKEY BONER [address] [place] [address] [address] [place] [address] 05/06/2025 2:30 PM EDT Office Visit [facility] Orthopaedic Surgery & Sports Medicine [address] 1st Floor [address] [place] [address] Cristian Rea MD [address] [place] [address] 05/20/2025 1:00 PM EDT Office Visit [address] [address] Catalina Ruiz, TURKEY BONER [address] [place] [address] documented as of this encounter Visit [...] documented as of this encounter Care Teams Finished Metal Repairer Relationship Specialty Start Date End Date Ruddy Branch MD PCP - General 12/14/22 documented as of this encounter
--- OUTSIDE RECORDS SUMMARY | 2025-04-22 12:54 | XMS_ITS | Encounter Summary ---
Author Organization Healthcare Address [address] [place] [address] Care Team Providers Care Cracking Machine Operator Name Role Phone Ruddy Branch MD Primary Care Provider [phone] Encounter Details Date Type Department Care Team (Late st Contact Info) Description 04/15/2025 [facility]phone [facility] [address] [facility] 5th Floor [address] [place] [address] Jennifer Novak MD [facility] [address] [place] [address] Social History Tobacco Use Types Packs/Day Years [...] Patient Health Questionnaire-2 Score 0 10/15/2024 [facility] - Occupational [...] any time in the past 12 m [facility], were you homeless or living in a penitentiary (including now)? No 04/11/2025 CAGE ASSESSMENT Answer [...] drink first t trupti in the morning (EYE-MEND WORKER) to steady your nerves or to [...] encounter Miscellaneous Notes * Telephone Encounter - Manuel Diggs - 04/15/2025 10:20 AM EDT Received secure chat from Dr. Novak to schedule post op visit on 04/25/25. LVM for pt informing about scheduled visit on 04/25/25. Informed times/date/location. Gave clinic number to call back to confirm/cancel/reschedule. Will try again later. documented in this encounter Plan of Treatment Upcoming Encounters Date Type Department Care Team (Late st Contact Info) Description 04/25/2025 10:20 AM EDT Office Visit [facility] [address] 5th Floor [address] [place] [address] Jennifer Novak MD [address] [address] 05/06/2025 8:30 AM EDT Office Visit [facility] [address] [place] [address] Catalina Ruiz, MEDICAL SOCIOLOGIST [address] [facility] [address] [place] [address] 05/06/2025 2:30 PM EDT Office Visit [facility] Surgery [facility] Sports Medicine [address] 1st Floor [address] [place] [address] Cristian Rea MD [address] [facility] [address] [place] [address] 05/20/2025 1:00 PM EDT Office Visit [facility] [address] [place] [address] Catalina Ruiz, MEDICAL SOCIOLOGIST [address] [place] [address] [address] [place] [address] documented as of this encounter Visit Diagnoses [...] documented as of this encounter Care Teams Cracking Machine Operator Relationship Specialty Start Date End Date Ruddy Branch MD PCP - General 12/14/22 documented as of this encounter
--- OUTSIDE RECORDS SUMMARY | 2025-04-22 12:54 | XMS_ITS | Clinical Summary ---
Author Organization [facility] Address [address] [place] [address] Care Team Providers Care Environmental Field Technician Name Role Phone Ruddy Branch MD Primary Care Provider [phone] Allergies No known active allergies Medications aspirin [...] disorder 10/05/2021 Coronary artery disease invo lving [place] coronary artery of [place] heart without angina pectoris 07/19/2021 Overview (03/14/2022): Had cath [facility] Tobacco abuse 07/19/2021 Neuropathy 07/19/2021 DDD (degenerative disc disease), cervical 2017 Encounters Date Type Department Care Team Description 02/10/2025 [facility] [address] [place] [address] Mireya Ann from Last 3 Months Immunizations [...] Date Smoking Tobacco: Light Smoker Cigarettes 1 45.7 Started: 08/21/1979 Smokeless Tobacco: Never Tobacco Cessation:Ready [...] Description 05/14/2025 10:00 AM EDT Office Visit [facility] [address] [address] Ruddy Branch MD [address], [place] [address] Health Maintenance Due Date Last Done [...] 024, 03/02/2012 Pneumococcal Vaccine 50+ Completed 07/27/2023, 040 01/2020 HEPATITIS C SCREENING Completed 12/12/2023, 021 [...] 10:4 2 AM EST 10/22/2024 Narrative [facility] [employer] [facility] (AMBULATORY) - 10/23/2024 10:36 AM EST Performed at: - [facility] [place] [address] [place] [id number] [employer]: Zaire Fisher PhD, Phone: [phone] Patient Fasting: Y us Ruddy Branch MD LAB BLOOD ORDERABLES Final Resu lt [facility] [employer] (AMBULATORY) [address] [id number], [place] [phone] [facility] [address] [place] [address], * CT Chest Low Dose Cancer Screening [...] MD 05/11/2023 7:55 PM EDT Workstation ID: [id number] Narrative 05/11/2023 7:[address] CHEST [...] MD 05/11/2023 7:55 PM EDT Workstation ID: [id number] Ruddy Branch MD IMG CT ORDERABLES Final [...] with a HCV Nucleic Acid Amplification test ([id number]). 07/19/2021 11:1 5 AM EST 07/19/2021 Narrative [facility] (AMBULATORY) - 07/20/2021 8:12 AM EST Performed at: 02 - [address] [id number] [employer]: Zaire Fisher PhD, Phone: [phone] Patient Fasting: Y Ruddy Branch MD LAB BLOOD ORDERABLES Final Resu lt Performing Organization Address City/State/[facility] Co de Phone Number [facility] [address] [place] [address], [facility] [address] [place] [address], from Last 3 Months or Most Recently Relevant to Health Maintenance Insurance [address] [place] [id number] [address] [facility] [employer] MEDICARE ADVANTAGE SNP HMO Care Teams Environmental Field Technician Relationship Specialty Start Date End Date Ruddy Branch MD [address] [place] [address] PCP - General Family Medicine 07/19/21
--- OUTSIDE RECORDS SUMMARY | 2025-04-22 12:54 | XMS_ITS | Clinical Summary ---
Author Organization [employer] ([place], [place], [place], [place]) Address [address] [place] [address] Care Team Providers Care Financial Analyst Accountant Name Role Phone Unavailable Primary Care Provider Unavailabl e Social History Tobacco Use Types Packs/Day Years Used Date Smoking Tobacco: Never Assessed Sex and Gender Information Value Date Recorded Sex Assigned at Not on file Legal Sex Male 12:33 PM BREWERY REPRESENTATIVE Gender Identity Not on file Sexual Orientation [...]
[2025-04-22 13:06] LABS: Hematocrit 36.3 % (42.0-52.0); Hemoglobin 11.7 g/dL (14.1-18.0); Immature Granulocytes % 0.3 %; Mean Corpuscular HGB Conc 32.2 g/dL (31.8-35.4); Mean Corpuscular Hemoglobin 29.0 pg (27.0-31.2); Mean Corpuscular Volume 89.9 fl (80-94); Nucleated Red Blood Cells % 0 %; Platelet Count 340 K/mm3 (142-424); Red Blood Count 4.04 M/mm3 (4.60-6.20); Red Cell Distribution Width-SD 44.7 fL; White Blood Count 7.0 K/mm3 (4.8-10.8)
[2025-04-22 13:14] LABS: Albumin Level 4.2 g/dl (3.5-5.0)
[2025-04-22 13:17] LABS: Alanine Aminotransferase 16 U/L (12-78); Alkaline Phosphatase 68 U/L (38-126); Aspartate Amino Transferase 32 U/L (17-59); Bilirubin,Direct 0.2 mg/dl (0.0-0.4); Bilirubin,Indirect 0.2 mg/dL (0.0-0.9); Bilirubin,Total 0.4 mg/dl (0.2-1.3); Bilirubin,Unconjugated 0.2 mg/dL (0.0-1.1); Blood Urea Nitrogen 10 mg/dl (9-20); Creatinine Clearance Estimated 46 mL/min (50-200); Creatinine,Serum 0.70 mg/dl (0.66-1.25); Estimated Glomerular Filt Rate 114 ml/min (>60); GFR (African American) 138 ML/MIN (>60); Total Protein,Serum 7.2 g/dl (6.3-8.2)
[2025-04-22 13:18] LABS: Creatine Kinase 37 U/L (55-170)
[2025-04-22 14:22] LABS: C-Reactive Protein 5.7 mg/L (0-4)
== END 2025-04-22 13:00 | disposition home or self-care (01) ==
LOC: INF 12:46
PROVIDERS: Visit Provider Orthopaedic Surgery Orthopaedic Trauma
DX: M86.461 Chronic osteomyelitis with draining sinus, right tibia and fibula (principal)
CPT/HCPCS: 36592; 80076; 82550; 82565; 84520; 85025; 86140; 96523

== ENCOUNTER 2025-04-28 13:08 | Outpatient (CLI) | payer OTHER, SELFPAY ==
--- OUTSIDE RECORDS SUMMARY | 2025-02-26 10:20 | XMS_ITS | Encounter Summary ---
Author Organization [facility] Address [address] [place] [address] Care Team Providers Care Topographical Engineer Name Role Phone Ruddy Branch MD Primary Care Provider [phone] Reason for Visit * Reason Comments Wound Check Encounter Details Date Type Department Care Team (Late st Contact Info) Description 02/26/2025 10:20 AM EDT Office Visit [place] [facility] [address] [facility] 5th Floor [address], [address] [place] [address] Doug Gregory MD [address] [facility] [address] [place] [address] Open wound (Primary Dx) Social [...] and Family Not on file 03/19/2024 Attends Jehovah'S Witness Services Not on file 03/19 Active Member [...] Recorded Patient Health Questionnaire-2 Score 0 10/15/2024 [facility] Occupat ional Health - [...] place to sleep or slept in a jail (including now)? No 03/19/2024 PHQ-9 Answer Date [...] drink first t trupti in the morning (EYE-PHOTOLITH OPERATOR) to steady your nerves or to get [...] Delarosa RN - 02/26/2025 10:20 AM EDT [facility] Physician Orders/Patient Instructions Should you notice a [...] and remove before bed Interventional Pain Medicine [facility] [address], [place] [address] * Addendum Note - Doug Gregory MD [...] Care Team (Late st Contact Info) Description 05/06/2025 8:30 AM EDT Office Visit [address] [address] Catalina Ruiz, AZRA [address] [place] [address] [address] [place] [address] 05/06/2025 2:30 PM EDT Office Visit [facility] Orthopaedic Surgery & Sports Medicine [address] 1st [address] [place] [address] Cristian Rea MD [address] [place] [address] 05/20/2025 1:00 PM EDT Office Visit [address] [address] Catalina Ruiz, AZRA [address] [address] Scheduled Procedures Name Priority Associated Diagnoses Date/Ti me APPLICATION, GRAFT, SKIN, SPLIT-THICKNESS Open wound documented as of this encounter Visit Diagnoses Diagnosis Open wound- Primary Open wound(s) (multiple) of unspecified site(s), without mention of complication documented in this encounter Additional Health Concerns Infection Onset Date Last Indicated Resolved Time MRSA 01/31/2024 04/09/2025 Assessment Noted Time PHQ-9 Depression Total Score: 0 10/15/19 9:42 AM EST A fall risk assessment has been complete d for the patient 02/26/2025 10:16 AM EDT A Body Mass Index follow-up plan has been documented for the patient 02/26/2025 10:51 AM EDT documented as of this encounter Care Teams Topographical Engineer Relationship Specialty Start Date End Date Ruddy Branch MD PCP - General 12/14/22 documented as of this encounter
--- OUTSIDE RECORDS SUMMARY | 2025-03-25 14:30 | XMS_ITS | Encounter Summary ---
Author Organization [facility] Address [address] [place] [address] Care Team Providers Care Police District Switchboard Operator Name Role Phone Ruddy Branch MD Primary Care Provider [phone] Reason for Visit * Reason Comments Follow-up Encounter Details Date Type Department Care Team (Latest Contact Info) Description 03/25/2025 2:30 PM EDT [facility] Visit [facility] [address] 1st [address] [place] [address] Cristian Rea MD [address] [place] [address] Chronic osteomyelitis of right tibia [...] and Family Not on file 03/19/2024 Attends Jewish Services Not on file 03/19 Active Member [...] Recorded Patient Health Questionnaire-2 Score 0 10/15/2024 [facility]at ional [facility] - [...] drink first t trupti in the morning (EYE-REPORTING LEAD) to steady your nerves or to get rid of a hangover? 0 03/14/2024 CAGE Questionnaire Score 0 024 Utilities Answer Date Recorded In the past 12 months has th e [employer], gas, oil, or water company threatened to [...] Description 05/06/2025 8:30 AM EDT Office Visit [facility] [address] Catalina Ruiz, STEREO PLOTTER OPERATOR [address] [facility] [address] [place] [address] 05/06/2025 2:30 PM EDT Office Visit [facility] Orthopa[facility] Surgery & [facility] Medicine [address] [place] [address] Cristian Rea MD [address] [place] [address] 05/20/2025 1:00 PM EDT Office Visit [address] [address] Catalina Ruiz, AZRA [address] [place] [address] [address] [place] [address] Scheduled Orders Name Type Priority Associated Diagnoses Orde r Schedule Methicillin Resistant Staphylococcus aureus (MRSA) by PCR Microbiology Routine 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
--- OUTSIDE RECORDS SUMMARY | 2025-04-09 11:33 | XMS_ITS | Encounter Summary ---
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 SURGICAL HISTORY: Surgical History[4] Allergies[5] MEDICATIONS: Current Medications[6] Yuliet Angel RN [1] Past Medical History: Diagnosis Date Anxiety COPD (chronic obstructive pulmonary disease) ([facility]) Coronary artery disease last cardiology appt. 08/2022 - patient states no longer sees cardiology Deep vein thrombosis ([facility]) 2023 Depression Dysphagia unknown reason as of 04/01/25 History of methicillin resistant Staphylococcus aureus HL (hearing loss) no hearing aids at this time Hyperlipidemia Hypertension Limited mobility holds on to furniture and paniagua Myocardial infarction ([facility]) 2018 Peripheral neuropathy PTSD (post-traumatic stress disorder) [...] card, photo ID, along with power of commercial real estate attorney, guardianship or advanced directives if applicable [...] as possible! * Vitaliy Vish Aguirre, Negin Prajapati, RN - 03/28/2025 10:14 AM EDT Images from the original note were not included. 1072 Patient Surgery Guide The doctors and staff of Surgical Services would like to welcome you, your family, and friends to [facility]. We offer access to more than [...] will help you be more comfortable with [facility] and the surgical process. This information [...] located on the first floor of the [facility] near the Pharmacy and main clinic entrance. We are open Monday-Monday from 8 a.m. to 4:30 p.m. A clinic telemarketing representative can be reached at [phone]. Parking is available in the [facility] garage on [facility] or in the [facility] garage located at [address] [place] [address], directly across [facility] from [facility]. The day before surgery You will receive a phone call telling you what time you need to arrive at the hospital for surgery.If you miss the call, please call one of the following numbers (depending on where your surgery is scheduled): ? [facility]: [phone] or [phone] ? [facility]: [phone] or [phone] The day of surgery ? Arrive on time to avoid delays or cancellation. ? Park in the [facility] parking garage located at [address] It is directly across [facility] from the medical campus. ? If you are scheduled for surgery at [facility], take the hospital garage elevator to Level C, then cross the concourse bridge to the Surgery Waiting Room to register for your surgery. [facility] is located down the first hallway to the right at the end of the concourse bridge. If you need help crossing the concourse, you may picker and sorter load and unload the patient golf cart shuttle directlyto the right of the elevators on Level C. ? If you are scheduled for surgery at the [facility], take the garage elevator to Level A and catch the free shuttle to the hospital. (Be careful not to take the [facility] shuttle - there is an ambassador there [...] checked many times throughout your stay at [facility] to ensure your safety. ? Go [...] talk to them after your surgery. A small package and bundle sorter clerk is available in the waiting room [...] living will, health care surrogate, power of commercial real estate attorney or guardianship papers. ? Bring a [...] makeup, jewelry (including body piercing) or nail occitan. ? Don?t bring money or valuables to [...] office and the Preoperative Anesthesia Clinic at [phone] or [phone]. If it is the day of surgery, call the location where you are scheduled to have your surgery: [facility] at [phone] or [phone] [facility] at [phone] or [phone]. For more information Visit [email or web address] or call [phone] or [phone]. [facility] does not discriminate. [facility] complies with applicable Federal civil rights laws and does not discriminate on the basis of race, color, national origin, age, disability, or sex. * Beatrisari Vish - Negin Aguirre RN - 03/28/2025 10:14 AM EDT Images from the original note were not included. 489 Map to [facility] Facilities Directions Easy directions to and from [address] (from [address]) Directions from I-75/[place]-64 to the [facility] Parking Garage: ? From [address], turn right off the exit ramp onto [address] ([place] [address] [address]) toward [place]. ? In 4.1 miles, turn left onto [address] (at the [employer] station). ? In a half-mile, turn right onto [address]. ? In .3 miles, turn right onto [facility] [address] [address] [facility] [address] (just past the [employer] gas station). Garage entrance is on the left. ? Important: This garage address will change to [facility] on February 18, 2025. Directions from HealthCare Parking Garage to I-75/I-64: ? Turn left out of the garage onto [address]. ? Turn left onto [address]. ? In .3 miles, turn left down [address] ? In a half-mile, turn right onto [address] (at the [employer] gas station). ? In 4.1 miles, merge onto [address] /[address] (near the [facility]). Parking Any patients or visitors of [facility] can park in the following areas: ? [facility] Parking Garage (main garage): [address] (Levels A-F) ? [facility] Garage: [address] (Levels 1-6) ? [facility] Cancer lot: Located off Medicine in Practice (limited parking for [facility] outpatients only). Upon Your Arrival ? Patients and visitors going to [facility], and [facility] may walk across the pedway, located at [...] also be accessed via the pedway off [facility] garage on Level C. If you need a shuttle to the ED, one can be called for you at Level A of the main garage or contact any of the information desks, . Additional Information For additional information, please visit our information desks located throughout [facility]. Information desks have additional maps and resources. Information desks are located at the main entrances of: [facility] (first floor and ground floor), [facility], [facility] H, Pavilion CC, Pavilion , [facility] (first and third floor), and [facility]. Informationdesk number: [phone]. Important Addresses [address] [place] [address] ? [facility] entrance ? Pavilion A ? Pavilion G ([facility]) ? Emergency Department [address] ? [facility] H ? Pavilion CC ([facility]) ? Pavilion WH ([facility]) ? [facility] [address] [facility] ? [facility] [address] [facility] ? [facility] [address] [facility] ? [facility] ? [facility] [...] split thickness skin graft right leg cpt 11899, [address]65, [address] [address] Rea (Right). [...] card, photo ID, along with power of commercial real estate attorney, guardianship or advanced directives if applicable Do not bring money, jewelry (Including wedding rings) or other valuables. Do not wear any makeup, nail occitan, or contact lens the day of surgery. [...] you are scheduled to have your surgery: [facility] at [phone] or [phone] or [facility] at [phone] or [phone]. documented in this encounter Plan of Treatment Upcoming Encounters Date Type Department Care Team (Late st Contact Info) Description 05/06/2025 8:30 AM EDT Office Visit [facility] [address] [place] [address] Catalina Ruiz, BARREL COOPER [address] [facility] [address] [place] [address] 05/06/2025 2:30 PM EDT Office Visit [facility] Orthopa[facility] Surgery & [facility] Medicine [address], 1[address] Floor [address] [place] [address] Cristian Rea MD [address] [place] [address] 05/20/2025 1:00 PM EDT Office Visit [facility] [address] [facility] [address] Catalina Ruiz, AZRA [address] [place] [address] Pending Results Name Type Priority [...] Orde r Schedule Discharge Ambulatory referral to [facility] Outpatient Referral Routine Chronic osteomyelitis of [...] of right tibia with draining sinus (CMS/HCC) [place] REMOVAL DEEP IMPLANT 04/09/20 3:20 PM EDT [...] Lorenzo RN Authorized by: Cristian Rea MD [place] Protocol: Verbal consent obtained?: Yes Written consent [...] preference Patient position: Flat Catheter Lot #: [id number] Catheter batch tank controller: Bard PowerPICC Solo Catheter placed: Single lumen Catheter size: 4 Fr Catheter trimmed length: 43 Catheter threaded length: 43 Vein placed in: SVC Catheter cm indwellin Catheter cm outside: 0 Placement confirmed by: [email or web address] 3CG technology Pre-procedure: Landmarks identified Ultrasound guidance: [...] Cristian Rea MD IV THERAPY ORDERABLES Leora l Result * Creatine Kinase (CK), Total (04/11/2025 1:00 PM EDT) [facility] Creatine Kinase, Plasma 143 49 - 320 U/L 04/11/2025 2:10 PM EDT [facility] Blood Venous blood specimen / Unknown Venipuncture / Unknown 04/11/2025 1:00 PM EDT 04/11/2025 1:41 PM EDT us [facility] LAB BLOOD ORDERABLES Final Res ult [facility] [address] [place] [address] * HIV 1 & 2 Antibody/Antigen Screen (04/11/2025 1:00 PM EDT) [facility] HIV 1 & 2 Antibody/Antigen Screen Non Reactive Non Reactive 04/11/2025 2:38 PM EDT [facility] Comment:Screening for HIV 1 & 2 antibodies, and P24 antigen is NONREACTIVE. No confirmatory testing is required. Blood Venous blood specimen / Unknown Venipuncture / Unknown 04/11/2025 1:00 PM EDT 04/11/2025 1:41 PM EDT us George Fox MD LAB BLOOD ORDERABLES Final R esult Performing Organization Address City/[facility]/ZIP Co de Phone Number [facility] [address] [place] [address] * C-reactive protein (04/10/2025 2:29 AM EDT) [facility] CRP, Plasma <3.0 <=8.0 mg/L 04/10/2025 12:01 PM EDT [facility] Blood Venous blood specimen / Unknown Venipuncture / Unknown 04/10/2025 2:29 AM EDT 04/10/2025 2:39 AM EDT Narrative [facility] - 04/10/2025 12:01 PM EDT This CRP test is appropriate for assessment of infection, systemic inflammation and/or tissue injury. To assess cardiovascular disease risk order high sensitivity CRP (CRPH). us [facility] LAB BLOOD ORDERABLES Final Res ult Performing Organization Address City/[facility]/ZIP Co de Phone Number [facility] [address] [place] [address] * (ABNORMAL) Prealbumin (04/10/2025 2:29 AM EDT) Prealbumin, Plasma 17.1(L) 20.0 - 41.0 mg/dL 04/10/2025 11:03 AM EDT [facility] Blood Venous blood specimen / Unknown Venipuncture / Unknown 04/10/2025 2:29 AM EDT 04/10/2025 2:39 AM EDT us Cristian Rea MD LAB BLOOD ORDERABLES Final Result Performing Organization Address [facility] Co de Phone Number [facility] [address] [place] [address] * (ABNORMAL) Basic metabolic panel (04/10/2025 2:29 AM EDT) Glucose, Plasma 168(H) 74 - 99 mg/dL 04/10/2025 3:07 AM EDT [facility] BUN, Plasma 11 8 - 23 mg/dL 04/10/2025 3:07 AM EDT [facility] Creatinine, Plasma 0.80 0.70 - 1.20 mg/dL 04/10/2025 3:07 AM EDT [facility] BUN/Creatinine Ratio 14 04/10/2025 3:07 AM EDT [facility] Sodium, Plasma 138 136 - 145 mmol/L 04/10/2025 3:07 AM EDT [facility] Potassium, Plasma 4.8 3.6 - 4.9 mmol/L 04/10/2025 3:07 AM EDT [facility] Chloride, Plasma 106 97 - 107 mmol/L 04/10/2025 3:07 AM EDT [facility] CO2, Plasma 22 22 - 29 mmol/L 04/10/2025 3:07 AM EDT [facility] Anion Gap 10 6 - 16 mmol/L 04/10/2025 3:07 AM EDT [facility] Total Calcium, Plasma 8.8(L) 8.9 - 10.2 mg/dL 04/10/2025 3:07 AM EDT [facility] eGFRcr 100.1 mL/min/1.7 3m*2 04/10/2025 3:07 AM EDT [facility] Comment:Reported eGFRcr in m L/min/1.73m2 is based the CKD-EPI 2020 equation that does not use a race coefficient. Blood Venous blood specimen / Unknown Venipuncture / Unknown 04/10/2025 2:29 AM EDT 04/10/2025 2:39 AM EDT Cristian Rea MD LAB BLOOD ORDERABLES Final Result [facility] [address] [place] [address] * (ABNORMAL) CBC (04/10/2025 2:29 AM EDT) WBC Count 5.60 3.70 - 10.30 10*3/uL LAB HEMATOLOGY METHOD 04/10/2025 2:50 AM EDT [facility] RBC Count 4.18(L) 4.60 - 6.10 10*6/uL LAB HEMATOLOGY METHOD 04/10/2025 2:50 AM EDT [facility] HGB 12.5(L) 13.7 - 17.5 g/dL LAB HEMATOLOGY METHOD 04/10/2025 2:50 AM EDT [facility] HCT 37.2(L) 40.0 - 51.0 % LAB HEMATOLOGY METHOD 04/10/2025 2:50 AM EDT [facility] Platelet Count 251 155 - 369 10*3/uL LAB HEMATOLOGY METHOD 04/10/2025 2:50 AM EDT [facility] MCV 89 79 - 98 fL LAB HEMATOLOGY METHOD 04/10/2025 2:50 AM EDT [facility] MCH 29.9 26.0 - 32.0 pg LAB HEMATOLOGY METHOD 04/10/2025 2:50 AM EDT [facility] MCHC 33.6 30.7 - 35.5 g/dL LAB HEMATOLOGY METHOD 04/10/2025 2:50 AM EDT [facility] RDW 14.0 11.5 - 14.5 % LAB HEMATOLOGY METHOD 04/10/2025 2:50 AM EDT [facility] MPV 9.2 8.8 - 12.5 fL LAB HEMATOLOGY METHOD 04/10/2025 2:50 AM EDT [facility] nRBC 0.0 <=0.0 per 100 WBCs LAB HEMATOLOGY METHOD 04/10/2025 2:50 AM EDT [facility] Blood Venous blood specimen / Unknown Venipuncture / Unknown 04/10/2025 2:29 AM EDT 04/10/2025 2:39 AM EDT Cristian Rea MD LAB BLOOD ORDERABLES Final Result Performing Organization Address City/[facility]/ZIP Co de Phone Number [facility] [address] [place] [address] * [place] Less than 1 Hour Intraoperative (04/09/2025 5:08 PM EDT) Narrative IMAGING - 04/09/2025 5:09 PM EDT Images were obtained for surgical purposes. See Cristian Rea's surgical note in the patient's chart for the findings. Cristian Rea MD IMG FLUOROSCOPY PROCEDURES Final Result Performing Organization Address City/[facility]/ZIP Co de Phone Number IMAGING * (ABNORMAL) Bone Culture and Gram Stain (04/09/2025 4:34 PM EDT) Culture Light Growth 04/12/2025 7:38 AM EDT [facility] Culture Staphylococcus aureus(A) 04/12/2025 7:38 AM EDT [facility] Comment: (small colony variant) - Positive for MRSA by PBP2a assay. The organism value for this result has been updated. These results have been appended to the previously preliminary verified report. 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) [M86.461] us Cristian Rea MD LAB MICROBIOLOGY - GENERAL ORDERABLES Final Result Performing Organization Address City/[facility]/ZIP Co de Phone Number [facility] [address] [place] [address] * Anaerobic Culture (04/09/2025 4:34 PM EDT) Culture No anaerobes isolated 04/13/2025 10:52 AM EDT [facility] Bone Topography unknown / Unknown 04/09/2025 4:34 PM EDT 04/09/2025 5:07 PM EDT Comment:Pre-op diagnosis: 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) [M86.461] us Crisitan Rea MD LAB MICROBIOLOGY - GENERAL ORDERABLES Final Result Performing Organization Address [facility] de Phone Number [facility] [address] [place] [address] * (ABNORMAL) Bone Culture and Gram Stain (04/09/2025 4:16 PM EDT) Culture Light Growth 04/12/2025 12:25 PM EDT [facility] Culture Methicillin-Resistan t Staphylococcus aureus(AA) 04/12/2025 12:25 PM EDT [facility] Comment: (small colony variant) - Positive for MRSA by PBP2a assay. The organism value for this result has been updated. These results have been appended to the previously preliminary verified report. <null> has been updated to reportable. 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) [M86.461] us Cristian Rea MD LAB MICROBIOLOGY - GENERAL ORDERABLES Final Result [facility] [address] [place] [address] * 12 Lead ECG (04/09/2025 3:13 PM EDT) EKG DIAGNOSIS CLASS Abnormal MUSE ECG Ventricular Rate 59 BPM MUSE ECG Atrial Rate 59 BPM MUSE ECG OH Interval 122 ms MUSE ECG QRSD Interval 82 ms MUSE ECG QT Interval 432 ms MUSE ECG QTC Interval 427 ms MUSE ECG P State Line 67 degrees MUSE ECG R State Line 92 degrees MUSE ECG T Wave State Line 76 degrees MUSE ECG Diagnosis Sinus bradycardia [...] LAB HEMATOLOGY METHOD 04/09/2025 3:44 PM EDT [facility] RBC Count 4.58(L) 4.60 - 6.10 10*6/uL LAB HEMATOLOGY METHOD 04/09/2025 3:44 PM EDT [facility] HGB 13.4(L) 13.7 - 17.5 g/dL LAB HEMATOLOGY METHOD 04/09/2025 3:44 PM EDT [facility] HCT 41.0 40.0 - 51.0 % LAB HEMATOLOGY METHOD 04/09/2025 3:44 PM EDT [facility] Platelet Count 269 155 - 369 10*3/uL LAB HEMATOLOGY METHOD 04/09/2025 3:44 PM EDT [facility] MCV 90 79 - 98 fL LAB HEMATOLOGY METHOD 04/09/2025 3:44 PM EDT [facility] MCH 29.3 26.0 - 32.0 pg LAB HEMATOLOGY METHOD 04/09/2025 3:44 PM EDT [facility] MCHC 32.7 30.7 - 35.5 g/dL LAB HEMATOLOGY METHOD 04/09/2025 3:44 PM EDT [facility] RDW 14.0 11.5 - 14.5 % LAB HEMATOLOGY METHOD 04/09/2025 3:44 PM EDT [facility] MPV 9.2 8.8 - 12.5 fL LAB HEMATOLOGY METHOD 04/09/2025 3:44 PM EDT [facility] nRBC 0.0 <=0.0 per 100 WBCs LAB HEMATOLOGY METHOD 04/09/2025 3:44 PM EDT [facility] Blood Venous blood specimen / Unknown Venipuncture / Unknown 04/09/2025 3:01 PM EDT 04/09/2025 3:35 PM EDT Cristian Rea MD LAB BLOOD ORDERABLES Final Result [facility] [address] [place] [address] * Basic metabolic panel (04/09/2025 3:01 PM EDT) Glucose, Plasma 96 74 - 99 mg/dL 04/09/2025 4:02 PM EDT [facility] BUN, Plasma 8 8 - 23 mg/dL 04/09/2025 4:02 PM EDT [facility] Creatinine, Plasma 0.80 0.70 - 1.20 mg/dL 04/09/2025 4:02 PM EDT [facility] BUN/Creatinine Ratio 10 04/09/2025 4:02 PM EDT [facility] Sodium, Plasma 139 136 - 145 mmol/L 04/09/2025 4:02 PM EDT [facility] Potassium, Plasma 4.0 3.6 - 4.9 mmol/L 04/09/2025 4:02 PM EDT [facility] Chloride, Plasma 104 97 - 107 mmol/L 04/09/2025 4:02 PM EDT [facility] CO2, Plasma 24 22 - 29 mmol/L 04/09/2025 4:02 PM EDT [facility] Anion Gap 11 6 - 16 mmol/L 04/09/2025 4:02 PM EDT [facility] Total Calcium, Plasma 9.0 8.9 - 10.2 mg/dL 04/09/2025 4:02 PM EDT [facility] eGFRcr 100.1 mL/min/1.7 3m*2 04/09/2025 4:02 PM EDT [facility] Comment:Reported eGFRcr in m L/min/1.73m2 is based the CKD-EPI 2020 equation that does not use a race coefficient. Blood Venous blood specimen / Unknown Venipuncture / Unknown 04/09/2025 3:01 PM EDT 04/09/2025 3:31 PM EDT us Rubens Guy MD LAB BLOOD ORDERABLES Final Re sult [facility] [address] [place] [address] * Type and screen (04/09/2025 3:01 PM [...] TEST ORDERABLE S Final Result [place] [address], documented in this encounter Visit Diagnoses Diagnosis [...] Every 6 hours scheduled, First dose on Mon04/10/25 at 0000, Until Discontinued, Routine, Recovery(Phase II-Outpatient)/On Unit(Inpatient) 0026 (Given - Provider: Qiana Nuno RN)0614 (Given - Provider: Qiana Nuno RN)1117 (Given - Provider: Nesha Deng RN)1727 (Given - Provider: Nesha Deng RN) 0036 (Given - Provider: Bryan Gibbs RN)0528 (Not Given - Provider: Bryan Gibbs RN - Reason: Order parameters not met)1153 (Given - Provider: Christian Jay, TITUS)1800 (Canceled Entry - Provider: Automatic Discharge Provider - Comment: Automatically canceled at discontinue of medication order) aspirin chewable tablet 81 mg 81 mg, Oral, Daily, First dose on Maryellen 04/10/25 at 1145, Until Discontinued, Routine 1112 (Given - Provider: Nesha Deng RN) 0859 (Given - Provider: Christian Jay RN) DAPTOmycin (Cubicin) 450 mg in sodium [...] Bryan Gibbs RN)1153 (Given - Provider: Christian Jay, TITUS)1800 (Canceled Entry - Provider: Automatic Discharge Provider [...] 1827 (Given - Provider: Giovani Cowan RN) ipratropium-albuterol [...] Oral, Every 4 hours PRN, Starting on [place] 04/10/25 at 1654, Until Mon04/11/25 at 1945, [...] Maryellen 04/10/25 at 0000, Last dose on Mon04/10/25 at [...] documented as of this encounter Care Teams Infantryman Relationship Specialty Start Date End Date Ruddy Branch MD PCP - General 12/14/22 documented as of this encounter
--- OUTSIDE RECORDS SUMMARY | 2025-04-09 13:30 | XMS_ITS | Encounter Summary ---
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 have your surgery: [facility] at [phone] or [phone] or [facility] at [phone] or [phone]. For more information Visit [email or web address] or call [phone] or [phone]. [employer] does not discriminate. HealthCare complies with applicable [...] right off the exit ramp onto [address] ([place] [address]/[place] [address]) toward [place]. ? In 4.1 miles, turn left onto [address] (at the [employer] gas station). ? In a half-mile, turn right onto [address]. ? In .3 miles, turn right onto [address] (just past the [employer] gas station). Garage entrance is on the left. ? Important: This garage address will change to [address] [place] [address] on February 18, 2025. Directions from HealthCare Parking Garage to I-75/I-64: ? Turn left out of the garage onto [facility]. ? Turn left onto [address]. ? In .3 miles, turn left down [address] ? In a half-mile, turn right onto [address] (at the [employer] gas station). ? In 4.1 miles, merge onto [address] /[address] (near the [facility] by [facility]). Parking Any patients or visitors of [facility] can park in the following areas: ? [facility] Parking Garage (main garage): [address] (Levels A-F) ? [facility] Garage: [address] (Levels 1-6) ? [facility] lot: Located off [address] (limited parking for [facility] outpatients only). Upon Your Arrival ? Patients and visitors going to [place] [facility], and [facility] may walk [...] also be accessed via the pedway off [facility] garage on Level C. If you need a shuttle to the ED, one can be called for you at Level A of the main garage or contact any of the information desks, . Additional Information For additional information, please visit our information desks located throughout [facility]. Information desks have additional maps and resources. Information desks are located at the main entrances of: [facility] ([facility] and ground floor), [facility], [facility] H, [facility] CC, Pavilion , [facility] (first and third floor), and [facility]. Informationdesk number: [phone]. Important Addresses [address] [facility] ? [facility] entrance ? Pavilion A ? Pavilion G ([facility]) ? Emergency Department [address] ? [facility] H ? Pav[facility] CC ([facility]) ? Pavilion WH ([facility]) ? [employer] [address] [facility] ? [facility] [address] [facility] ? [address] ? [facility] ? [facility] [...] split thickness skin graft right leg cpt 44198, [id number], [id number] [address] Rea (Right). [...] card, photo ID, along with power of trust and estates attorney, guardianship or advanced directives if applicable Do not bring money, jewelry (Including wedding rings) or other valuables. Do not wear any makeup, nail chadian, or contact lens the day of surgery. [...] you are scheduled to have your surgery: [facility] at [phone] or [phone] or [facility] at [phone] or [phone]. documented in this encounter Plan of Treatment Upcoming Encounters Date Type Department Care Team (Late st Contact Info) Description 05/06/2025 8:30 AM EDT Office Visit [address] [address] Catalina Ruiz, AZRA [address] [place] [address] [address] [place] [address] 05/06/2025 2:30 PM EDT Office Visit [facility] Medicine [address], 1st Floor [address] [place] [address] Cristian Rea MD [address] [place] [address] 05/20/2025 1:00 PM EDT Office Visit [address] [address] Catalina Ruiz, AZRA [address] [facility] [address] [place] [address] Pending Results Name Type Priority [...] Orde r Schedule Discharge Ambulatory referral to [facility] Health Outpatient Referral Routine Chronic osteomyelitis [...] of right tibia with draining sinus (CMS/HCC) NE REMOVAL DEEP IMPLANT 04/09/20 3:20 PM EDT [...] Lorenzo RN Authorized by: Cristian Rea MD Tanner Protocol: Verbal consent obtained?: Yes Written consent [...] preference Patient position: Flat Catheter Lot #: [id number] Catheter barn manager: Bard PowerPICC Solo Catheter placed: Single lumen [...] - 320 U/L 04/11/2025 2:10 PM EDT [facility] Blood Venous blood specimen / Unknown Venipuncture / Unknown 04/11/2025 1:00 PM EDT 04/11/2025 1:41 PM EDT Brook [facility] LAB BLOOD ORDERABLES Final Res ult [facility] [address] [place] [address] * HIV 1 & 2 Antibody/Antigen Screen (04/11/2025 1:00 PM EDT) HIV 1 & 2 Antibody/Antigen Screen Non Reactive Non Reactive 04/11/2025 2:38 PM EDT [facility] Comment:Screening for HIV 1 & 2 antibodies, and P24 antigen is NONREACTIVE. No confirmatory testing is required. Blood Venous blood specimen / Unknown Venipuncture / Unknown 04/11/2025 1:00 PM EDT 04/11/2025 1:41 PM EDT us George Fox MD LAB BLOOD ORDERABLES Final R esult [facility] [address] [place] [address] * C-reactive protein (04/10/2025 2:29 AM EDT) CRP, Plasma <3.0 <=8.0 mg/L 04/10/2025 12:01 PM EDT [facility] Blood Venous blood specimen / Unknown Venipuncture / Unknown 04/10/2025 2:29 AM EDT 04/10/2025 2:39 AM EDT Narrative [facility] - 04/10/2025 12:01 PM EDT This CRP test is appropriate for assessment of infection, systemic inflammation and/or tissue injury. To assess cardiovascular disease risk order high sensitivity CRP (CRPH). us Brook [facility] LAB BLOOD ORDERABLES Final Res ult Performing Organization Address City/[facility]/ZIP Co de Phone Number [facility] [address] [place] [address] * (ABNORMAL) Prealbumin (04/10/2025 2:29 AM EDT) [facility] Prealbumin, Plasma 17.1(L) 20.0 - 41.0 mg/dL 04/10/2025 11:03 AM EDT [facility] Blood Venous blood specimen / Unknown Venipuncture / Unknown 04/10/2025 2:29 AM EDT 04/10/2025 2:39 AM EDT us Cristian Rea MD LAB BLOOD ORDERABLES Final Result [facility] [address] [place] [address] * (ABNORMAL) Basic metabolic panel (04/10/2025 2:29 AM EDT) Pathologist [facility] Glucose, Plasma 168(H) 74 - 99 mg/dL 04/10/2025 3:07 AM EDT [facility] BUN, Plasma 11 8 - 23 mg/dL 04/10/2025 3:07 AM EDT [facility] Creatinine, Plasma 0.80 0.70 - 1.20 mg/dL 04/10/2025 3:07 AM EDT [facility] BUN/Creatinine Ratio 14 04/10/2025 3:07 AM EDT [facility] Sodium, Plasma 138 136 - 145 mmol/L 04/10/2025 3:07 AM EDT [facility] Potassium, Plasma 4.8 3.6 - 4.9 mmol/L 04/10/2025 3:07 AM EDT [facility] Chloride, Plasma 106 97 - 107 mmol/L 04/10/2025 3:07 AM EDT [facility] CO2, Plasma 22 22 - 29 mmol/L 04/10/2025 3:07 AM EDT [facility] Anion Gap 10 6 - 16 mmol/L 04/10/2025 3:07 AM EDT [facility] Total Calcium, Plasma 8.8(L) 8.9 - 10.2 mg/dL 04/10/2025 3:07 AM EDT [facility] eGFRcr 100.1 mL/min/1.7 3m*2 04/10/2025 3:07 AM EDT [facility] Comment:Reported eGFRcr in m L/min/1.73m2 is based the CKD-EPI 2020 equation that does not use a race coefficient. Blood Venous blood specimen / Unknown Venipuncture / Unknown 04/10/2025 2:29 AM EDT 04/10/2025 2:39 AM EDT us Cristian Rea MD LAB BLOOD ORDERABLES Final Result [facility] [address] [place] [address] * (ABNORMAL) CBC (04/10/2025 2:29 AM EDT) WBC Count 5.60 3.70 - 10.30 10*3/uL LAB HEMATOLOGY METHOD 04/10/2025 2:50 AM EDT [facility] RBC Count 4.18(L) 4.60 - 6.10 10*6/uL LAB HEMATOLOGY METHOD 04/10/2025 2:50 AM EDT [facility] HGB 12.5(L) 13.7 - 17.5 g/dL LAB HEMATOLOGY METHOD 04/10/2025 2:50 AM EDT [facility] HCT 37.2(L) 40.0 - 51.0 % LAB HEMATOLOGY METHOD 04/10/2025 2:50 AM EDT [facility] Platelet Count 251 155 - 369 10*3/uL LAB HEMATOLOGY METHOD 04/10/2025 2:50 AM EDT [facility] MCV 89 79 - 98 fL LAB HEMATOLOGY METHOD 04/10/2025 2:50 AM EDT [facility] MCH 29.9 26.0 - 32.0 pg LAB HEMATOLOGY METHOD 04/10/2025 2:50 AM EDT [facility] MCHC 33.6 30.7 - 35.5 g/dL LAB HEMATOLOGY METHOD 04/10/2025 2:50 AM EDT [facility] RDW 14.0 11.5 - 14.5 % LAB HEMATOLOGY METHOD 04/10/2025 2:50 AM EDT [facility] MPV 9.2 8.8 - 12.5 fL LAB HEMATOLOGY METHOD 04/10/2025 2:50 AM EDT [facility] nRBC 0.0 <=0.0 per 100 WBCs LAB HEMATOLOGY METHOD 04/10/2025 2:50 AM EDT [facility] Blood Venous blood specimen / Unknown Venipuncture / Unknown 04/10/2025 2:29 AM EDT 04/10/2025 2:39 AM EDT us Cristian Rea MD LAB BLOOD ORDERABLES Final Result [facility] [address] [place] [address] * [place] Less than 1 Hour Intraoperative (04/09/2025 5:08 PM EDT) Narrative IMAGING - 04/09/2025 5:09 PM EDT Images were obtained for surgical purposes. See Cristian Rea's surgical note in the patient's chart for the findings. Cristian Rea MD IMG FLUOROSCOPY PROCEDURES Final Result Performing Organization Address City/[facility] Co de Phone Number IMAGING * (ABNORMAL) Bone Culture and Gram Stain (04/09/2025 4:34 PM EDT) Culture Light Growth 04/12/2025 7:38 AM EDT [facility] Culture Staphylococcus aureus(A) 04/12/2025 7:38 AM EDT [facility] Comment: (small colony variant) - Positive for MRSA by PBP2a assay. The organism value for this result has been updated. These results have been appended to the previously preliminary verified report. 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) [M86.461] Cristian Rea MD LAB MICROBIOLOGY - GENERAL ORDERABLES Final Result Performing Organization Address [facility] Co de Phone Number [facility] [address] [place] [address] * Anaerobic Culture (04/09/2025 4:34 PM EDT) Culture No anaerobes isolated 04/13/2025 10:52 AM EDT [facility] Bone Topography unknown / Unknown 04/09/2025 4:34 PM EDT 04/09/2025 5:07 PM EDT Comment:Pre-op diagnosis: 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 The organism value for this result has been updated. These results have been appended to the previously preliminary verified report. <null> has been updated to reportable. 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) [M86.461] Cristian Rea MD LAB MICROBIOLOGY - GENERAL ORDERABLES Final Result Performing Organization Address [facility] Co de Phone Number [facility] [address] [place] [address] * 12 Lead ECG (04/09/2025 3:13 PM EDT) EKG DIAGNOSIS CLASS Abnormal MUSE ECG Ventricular Rate 59 BPM MUSE ECG Atrial Rate 59 BPM MUSE ECG NE Interval 122 ms MUSE ECG QRSD Interval 82 ms MUSE ECG QT Interval 432 ms MUSE ECG QTC Interval 427 ms MUSE ECG P [place] 67 degrees MUSE ECG R [place] 92 degrees MUSE ECG T Wave [place] 76 degrees MUSE ECG Diagnosis Sinus bradycardia [...] LAB HEMATOLOGY METHOD 04/09/2025 3:44 PM EDT [facility] RBC Count 4.58(L) 4.60 - 6.10 10*6/uL LAB HEMATOLOGY METHOD 04/09/2025 3:44 PM EDT [facility] HGB 13.4(L) 13.7 - 17.5 g/dL LAB HEMATOLOGY METHOD 04/09/2025 3:44 PM EDT [facility] HCT 41.0 40.0 - 51.0 % LAB HEMATOLOGY METHOD 04/09/2025 3:44 PM EDT [facility] Platelet Count 269 155 - 369 10*3/uL LAB HEMATOLOGY METHOD 04/09/2025 3:44 PM EDT [facility] MCV 90 79 - 98 fL LAB HEMATOLOGY METHOD 04/09/2025 3:44 PM EDT [facility] MCH 29.3 26.0 - 32.0 pg LAB HEMATOLOGY METHOD 04/09/2025 3:44 PM EDT [facility] MCHC 32.7 30.7 - 35.5 g/dL LAB HEMATOLOGY METHOD 04/09/2025 3:44 PM EDT [facility] RDW 14.0 11.5 - 14.5 % LAB HEMATOLOGY METHOD 04/09/2025 3:44 PM EDT [facility] MPV 9.2 8.8 - 12.5 fL LAB HEMATOLOGY METHOD 04/09/2025 3:44 PM EDT [facility] nRBC 0.0 <=0.0 per 100 WBCs LAB HEMATOLOGY METHOD 04/09/2025 3:44 PM EDT [facility] Blood Venous blood specimen / Unknown Venipuncture / Unknown 04/09/2025 3:01 PM EDT 04/09/2025 3:35 PM EDT us Cristian Rea MD LAB BLOOD ORDERABLES Final Result [facility] [address] [place] [address] * Basic metabolic panel (04/09/2025 3:01 PM EDT) Glucose, Plasma 96 74 - 99 mg/dL 04/09/2025 4:02 PM EDT [facility] BUN, Plasma 8 8 - 23 mg/dL 04/09/2025 4:02 PM EDT [facility] Creatinine, Plasma 0.80 0.70 - 1.20 mg/dL 04/09/2025 4:02 PM EDT [facility] BUN/Creatinine Ratio 10 04/09/2025 4:02 PM EDT [facility] Sodium, Plasma 139 136 - 145 mmol/L 04/09/2025 4:02 PM EDT [facility] Potassium, Plasma 4.0 3.6 - 4.9 mmol/L 04/09/2025 4:02 PM EDT [facility] Chloride, Plasma 104 97 - 107 mmol/L 04/09/2025 4:02 PM EDT [facility] CO2, Plasma 24 22 - 29 mmol/L 04/09/2025 4:02 PM EDT [facility] Anion Gap 11 6 - 16 mmol/L 04/09/2025 4:02 PM EDT [facility] Total Calcium, Plasma 9.0 8.9 - 10.2 mg/dL 04/09/2025 4:02 PM EDT [facility] eGFRcr 100.1 mL/min/1.7 3m*2 04/09/2025 4:02 PM EDT [facility] Comment:Reported eGFRcr in m L/min/1.73m2 is based the CKD-EPI 2020 equation that does not use a race coefficient. Blood Venous blood specimen / Unknown Venipuncture / Unknown 04/09/2025 3:01 PM EDT 04/09/2025 3:31 PM EDT Rubens Guy MD LAB BLOOD ORDERABLES Final Re sult [facility] [address] [place] [address] * Type and screen (04/09/2025 3:01 PM [...] ORDERABLE S Final Result Performing Organization Address [facility] Co de Phone Number BLOOD BANK [address] documented in this encounter Visit Diagnoses [...] at 194, Routine, wheezing, shortness of breath Jonnathan powder [...] moderate pain 0031 (See Alternative - Provider: iQana Nuno RN)0619 (See Alternative - Provider: Qiana [...] moderate pain 1153 (Given - Provider: Christian Jay, TITUS)1612 (Given - Provider: Christian Jay, TITUS) oxyCODONE (Roxicodone) immediate release tablet 5 mg(Linked [...] Provider: Nesha Deng RN - Reason: Patient/family refused)2217 (Not Given - Provider: Bryan Gibbs RN [...] documented as of this encounter Care Teams Body Shop Technician Relationship Specialty Start Date End Date Ruddy Branch MD PCP - General 12/14/22 documented as of this encounter
--- OUTSIDE RECORDS SUMMARY | 2025-04-09 15:36 | XMS_ITS | Encounter Summary ---
Author Organization [facility] Address [address] [place] [address] Care Team Providers Care Figure Clerk Name Role Phone Ruddy Branch MD Primary Care Provider [phone] Reason for Visit * Auth/Cert (Routine) Specialty Diagnoses / Procedures Referred By Contac t Referred To Contact Diagnoses Chronic osteomyelitis [...] RIGHT leg Cristian Rea MD [address] [facility] [address] [place] [address] Phone: tel: fax: [facility] [address] [place] [address] Phone: tel: Referral ID Status Reason Start Date Expiration Date Visits Re quested Visits Authorized [id number] 1 1 Encounter Details Date Type Department Care Team (Late st Contact Info) Description 04/09/2025 3:36 PM EDT Anesthesia Event [facility] [address] [place] [address] Rubens Guy MD [address] [place] [address] Lilli Cisneros MD [address] [place] [id number] Anesthesia Record Procedure Summary Procedure Name Responsible Anesthesiologist Anesthesia Start Time Anesthesia Stop Time REMOVAL, HARDWARE (Right: Leg Lower) Rubens Guy MD 04/09/25 1536 04/09/25 1810 Events Date Time Event Comment 04/09/2025 1356 1535 In Room 1536 An Start The patient was reevaluated immediately before sedation and remains eligible for anesthesia plan. 1536 An Start Data 1545 An Induction The patient was reevaluated immediately before moderate or deep sedation use and before anesthesia induction. 1547 An Intubation 1548 Anesthesia Ready 1604 Proc Start 1637 An Tourn Inflated 1710 An Tourn Deflated 1750 Proc Fin 1752 An Extubation 1758 an stop data 1801 Out of Room 1810 Handoff to Receiving I compl eted my handoff to the receiving clinician during which we: 1. Identified the patient 2. Identified the responsible provider 3. Reviewed the pertinent medical history 4. Discussed the surgical course 5. Reviewed intra-op anesthesia management and issues during anesthesia 6. Set expectations for post-procedure period 7. Allowed opportunity for questions and acknowledgement of understanding. 1810 An Stop Meds Name Total ondansetron (Zofran) injection 2 mg/mL 4 mg dexamethasone (Decadron) injection 4 mg/ mL 4 mg phenylephrine (Uamir-Synephrine) prefilled syringe 1 mg/10 mL 150 mcg rocuronium (ZeMuron) injection 10 mg/mL 100 mg fentaNYL (Sublimaze) injection 50 mcg/mL 200 mcg propofol (Diprivan) injection 10 mg/mL 1 20 mg midazolam (Versed) injection 1 mg/mL 1 m g lidocaine PF (Xylocaine-MPF) 2% 45 mg sugammadex (Bridion) injection 100 mg/mL 200 mg glycopyrrolate (Robinul) injection 0.2 m g/mL 0.2 mg vancomycin IVPB 1500 mg in 250 mL NS (pr emix) 750 mg lactated Ringer's infusion 400 mL * Agents Name O2 N2O Air Sevoflurane Isoflurane Desflurane Inspired Desflurane Inspired Isoflurane Inspired Sevoflurane N2O Inspired N2O * Blood No blood administrations on file. Lines, Drains, and Airways Type Details Placement Removal Wound 04/09/25; Surgical; Open Surg; Pretibial; Distal, Right, Inner 04/09/25 0000 by Abbey Moreira RN Negative Pressure Wound Therapy 04/09/25; 1640; dr martinez; Yes; Surgical; Leg; Anterior, Distal, Lower, Right 04/09/25 1640 by Abbey Moreira RN Peripheral IV Placement Date: 03/22 ; Placement Time: 1357; Catheter Size: 20 G; Orientation: Right; Location: Antecubital; Site Prep: Chlorhexidine ; Local Anesth: Dexter; Technique: Anatomical landmarks; Inserted by: susu; Insertion Attempts: 1; Patient Tolerance: Tolerated well; Removal Date: 04/11/25; Removal Time: 1706 04/09/25 1357 by Sunny Dwyer RN 04/11/25 1706 by Christian Jay RN ETT Placement Date: 03/22 ; Placement Time: 1547 (created via procedure documentation); Technique: Direct laryngoscopy; Type: ETT - single; Single Lumen Tube Size: 7 mm; Cuffed: Yes; Laryngoscope: Mega; Blade Size: 3; Location: Oral; Grade View: Grade IIb; Insertion Attempts: 1; Placement Verification: Auscultation, Capnometry; Airway Comments: Atraumatic. No change to dentition. ; Placed by: Resident ; Removal Date: 04/09/25; Removal Time: 17504/09/25 1547 by Lilli Cisneros MD 04/09/25 175 by Lilli Cisneros MD documented in this encounter Social History Tobacco [...] and Family Not on file 03/19/2024 Attends [employer] Services Not on file 03/19 Active Member [...] Recorded Patient Health Questionnaire-2 Score 0 10/15/2024 [facility] - Occupational Stress Questionnaire Answer Date [...] and Family Not on file 04/11/2025 Attends [employer] Services Not on file 04/11 Active Member [...] any time in the past 12 m [facility], were you homeless or living in a skilled nursing (including now)? No 04/11/2025 CAGE ASSESSMENT Answer [...] drink first t trupti in the morning ([employer]) to steady your nerves or to get [...] AM EDT documented as of this encounter Functional Status * Calculated C-SSRS [...] Nuno RN documented as of this encounter Miscellaneous Notes * Anesthesia Postprocedure Evaluation - Lilli Cisneros MD - 04/09/2025 6:10 PM EDT Patient: Thai Ponce Anesthesia Type: general Vitals Value Taken Time BP 118/75 04/09/25 18:10 Temp 36.4 04/09/25 18:10 Pulse 66 04/09/25 18:10 Resp 17 04/09/25 18:10 SpO2 97 04/09/25 18:10 Anesthesia Post Evaluation Patient location during evaluation: PACU Patient participation: complete - patient participated Level of consciousness: awake Pain management: adequate (pain score 0-3) Airway patency: natural airway Cardiovascular status: acceptable and hemodynamically stable Respiratory status: acceptable and face mask Hydration status: acceptable Nausea/Vomiting: No No notable events documented. Cosigned by Rubens Guy MD at 04/11/2025 7:13 AM EDT Associated attestation - Rubens Guy MD - 04/11/2025 7:13 AM EDT I agree with the findings and care plan documented in the postprocedure evaluation note. * Anesthesia Procedure Notes - Lilli Cisneros MD - 04/09/2025 4:08 PM EDT Associated Order(s): Airway Airway Date/Time: 04/09/2025 3:47 PM Reason: elective Airway not difficult General Information and Staff Patient location during procedure: OR Anesthesiologist: Rubens Guy MD Resident: Lilli Cisneros MD Performed: Resident Patient Condition Indications for airway management: anesthesia Patient position: sniffing Final Airway Details Final airway type: endotracheal airway Successful airway: ETT Cuffed: yes Successful intubation technique: direct laryngoscopy Adjuncts used in placement: intubating stylet and cricoid pressure Endotracheal tube insertion site: oral Blade: Mega Blade size: #3 ETT size (mm): 7.0 Cormack-Lehane Classification: grade IIb - view of arytenoids or posterior of glottis only Placement verified by: chest auscultation and capnometry Measured from: lips ETT to lips (cm): 21 Additional Comments Atraumatic. No change to dentition. Cosigned by Rubens Guy MD at 04/11/2025 7:13 AM EDT Associated attestation - Rubens Guy MD - 04/11/2025 7:13 AM EDT I was present during all critical and meredith portions of the procedure(s) and immediately available [facility] the entire duration. See resident note for details. * Anesthesia Preprocedure Evaluation - Rubens Guy MD - 04/09/2025 12:21 PM EDT No anesthesia staff entered. Patient: Thai Ponce HPI Thai Ponce is a 64 y.o. male with history of MN, anxiety/depression, smoker, COPD, and bodymass index is 14.44 kg/m??. 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), now for REMOVAL, HARDWARE (Right), Rotational Flap, Adjacent tissue transfer, split thickness skin graft RIGHT leg (Right) Procedure Information Date/Time: 04/09/25 1330 Procedures: REMOVAL, HARDWARE (Right: Leg Lower) Rotational Flap, Adjacent tissue transfer, split thickness skin graft RIGHT leg (Right: Leg Lower) Location: [facility] OR [place] / [place] [facility] Surgeons: Cristian Rea MD ~4 METs Allergies reviewed No problems with previous anesthetics Appropriately NPO Relevant Problems Cardio (+) Angina pectoris (+) Angina, class IV (CMS/HCC) (+) CAD (coronary artery disease) (+) Dyspnea (+) HTN (hypertension) (+) SOB (shortness of breath) (+) Sinus bradycardia (+) Stenosis of right vertebral artery GI (+) Unintentional weight loss Pulmonary (+) COPD (chronic obstructive pulmonary disease) (CMS/HCC) (+) Pneumonia Other (+) 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) (+) Osteomyelitis of right tibia, unspecified type (CMS/HCC) ALLERGIES Allergies[1] NPO STATUS Past Medical History[2] AIRWAY HISTORY Airway Detailed Review Displaying the 20 most recent records Date Difficult Airway Blade Size ETT Size C-L Class Final Type Intubation Method 09/25/24 No 3 7.0 grade I - full view of glottis endotracheal airway direct laryngoscopy 04/03/24 No LMA 03/20/24 No 3 7.0 grade I - full view of glottis endotracheal airway direct laryngoscopy 03/15/24 No 3 7.5 grade I - full view of glottis endotracheal airway direct laryngoscopy 01/31/24 No 3 7.5 grade I - full view of glottis endotracheal airway direct laryngoscopy 12/13/23 No 3 7.0 grade I - full view of glottis endotracheal airway direct laryngoscopy MEDICATIONS Outpatient Current Outpatient Medications Medication Instructions gabapentin (NEURONTIN) 800 mg, Nightly mupirocin (Bactroban) 2 % ointment 1 Application, Topical, 2 times daily, Apply to each nostril twice daily for 5 days before surgery. Nutritional Supplements (Boost High Protein) liquid 1 Bottle, Oral, 3 times daily oxyCODONE (ROXICODONE) 5 mg, Every 8 hours sulfamethoxazole-trimethoprim (Bactrim DS) 800-160 MG tablet 1 tablet, Oral, 2 times daily Scheduled Current Scheduled Medications[3] PRNs Current PRN Medications[4] SURGICAL HX: Surgical History[5] SOCIAL HX: Social History[6] OBJECTIVE DATA LABS Lab Results Component Value Date WBC 6.33 01/21/2025 HGB 13.8 01/21/2025 HCT 42.0 01/21/2025 MCV 89 01/21/2025 PLT 300 01/21/2025 Lab Results Component Value Date CALCIUM 9.1 01/21/2025 BUN 8 01/21/2025 CREATININE 0.81 01/21/2025 BCR 10 01/21/2025 NA 135 (L) 01/21/2025 K 3.8 01/21/2025 CL 99 01/21/2025 CO2 25 01/21/2025 Type and Screen No results found for: ABO No results found for: HGBA1C Lab Results Component Value Date GLUCOSE 105 (H) 01/21/2025 ABG No results found for: PHART , MPE3QYD , PO2ART , SO2ART , BEART , JDX6KLO , HCTART , SODIUMART , POTASSIUMART , POCTCL , POCGLU , IONCALART , LACTATE Lab Results Component Value Date HCTSYR 19.4 (LL) 12/13/2023 KSYR 3.8 12/13/2023 CLSYR 106 12/13/2023 GLUSYR 111 (H) 12/13/2023 CAION 4.3 (L) 12/13/2023 ECHO No echocardiogram results found for the past 12 months PFTs No results found for: GBQ8SOQ , PKL1WWJW , ZXY9CTO , FVCPRED BP Readings from Last 5 Encounters: 03/25/25 118/76 02/26/25 102/71 02/04/25 126/80 01/14/25 139/83 01/14/25 112/78 Physical Exam Airway Mallampati: I Mouth opening: normal TM distance: >3 FB Neck ROM: full Cardiovascular Rhythm: regular Rate: normal Dental Pulmonary (+) wheezes Neurological Oriented: normal to time, normal to place and normal to person and oriented to person, place and time Skin Musculoskeletal Extremities Anesthesia Plan ASA 3 Plan was reviewed with: resident Anesthesia technique(s) discussed with the patient/family: general Anesthesia plan agreed upon was: general Anesthetic plan and risks discussed with patient and spouse. Use of blood products discussed with patient and spouse who consented to blood products. Comment: Wheezing in pre-op, duoneb ordered to be given prior to OR ROS Cardiovascular: [facility]io [facility] to 70% LAD, normal circumflex, less than 10% RCA OS last Cards note 08/2022 1. Coronary artery disease involving [place] heart with other form of angina pectoris, unspecified vessel or lesion type ([facility]) (Primary), recurrent chest pain. Known moderate LAD disease by cardiac catheterization almost 4 years ago. No recent ischemic evaluation. Patient unable to walk on treadmillsecondary to lower back pain and pseudoclaudication symptoms. 2. Hypercholesterolemia, on statin. Labs with primary care. Plan: 1. Continue current cardiac medications. 2. We will check myocardial perfusion study in the near term to reassess known coronary disease andrecurrent chest pain. 3. Follow-up in 1 years time or sooner if abnormal testing. OS stress test 09/2022 normal Has not followed up with Cards. Asymptomatic . [1] No Known Allergies [2] Past Medical History: Diagnosis Date Anxiety COPD (chronic obstructive pulmonary disease) ([facility]) Coronary artery disease last cardiology appt. 08/2022 - patient states no longer sees cardiology Deep vein thrombosis ([facility]) 2023 Depression Dysphagia unknown reason as of 04/01/25 History of methicillin resistant Staphylococcus aureus HL (hearing loss) no hearing aids at this time Hyperlipidemia Hypertension Limited mobility holds on to furniture and [place] Myocardial infarction ([facility]) 2018 Peripheral neuropathy PTSD (post-traumatic stress disorder) [3] [4] [5] Past Surgical History: Procedure Laterality Date ABSCESS DRAINAGE FOOT SURGERY HARDWARE REMOVAL 09/2024 KNEE SURGERY LEG SURGERY Right 12/12/2023 SKIN GRAFT [6] Social History Tobacco Use Smoking status: Some [...] Drug use: Yes Types: Marijuana Comment: daily documented in this encounter Plan of Treatment Upcoming Encounters Date Type Department Care Team (Late st Contact Info) Description 05/06/2025 8:30 AM EDT Office Visit [address] [id number] Catalina Ruiz, AZRA [address] [place] [address] [address] [place] [address] 05/06/2025 2:30 PM EDT Office Visit [facility] [address] [place] [address] Cristian Rea MD [address] [place] [address] 05/20/2025 1:00 PM EDT Office Visit [address] [address] Catalina Ruiz, AZRA [address] [place] [address] [address] [place] [address] Scheduled Procedures Name Priority Associated Diagnoses Date/Ti me APPLICATION, GRAFT, SKIN, SPLIT-THICKNESS Open wound documented as of this encounter Procedures Procedure Name Priority Date/Time Associated Diagnosis Comments PB ANESTHESIA PLACEHOLDER Routine 04/09/2025 3:47 PM EDT FL AN ELECTIVE ENDOTRACHEAL AIRWAY Routine 04/09/2025 3:47 PM EDT documented in this encounter Results * FL AN ELECTIVE ENDOTRACHEAL AIRWAY, PB ANESTHESIA PLACEHOLDER (04/09/2025 3:47 PM EDT) Narrative Rubens Guy MD - 04/09/2025 3:47 PM EDT Rubens Guy MD 04/11/2025 7:13 AM Airway Date/Time: 04/09/2025 3:47 PM Reason: elective Airway not difficult General Information and Staff Patient location during procedure: OR Anesthesiologist: Rubens Guy MD Resident: Lilli Cisneros MD Performed: Resident Patient Condition Indications for airway management: anesthesia Patient position: sniffing Final Airway Details Final airway type: endotracheal airway Successful airway: ETT Cuffed: yes Successful intubation technique: direct laryngoscopy Adjuncts used in placement: intubating stylet and cricoid pressure Endotracheal tube insertion site: oral Blade: Mega Blade size: #3 ETT size (mm): 7.0 Cormack-Lehane Classification: grade IIb - view of arytenoids or posterior of glottis only Placement verified by: chest auscultation and capnometry Measured from: lips ETT to lips (cm): 21 Additional Comments Atraumatic. No change to dentition. us Rubens Guy MD ANESTHESIA ORDERABLES Final R esult documented in this encounter Visit Diagnoses Not on filedocumented in this encounter Administered Medications Inactive Administered Medications - up to 3 most recent administrations Medication Order MAR Action Action Date Dose Rate Site dexamethasone (Decadron) injection Intravenous, As needed, Starting on Mon04/09/25 at 1559, Until Mon04/09/25 at 1810, Routine, Anesthesia Intraprocedure Given 04/09/2025 3:59 PM EDT 4 mg fentaNYL (Sublimaze) injection Intravenous, As needed, Starting on Mon04/09/25 at 1545, Until Mon04/09/25 at 1810, Routine, Anesthesia Intraprocedure Given 04/09/2025 6:09 PM EDT 50 mcg Given 04/09/2025 5:57 PM EDT 50 mcg Given 04/09/2025 3:45 PM EDT 100 mcg glycopyrrolate (Robinul) injection Intravenous, As needed, Starting on Mon04/09/25 at 1614, Until Mon04/09/25 at 1810, Routine, Anesthesia Intraprocedure Given 04/09/2025 4:14 PM EDT 0.2 mg lactated Ringer's infusion 100 mL/hr, Intravenous, Once, 1 dose, On Mon04/09/25 at 1430, Routine New Bag 04/09/2025 3:36 PM EDT lidocaine PF (Xylocaine) 2 % injection Intravenous, As needed, Starting on Mon04/09/25 at 1545, Until Mon04/09/25 at 1810, Routine, Anesthesia Intraprocedure Given 04/09/2025 3:45 PM EDT 45 mg midazolam (Versed) injection Intravenous, As needed, Starting on Mon04/09/25 at 1532, Until Mon04/09/25 at 1810, Routine, Anesthesia Intraprocedure Given 04/09/2025 3:32 PM EDT 1 mg ondansetron (Zofran) injection Intravenous, As needed, Starting on Mon04/09/25 at 1743, Until Mon04/09/25 at 1810, Routine, Anesthesia Intraprocedure Given 04/09/2025 5:43 PM EDT 4 mg phenylephrine in NS (Umair-Synephrine) 100 mcg/mL prefilled syringe Intravenous, As needed, Starting on Mon04/09/25 at 1547, Until Mon04/09/25 at 1810, Routine, Anesthesia Intraprocedure Given 04/09/2025 5:01 PM EDT 50 mcg Given 04/09/2025 3:47 PM EDT 100 mcg propofol (Diprivan) injection Intravenous, As needed, Starting on Mon04/09/25 at 1545, Until Mon04/09/25 at 1810, Routine, Anesthesia Intraprocedure Given 04/09/2025 5:43 PM EDT 20 mg Given 04/09/2025 3:45 PM EDT 100 mg rocuronium (ZeMuron) injection Intravenous, As needed, Starting on Mon04/09/25 at 1545, Until Mon04/09/25 at 1810, Routine, Anesthesia Intraprocedure Given 04/09/2025 5:09 PM EDT 30 mg Given 04/09/2025 4:55 PM EDT 20 mg Given 04/09/2025 3:45 PM EDT 50 mg sugammadex (Bridion) 100 MG/ML injection Intravenous, As needed, Starting on Mon04/09/25 at 1744, Until Mon04/09/25 at 1810, Routine, Anesthesia Intraprocedure Given 04/09/2025 5:53 PM EDT 100 mg Given 04/09/2025 5:44 PM EDT 100 mg vancomycin in NS (Vancocin) IVPB Intravenous, As needed, Starting on Mon04/09/25 at 1550, Until Mon04/09/25 at 1810, Administer over 90 Minutes, Routine Given 04/09/2025 3:50 PM EDT 750 mg documented in this encounter Additional Health Concerns [...] documented as of this encounter Care Teams Figure Clerk Relationship Specialty Start Date End Date Ruddy Branch MD PCP - General 12/14/22 documented as of this encounter
--- OUTSIDE RECORDS SUMMARY | 2025-04-14 14:30 | XMS_ITS | Encounter Summary ---
Author Organization [facility] Address [address] 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) [M86.461] Procedures AL REMOVAL DEEP IMPLANT AL ADJ TISS XFER SCALP,EXTREM <10 SQCM AL MUSCLE-SKIN FLAP,LEG AL SPLIT GRFT TRUNK,ARM,LEG <100 SQCM AL ADJ TISS XFER SCALP,EXTREM <10 SQCM REMOVAL, HARDWARE Rotational Flap, Adjacent tissue transfer, split thickness skin graft RIGHT leg Cristian Rea MD [address] [facility] [address] [place] [address] Phone: tel: fax: [facility] OPERATING ROOM [address] [place] [address] Phone: tel: Referral ID Status Reason Start Date Expiration Date Visits Re quested Visits Authorized [id number] 1 1 Encounter Details Date Type Department Care Team (Late st Contact Info) Description 04/14/2025 2:30 PM EDT Office Visit [facility] Plastic & Reconstructive Surgery [address] [place] [address] Jennifer Novak MD [address] [place] [address] Encounter for postoperative care (Primary Dx) Social History Tobacco Use Types [...] and Family Not on file 03/19/2024 Attends Pentecostal Services Not on file 03/19 Active Member [...] Recorded Patient Health Questionnaire-2 Score 0 10/15/2024 [facility] of Occupat ional Health - Occupational [...] and Family Not on file 04/11/2025 Attends Pentecostal Services Not on file 04/11 Active Member [...] any time in the past 12 m [facility], were you homeless or living [...] drink first t trupti in the morning (EYE-GAMBRELER HELPER) to steady your nerves or to get rid of a hangover? 0 03/14/2024 CAGE Questionnaire Score 0 024 Utilities Answer Date Recorded In the past 12 months has th [employer], gas, oil, or water company threatened to [...] Sign Reading Time Taken Comments Blood Pressure 123/74 04/14/2025 2:21 PM EDT Pulse 62 04/14/2025 2:21 PM EDT Temperature - - Respiratory Rate - - Oxygen Saturation 100% 04/14/2025 2:21 PM EDT Inhaled Oxygen Concentration - - Weight 45.9 kg (101 lb 3.1 oz) 04/14/2025 2:21 P M EDT Height 172.7 cm (5' 8 ) 04/14/2025 2:21 PM EDT Body Mass Index 15.39 04/14/2025 2:21 PM EDT documented in this encounter Miscellaneous Notes * Progress Notes - Rajesh Burkett - 04/14/2025 2:30 PM EDT Images from the original note were not included. [facility] of [facility] Department of Surgery Division of Plastic and Reconstructive Surgery Outpatient Post-Operative Follow-Up Chief Complaint: Thai Ponce is a 64 y.o. male who presents to clinic today for an outpatient post-operative follow-up appointment. Subjective HISTORY OF PRESENT ILLNESS Patient is a 64 y.o. male with a past medical history significant for right tibial osteomyelitis and a chronic draining sinus, R ankle pilon fracture who presents to [facility] on 04/14/25 for follow-up status-post ORIF on 12/13/23 c/b SSI s/p I&D 01/30, 03/15 and 03/20, wound debridement, closure with fasciocutaneous flap and split thickness skin graft 6x3cm2 adjacent tissue transfer right leg, 4x1 cm2, placement of Integra dermal regeneration template 5x2 cm2, negative pressure wound therapy incisional dressing. Patient appears today with pleasant affect, having quit smoking as of 5 daysago. His fasciocutaneous flap is intact. We changed his dressings and provided him another Prevena so that he can continue NPWT. The patient was counseled briefly about the importance of proper nutrition in order to promote healing of his wound. PAST MEDICAL HISTORY Updated and documented in EMR, reviewed during this appointment. Past Medical History[1] PAST SURGICAL HISTORY Updated and documented in EMR, reviewed during this appointment. Surgical History[2] FAMILY HISTORY Family history is as noted on the history intake form which was reviewed and scanned into [employer]. Negative for bleeding disorders, clotting disorders, or anesthesia issues. Family History[3] SOCIAL HISTORY Social History[4] ALLERGIES Allergies[5] HOME MEDICATIONS Current Outpatient Medications Medication Instructions acetaminophen (TYLENOL) 1,000 mg, Oral, Every 6 hours PRN DAPTOmycin (CUBICIN) 450 mg, Intravenous, Every 24 hours, Inpatient/ specific directions only. Mix and deliver per institution/facility policy. Thru 05/20/25 gabapentin (NEURONTIN) 800 mg, Nightly ibuprofen 400 mg, Oral, Every 6 hours PRN methocarbamol (ROBAXIN) 750 mg, Oral, Every 6 hours PRN naloxone (NARCAN) 4 mg, Nasal, As needed Nutritional Supplements (Boost High Protein) liquid 1 Bottle, Oral, 3 times daily oxyCODONE (ROXICODONE) 5 mg, Oral, Every 4 hours PRN senna-docusate (Angela-Colace) 8.6-50 MG tablet 1 tablet, Oral, 2 times daily [Paused] sulfamethoxazole-trimethoprim (Bactrim DS) 800-160 MG tablet 1 tablet, Oral, 2 times daily traMADol (ULTRAM) 50 mg, Oral, Every 4 hours PRN Objective PHYSICAL EXAMINATION Review of Systems: A complete 14 point review of systems was discussed with the patient at this time and was negative except as noted in the HPI. Objective: All laboratory, images, tracings, histories, and vital sign data are personally reviewedand updated as appropriate unless otherwise noted. Visit Vitals BP 123/74 Pulse 62 Ht 1.727 m (5' 8 ) Wt 45.9 kg (101 lb 3.1 oz) SpO2 100% BMI 15.39 kg/m?? Physical Exam Fasciocutaneous flap is intact and integrating well. Flap donor site is well- healing, well-approximated, clean, dry, and intact and without signs of erythema, drainage, or skin breakdown. IMAGING No radiographic imaging was obtained for this visit. DIAGNOSTICS No results found for: FINALDX , COMDX , ADD1 , ADD2 , ADD3 , ADD4 , ADD5 , ADDERPR , ADDHER2 , ADDEPHER2 , CYGENADD , FLOWADD , LIVERFEADD , STONEADD , KIDBXADD , MUSNERBXADD , INTRAOP , SYNOPTIC , INTERPGYN , OTHFINDGYN , HPVADD Assessment/Plan ASSESSMENT AND PLAN Thai Ponce is a 64 y.o. male who presents to clinic today for an outpatient follow-up appointment status-post ORIF on 12/13/23 c/b SSI s/p I&D 01/30, 03/15 and 03/20, wound debridement, closure with fasciocutaneous flap and split thickness skin graft 6x3cm2 adjacent tissue transfer right leg, 4x1 cm2, placement of Integra dermal regeneration template 5x2 cm2, negative pressure wound therapy incisional dressing. Patient is progressing appropriately for the post-operative course. His incision(s) are well-healing, well-approximated, clean, dry, and intact and without signs of erythema, drainage, or skin breakdown. We tentatively plan to perform STSG for coverage of the fasciocutaneous flap in a few weeks. The patient should continue using the Prevena he currently has and was instructed to switch to the new Prevena in 2-3 days when the current one expires beyond its one week limit. The patient indicates understanding of these instructions and agrees with the plan. Rodrigoephraim Burkett MS4 [1] Past Medical History: Diagnosis Date Anxiety COPD (chronic obstructive pulmonary disease) (CMS/HCC) Coronary artery disease last cardiology appt. 08/2022 - patient states no longer sees cardiology Deep vein thrombosis (CMS/HCC) 2023 Depression Dysphagia unknown reason as of 04/01/25 History of methicillin resistant Staphylococcus aureus HL (hearing loss) no hearing aids at this time Hyperlipidemia Hypertension Limited mobility holds on to furniture and paniagua My[facility] infarction ([facility]) 2017 Peripheral neuropathy PTSD (post-traumatic stress disorder) [2] Past Surgical History: Procedure Laterality Date ABSCESS DRAINAGE FOOT SURGERY HARDWARE REMOVAL 09/2024 KNEE SURGERY LEG SURGERY Right 12/12/2023 SKIN GRAFT [3] Family History Adopted: Yes [4] Social History Tobacco Use Smoking status: Former Current packs/day: 0.00 Average packs/day: 0.7 packs/day for 73.1 years (51.5 ttl pk-yrs) Types: Cigarettes Start date: 11/19/1980 Quit date: 12/13/2023 Years since quittin.3 Passive exposure: Current Smokeless tobacco: Never Tobacco comments: 1 ppd Vaping Use Vaping status: Never Used Substance Use Topics Alcohol use: Not Currently Drug use: Yes Types: Marijuana Comment: daily [5] No Known Allergies Cosigned by Jennifer Novak MD at 04/21/2025 9:16 PM EDT Associated attestation - eJnnifer Novak MD - 04/21/2025 9:16 PM EDT I saw and evaluated the patient with the medical student. I discussed the case with the medical/FIRST CALENDER WORKER/PA student and agree with the findings and plan as documented. I personally performed the Exam and Medical Decision Making. documented in this encounter Plan of Treatment Upcoming Encounters Date Type Department Care Team (Late st Contact Info) Description 05/06/2025 8:30 AM EDT Office Visit [facility] [address] [place] [address] Catalina Ruiz, CENTER HOLE REAMER [address] [facility] [address] [place] [address] 05/06/2025 2:30 PM EDT Office Visit [facility] Orthopaedic Surgery & Sports Medicine [address], 1st [address] [place] [address] Cristian Rea MD [address] [place] [address] 05/20/2025 1:00 PM EDT Office Visit [facility] [address] [place] [address] Catalina Ruiz, CENTER HOLE REAMER [address] [facility] [address] [place] [address] Scheduled Procedures Name Priority Associated Diagnoses Date/Ti me APPLICATION, GRAFT, SKIN, SPLIT-THICKNESS Open wound documented as of this encounter Visit Diagnoses Diagnosis Encounter for postoperative care- Primary documented in this encounter Additional Health Concerns Infection Onset Date Last Indicated Resolved Time MRSA 01/31/2024 04/09/2025 Assessment Noted Time PHQ-9 Depression Total Score: 0 10/15/19 9:42 AM EST A fall risk assessment has been complete d for the patient 04/14/2025 2:22 PM EDT A Body Mass Index follow-up plan has been documented for the patient 04/21/2025 9:16 PM EDT documented as of this encounter Care Teams Health And Wellness Instructor Relationship Specialty Start Date End Date Ruddy Branch MD PCP - General 12/14/22 documented as of this encounter
--- OUTSIDE RECORDS SUMMARY | 2025-04-25 10:20 | XMS_ITS | Encounter Summary ---
Author Organization Healthcare Address [address] [place] [address] Care Team Providers Care Mid Wife Name Role Phone Ruddy Branch MD Primary Care Provider [phone] Reason for Visit * Reason Comments Wound Check Encounter Details Date Type Department Care Team (Late st Contact Info) Description 04/25/2025 10:20 AM EDT Office Visit [place] [facility] [address] [facility] 5th Floor Wing D, [address] [place] [address] Jennifer Novak MD [address] [facility] [address]nd [place] [address] Open wound (Primary Dx) Social [...] and Family Not on file 03/19/2024 Attends Gnosticism Services Not on file 03/19 Active Member [...] Patient Health Questionnaire-2 Score 0 10/15/2024 [facility] - Occupational Stress Questionnaire Answer Date [...] and Family Not on file 04/11/2025 Attends Gnosticism Services Not on file 04/11 Active Member [...] time in the past [address] [facility], were you homeless or living in a snf (including now)? No 04/11/2025 CAGE ASSESSMENT Answer [...] drink first t trupti in the morning (EYE-CARD PUNCHING MACHINE OPERATOR) to steady your nerves or [...] Delarosa RN - 04/25/2025 10:[address] [facility] Physician Orders/Patient Instructions Should you notice [...] in clinic today with Dr. Novak. Her cardiovascular surgical tech should reach out to you to set up a time and date for your procedure. If you have not been scheduled for surgery within two weeks, please call [phone] or [phone]. Wound Care/Dressing: Wound location: right foot/ankle Cleanse Wound With: Normal Saline Apply: Silver contact layer Cover With: Abdominal Secure With: Kerlix and Tape Dressing Changes: Every other day Compression Dressing Ryder bandage Compression Frequency Can apply in the morning and remove before bed * Progress Notes - Franco العلي - 04/25/2025 10:20 AM EDT Images from the original note were not included. [facility] Department of Surgery Division of [...] form which was reviewed and scanned into [employer]. Negative for bleeding disorders, clotting disorders, or [...] application of a STSG. Will meet with rehabilitation aide/scheduler to get posted. The patient indicates understanding of these instructions and agrees with the plan. Franco العلي, MS4 [1] Past Medical History: Diagnosis Date Anxiety COPD (chronic obstructive pulmonary disease) ([facility]) Coronary artery disease last cardiology appt. 08/2022 - patient states no longer sees cardiology Deep vein thrombosis ([facility]) 2023 Depression Dysphagia unknown reason as of 04/01/25 History of methicillin resistant Staphylococcus aureus HL (hearing loss) no hearing aids at this time Hyperlipidemia Hypertension Limited mobility holds on to furniture and paniagua Myocardial infarction ([facility]) 2017 Peripheral neuropathy PTSD (post-traumatic [...] student. I discussed the case with the medical/POLICE CHIEF/PA student and agree with the findings and plan as documented. I personally performed the Exam and Medical Decision Making. documented in this encounter Plan of Treatment Upcoming Encounters Date Type Department Care Team (Late st Contact Info) Description 05/06/2025 8:30 AM EDT Office Visit [address] [address] Catalina Ruiz, AZRA [address] [place] [address] [address] [place] [address] 05/06/2025 2:30 PM EDT Office Visit [facility] Orthopaedic Surgery & Sports Medicine [address], 1st Floor [address] [place] [address] Cristian Rea MD [address] [place] [address] 05/20/2025 1:00 PM EDT Office Visit [address] [address] Catalina Ruiz, AZRA [address] [place] [address] [address] [place] [address] Scheduled Procedures Name Priority Associated [...] documented as of this encounter Care Teams Mid Wife Relationship Specialty Start Date End Date Ruddy Branch MD PCP - General 12/14/22 documented as of this encounter
--- OUTSIDE RECORDS SUMMARY | 2025-04-28 13:13 | XMS_ITS | Encounter Summary ---
Author Organization [facility] Address [address] [place] [address] Care Team Providers Care Provider Enrollment Specialist Name Role Phone Ruddy Branch MD Primary Care Provider Encounter Details Date Type Department Care Team (Latest Contact Info) Description 04/24/2025 Travel Social History Tobacco Use Types Packs/Day [...] Attends Club or Organization Meetings Not on avndana e 03/19/2024 Are you , , di [...] Recorded Patient Health Questionnaire-2 Score 0 10/15/2024 [facility] [place] of Occupat ional Health - Occupational Stress [...] the past [address] [facility], were you homeless or living in a [...] drink first t trupti in the morning (EYE-PEOPLE GREETER) to steady your nerves or to get [...] Description 05/06/2025 8:30 AM EDT Office Visit [facility] [address] [place] [phone] Catalina Ruiz, WOODEN SHADE HARDWARE INSTALLER [address] [facility] [address] [place] [address] 05/06/2025 2:30 PM EDT Office Visit [facility] Orthopaedic Surgery & Sports Medicine [address], 1st Floor [address] [place] [address] Cristian Rea MD [address] [place] [address] 05/20/2025 1:00 PM EDT Office Visit [facility] [address] [place] [address] Catalina Ruiz, WOODEN SHADE HARDWARE INSTALLER [address] [facility] [address] [place] [address] Scheduled Procedures Name Priority Associated [...] documented as of this encounter Care Teams Provider Enrollment Specialist Relationship Specialty Start Date End Date Ruddy Branch MD PCP - General 12/14/22 documented as of this encounter
--- OUTSIDE RECORDS SUMMARY | 2025-04-28 13:13 | XMS_ITS | Encounter Summary ---
Author Organization [facility] Address [address] [place] [address] Care Team Providers Care Mortgage Loan Reviewer Name Role Phone Ruddy Branch MD Primary Care Provider [phone] Encounter Details Date Type Department Care Team (Latest Contact Info) Description 04/25/2025 Travel Social History Tobacco Use Types Packs/Day [...] and Family Not on file 03/19/2024 Attends Anabaptist Services Not on file 03/19 Active Member [...] Recorded Patient Health Questionnaire-2 Score 0 10/15/2024 [facility] [place] of Occupat ional Health - Occupational Stress [...] and Family Not on file 04/11/2025 Attends Anabaptist Services Not on file 04/11 Active Member [...] time in the past 12 m [facility], were you homeless or living [...] drink first t trupti in the morning (EYE-NURSING AGENCY MANAGER) to steady your nerves or to [...] Description 05/06/2025 8:30 AM EDT Office Visit [facility] [address] [place] [phone] Catalina Ruiz, FLAVOR MAKER [address] [facility] [address] [place] [address] 05/06/2025 2:30 PM EDT Office Visit [facility] Orthopaedic Surgery & Sports Medicine [address], 1st Floor [address] [place] [address] Cristian Rea MD [address] [place] [address] 05/20/2025 1:00 PM EDT Office Visit [facility] [address] [place] [address] Catalina Ruiz, FLAVOR MAKER [address] [facility] [address] [place] [address] Scheduled Procedures Name Priority Associated [...] documented as of this encounter Care Teams Mortgage Loan Reviewer Relationship Specialty Start Date End Date Ruddy Branch MD PCP - General 12/14/22 documented as of this encounter
--- OUTSIDE RECORDS SUMMARY | 2025-04-28 13:14 | XMS_ITS | Encounter Summary ---
Author Organization Healthcare Address [address] [place] [address] Care Team Providers Care Membership Coordinator Name Role Phone Ruddy Branch MD Primary Care Provider [phone] Encounter Details Date Type Department Care Team [...] and Family Not on file 03/19/2024 Attends Yazidi Services Not on file 03/19 Active Member [...] Recorded Patient Health Questionnaire-2 Score 0 10/15/2024 [facility] of Occupat ional Health - Occupational Stress [...] place to sleep or slept in a assisted (including now)? No 03/19/2024 PHQ-9 Answer Date [...] drink first t trupti in the morning (EYE-RUBBER MOLDER) to steady your nerves or to get rid of a hangover? 0 03/14/2024 CAGE Questionnaire Score 0 024 Utilities Answer Date Recorded In the past 12 months has [employer], gas, oil, or water [facility] threatened to shut off services in your [...] Description 05/06/2025 8:30 AM EDT Office Visit [facility] [address] [place] [address] Catalina Ruiz, SMASHER HAND [address] [facility] [address] [place] [address] 05/06/2025 2:30 PM EDT Office Visit [facility] Orthopaedic Surgery & Sports Medicine [address], 1st Floor [address] [place] [phone] Cristian Rea MD [address] [place] [address] 05/20/2025 1:00 PM EDT Office Visit [facility] [address] [place] [address] Catalina Ruiz, SMASHER HAND [address] [facility] [address] [place] [address] Scheduled Procedures Name Priority Associated [...] documented as of this encounter Care Teams Membership Coordinator Relationship Specialty Start Date End Date Ruddy Branch MD PCP - General 12/14/22 documented as of this encounter
--- OUTSIDE RECORDS SUMMARY | 2025-04-28 13:14 | XMS_ITS | Encounter Summary ---
Author Organization [facility] Address [address] [place] [address] Care Team Providers Care Marshmallow Machine Operator Name Role Phone Ruddy Branch MD Primary Care Provider [phone] Encounter Details Date Type Department Care Team (Late st Contact Info) Description 04/14/2025 Clinical Support [facility] [address] [place] [id number] Alondra Marsh, PharmD Social History Tobacco Use [...] and Family Not on file 03/19/2024 Attends [employer] Not on file 03/19 Active Member [...] Recorded Patient Health Questionnaire-2 Score 0 10/15/2024 [facility] - Occupational Stress Questionnaire Answer Date [...] and Family Not on file 04/11/2025 Attends [employer] Not on file 04/11 Active Member [...] any time in the past 12 m [facility], were you homeless or living [...] drink first t trupti in the morning (EYE-GRIEF COUNSELLOR) to steady your nerves or to get [...] Description 05/06/2025 8:30 AM EDT Office Visit [facility] [address] [place] [address] Catalina Ruiz, BOW MAKING MACHINE OPERATOR [address] [facility] [address] [place] [address] 05/06/2025 2:30 PM EDT Office Visit [facility]opa[facility] Surgery [facility] [address] [place] [address] Cristian Rea MD [address] [place] [address] 05/20/2025 1:00 PM EDT Office Visit [facility] [address] [place] [address] Catalina Ruiz, BOW MAKING MACHINE OPERATOR [address] [address] Scheduled Procedures Name Priority Associated [...] documented as of this encounter Care Teams Marshmallow Machine Operator Relationship Specialty Start Date End Date Ruddy Branch MD PCP - General 12/14/22 documented as of this encounter
--- OUTSIDE RECORDS SUMMARY | 2025-04-28 13:14 | XMS_ITS | Encounter Summary ---
Author Organization [facility] Address [address] [place] [address] Care Team Providers Care Linen Room Houseperson Name Role Phone Ruddy Branch MD Primary Care Provider [phone] Reason for Visit * Reason Onset Date Comments [facility] Clinical Concern/Question 03/07/2025 Encounter Details Date Type Department Care Team (Late st Contact Info) Description 03/07/2025 Telephone [facility] [address] [facility] 5th Floor [address] [place] [id number] Jennifer Novak MD [address] [address] [facility] Clinical Concern/Question Social History [...] and Family Not on file 03/19/2024 Attends [employer] Not on file 03/19 Active Member [...] Questionnaire-2 Score 0 10/15/2024 [facility] - Occupational Stress Questionnaire Answer Date Recorded [...] 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 Best contact number: [phone] Optimal time of day to reach caller: ANYTIME Additional comments/information from caller: None Note: Please do not reply to this message. Follow-up communication and further actions as a result of this message need to be communicated with the patient directly, if the patient is not active onMyChart. If the patient is active on MyChart, they will receive notification of the communication/outcome via [employer]. documented in this encounter Plan of Treatment Upcoming Encounters Date Type Department Care Team (Late st Contact Info) Description 05/06/2025 8:30 AM EDT Office Visit [address] [phone] Catalina Ruiz APRN [address] [place] [address] [address] [place], [place] 05/06/2025 2:30 PM EDT Office Visit [facility] Orthopaedic Surgery & Sports Medicine [address] [place] [address] Cristian Rea MD [address] [place] [phone] 05/20/2025 1:00 PM EDT Office Visit [address] [phone] Catalina Ruiz APRN [address] [place] [address] [address] [place], [place] Scheduled Procedures Name Priority Associated Diagnoses Date/Ti [...] documented as of this encounter Care Teams Linen Room Houseperson Relationship Specialty Start Date End Date Ruddy Branch MD PCP - General 12/14/22 documented as of this encounter
--- OUTSIDE RECORDS SUMMARY | 2025-04-28 13:14 | XMS_ITS ---
Author Organization [facility] Address [address] [place] [id number] Care Team Providers Care Hat Steamer Name Role Phone Ruddy Branch MD Primary Care Provider [phone] [facility] Status:Enrolled (Active) Start date:01/08/2025 Enrollment date:01/09/2025 Enrollment reason:Identified using claims or encounter data Current support & services provided:Adherence- Cholesterol Linked medications:Rosuvastatin Calcium (Active) Linked problems:Hypercholesterolemia (Active) Case Team Name Relationship Phone Susan Noland LPN(Responsible Staff) Licensed Practical Nurse Continued Care and Services Coordination
--- OUTSIDE RECORDS SUMMARY | 2025-04-28 13:14 | XMS_ITS | Clinical Summary ---
Author Organization Healthcare Address [address] [place] [address] Care Team Providers Care Grinding Supervisor Name Role Phone Ruddy Branch MD Primary Care Provider [phone] Allergies No known active allergies Medications gabapentin (Neurontin) 800 MG tablet Take 1 tablet by mouth nightly. Active Nutritional Supplements (Boost High Protein) liquidIndications :Poor nutrition Take 1 Bottle by mouth 3 times a day. [address]206 mL 5 01/09/20 25 Active sulfamethoxazole- trimethoprim [...] Resume home meds as appropriate History of CA (myocardial infarction) 12/17/2023 Overview (12/17/2023): Resume ASA when appropriate CAD (coronary artery disease) 12/17/2023 Overview (12/17/2023): Resume home meds as appropriate Neuropathy 12/17/2023 Overview (12/17/2023): Resume gabapentin Anxiety and depression 12/17/2023 Overview (12/17/2023): Resume lexapro Scrotum swelling 12/17/2023 Overview (12/17/2023): Ecchymosis noted Can place sling or ice or comfort RN to upload picture in social media analyst ABLA (acute blood loss anemia) 12/16/2023 Overview [...] Encounters Date Type Department Care Team Description 04/25/2025 10:20 AM EDT Office Visit [facility] [address] [place] [address] Jennifer Novak MD Open wound (Primary Dx) 04/25/2025 Travel 04/24/2025 Travel 04/15/2025 Telephone [facility] [address] [place] [id number] Jennifer Novak MD 04/14/2025 2:30 PM EDT Office Visit [facility] [address] [place] [address] Jennifer Novak MD Encounter for postoperative care (Primary Dx) 04/14/2025 Travel 04/14/2025 Clinical Support [facility] [address] [place] [address] Alondra Marsh, PharmD 04/09/2025 3:36 PM EDT Anesthesia Event [facility] [address] [place] [address] Rubens Guy MD Anwar, Lilli Davis MD 04/09/2025 1:30 PM EDT - 04/09/2025 4:00 PM EDT Surgery [facility] [address] [place] [address] Cristian Rea MD REMOVAL, HARDWARE [[id number] (CPT )] 04/09/2025 11:33 AM EDT - 04/11/2025 5:45 PM EDT Hospital Encounter [facility] 9 T2 UNI [address] [place] [address] Cristian Rea MD 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) Discharge Disposition: Home or Self Care 04/09/2025 Travel 04/07/2025 Telephone [facility] [address] 1[address] [place] [address] Cristian Rea MD HCN - Patient Message 03/25/2025 2:30 PM EDT Office Visit [facility] [address], 1st [address] [place] [address] [place] [address] Cristian Rea MD 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) (Primary Dx) 03/25/2025 Travel 03/10/2025 Telephone [facility] [address] [place] [address] Jennifer Novak MD HCN Clinical Concern/Question 03/10/2025 Orders Only [facility] [address] [facility] 5th Floor [address] [place] [address] Peter Delarosa, RN Open wound (Primary Dx) 03/07/2025 Telephone [facility] [address] [facility] 5th Floor [address] [place] [address] Jennifer Novak MD HCN Clinical Concern/Question 02/26/2025 10:20 AM EDT Office Visit [facility] [address] [place] [address] Jennifer Novak MD Open wound (Primary Dx) 02/26/2025 Travel 02/04/2025 2:30 PM EDT Office Visit [facility] [address] [facility] [address] [place] [address] Cristian Rea MD Displaced pilon fx right tibia, init for opn fx type I/2 (Primary Dx) 02/04/2025 12:25 PM EDT - 02/04/2025 11:59 PM EDT Hospital Encounter [facility] [address] [place] [address] Displaced pilon fx right tibia, init for opn fx type I/2 Discharge Disposition: Home or Self Care 02/04/2025 Travel from Last 3 Months Immunizations Immunization [...] and Family Not on file 03/19/2024 Attends [employer] Not on file 03/19 Active Member [...] Recorded Patient Health Questionnaire-2 Score 0 10/15/2024 [facility] [place] of Occupat ional Health - Occupational Stress [...] and Family Not on file 04/11/2025 Attends [employer] Not on file 04/11 Active Member [...] were you homeless or living in a alf (including now)? No 04/11/2025 CAGE ASSESSMENT Answer [...] drink first t trupti in the morning (EYE-FIXED INTEREST DEALER) to steady your nerves or to get [...] F) 04/25/2025 10:47 AM EDT Respiratory Rate 17 04/11/2025 11:25 AM EDT Oxygen Saturation 100% 04/14/2025 2:21 PM EDT Inhaled Oxygen Concentration - - Weight 45.9 kg (101 lb 3.1 oz) 04/25/2025 10:47 AM EDT Height 172.7 cm (5' 8 ) 04/25/2025 10:47 AM EDT Body Mass Index 15.39 04/25/2025 10:47 AM EDT Plan of Treatment Upcoming Encounters Date Type Department Care Team (Late st Contact Info) Description 05/06/2025 8:30 AM EDT Office Visit [address] [address] Catalina Ruiz, TRAINING DEVELOPMENT DIRECTOR [address] [facility] [address] [place] [address] 05/06/2025 2:30 PM EDT Office Visit [facility] [address], 1[address] [place] [address] Cristian Rea MD [address] [place] [address] 05/20/2025 1:00 PM EDT Office Visit [address] [address] Catalina Ruiz, TRAINING DEVELOPMENT DIRECTOR [address] [facility] [address] [place] [address] Scheduled Procedures Name Priority Associated Diagnoses Date/Ti me APPLICATION, GRAFT, SKIN, SPLIT-THICKNESS Open wound Health Maintenance Due Date Last Done Comments [facility]-/Child/Adol SDOH Screenings 1960 [address] Colonography 11/30/2007 Colonoscopy 11/30/2007 FIT-DNA 11/30/2007 FIT 11/30/2007 FOBT 11/30/2007 Sigmoidoscopy 11/30/2007 [facility]-Colorectal Cancer Screening 11/30/2007 [facility]-Zoster Vaccines (1 of 2) 2012 [facility]-RSV Vaccine: 60+ Years o r (1 - Risk 60-74 years 1-dose series) 2022 [facility]-Lung Cancer Screening 12/11/20242023, 05/11/2023 [id number]-70 Vaccine ( season) 2025 05/11/2021, 04/16/2021 [facility]-Influenza Vaccine (#1) 04/21/202507/27, 06/29/2022 [facility]-Medicare Annual Wellness (AWV) 04/24/2025 04/24/2024, 03/24/2023 [facility]- SDOH Screenings 10/12/2025 [facility]-Adult SDOH Screenings 10/12/2025 04/11/2025 [facility]-Depression Screening 10/15/2025 025, 10/15/2024 [facility]-DTaP,Tdap,and Td Vaccine s (3 - Td or Tdap) 12/11/2033 12/12/2023, 03/02/2012 [facility]-Pneumococcal Vaccine: 50 + Years Completed 07/27/2023, [...] this topic Medical Devices Implanted Type Area Record Press Operator Device Identifier Shelf Expiration Date Model / Serial / Lot Screw 2.7mm R3con Nonlocking Plate 24mm - [id number] Implanted:Qty: 2 on 12/13/2023 by Cristian Rea MD at [facility] Right: Leg [employer]-[id number] 24 / / Screw 2.5mm Baby Gorilla Ti Nonlock 38mm - [id number] Implanted:Qty: 1 on 12/13/2023 by Cristian Rea MD at [facility] Right: Leg [employer]-[id number] 38 / / Screw 2.5mm Baby Gorilla Ti Nonlock 45mm - [id number] Implanted:Qty: 1 on 12/13/2023 by Cristian Rea MD at [facility] Right: Leg [employer]-[id number] 45 / / Screw 2.5mm Baby Gorilla Ti Nonlock 22mm - [id number] Implanted:Qty: 1 on 12/13/2023 by Cristian Rea MD at [facility] Right: Leg [employer]-[id number] 22 / / Plate Anterolat Distal Tibia Rt 21 Hole - [id number] Implanted:Qty: 1 on 12/13/2023 by Cristian Rea MD at [facility] Right: Leg [employer]-[id number]-B1 14 / / Screw 2.7mm R3con Nonlocking Plate 40mm - [id number] Implanted:Qty: 1 on 12/13/2023 by Cristian Rea MD at [facility] Right: Leg [employer]-[id number] 40 / / Screw 3.5mm R3con Nonlocking Plate 36mm - [id number] Implanted:Qty: 1 on 12/13/2023 by Cristian Rea MD at [facility] Right: Leg [employer]-[id number] 36 / / Screw 3.5mm R3con Nonlocking Plate 42mm - [id number] Implanted:Qty: 1 on 12/13/2023 by Cristian Rea MD at [facility] Right: Leg [employer]-[id number] A52-330-15 42 / / Screw 3.5mm R3con Nonlocking Plate 32mm - [id number] Implanted:Qty: 1 on 12/13/2023 by Cristian Rea MD at [facility] Right: Leg [employer]-[id number] A77-437-68 32 / / Screw 3.5mm R3con Nonlocking Plate 38mm - [id number] Implanted:Qty: 1 on 12/13/2023 by Cristian Rea MD at [facility] Right: Leg [employer]-[id number] 38 / / Screw 2.7mm R3con Nonlocking Plate 22mm - [id number] Implanted:Qty: 2 on 12/13/2023 by Cristian Rea MD at [facility] Right: Leg [employer]-[id number] 22 / / Screw 2.7mm R3con Locking Plate 28mm - [id number] Implanted:Qty: 1 on 12/13/2023 by Cristian Rea MD at [facility] Right: Leg [employer]-[id number] 12/12/2024 [id number] 28 / / Screw 3.5mm R3con Nonlocking Plate 26mm - [id number] Implanted:Qty: 1 on 12/13/2023 by Cristian Rea MD at [facility] Right: Leg [employer]-[id number] 12/12/2024 V03-057-99 26 / / Screw 3.5mm R3con Nonlocking Plate 44mm - [id number] Implanted:Qty: 1 on 12/13/2023 by Cristian Rea MD at [facility] Right: Leg [employer]-[id number] 12/12/2024 [id number] 44 / / Screw 3.5mm R3con Nonlocking Plate 70mm - [id number] Implanted:Qty: 1 on 12/13/2023 by Cristian Rea MD at [facility] Right: Leg [employer]-[id number] 12/12/2024 J98-252-36 70 / / Screw 3.5mm R3con Nonlocking Plate 24mm - [id number] Implanted:Qty: 1 on 12/13/2023 by Sly Isaacs MD at [facility] Right: Leg [employer]-[id number] 24 / / Screw 3.5mm R3con Nonlocking Plate 22mm - [id number] Implanted:Qty: 1 on 12/13/2023 by Sly Isaacs MD at [facility] Right: Leg [employer]-[id number] V75-219-89 22 / / Plate Fibular Straight 6 Hole - [id number] Implanted:Qty: 1 on 12/13/2023 by Cristian Rea MD at [facility] Right: Leg [employer]-[id number] U34-888-33 06 / / Screw Locking Adv T2 T2 D5xl80 - [id number] Implanted:Qty: 1 on 12/13/2023 by Sly Isaacs MD at [facility] Right: Femur [employer] [facility][id number] 8 10/18/2033 2361-5080S / / [id number] Screw Locking Adv T2 T2 D5xl65 - [id number] Implanted:Qty: 1 on 12/13/2023 by Sly Isaacs MD at [facility] Right: Fem[employer] ([facility][id number] 8 08/20/2033 2361-5065S / / [id number] Screw Locking Adv T2 T2 D5xl75 - [id number] Implanted:Qty: 1 on 12/13/2023 by Sly Isaacs MD at [facility] Right: Fem[employer] ([facility][id number] 8 07/20/2033 2361-5075S / / [id number] Screw Locking Adv T2 T2 D5xl75 - [id number] Implanted:Qty: 1 on 12/13/2023 by Sly Isaacs MD at [facility] Right: Fem[employer] ([facility][id number] 8 10/18/2033 2361-5075S / / [id number] Screw Locking T2 D5x35 - [id number] Implanted:Qty: 1 on 12/13/2023 by Sly Isaacs MD at [facility] Right: Fem[employer] ([facility][id number] 8 10/18/2033 2360-5035S / / Screw Locking T2 D5x40 - [id number] Implanted:Qty: 1 on 12/13/2023 by Sly Isaacs MD at [facility] Right: Fem[employer] ([facility][id number] 8 10/18/2033 2360-5040S / / Screw Locking T2 D5xl42.5 - [id number] Implanted:Qty: 1 on 12/13/2023 by Sly Isaacs MD at [facility] Right: Femur [employer] ([employer])-[id number] 8 10/15/2033 2360-5042S / / Screw 2.7mm R3con Nonlocking Plate 14mm - [id number] Implanted:Qty: 3 on 12/13/2023 by Cristian Rea MD at [facility] Right: Leg [employer]-[id number] E57-197-61 14 / / Screw 2.7mm R3con Nonlocking Plate 12mm - [id number] Implanted:Qty: 2 on 12/13/2023 by Cristian Rea MD at [facility] Right: Leg [employer]-[id number] P56-498-61 12 / / Plate Straight 10 Hole - [id number] Implanted:Qty: 1 on 12/13/2023 by Cristian Rea MD at [facility] Right: Leg [employer]-[id number] T17-254-30 10 / / Screw 2.5mm Baby Gorilla Ti Nonlock 24mm - [id number] Implanted:Qty: 2 on 12/13/2023 by Cristian Rea MD at [facility] Right: Leg [employer]-[id number] A34-909-71 24 / / Screw 2.5mm Baby Gorilla Ti Nonlock 26mm - [id number] Implanted:Qty: 1 on 12/13/2023 by Cristian Rea MD at [facility] Right: Leg [employer]-[id number] J69-526-02 26 / / Screw 2.5mm Baby Gorilla Ti Nonlock 28mm - [id number] Implanted:Qty: 1 on 12/13/2023 by Cristian Rea MD at [facility] Right: Leg [employer]-[id number] O95-196-19 28 / / Graft Cerament G With Gentamicin 10ml - [id number] Implanted:Qty: 1 on 04/09/2025 by Cristian Rea MD at [facility] Right: Tibia [employer]-[id number] 07/20/2027 E2328-43 / / [id number] Dressing Wound 2in X 2in - [id number] Implanted:Qty: 1 on 04/09/2025 by Jennifer Novak MD at [facility] Right: Leg [employer]-[id number] 01/18/2027 [id number] / / [id number] Explanted Type Area Record Press Operator Device Identifier Shelf Expiration Date Model / Serial / Lot Nail Femoral Retro T2 Alpha 10mm X 400mm - [id number] Explanted:Qty: 1 on 12/13/2023 by Sly Isaacs MD at [facility] Nail Right: Femur [employer] ([facility][id number] 8 09/20/2033 2339-1040S / / [id number] Post Angled 30 Deg 8mm - [id number] Explanted:Qty: 2 on 12/13/2023 by Sly Isaacs MD at [facility] Right: Leg [employer] ([facility][id number] 8 12/12/2024 4922-2-140 / / Pin [id number] Blunt - [id number] Explanted:Qty: 2 on 12/13/2023 by Sly Isaacs MD at [facility] Right: Leg [employer] ([facility][id number] 8 12/12/2024 5020-3-150 / / Instrument Transfix 5/6 X300 X 50mm - [id number] Explanted:Qty: 1 on 12/13/2023 by Sly Isaacs MD at [facility] Right: Leg [employer] ([facility][id number] 8 12/12/2024 5050-5-300 / / Coupling Ángel To Ángel 8/8mm - [id number] Explanted:Qty: 1 on 12/13/2023 by Sly Isaacs MD at [facility] Right: Leg [employer] ([facility][id number] 8 12/12/2024 4922-1-010 / / Clamp Pin 5 Hole - [id number] Explanted:Qty: 1 on 12/13/2023 at [facility] Right: Leg [employer] ([facility][id number] 8 12/12/2024 4922-2-020 / / Procedures Procedure Name Priority Date/Time Associated Diagnosis Comments CK Routine 04/22/2025 CBC WITH AUTO DIFFERENTIAL Routine 04/22/2025 C-REACTIVE PROTEIN, PLASMA Routine 04/22/2025 UREA NITROGEN, PLASMA Routine 04/22/2025 CREATININE, PLASMA Routine 04/22/2025 HEPATIC FUNCTION PANEL Routine 04/22/2025 CK Routine 04/14/2025 CBC WITH AUTO DIFFERENTIAL [...] ANESTHESIA PLACEHOLDER Routine 04/09/2025 3:47 PM EDT RI AN ELECTIVE ENDOTRACHEAL AIRWAY Routine 04/09/2025 3:47 [...] of right tibia with draining sinus (CMS/HCC) RI REMOVAL DEEP IMPLANT 04/09/20 3:20 PM EDT [...] to Health Maintenance Results * Creatinine, Plasma (04/22/2025) Only the most recent of2 resultswithin the time period is included. Pathologist [facility] External Creatinine Blood 0.70 mg/dL Blood Venous blood specimen / Unknown 04/22/2025 [facility] Provider LAB BLOOD ORDERABLES Final R esult * CBC and Differential (04/22/2025) Only the most recent of2 resultswithin the time period is included. External WBC 7.0 4.8 - 10.8 K/mm3 External Red Blood Cell (RBC) 4.04 External Hemoglobin (Hgb) 11.70 External Hematocrit (Hct) 36.3 External Platelet Count (Plt) 340 External Neutrophil Abs 3.5 External Lymphocyte-Absol ada 2.8 External Monocyte Absolute 0.5 External Eos-Absolute 0.1 0.0 - 0.4 K/mm3 Blood Venous blood specimen / Unknown 04/22/2025 Historical Provider LAB BLOOD ORDERABLES Final R esult * (ABNORMAL) C-Reactive Protein, Plasma (04/22/2025) Only the most recent of3 resultswithin the time period is included. External C-Reactive Protein(CRP) 5.7(A) 0 - 4 mg/L Blood Venous blood specimen / Unknown 04/22/2025 [facility] Provider LAB BLOOD ORDERABLES Final R esult * Urea Nitrogen, Plasma (04/22/2025) Only the most recent of2 resultswithin the time period is included. External BUN 10 Blood Venous blood specimen / Unknown 04/22/2025 [facility] Provider LAB BLOOD ORDERABLES Final R esult * (ABNORMAL) CK (04/22/2025) Only the most recent of2 resultswithin the time period is included. External Creatine Kinase 37(A) 55 - 170 U/L Blood Venous blood specimen / Unknown 04/22/2025 [facility] Provider LAB BLOOD ORDERABLES Final R esult * Hepatic Function Panel (04/22/2025) Only the most recent of2 resultswithin the time period is included. External Alkaline Phosphatase 68 External Bilirubin Total 0.4 mg/dL External ALT (SGPT) 16 External AST (SGOT) 32 Blood Venous blood specimen / Unknown 04/22/2025 [facility] Provider LAB BLOOD ORDERABLES Final R esult * PICC SINGLE LUMEN (SMARTFORM LINK) (04/11/2025 3:49 PM EDT) Narrative Judi Lorenzo RN - 04/11/2025 3:49 PM EDT Judi Lorenzo RN 04/11/2025 3:51 PM Insert PICC line Date/Time: 04/11/2025 3:49 PM Performed by: Judi Lorenzo RN Authorized by: Cristian Rea MD [place] Protocol: Verbal consent obtained?: Yes Written consent [...] preference Patient position: Flat Catheter Lot #: [id number] Catheter pressfitter: [employer] PowerPICC Solo Catheter placed: Single lumen Catheter size: 4 Fr Catheter trimmed length: 43 Catheter threaded length: 43 Vein placed in: SVC Catheter cm indwellin Catheter cm outside: 0 Placement confirmed by: 3D Product Imaging 3CG technology Pre-procedure: Landmarks identified Ultrasound guidance: [...] - 320 U/L 04/11/2025 2:10 PM EDT [facility] Blood Venous blood specimen / Unknown Venipuncture / Unknown 04/11/2025 1:00 PM EDT 04/11/2025 1:41 PM EDT us [place] [facility] LAB BLOOD ORDERABLES Final Res ult [facility] [address] [place] [address] * HIV 1 & 2 Antibody/Antigen Screen (04/11/2025 1:00 PM EDT) [facility] HIV 1 & 2 Antibody/Antigen Screen Non Reactive Non Reactive 04/11/2025 2:38 PM EDT [facility] Comment:Screening for HIV 1 & 2 antibodies, and P24 antigen is NONREACTIVE. No confirmatory testing is required. Blood Venous blood specimen / Unknown Venipuncture / Unknown 04/11/2025 1:00 PM EDT 04/11/2025 1:41 PM EDT us George Fox MD LAB BLOOD ORDERABLES Final R esult Performing Organization Address City/[facility]/ZIP Co de Phone Number [facility] [address] [place] [address] * (ABNORMAL) CBC (04/10/2025 2:29 AM EDT) Only the most recent of2 resultswithin the time period is included. [facility] WBC Count 5.60 3.70 - 10.30 10*3/uL LAB HEMATOLOGY METHOD 04/10/2025 2:50 AM EDT [facility] RBC Count 4.18(L) 4.60 - 6.10 10*6/uL LAB HEMATOLOGY METHOD 04/10/2025 2:50 AM EDT [facility] HGB 12.5(L) 13.7 - 17.5 g/dL LAB HEMATOLOGY METHOD 04/10/2025 2:50 AM EDT [facility] HCT 37.2(L) 40.0 - 51.0 % LAB HEMATOLOGY METHOD 04/10/2025 2:50 AM EDT [facility] Platelet Count 251 155 - 369 10*3/uL LAB HEMATOLOGY METHOD 04/10/2025 2:50 AM EDT [facility] MCV 89 79 - 98 fL LAB HEMATOLOGY METHOD 04/10/2025 2:50 AM EDT [facility] MCH 29.9 26.0 - 32.0 pg LAB HEMATOLOGY METHOD 04/10/2025 2:50 AM EDT [facility] MCHC 33.6 30.7 - 35.5 g/dL LAB HEMATOLOGY METHOD 04/10/2025 2:50 AM EDT [facility] RDW 14.0 11.5 - 14.5 % LAB HEMATOLOGY METHOD 04/10/2025 2:50 AM EDT [facility] MPV 9.2 8.8 - 12.5 fL LAB HEMATOLOGY METHOD 04/10/2025 2:50 AM EDT [facility] nRBC 0.0 <=0.0 per 100 WBCs LAB HEMATOLOGY METHOD 04/10/2025 2:50 AM EDT [facility] Blood Venous blood specimen / Unknown Venipuncture / Unknown 04/10/2025 2:29 AM EDT 04/10/2025 2:39 AM EDT Cristian Rea MD LAB BLOOD ORDERABLES Final Result [facility] [address] [place] [address] * (ABNORMAL) Prealbumin (04/10/2025 2:29 AM EDT) [facility] Prealbumin, Plasma 17.1(L) 20.0 - 41.0 mg/dL 04/10/2025 11:03 AM EDT [facility] Blood Venous blood specimen / Unknown Venipuncture / Unknown 04/10/2025 2:29 AM EDT 04/10/2025 2:39 AM EDT us Cristian Rea MD LAB BLOOD ORDERABLES Final Result [facility] [address] [place] [address] * (ABNORMAL) Basic metabolic panel (04/10/2025 2:29 AM EDT) Only the most recent of2 resultswithin the time period is included. Glucose, Plasma 168(H) 74 - 99 mg/dL 04/10/2025 3:07 AM EDT [facility] BUN, Plasma 11 8 - 23 mg/dL 04/10/2025 3:07 AM EDT [facility] Creatinine, Plasma 0.80 0.70 - 1.20 mg/dL 04/10/2025 3:07 AM EDT [facility] BUN/Creatinine Ratio 14 04/10/2025 3:07 AM EDT [facility] Sodium, Plasma 138 136 - 145 mmol/L 04/10/2025 3:07 AM EDT [facility] Potassium, Plasma 4.8 3.6 - 4.9 mmol/L 04/10/2025 3:07 AM EDT [facility] Chloride, Plasma 106 97 - 107 mmol/L 04/10/2025 3:07 AM EDT [facility] CO2, Plasma 22 22 - 29 mmol/L 04/10/2025 3:07 AM EDT [facility] Anion Gap 10 6 - 16 mmol/L 04/10/2025 3:07 AM EDT [facility] Total Calcium, Plasma 8.8(L) 8.9 - 10.2 mg/dL 04/10/2025 3:07 AM EDT [facility] eGFRcr 100.1 mL/min/1.7 3m*2 04/10/2025 3:07 AM EDT [facility] Comment:Reported eGFRcr in m L/min/1.73m2 is based the CKD-EPI 2020 equation that does not use a race coefficient. Blood Venous blood specimen / Unknown Venipuncture / Unknown 04/10/2025 2:29 AM EDT 04/10/2025 2:39 AM EDT us Cristian Rea MD LAB BLOOD ORDERABLES Final Result [facility] [address] [place] [address] * [place] Less than 1 Hour Intraoperative (04/09/2025 5:08 PM EDT) Narrative IMAGING - 04/09/2025 5:09 PM EDT Images were obtained for surgical purposes. See Cristian Rea's surgical note in the patient's chart for the findings. Cristian Rea MD IMG FLUOROSCOPY PROCEDURES Final Result Performing Organization Address City/[facility] Co de Phone Number IMAGING * (ABNORMAL) Bone Culture and Gram Stain (04/09/2025 4:34 PM EDT) Only the most recent of2 resultswithin the time period is included. Culture Light Growth 04/12/2025 7:38 AM EDT [facility] Culture Staphylococcus aureus(A) 04/12/2025 7:38 AM EDT [facility] Comment: (small colony variant) - Positive for MRSA by PBP2a assay. The organism value for this result has been updated. These results have been appended to the previously preliminary verified report. 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) [M86.461] Cristian Rea MD LAB MICROBIOLOGY - GENERAL ORDERABLES Final Result Performing Organization Address City/[facility]/ZIP Co de Phone Number [facility] [address] [place] [address] * Anaerobic Culture (04/09/2025 4:34 PM EDT) Culture No anaerobes isolated 04/13/2025 10:52 AM EDT [facility] Bone Topography unknown / Unknown 04/09/2025 4:34 PM EDT 04/09/2025 5:07 PM EDT Comment:Pre-op diagnosis: 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) [M86.461] Cristian Rea MD LAB MICROBIOLOGY - GENERAL ORDERABLES Final Result [facility] [address] [place] [address] * RI AN ELECTIVE ENDOTRACHEAL AIRWAY, PB ANESTHESIA PLACEHOLDER [...] ECG Atrial Rate 59 BPM MUSE ECG RI Interval 122 ms MUSE ECG QRSD Interval 82 ms MUSE ECG QT Interval 432 ms MUSE ECG QTC Interval 427 ms MUSE ECG P [place] 67 degrees MUSE ECG R [place] 92 degrees MUSE ECG T Wave [place] 76 degrees MUSE ECG Diagnosis Sinus bradycardia MUSE ECG Diagnosis Rightward axis MUSE ECG Diagnosis Poor R-wave progression MUSE ECG Diagnosis Abnormal ECG MUSE ECG Diagnosis MUSE ECG Diagnosis Confirmed by Isacc Arciniega ([id number]) on 04/09/2025 5:30:16 PM MUSE ECG 04/09/2025 3:13 PM EDT 04/09/2025 5:30 PM EDT us Rubens Guy MD ECG ORDERABLES Final Result Performing Organization Address City/[facility]/ZIP Co de Phone Number MUSE ECG * Type and screen (04/09/2025 [...] ORDERABLE S Final Result Performing Organization Address [facility] de Phone Number BLOOD BANK [address] [place] [address], [place] * CT Ankle Right wo IV [...] IMG CT PROCEDURES Final Resu lt * CT Angio Chest (12/12/2023 2:21 PM [...] Gary Marino MD on 12/12/2023 3:30 PM us Ran Upton MD IMG CT PROCEDURES Final Re sult * Hepatitis C Antibody - ED (12/12/2023 1:33 PM EDT) Hepatitis C Antibody Negative Negative 12/12/2023 2:27 PM EDT [facility] Blood Venous blood specimen / Unknown Venipuncture / Unknown 12/12/2023 1:33 PM EDT 12/12/2023 1:44 PM EDT us Ran Upton MD LAB BLOOD ORDERABLES Final Result [facility] [address] [place] [address] from Last 3 Months or Most Recently Relevant to Health Maintenance Additional Health Concerns Infection Onset Date Last Indicated MRSA 01/31/2024 04/09/2025 Insurance [place] MEDICARE [facility] MEDICARE [place]ID[place] Advance Directives * Full Code [...] Patient has decision-making capacity? Yes Care Teams Grinding Supervisor Relationship Specialty Start Date End Date Ruddy Branch MD PCP - General 12/14/22
--- OUTSIDE RECORDS SUMMARY | 2025-04-28 13:14 | XMS_ITS | Encounter Summary ---
Author Organization Healthcare Address [address] [place] [address] Care Team Providers Care Dumper Mold Cleaner Name Role Phone Ruddy Branch MD Primary Care Provider [phone] Encounter Details Date Type Department Care Team [...] and Family Not on file 03/19/2024 Attends Alevism Services Not on file 03/19 Active Member [...] Recorded Patient Health Questionnaire-2 Score 0 10/15/2024 [facility] of Occupat ional [facility] - Occupational Stress Questionnaire Answer [...] drink first t trupti in the morning (EYE-EDITOR CONTINUITY AND SCRIPT) to steady your nerves or to get rid of a hangover? 0 03/14/2024 CAGE Questionnaire Score 0 024 Utilities Answer Date Recorded In the past 12 months has [employer], gas, oil, or water [employer] threatened to shut off services in your [...] Description 05/06/2025 8:30 AM EDT Office Visit [facility] [address] [place] [address] Catalina Ruiz, ACTOR UNDERSTUDY [address] [facility] [address] [place] [address] 05/06/2025 2:30 PM EDT Office Visit [facility] [address], 1st [address] [place] [address] Cristian Rea MD [address] [place] [address] 05/20/2025 1:00 PM EDT Office Visit [address] [address] Catalina Ruiz, ACTOR UNDERSTUDY [address] [facility] [address] [place] [address] Scheduled Procedures Name Priority Associated [...] documented as of this encounter Care Teams Dumper Mold Cleaner Relationship Specialty Start Date End Date Ruddy Branch MD PCP - General 12/14/22 documented as of this encounter
--- OUTSIDE RECORDS SUMMARY | 2025-04-28 13:14 | XMS_ITS | Encounter Summary ---
Author Organization [facility] Address [address] [place] [address] Care Team Providers Care Sole Leveling Machine Operator Name Role Phone Ruddy Branch MD Primary Care Provider [phone] Reason for Visit * Reason Onset Date Comments HCN Clinical Concern/Question 03/10/2025 Encounter Details Date Type Department Care Team (Late st Contact Info) Description 03/10/[address] [facility] Plastic & Reconstructive Surgery [address] [place] [address] Jennifer Novak MD [address] [address] HCN Clinical Concern/Question Social History [...] and Family Not on file 03/19/2024 Attends Denominational Services Not on file 03/19 Active Member [...] Recorded Patient Health Questionnaire-2 Score 0 10/15/2024 [facility] of Occupat ional Health - Occupational [...] drink first t trupti in the morning (EYE-PARKING LOT SUPERVISOR) to steady your nerves or to [...] call at listed number Best contact number: [phone] (mobile) Optimal time of day to reach caller: ANYTIME Additional comments/information from caller: None Note: Please do not reply to this message. Follow-up communication and further actions as a result of this message need to be communicated with the patient directly, if the patient is not active onMyChart. If the patient is active on MyChart, they will receive notification of the communication/outcome via Earmarkhart. documented in this encounter Plan of Treatment Upcoming Encounters Date Type Department Care Team (Late st Contact Info) Description 05/06/2025 8:30 AM EDT Office Visit [address] [phone] Catalina Ruiz APRN [address] [facility] [address] [place] [address] 05/06/2025 2:30 PM EDT Office Visit [facility] Orthopaedic Surgery & Sports Medicine [address], 1st Floor [address] [place] [address] Cristian Rea MD [address] [place] [address] 05/20/2025 1:00 PM EDT Office Visit [address] [phone] Catalina Ruiz APRN [address] [place] [address] [address] [place] [address] Scheduled Procedures Name Priority Associated Diagnoses Date/Ti [...] documented as of this encounter Care Teams Sole Leveling Machine Operator Relationship Specialty Start Date End Date Ruddy Branch MD PCP - General 12/14/22 documented as of this encounter
--- OUTSIDE RECORDS SUMMARY | 2025-04-28 13:14 | XMS_ITS | Encounter Summary ---
Author Organization [facility] Address [address] [place] [address] Care Team Providers Care Chemistry Quality Control Analyst Name Role Phone Ruddy Branch MD Primary Care Provider Reason for Referral * Consultation (Routine) - Authorized Specialty Diagnoses / Procedures Referred By Contnadira t Referred To Contact Pain Medicine Diagnoses Open wound Jennifer Novak MD [address] [address] Phone: tel: fax: Referral ID Status Reason Start Date Expiration Date Visits Requested Visits Authorized [id number] Authorized Specialty Services Required 03/10/2025 09/09/2026 1 1 Encounter Details Date Type Department Care Team (Late st Contact Info) Description 03/10/2025 Orders Only [facility] Comprehensive Vascular Clinic [address] [facility] 5th Floor Wing [address], [address] [place] [address] Peter Delarosa, RN Open wound [...] Questionnaire-2 Score 0 10/15/2024 [facility] - Occupational Stress Questionnaire Answer [...] drink first t trupti in the morning (EYE-HERITAGE CONSULTANT) to steady your nerves or to [...] Description 05/06/2025 8:30 AM EDT Office Visit [address] [address] Catalina Ruiz, AZRA [address]01 [facility] [address] [place] [address] 05/06/2025 2:30 PM EDT Office Visit [facility] Orthopaedic Surgery & Sports Medicine [address], 1st Floor [address] [place] [address] Cristian Rea MD [address] [place] [address] 05/20/2025 1:00 PM EDT Office Visit [address] [address] Catalina Ruiz, AZRA [address] [place] [address] [address] [place] [address] Scheduled Procedures Name Priority Associated [...] documented as of this encounter Care Teams Chemistry Quality Control Analyst Relationship Specialty Start Date End Date Ruddy Branch MD PCP - General 12/14/22 documented as of this encounter
--- OUTSIDE RECORDS SUMMARY | 2025-04-28 13:15 | XMS_ITS | Encounter Summary ---
Author Organization [facility] Address [address] [place] [address] Care Team Providers Care Electroencephalograph Technician Name Role Phone Ruddy Branch MD Primary Care Provider [phone] Encounter Details Date Type Department Care Team [...] and Family Not on file 03/19/2024 Attends Jain Services Not on file 03/19 Active Member [...] Recorded Patient Health Questionnaire-2 Score 0 10/15/2024 [facility] of Occupat ional Health - Occupational Stress [...] and Family Not on file 04/11/2025 Attends Jain Services Not on file 04/11 Active Member [...] drink first t trupti in the morning (EYE-CORK GRINDER) to steady your nerves or to get [...] Description 05/06/2025 8:30 AM EDT Office Visit [facility] [address] [place] [address] Catalina Ruiz, ELECTRICAL AND INSTRUMENT MECHANIC [address] [facility] [address] [place] [address] 05/06/2025 2:30 PM EDT Office Visit [facility] Orthopaedic Surgery [facility] Sports Medicine [address], 1st Floor [address] [place] [address] Cristian Rea MD [address] [place] [address] 05/20/2025 1:00 PM EDT Office Visit [facility] [address] [place] [address] Catalina Ruiz, ELECTRICAL AND INSTRUMENT MECHANIC [address] [facility] [address] [place] [address] Scheduled Procedures Name Priority Associated [...] documented as of this encounter Care Teams Electroencephalograph Technician Relationship Specialty Start Date End Date Ruddy Branch MD PCP - General 12/14/22 documented as of this encounter
--- OUTSIDE RECORDS SUMMARY | 2025-04-28 13:15 | XMS_ITS | Encounter Summary ---
Author Organization [facility] Address [address] [place] [address] Care Team Providers Care Construction Driller Name Role Phone Ruddy Branch MD Primary Care Provider [phone] Reason for Visit * Reason Onset Date Comments HCN - Patient Message 04/07/2025 Encounter Details Date Type Department Care Team (Late st Contact Info) Description 04/07/2025 Telephone [facility] Orthopaedic Surgery & Sports Medicine [address], 1st Floor [address] [place] [address] Cristian Rea MD [address] [place] [address] HCN - Patient Message Social [...] Recorded Patient Health Questionnaire-2 Score 0 10/15/2024 [facility] - Occupational Stress Questionnaire Answer [...] in the past [address] [facility], were you homeless or living in [...] drink first t trupti in the morning (EYE-ENDOSCOPE TECHNICIAN) to steady your nerves or to get [...] before surgery please call Best contact number: [phone] (mobile) Optimal time of day to reach caller: ANYTIME Additional comments/information from caller: None Note: Please do not reply to this message. Follow-up communication and further actions as a result of this message need to be communicated with the patient directly, if the patient is not active onMyChart. If the patient is active on MyChart, they will receive notification of the communication/outcome via [email or web address]. documented in this encounter Plan of Treatment Upcoming Encounters Date Type Department Care Team (Late st Contact Info) Description 05/06/2025 8:30 AM EDT Office Visit [facility] [address] [place] [address] Catalina Ruiz APRN 3101 [facility] [address] [place] [address] 05/06/2025 2:30 PM EDT Office Visit [facility] Orthopaedic Surgery & Sports Medicine [address], 1st Floor [address] [place] [address] Cristian Rea MD [address] [place] [address] 05/20/2025 1:00 PM EDT Office Visit [facility] [address] [place] [address] Catalina Ruiz, SANTA'S HELPER [address] [facility] [address] [place] [address] Scheduled Procedures Name Priority Associated [...] documented as of this encounter Care Teams Construction Driller Relationship Specialty Start Date End Date Ruddy Branch MD PCP - General 12/14/22 documented as of this encounter
--- OUTSIDE RECORDS SUMMARY | 2025-04-28 13:15 | XMS_ITS | Encounter Summary ---
Author Organization Healthcare Address [address] [place] [address] Care Team Providers Care Nurses' Association Executive Director Name Role Phone Ruddy Branch MD Primary Care Provider [phone] Encounter Details Date Type Department Care Team (Late st Contact Info) Description 04/15/2025 [facility] [address] [facility] 5th Floor [address], [address] [place] [address] Jennifer Novak MD [facility] [facility] [address] [place] [address] Social History Tobacco Use Types Packs/Day Years [...] Recorded Patient Health Questionnaire-2 Score 0 10/15/2024 [facility] - Occupational Stress Questionnaire [...] and Family Not on file 04/11/2025 Attends Druze Services Not on file 04/11 Active Member [...] any time in the past 12 m [facility], were you homeless or living [...] drink first t trupti in the morning (EYE-NEWSPAPER INSERTER) to steady your nerves or to get [...] Description 05/06/2025 8:30 AM EDT Office Visit [address] [address] Catalina Ruiz, AZRA [address] [place] [address] [address] [place] [address] 05/06/2025 2:30 PM EDT Office Visit [facility] Orthopaedic Surgery & Sports Medicine [address], 1st Floor [address] [place] [address] Cristian Rea MD [address] [place] [address] 05/20/2025 1:00 PM EDT Office Visit [address] [address] Catalina Ruiz, ALUMINUM SHEET CUTTER 310 [facility] [address] [place] [address] Scheduled Procedures Name Priority Associated [...] documented as of this encounter Care Teams Nurses' Association Executive Director Relationship Specialty Start Date End Date Ruddy Branch MD PCP - General 12/14/22 documented as of this encounter
--- OUTSIDE RECORDS SUMMARY | 2025-04-28 13:15 | XMS_ITS | Clinical Summary ---
Author Organization [facility] Address [address] [place] [address] Care Team Providers Care Automation Specialist Name Role Phone Ruddy Branch MD Primary Care Provider [phone] Allergies No known active allergies Medications aspirin [...] disorder 10/05/2021 Coronary artery disease invo lving [place] coronary artery of [place] heart without angina pectoris 07/19/2021 Overview (03/14/2022): Had cath 202 at [facility] Tobacco abuse 07/19/2021 Neuropathy 07/19/2021 DDD (degenerative disc disease), cervical 2017 Encounters Date Type Department Care Team Description 02/10/2025 [facility] [address] [place] [address] Mireya Ann from Last 3 Months Immunizations [...] Description 05/14/2025 10:00 AM EDT Office Visit [facility] [address] [place] [phone] Ruddy Branch MD [address], [place] [address] Health Maintenance Due Date Last Done Comments COLOGUARD 11/30/2007 COLON CANCER SCREENING 5 YEA R SIGMOIDOSCOPY 11/30/2007 CT COLONOGRAPHY 11/30/2007 FECAL OCCULT BLOOD TEST 11/30/2007 FIT Testing (1 year) 11/30/2007 ZOSTER VACCINE (1 of 2) 2012 COLONOSCOPY 10/25/2024 10/25/2021, 02/2022, 10/25/2021 COLORECTAL CANCER SCREENING 10/25/2024 COVID-19 Vaccine (3 - 2024-2 6 season) 2025 05/11/2021, 04/16/2021 ANNUAL WELLNESS VISIT 04/24/2025 04/24/2024, 023 INFLUENZA VACCINE 05/21/2025 07/27/2023, 06/29/2022 LIPID PANEL 10/22/2025 10/22/2024, 0708/2023, 01/22/2024, Additional history exists TDAP/TD VACCINES (3 [...] 10:4 2 AM EST 10/22/2024 Narrative [facility] (AMBULATORY) - 10/23/2024 10:36 AM EST Performed at: [facility] [address] [place] [id number] Cut Off Saw Operator Pipe Blanks: Zaire Fisher PhD, Phone: [phone] Patient Fasting: Y us Ruddy Branch MD LAB BLOOD ORDERABLES Final Resu lt [facility] (AMBULATORY) [address] [id number], [place] [phone] [facility] [address] [place] [address], * CT Chest Low Dose Cancer Screening [...] MD 05/11/2023 7:55 PM EDT Workstation ID: [id number] Narrative 05/11/2023 7:[address] CHEST [...] MD 05/11/2023 7:55 PM EDT Workstation ID: [id number] Ruddy Branch MD IMG CT ORDERABLES Final [...] with a HCV Nucleic Acid Amplification test (313303). 07/19/2021 11:1 5 AM EST 07/19/2021 Narrative [facility] (AMBULATORY) - 07/20/2021 8:12 AM EST Performed at: 02 - [address] [id number] Cut Off Saw Operator Pipe Blanks: Zaire Fisher PhD, Phone: [phone] Patient Fasting: Y Ruddy Branch MD LAB BLOOD ORDERABLES Final Resu lt Performing Organization Address City/State/[facility] Co de Phone Number [facility] [address] [place] [address], [facility] [address] [place] [address], from Last 3 Months or Most Recently Relevant to Health Maintenance Insurance [address] [place] [id number] [facility] AUT[employer] HUMANA MEDICARE ADVANTAGE SNP HMO Care Teams Automation Specialist Relationship Specialty Start Date End Date Ruddy Branch MD [address] [place] [address] PCP - General Family Medicine 07/19/21
[2025-04-28 13:33] LABS: Hematocrit 37.8 % (42.0-52.0); Hemoglobin 12.4 g/dL (14.1-18.0); Immature Granulocytes % 0.2 %; Mean Corpuscular HGB Conc 32.8 g/dL (31.8-35.4); Mean Corpuscular Hemoglobin 29.5 pg (27.0-31.2); Mean Corpuscular Volume 89.8 fl (80-94); Nucleated Red Blood Cells % 0 %; Platelet Count 330 K/mm3 (142-424); Red Blood Count 4.21 M/mm3 (4.60-6.20); Red Cell Distribution Width-SD 44.7 fL; White Blood Count 5.9 K/mm3 (4.8-10.8)
[2025-04-28 13:42] LABS: Alanine Aminotransferase 16 U/L (12-78); Albumin Level 4.1 g/dl (3.5-5.0); Alkaline Phosphatase 71 U/L (38-126); Aspartate Amino Transferase 28 U/L (17-59); Bilirubin,Direct 0.2 mg/dl (0.0-0.4); Bilirubin,Indirect 0.4 mg/dL (0.0-0.9); Bilirubin,Total 0.6 mg/dl (0.2-1.3); Bilirubin,Unconjugated 0.4 mg/dL (0.0-1.1); Blood Urea Nitrogen 7 mg/dl (9-20); Creatine Kinase 27 U/L (55-170); Creatinine,Serum 0.70 mg/dl (0.66-1.25); Estimated Glomerular Filt Rate 114 ml/min (>60); GFR (African American) 138 ML/MIN (>60); Total Protein,Serum 7.1 g/dl (6.3-8.2)
[2025-04-28 13:46] LABS: C-Reactive Protein 2.6 mg/L (0-4)
== END 2025-04-28 13:15 | disposition home or self-care (01) ==
LOC: INF 13:11
PROVIDERS: Visit Provider Orthopaedic Surgery Orthopaedic Trauma
DX: M86.461 Chronic osteomyelitis with draining sinus, right tibia and fibula (principal)
CPT/HCPCS: 36592; 80076; 82550; 82565; 84520; 85025; 86140; 96523

== ENCOUNTER 2025-05-05 13:02 | Outpatient (CLI) | payer OTHER, SELFPAY ==
--- OUTSIDE RECORDS SUMMARY | 2025-03-25 14:30 | XMS_ITS | Encounter Summary ---
Author Organization [facility] Address [address] [place] [address] Care Team Providers Care Range Ecologist Name Role Phone Ruddy Branch MD Primary Care Provider [phone] Reason for Visit * Reason Comments Follow-up Encounter Details Date Type Department Care Team (Latest Contact Info) Description 03/25/2025 2:30 PM EDT Office Visit [facility] [address] 1st [address] [place] [address] Cristian Rea MD [address] [place] [address] Chronic osteomyelitis of right tibia [...] and Family Not on file 03/19/2024 Attends Mosque Services Not on file 03/19 Active Member [...] Recorded Patient Health Questionnaire-2 Score 0 10/15/2024 [facility] Occupat ional Health - Occupational [...] place to sleep or slept in a fdc (including now)? No 03/19/2024 PHQ-9 Answer Date [...] drink first t trupti in the morning (EYE-REGIONAL RECRUITER) to steady your nerves or to get rid of a hangover? 0 03/14/2024 CAGE Questionnaire Score 0 024 Utilities Answer Date Recorded In the past 12 months has th e [employer], gas, oil, or water company threatened to [...] Team (Late st Contact Info) Description 05/06/2025 1:30 PM EDT Office Visit [facility] [address] [place] [address] Catalina Ruiz, DIESEL MECHANIC [address] [facility] [address] [place] [address] 05/06/2025 2:30 PM EDT Office Visit [facility] Surgery [facility] Sports Medicine [address] [place] [address] Cristian Rea MD [address] [place] [address] 05/14/2025 Hospital Encounter [facility] [address] [place] [address] Jennifer Novak MD [address] [address] 05/20/2025 1:00 PM EDT Office Visit [facility] [address] [place] [phone] Catalina Ruiz, DIESEL MECHANIC [address] [facility] [address] [place] [address] Scheduled Orders Name Type Priority [...] documented as of this encounter Care Teams Range Ecologist Relationship Specialty Start Date End Date Ruddy Branch MD PCP - General 12/14/22 documented as of this encounter
--- OUTSIDE RECORDS SUMMARY | 2025-04-09 11:33 | XMS_ITS | Encounter Summary ---
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 [facility] to ensure your safety. ? Go over [...] talk to them after your surgery. A general cargo clerk is available in the waiting room [...] living will, health care surrogate, power of prosecuting attorney or guardianship papers. ? Bring a responsible [...] makeup, jewelry (including body piercing) or nail grenadian. ? Don?t bring money or valuables to [...] office and the Preoperative Anesthesia Clinic at [phone] or [phone]. If it is the day of surgery, call the location where you are scheduled to have your surgery: [facility] at [phone] or [phone] or [facility] at [phone] or [phone]. For more information Visit [email or web address] or call [phone] or [phone]. [facility] does not discriminate. [facility] complies with applicable Federal civil rights laws and does not discriminate on the basis of race, color, national origin, age, disability, or sex. * Beatrisari Vish - Negin Aguirre RN - 03/28/2025 10:14 AM EDT Images from the original note were not included. 489 Map to [facility] Facilities Directions Easy directions to and from [address] (from [address]) Directions from I-75/I-64 to the [facility] Parking Garage: ? From [address], turn right off the exit ramp onto [facility] ([place] [address] [address]) toward [place]. ? In 4.1 miles, turn left onto [address] (at the [employer] station). ? In a half-mile, turn right onto [address]. ? In .3 miles, turn right onto [address] (just past the [employer] gas station). Garage entrance is on the left. ? Important: This garage address will change to [facility] on February 18, 2025. Directions from HealthCare Parking Garage to I-75/I-64: ? Turn left out of the garage onto [address]. ? Turn left onto [address]. ? In .3 miles, turn left down [address] ? In a half-mile, turn right onto [address] (at the [employer] gas station). ? In 4.1 miles, merge onto [address] /[address] (near the [employer] [facility]). Parking Any patients or visitors of [facility] can park in the following areas: ? [facility] Parking Garage (main garage): [address] (Levels A-F) ? [facility] Garage: [address] (Levels 1-6) ? [facility] Cancer lot: Located off [employer] (limited parking for [facility] outpatients only). Upon Your Arrival ? Patients and visitors going to [facility], and [facility] may walk across the pedway, located [...] also be accessed via the pedway off [facility] garage on Level C. If you need a shuttle to the ED, one can be called for you at Level A of the main garage or contact any of the information desks, . Additional Information For additional information, please visit our information desks located throughout [facility]. Information desks have additional maps and resources. Information desks are located at the main entrances of: [place] [facility] (first floor and ground floor), [facility], [facility] H, [facility] CC, Pavilion , [facility] (first and third floor), and [facility]. Informationdesk number: [phone]. Important Addresses [address] [place] [address] ? [facility] entrance ? Pavilion A ? Pavilion G ([facility]) ? Emergency Department [address] ? [facility] H ? Pav[facility] CC ([facility]) ? Pav[facility] WH ([facility]) ? [facility] [employer] [address] [facility] ? [facility] [address] [facility] ? [facility] [address] [facility] ? [facility] ? [facility] * PAT Phone Note - Negin Aguirre RN - 03/28/2025 10:13 AM EDT HPI Thai Ponce is a 64 y.o. 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 Rea (Right). [...] 1.44 m?? Allergies[5] MEDICATIONS: Current Medications[5] Negin Aguirre, TITUS [1] Past Medical History: Diagnosis Date Anxiety [...] card, photo ID, along with power of prosecuting attorney, guardianship or advanced directives if applicable Do not bring money, jewelry (Including wedding rings) or other valuables. Do not wear any makeup, nail grenadian, or contact lens the day of surgery. Hibiclens bathing instructions reviewed if applicable Notify surgeon of fever, illness, any changes or if you decide not to have surgery. If you have anysurgery specific questions or concerns, please contact your surgeon, * Cristian Rea - Primary. If you are unable to keep your surgery day (04/02/2025) please contact your surgeon's office. If it is the day of surgery, call the location where you are scheduled to have your surgery: [facility] at [phone] or [phone] or [facility] at [phone] or [phone]. documented in this encounter Plan of Treatment Upcoming Encounters Date Type Department Care Team (Late st Contact Info) Description 05/06/2025 1:30 PM EDT Office Visit [facility] [address] [place] [address] Catalina Ruiz, BREAKER BOSS [address] [facility] [address] [place] [address] 05/06/2025 2:30 PM EDT Office Visit [facility]opa[facility] Surgery [facility] Medicine [address], [address] [place] [address] Cristian Rea MD [address] [place] [address] 05/14/2025 Hospital Encounter [facility] OPERATING ROOM [address] [place] [address] Jennifer Novak MD [address] [facility] [address] [place] [address] 05/20/2025 1:00 PM EDT Office Visit [facility] [address] [facility] [place] [address] Catalina Ruiz, BREAKER BOSS [address] [facility] [address] [place] [address] Pending Results Name Type Priority Associated Diagnoses Date /Time Fungal Culture, Tissue and JACKELYN Microbiology Routine 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) 04/09/2025 4:34 PM EDT Scheduled Orders Name Type Priority Associated Diagnoses Orde r Schedule Multi Drug Resistance Test Microbiology Routine Once (Lab) for 1 Occurrences starting 04/09/2025 until 04/09/2025 Scheduled Procedures Name Priority Associated Diagnoses Date/Ti me APPLICATION, GRAFT, SKIN, SPLIT-THICKNESS Open wound Scheduled Referrals Name Type Priority Associated Diagnoses Orde r Schedule Discharge Ambulatory referral to NON [facility] Outpatient Referral Routine Chronic osteomyelitis of right [...] of right tibia with draining sinus (CMS/HCC) IA REMOVAL DEEP IMPLANT 04/09/20 3:20 PM EDT Chronic osteomyelitis of right [...] Lorenzo RN Authorized by: Cristian Rea MD [place] Protocol: Verbal consent obtained?: Yes Written consent [...] preference Patient position: Flat Catheter Lot #: [id number] Catheter project engineering director: Bard PowerPICC Solo Catheter placed: Single lumen Catheter size: 4 Fr Catheter trimmed length: 43 Catheter threaded length: 43 Vein placed in: SVC Catheter cm indwellin Catheter cm outside: 0 Placement confirmed by: Justyna 3CG technology Pre-procedure: Landmarks identified Ultrasound guidance: [...] ultrasound and/or 3CG images sent to PACS. Cristian Rea MD IV THERAPY ORDERABLES Leora stockton Result * Creatine Kinase (CK), Total (04/11/2025 1:00 PM EDT) Creatine Kinase, Plasma 143 49 - 320 U/L 04/11/2025 2:10 PM EDT [facility] Blood Venous blood specimen / Unknown Venipuncture / Unknown 04/11/2025 1:00 PM EDT 04/11/2025 1:41 PM EDT [facility] LAB BLOOD ORDERABLES Final Res ult Performing Organization Address [facility] Co de Phone Number [facility] [address] [place] [address] * HIV 1 & 2 Antibody/Antigen Screen (04/11/2025 1:00 PM EDT) Pathologist [facility] HIV 1 & 2 Antibody/Antigen Screen Non Reactive Non Reactive 04/11/2025 2:38 PM EDT [facility] Comment:Screening for HIV 1 & 2 antibodies, and P24 antigen is NONREACTIVE. No confirmatory testing is required. Blood Venous blood specimen / Unknown Venipuncture / Unknown 04/11/2025 1:00 PM EDT 04/11/2025 1:41 PM EDT George Fxo MD LAB BLOOD ORDERABLES Final R esult Performing Organization Address [facility] Co de Phone Number [facility] [address] [place] [address] * C-reactive protein (04/10/2025 2:29 AM EDT) CRP, Plasma <3.0 <=8.0 mg/L 04/10/2025 12:01 PM EDT [facility] Blood Venous blood specimen / Unknown Venipuncture / Unknown 04/10/2025 2:29 AM EDT 04/10/2025 2:39 AM EDT Narrative [facility] - 04/10/2025 12:01 PM EDT This CRP test is appropriate for assessment of infection, systemic inflammation and/or tissue injury. To assess cardiovascular disease risk order high sensitivity CRP (CRPH). us [facility] LAB BLOOD ORDERABLES Final Res ult Performing Organization Address City/[facility]/ZIP Co de Phone Number [facility] [address] [place] [address] * (ABNORMAL) Prealbumin (04/10/2025 2:29 AM EDT) Prealbumin, Plasma 17.1(L) 20.0 - 41.0 mg/dL 04/10/2025 11:03 AM EDT [facility] Blood Venous blood specimen / Unknown Venipuncture / Unknown 04/10/2025 2:29 AM EDT 04/10/2025 2:39 AM EDT us Cristian Rea MD LAB BLOOD ORDERABLES Final Result Performing Organization Address City/[facility]/ZIP Co de Phone Number [facility] [address] [place] [address] * (ABNORMAL) Basic metabolic panel (04/10/2025 2:29 AM EDT) Glucose, Plasma 168(H) 74 - 99 mg/dL 04/10/2025 3:07 AM EDT [facility] BUN, Plasma 11 8 - 23 mg/dL 04/10/2025 3:07 AM EDT [facility] Creatinine, Plasma 0.80 0.70 - 1.20 mg/dL 04/10/2025 3:07 AM EDT [facility] BUN/Creatinine Ratio 14 04/10/2025 3:07 AM EDT [facility] Sodium, Plasma 138 136 - 145 mmol/L 04/10/2025 3:07 AM EDT [facility] Potassium, Plasma 4.8 3.6 - 4.9 mmol/L 04/10/2025 3:07 AM EDT [facility] Chloride, Plasma 106 97 - 107 mmol/L 04/10/2025 3:07 AM EDT [facility] CO2, Plasma 22 22 - 29 mmol/L 04/10/2025 3:07 AM EDT [facility] Anion Gap 10 6 - 16 mmol/L 04/10/2025 3:07 AM EDT [facility] Total Calcium, Plasma 8.8(L) 8.9 - 10.2 mg/dL 04/10/2025 3:07 AM EDT [facility] eGFRcr 100.1 mL/min/1.7 3m*2 04/10/2025 3:07 AM EDT [facility] Comment:Reported eGFRcr in m L/min/1.73m2 is based the CKD-EPI 2020 equation that does not use a race coefficient. Blood Venous blood specimen / Unknown Venipuncture / Unknown 04/10/2025 2:29 AM EDT 04/10/2025 2:39 AM EDT us Cristian Rea MD LAB BLOOD ORDERABLES Final Result [facility] [address] [place] [address] * (ABNORMAL) CBC (04/10/2025 2:29 AM EDT) WBC Count 5.60 3.70 - 10.30 10*3/uL LAB HEMATOLOGY METHOD 04/10/2025 2:50 AM EDT [facility] RBC Count 4.18(L) 4.60 - 6.10 10*6/uL LAB HEMATOLOGY METHOD 04/10/2025 2:50 AM EDT [facility] HGB 12.5(L) 13.7 - 17.5 g/dL LAB HEMATOLOGY METHOD 04/10/2025 2:50 AM EDT [facility] HCT 37.2(L) 40.0 - 51.0 % LAB HEMATOLOGY METHOD 04/10/2025 2:50 AM EDT [facility] Platelet Count 251 155 - 369 10*3/uL LAB HEMATOLOGY METHOD 04/10/2025 2:50 AM EDT [facility] MCV 89 79 - 98 fL LAB HEMATOLOGY METHOD 04/10/2025 2:50 AM EDT [facility] MCH 29.9 26.0 - 32.0 pg LAB HEMATOLOGY METHOD 04/10/2025 2:50 AM EDT [facility] MCHC 33.6 30.7 - 35.5 g/dL LAB HEMATOLOGY METHOD 04/10/2025 2:50 AM EDT [facility] RDW 14.0 11.5 - 14.5 % LAB HEMATOLOGY METHOD 04/10/2025 2:50 AM EDT [facility] MPV 9.2 8.8 - 12.5 fL LAB HEMATOLOGY METHOD 04/10/2025 2:50 AM EDT [facility] nRBC 0.0 <=0.0 per 100 WBCs LAB HEMATOLOGY METHOD 04/10/2025 2:50 AM EDT [facility] Blood Venous blood specimen / Unknown Venipuncture / Unknown 04/10/2025 2:29 AM EDT 04/10/2025 2:39 AM EDT Cristian Rea MD LAB BLOOD ORDERABLES Final Result [facility] [address] [place] [address] * FL Less than 1 Hour Intraoperative (04/09/2025 5:08 PM EDT) Narrative IMAGING - 04/09/2025 5:09 PM EDT Images were obtained for surgical purposes. See Cristian Rea's surgical note in the patient's chart for the findings. Cristian Rea MD IMG FLUOROSCOPY PROCEDURES Final Result IMAGING * (ABNORMAL) Bone Culture and Gram Stain (04/09/2025 4:34 PM EDT) Culture Light Growth 04/12/2025 7:38 AM EDT [facility] Culture Staphylococcus aureus(A) 04/12/2025 7:38 AM EDT [facility] Comment: (small colony variant) - Positive for MRSA by PBP2a assay. The organism value for this result has been updated. These results have been appended to the previously preliminary verified report. Gram Stain Result No organisms seen 04/12/2025 7:38 AM EDT [facility] Gram Stain Result No polymorphonuclear leukocytes seen 04/12/2025 7:38 AM EDT [facility] Bone Topography unknown / Unknown 04/09/2025 4:34 PM EDT 04/09/2025 5:07 PM EDT Comment:Pre-op diagnosis: 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) [M86.461] us Cristian Rea MD LAB MICROBIOLOGY - GENERAL ORDERABLES Final Result Performing Organization Address City/[facility] Co de Phone Number [facility] [address] [place] [address] * Anaerobic Culture (04/09/2025 4:34 PM EDT) Culture No anaerobes isolated 04/13/2025 10:52 AM EDT [facility] Bone Topography unknown / Unknown 04/09/2025 4:34 PM EDT 04/09/2025 5:07 PM EDT Comment:Pre-op diagnosis: 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) [M86.461] us Cristian Rea MD LAB MICROBIOLOGY - GENERAL ORDERABLES Final Result Performing Organization Address City/[facility]/ZIP Co de Phone Number [facility] [address] [place] [address] * (ABNORMAL) Bone Culture and Gram Stain (04/09/2025 4:16 PM EDT) Culture Light Growth 04/12/2025 12:25 PM EDT [facility] Culture Methicillin-Resistan t Staphylococcus aureus(AA) 04/12/2025 12:25 PM EDT [facility] Comment: (small colony variant) - Positive for MRSA by PBP2a assay. The organism value for this result has been updated. These results have been appended to the previously preliminary verified report. <null> has been updated to reportable. Gram Stain Result No organisms seen 04/12/2025 12:25 PM EDT [facility] Gram Stain Result No polymorphonuclear leukocytes seen 04/12/2025 12:25 PM EDT [facility] Bone Topography unknown / Unknown 04/09/2025 4:16 PM EDT 04/09/2025 5:06 PM EDT Comment:Pre-op diagnosis: 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) [M86.461] Cristian Rea MD LAB MICROBIOLOGY - GENERAL ORDERABLES Final Result Performing Organization Address City/[facility]/ZIP Co de Phone Number [facility] [address] [place] [address] * 12 Lead ECG (04/09/2025 3:13 PM EDT) EKG DIAGNOSIS CLASS Abnormal MUSE ECG Ventricular Rate 59 BPM MUSE ECG Atrial Rate 59 BPM MUSE ECG IA Interval 122 ms MUSE ECG QRSD Interval 82 ms MUSE ECG QT Interval 432 ms MUSE ECG QTC Interval 427 ms MUSE ECG P [place] 67 degrees MUSE ECG R [place] 92 degrees MUSE ECG T Wave [place] 76 degrees MUSE ECG Diagnosis Sinus bradycardia MUSE ECG Diagnosis Rightward axis MUSE ECG Diagnosis Poor R-wave progression MUSE ECG Diagnosis Abnormal ECG MUSE ECG Diagnosis MUSE ECG Diagnosis Confirmed by Isacc Arciniega ([id number]) on 04/09/2025 5:30:16 PM MUSE ECG 04/09/2025 3:13 PM EDT 04/09/2025 5:30 PM EDT Rubens Guy MD ECG ORDERABLES Final Result MUSE ECG * (ABNORMAL) CBC (04/09/2025 3:01 PM EDT) WBC Count 8.61 3.70 - 10.30 10*3/uL LAB HEMATOLOGY METHOD 04/09/2025 3:44 PM EDT [facility] RBC Count 4.58(L) 4.60 - 6.10 10*6/uL LAB HEMATOLOGY METHOD 04/09/2025 3:44 PM EDT [facility] HGB 13.4(L) 13.7 - 17.5 g/dL LAB HEMATOLOGY METHOD 04/09/2025 3:44 PM EDT [facility] HCT 41.0 40.0 - 51.0 % LAB HEMATOLOGY METHOD 04/09/2025 3:44 PM EDT [facility] Platelet Count 269 155 - 369 10*3/uL LAB HEMATOLOGY METHOD 04/09/2025 3:44 PM EDT [facility] MCV 90 79 - 98 fL LAB HEMATOLOGY METHOD 04/09/2025 3:44 PM EDT [facility] MCH 29.3 26.0 - 32.0 pg LAB HEMATOLOGY METHOD 04/09/2025 3:44 PM EDT [facility] MCHC 32.7 30.7 - 35.5 g/dL LAB HEMATOLOGY METHOD 04/09/2025 3:44 PM EDT [facility] RDW 14.0 11.5 - 14.5 % LAB HEMATOLOGY METHOD 04/09/2025 3:44 PM EDT [facility] MPV 9.2 8.8 - 12.5 fL LAB HEMATOLOGY METHOD 04/09/2025 3:44 PM EDT [facility] nRBC 0.0 <=0.0 per 100 WBCs LAB HEMATOLOGY METHOD 04/09/2025 3:44 PM EDT [facility] Blood Venous blood specimen / Unknown Venipuncture / Unknown 04/09/2025 3:01 PM EDT 04/09/2025 3:35 PM EDT us Cristian Rea MD LAB BLOOD ORDERABLES Final Result [facility] [address] [place] [address] * Basic metabolic panel (04/09/2025 3:01 PM EDT) Glucose, Plasma 96 74 - 99 mg/dL 04/09/2025 4:02 PM EDT [facility] BUN, Plasma 8 8 - 23 mg/dL 04/09/2025 4:02 PM EDT [facility] Creatinine, Plasma 0.80 0.70 - 1.20 mg/dL 04/09/2025 4:02 PM EDT [facility] BUN/Creatinine Ratio 10 04/09/2025 4:02 PM EDT [facility] Sodium, Plasma 139 136 - 145 mmol/L 04/09/2025 4:02 PM EDT [facility] Potassium, Plasma 4.0 3.6 - 4.9 mmol/L 04/09/2025 4:02 PM EDT [facility] Chloride, Plasma 104 97 - 107 mmol/L 04/09/2025 4:02 PM EDT [facility] CO2, Plasma 24 22 - 29 mmol/L 04/09/2025 4:02 PM EDT [facility] Anion Gap 11 6 - 16 mmol/L 04/09/2025 4:02 PM EDT [facility] Total Calcium, Plasma 9.0 8.9 - 10.2 mg/dL 04/09/2025 4:02 PM EDT [facility] eGFRcr 100.1 mL/min/1.7 3m*2 04/09/2025 4:02 PM EDT [facility] Comment:Reported eGFRcr in m L/min/1.73m2 is based the CKD-EPI 2020 equation that does not use a race coefficient. Blood Venous blood specimen / Unknown Venipuncture / Unknown 04/09/2025 3:01 PM EDT 04/09/2025 3:31 PM EDT us Rubens Guy MD LAB BLOOD ORDERABLES Final Re sult [facility] [address] [place] [address] * Type and screen (04/09/2025 3:01 PM [...] BLOOD BANK TEST ORDERABLE S Final Result BLOOD BANK [address] [place] [address], documented in this encounter Visit Diagnoses Diagnosis [...] at 1945, Routine, wheezing, shortness of breath Jonntahan powder 1 packet 1 packet, Oral, Daily, First dose on Mon04/10/25 at 1300, Until Discontinued, Routine Given 04/11/2025 9:06 AM EDT 1 packet Given 04/10/2025 1:26 PM EDT 1 packet methocarbamol (Robaxin) tablet 750 mg 750 mg, Oral, Every 6 hours PRN, Starting on Mon04/09/25 at 203, Until Mon04/11/25 at 1945, Routine, Recovery(Phase II-Outpatient)/On [...] on Mon04/10/25 at 1145, Until Discontinued, Routine Povidone-Iodine 5 [...] II-Outpatient)/On Unit(Inpatient) 0026 (Given - Provider: Qiana uNno RN)0614 (Given - Provider: Qiana Nuno RN)1117 (Given - Provider: Nesha Deng, TITUS)1727 (Given - Provider: Nesha Deng, TITUS) 0036 (Given - Provider: Bryan Gibbs RN)0528 [...] Routine 1112 (Given - Provider: Nesha Deng RN) 0859 (Given - Provider: Christian Jay, RN) DAPTOmycin (Cubicin) 450 mg in sodium chloride [...] Deng RN) 0906 (Given - Provider: Christian Jay RN) lactated Ringer's infusion (COMPLETED) 100 mL/hr, Intravenous, [...] 1545, Routine 1507 (Given - Provider: Sunny Dwyre RN) rosuvastatin (Crestor) tablet 20 mg 20 mg, Oral, Nightly, First dose on Maryellen 04/10/25 at 2100, Until Discontinued, Routine 2157 (Given - Provider: Bryan Gibbs RN) senna-docusate (Angela-Colace) 8.6-50 MG per tablet 1 tablet 1 tablet, Oral, 2 times daily, First dose on Maryellen 04/10/25 at 1145, Until Discontinued, Routine 1112 (Given - Provider: Nesha Deng RN)2156 (Given - Provider: Bryan Gibbs RN) 0859 (Not Given - Provider: Christian [...] pain score of 5-8 out of 10 8 (Given - Provider: Giovani Cowan RN) ipratropium-albuterol (Duo-Neb) 0.5-2.5 mg/3 mL nebulizer solution 3 mL 3 mL, Nebulization, Every 6 hours PRN, Starting on Mon04/11/25 at 0437, Until Mon04/11/25 at 1945, Routine, wheezing, shortness of breath methocarbamol (Robaxin) tablet 750 mg 750 mg, Oral, Every 6 hours PRN, Starting on Mon04/09/25 at 2030, Until Mon04/11/25 at 1945, Routine, Recovery(Phase II-Outpatient)/On [...] pain score of 6-8 out of 10 1827 (Given - Provider: Giovani Cowan RN) oxyCODONE (Roxicodone) immediate release tablet 10 mg(Linked Group 3) 10 mg, Oral, Every 4 hours PRN, Starting on Mon04/09/25 at 2030, Until Mon04/11/25 at 0830, Routine, Recovery(Phase II-Outpatient)/On Unit(Inpatient), severe pain 0031 (Given - Provider: Qiana Nuno RN)0619 (Given - Provider: Qiana Nuno RN)1045 (Given - Provider: Nesha Deng RN)1443 (Given - Provider: Nesha Deng RN)1852 (Given - Provider: Nesha Deng RN)2206 (Given - Provider: Bryan Gibbs RN) 0328 (Given - Provider: Bryan Gibbs RN)0649 (Given - Provider: Bryan Gibbs RN) oxyCODONE (Roxicodone) immediate release tablet 5 mg(Linked Group 3) 5 mg, Oral, Every 4 hours PRN, Starting on Mon04/09/25 at 2030, Until Mon04/11/25 at 0830, Routine, Recovery(Phase II-Outpatient)/On Unit(Inpatient), moderate pain 0031 (See Alternative - Provider: Qiana Nuno RN)0619 (See Alternative - Provider: Qiana Nuno RN)1045 (See Alternative - Provider: Nesha Deng RN)1443 (See Alternative - Provider: Nesha Deng RN)1852 (See Alternative - Provider: Nesha Deng RN)2206 (See Alternative - Provider: Bryan Gibbs RN) 0328 (See Alternative - Provider: Bryan iGbbs RN)0649 (See Alternative - Provider: Bryan Gibbs [...] Oral, Every 8 hours PRN, Starting on 04/15/25 at 0831, Until Mon04/11/25 at 1945, Routine, [...] hours scheduled, 4 doses, First dose on Mon04/10/25 at 0000, Last dose on Mon04/10/25 at 1800, Routine, Recovery(Phase II- Outpatient)/On Unit(Inpatient) [...] Oral, Every 8 hours PRN, Starting on 04/15/25 at 0831, Until Mon04/11/25 at 1945, Routine, [...] documented as of this encounter Care Teams Insurance Agents Supervisor Relationship Specialty Start Date End Date Ruddy Branch MD PCP - General 12/14/22 documented as of this encounter
--- OUTSIDE RECORDS SUMMARY | 2025-04-09 13:30 | XMS_ITS | Encounter Summary ---
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 the [facility], take the garage elevator to Level A and catch the free shuttle to the hospital. (Be careful not to take the [facility] shuttle - there is an [...] talk to them after your surgery. A safe deposit box rental clerk is available in the waiting room [...] living will, health care surrogate, power of attorney lawyer or guardianship papers. ? Bring a responsible [...] makeup, jewelry (including body piercing) or nail romanian. ? Don?t bring money or valuables to [...] office and the Preoperative Anesthesia Clinic at [phone] or [phone]. If it is the day of surgery, call the location where you are scheduled to have your surgery: [facility] at [phone] or [phone] or [facility] at [phone] or [phone]. For more information Visit [email or web address] or call [phone] or [phone]. [employer] does not discriminate. HealthCare complies with applicable [...] right off the exit ramp onto [address] ([place] [address]/[place] [address]) toward [place]. ? In 4.1 miles, turn left onto [address] (at the [employer] gas station). ? In a half-mile, turn right onto [address] ? In .3 miles, turn right onto [address] (just past the [employer] gas station). Garage entrance is on the left. ? Important: This garage address will change to [address] [place] [address] on February 18, 2025. Directions from HealthCare Parking Garage to I-75/I-64: ? Turn left out of the garage onto [facility] [facility]. ? Turn left onto [address]. ? In .3 miles, turn left down [address] ? In a half-mile, turn right onto [address] (at the [employer] gas station). ? In 4.1 miles, merge onto [address] /[address] (near the [facility] by [facility]). Parking Any patients or visitors of [facility] can park in the following areas: ? [facility] Parking Garage (main garage): [address] (Levels A-F) ? [facility] Garage: [address] (Levels 1-6) ? [facility] lot: Located off [email or web address] (limited parking for [facility] outpatients only). Upon Your Arrival ? Patients and visitors going to [place] [facility], and [facility] may walk across the pedway, located [...] also be accessed via the pedway off [facility] garage on Level C. If you need a shuttle to the ED, one can be called for you at Level A of the main garage or contact any of the information desks, . Additional Information For additional information, please visit our information desks located throughout [facility]. Information desks have additional maps and resources. Information desks are located at the main entrances of: [facility] (first floor and ground floor), [facility], [facility] H, Pavilion CC, Pavilion , [facility] (first and third floor), and [facility]. Informationdesk number: [phone]. Important Addresses [address] ? [facility] entrance ? Pavilion A ? Pavilion G ([facility]) ? Emergency Department [address] ? Pavilion H ? Pavilion CC ([facility]) ? Pavilion WH ([facility]) ? [facility] [address] ? [facility] [address] [facility] [address] [facility] [address] ? [address] ? [facility] ? [facility] [...] split thickness skin graft right leg cpt 40062, [id number], [id number] [address] Rea (Right). [...] card, photo ID, along with power of attorney lawyer, guardianship or advanced directives if applicable Do not bring money, jewelry (Including wedding rings) or other valuables. Do not wear any makeup, nail romanian, or contact lens the day of surgery. [...] you are scheduled to have your surgery: [facility] at [phone] or [phone] or [facility] at [phone] or [phone]. documented in this encounter Plan of Treatment Upcoming Encounters Date Type Department Care Team (Late st Contact Info) Description 05/06/2025 1:30 PM EDT Office Visit [facility] [address] [place] [address] Catalina Ruiz, AZRA [address] [facility] [address] [place] [address] 05/06/2025 2:30 PM EDT Office Visit [facility] [address], 1st [address] [place] [address] Cristian Rea MD [address] [place] [address] 05/14/2025 Hospital Encounter [facility] A OPERATING ROOM [address] [place] [address] Jennifer Novak MD [address] [place] [address] 05/20/2025 1:00 PM EDT Office Visit [facility] [address] [place] [address] Catalina Ruiz, AZRA [address] [facility] [address] [place] [address] Pending Results Name Type Priority [...] Orde r Schedule Discharge Ambulatory referral to [facility] Outpatient Referral Routine Chronic osteomyelitis of right [...] of right tibia with draining sinus (CMS/HCC) [place] REMOVAL DEEP IMPLANT 04/09/20 3:20 PM EDT [...] Lorenzo RN Authorized by: Cristian Rea MD [place] Protocol: Verbal consent obtained?: Yes Written consent [...] preference Patient position: Flat Catheter Lot #: [id number] Catheter bell spinner sousaphones: [employer] PowerPICC Solo Catheter placed: Single lumen Catheter [...] PM EDT) [facility] Creatine Kinase, Plasma 143 49 - 320 U/L 04/11/2025 2:10 PM EDT [facility] Blood Venous blood specimen / Unknown Venipuncture / Unknown 04/11/2025 1:00 PM EDT 04/11/2025 1:41 PM EDT [facility] LAB BLOOD ORDERABLES Final Res ult [facility] [address] [place] [address] * HIV 1 & 2 Antibody/Antigen Screen (04/11/2025 1:00 PM EDT) [facility] HIV 1 & 2 Antibody/Antigen Screen Non Reactive Non Reactive 04/11/2025 2:38 PM EDT [facility] Comment:Screening for HIV 1 & 2 antibodies, and P24 antigen is NONREACTIVE. No confirmatory testing is required. Blood Venous blood specimen / Unknown Venipuncture / Unknown 04/11/2025 1:00 PM EDT 04/11/2025 1:41 PM EDT us George Fox MD LAB BLOOD ORDERABLES Final R esult Performing Organization Address [facility] Co de Phone Number [facility] [address] [place] [address] * C-reactive protein (04/10/2025 2:29 AM EDT) CRP, Plasma <3.0 <=8.0 mg/L 04/10/2025 12:01 PM EDT [facility] Blood Venous blood specimen / Unknown Venipuncture / Unknown 04/10/2025 2:29 AM EDT 04/10/2025 2:39 AM EDT Narrative [facility] - 04/10/2025 12:01 PM EDT This CRP test is appropriate for assessment of infection, systemic inflammation and/or tissue injury. To assess cardiovascular disease risk order high sensitivity CRP (CRPH). us [facility] LAB BLOOD ORDERABLES Final Res ult Performing Organization Address [facility] Co de Phone Number [facility] [address] [place] [address] * (ABNORMAL) Prealbumin (04/10/2025 2:29 AM EDT) Prealbumin, Plasma 17.1(L) 20.0 - 41.0 mg/dL 04/10/2025 11:03 AM EDT [facility] Blood Venous blood specimen / Unknown Venipuncture / Unknown 04/10/2025 2:29 AM EDT 04/10/2025 2:39 AM EDT us Cristian Rea MD LAB BLOOD ORDERABLES Final Result [facility] [address] [place] [address] * (ABNORMAL) Basic metabolic panel (04/10/2025 2:29 AM EDT) Glucose, Plasma 168(H) 74 - 99 mg/dL 04/10/2025 3:07 AM EDT [facility] BUN, Plasma 11 8 - 23 mg/dL 04/10/2025 3:07 AM EDT [facility] Creatinine, Plasma 0.80 0.70 - 1.20 mg/dL 04/10/2025 3:07 AM EDT [facility] BUN/Creatinine Ratio 14 04/10/2025 3:07 AM EDT [facility] Sodium, Plasma 138 136 - 145 mmol/L 04/10/2025 3:07 AM EDT [facility] Potassium, Plasma 4.8 3.6 - 4.9 mmol/L 04/10/2025 3:07 AM EDT [facility] Chloride, Plasma 106 97 - 107 mmol/L 04/10/2025 3:07 AM EDT [facility] CO2, Plasma 22 22 - 29 mmol/L 04/10/2025 3:07 AM EDT [facility] Anion Gap 10 6 - 16 mmol/L 04/10/2025 3:07 AM EDT [facility] Total Calcium, Plasma 8.8(L) 8.9 - 10.2 mg/dL 04/10/2025 3:07 AM EDT [facility] eGFRcr 100.1 mL/min/1.7 3m*2 04/10/2025 3:07 AM EDT [facility] Comment:Reported eGFRcr in m L/min/1.73m2 is based the CKD-EPI 2020 equation that does not use a race coefficient. Blood Venous blood specimen / Unknown Venipuncture / Unknown 04/10/2025 2:29 AM EDT 04/10/2025 2:39 AM EDT Cristian Rea MD LAB BLOOD ORDERABLES Final Result [facility] [address] [place] [address] * (ABNORMAL) CBC (04/10/2025 2:29 AM EDT) WBC Count 5.60 3.70 - 10.30 10*3/uL LAB HEMATOLOGY METHOD 04/10/2025 2:50 AM EDT [facility] RBC Count 4.18(L) 4.60 - 6.10 10*6/uL LAB HEMATOLOGY METHOD 04/10/2025 2:50 AM EDT [facility] HGB 12.5(L) 13.7 - 17.5 g/dL LAB HEMATOLOGY METHOD 04/10/2025 2:50 AM EDT [facility] HCT 37.2(L) 40.0 - 51.0 % LAB HEMATOLOGY METHOD 04/10/2025 2:50 AM EDT [facility] Platelet Count 251 155 - 369 10*3/uL LAB HEMATOLOGY METHOD 04/10/2025 2:50 AM EDT [facility] MCV 89 79 - 98 fL LAB HEMATOLOGY METHOD 04/10/2025 2:50 AM EDT [facility] MCH 29.9 26.0 - 32.0 pg LAB HEMATOLOGY METHOD 04/10/2025 2:50 AM EDT [facility] MCHC 33.6 30.7 - 35.5 g/dL LAB HEMATOLOGY METHOD 04/10/2025 2:50 AM EDT [facility] RDW 14.0 11.5 - 14.5 % LAB HEMATOLOGY METHOD 04/10/2025 2:50 AM EDT [facility] MPV 9.2 8.8 - 12.5 fL LAB HEMATOLOGY METHOD 04/10/2025 2:50 AM EDT [facility] nRBC 0.0 <=0.0 per 100 WBCs LAB HEMATOLOGY METHOD 04/10/2025 2:50 AM EDT [facility] Blood Venous blood specimen / Unknown Venipuncture / Unknown 04/10/2025 2:29 AM EDT 04/10/2025 2:39 AM EDT us Cristian Rea MD LAB BLOOD ORDERABLES Final Result [facility] [address] [place] [address] * [place] Less than 1 Hour Intraoperative (04/09/2025 5:08 PM EDT) Narrative IMAGING - 04/09/2025 5:09 PM EDT Images were obtained for surgical purposes. See Cristian Rea's surgical note in the patient's chart for the findings. Cristian Rea MD IMG FLUOROSCOPY PROCEDURES Final Result Performing Organization Address City/[facility] Co de Phone Number IMAGING * (ABNORMAL) Bone Culture and Gram Stain (04/09/2025 4:34 PM EDT) Culture Light Growth 04/12/2025 7:38 AM EDT [facility] Culture Staphylococcus aureus(A) 04/12/2025 7:38 AM EDT [facility] Comment: (small colony variant) - Positive for MRSA by PBP2a assay. The organism value for this result has been updated. These results have been appended to the previously preliminary verified report. Gram Stain Result No organisms seen 04/12/2025 7:38 AM EDT [facility] Gram Stain Result No polymorphonuclear leukocytes seen 04/12/2025 7:38 AM EDT [facility] Bone Topography unknown / Unknown 04/09/2025 4:34 PM EDT 04/09/2025 5:07 PM EDT Comment:Pre-op diagnosis: 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 (CMS/[facility]) [M86.461] us Cristian Rea MD LAB MICROBIOLOGY - GENERAL ORDERABLES Final Result Performing Organization Address City/[facility]/ZIP Co de Phone Number [facility] [address] [place] [address] * Anaerobic Culture (04/09/2025 4:34 PM EDT) Culture No anaerobes isolated 04/13/2025 10:52 AM EDT [facility] Bone Topography unknown / Unknown 04/09/2025 4:34 PM EDT 04/09/2025 5:07 PM EDT Comment:Pre-op diagnosis: 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) [M86.461] Cristian Rea MD LAB MICROBIOLOGY - GENERAL ORDERABLES Final Result Performing Organization Address [facility] Co de Phone Number [facility] [address] [place] [address] * (ABNORMAL) Bone Culture and Gram Stain (04/09/2025 4:16 PM EDT) Culture Light Growth 04/12/2025 12:25 PM EDT [facility] Culture Methicillin-Resistan t Staphylococcus aureus(AA) 04/12/2025 12:25 PM EDT [facility] Comment: (small colony variant) - Positive for MRSA by PBP2a assay. The organism value for this result has been updated. These results have been appended to the previously preliminary verified report. <null> has been updated to reportable. Gram Stain Result No organisms seen 04/12/2025 12:25 PM EDT [facility] Gram Stain Result No polymorphonuclear leukocytes seen 04/12/2025 12:25 PM EDT [facility] Bone Topography unknown / Unknown 04/09/2025 4:16 PM EDT 04/09/2025 5:06 PM EDT Comment:Pre-op diagnosis: 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) [M86.461] Cristian Rea MD LAB MICROBIOLOGY - GENERAL ORDERABLES Final Result Performing Organization Address [facility] Co de Phone Number [facility] [address] [place] [address] * 12 Lead ECG (04/09/2025 3:13 PM EDT) EKG DIAGNOSIS CLASS Abnormal MUSE ECG Ventricular Rate 59 BPM MUSE ECG Atrial Rate 59 BPM MUSE ECG WY Interval 122 ms MUSE ECG QRSD Interval 82 ms MUSE ECG QT Interval 432 ms MUSE ECG QTC Interval 427 ms MUSE ECG P [place] 67 degrees MUSE ECG R [place] 92 degrees MUSE ECG T Wave [place] 76 degrees MUSE ECG Diagnosis Sinus bradycardia MUSE ECG Diagnosis Rightward axis MUSE ECG Diagnosis Poor R-wave progression MUSE ECG Diagnosis Abnormal ECG MUSE ECG Diagnosis MUSE ECG Diagnosis Confirmed by Isacc Arciniega ([id number]) on 04/09/2025 5:30:16 PM MUSE ECG 04/09/2025 3:13 PM EDT 04/09/2025 5:30 PM EDT us Rubens Guy MD ECG ORDERABLES Final Result MUSE ECG * (ABNORMAL) CBC (04/09/2025 3:01 PM EDT) WBC Count 8.61 3.70 - 10.30 10*3/uL LAB HEMATOLOGY METHOD 04/09/2025 3:44 PM EDT [facility] RBC Count 4.58(L) 4.60 - 6.10 10*6/uL LAB HEMATOLOGY METHOD 04/09/2025 3:44 PM EDT [facility] HGB 13.4(L) 13.7 - 17.5 g/dL LAB HEMATOLOGY METHOD 04/09/2025 3:44 PM EDT [facility] HCT 41.0 40.0 - 51.0 % LAB HEMATOLOGY METHOD 04/09/2025 3:44 PM EDT [facility] Platelet Count 269 155 - 369 10*3/uL LAB HEMATOLOGY METHOD 04/09/2025 3:44 PM EDT [facility] MCV 90 79 - 98 fL LAB HEMATOLOGY METHOD 04/09/2025 3:44 PM EDT [facility] MCH 29.3 26.0 - 32.0 pg LAB HEMATOLOGY METHOD 04/09/2025 3:44 PM EDT [facility] MCHC 32.7 30.7 - 35.5 g/dL LAB HEMATOLOGY METHOD 04/09/2025 3:44 PM EDT [facility] RDW 14.0 11.5 - 14.5 % LAB HEMATOLOGY METHOD 04/09/2025 3:44 PM EDT [facility] MPV 9.2 8.8 - 12.5 fL LAB HEMATOLOGY METHOD 04/09/2025 3:44 PM EDT [facility] nRBC 0.0 <=0.0 per 100 WBCs LAB HEMATOLOGY METHOD 04/09/2025 3:44 PM EDT [facility] Blood Venous blood specimen / Unknown Venipuncture / Unknown 04/09/2025 3:01 PM EDT 04/09/2025 3:35 PM EDT Cristian Rea MD LAB BLOOD ORDERABLES Final Result [facility] [address] [place] [address] * Basic metabolic panel (04/09/2025 3:01 PM EDT) Glucose, Plasma 96 74 - 99 mg/dL 04/09/2025 4:02 PM EDT [facility] BUN, Plasma 8 8 - 23 mg/dL 04/09/2025 4:02 PM EDT [facility] Creatinine, Plasma 0.80 0.70 - 1.20 mg/dL 04/09/2025 4:02 PM EDT [facility] BUN/Creatinine Ratio 10 04/09/2025 4:02 PM EDT [facility] Sodium, Plasma 139 136 - 145 mmol/L 04/09/2025 4:02 PM EDT [facility] Potassium, Plasma 4.0 3.6 - 4.9 mmol/L 04/09/2025 4:02 PM EDT [facility] Chloride, Plasma 104 97 - 107 mmol/L 04/09/2025 4:02 PM EDT [facility] CO2, Plasma 24 22 - 29 mmol/L 04/09/2025 4:02 PM EDT [facility] Anion Gap 11 6 - 16 mmol/L 04/09/2025 4:02 PM EDT [facility] Total Calcium, Plasma 9.0 8.9 - 10.2 mg/dL 04/09/2025 4:02 PM EDT [facility] eGFRcr 100.1 mL/min/1.7 3m*2 04/09/2025 4:02 PM EDT [facility] Comment:Reported eGFRcr in m L/min/1.73m2 is based the CKD-EPI 2020 equation that does not use a race coefficient. Blood Venous blood specimen / Unknown Venipuncture / Unknown 04/09/2025 3:01 PM EDT 04/09/2025 3:31 PM EDT Rubens Guy MD LAB BLOOD ORDERABLES Final Re sult Performing Organization Address City/[facility]/ZIP Co de Phone Number [facility] [address] [place] [address] * Type and screen (04/09/2025 3:01 PM [...] ORDERABLE S Final Result Performing Organization Address [facility] de Phone Number BLOOD BANK [address] [place] [address], documented in this encounter Visit Diagnoses Diagnosis [...] Holding - Preprocedure 1401 (Given - Provider: Gerry Reister, RN) gabapentin (Neurontin) capsule 200 mg (COMPLETED) [...] Maryellen 04/10/25 at 2100, Until Discontinued, Routine 215 (Given [...] documented as of this encounter Care Teams Entry Level Recruiter Relationship Specialty Start Date End Date Ruddy Branch MD PCP - General 12/14/22 documented as of this encounter
--- OUTSIDE RECORDS SUMMARY | 2025-04-09 15:36 | XMS_ITS | Encounter Summary ---
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) [M86.461] Procedures LA REMOVAL DEEP IMPLANT LA ADJ TISS XFER SCALP,EXTREM <10 SQCM LA MUSCLE-SKIN FLAP,LEG LA SPLIT GRFT TRUNK,ARM,LEG <100 SQCM LA ADJ TISS XFER SCALP,EXTREM <10 SQCM REMOVAL, HARDWARE Rotational Flap, Adjacent tissue transfer, split thickness skin graft RIGHT leg Cristian Rea MD [address] [facility] [address] [place] [address] Phone: tel: fax: PAV A OPERATING ROOM [address] [place] [address] Phone: tel: Referral ID Status Reason Start Date Expiration Date Visits Re quested Visits Authorized [id number] 1 1 Encounter Details Date Type Department Care Team (Late st Contact Info) Description 04/09/2025 3:36 PM EDT Anesthesia Event [facility] A [facility]PERATING ROOM [address] [place] [address] Rubens Guy MD [address] [place] [address] Lilli Cisneros MD [address] [place] [address] Anesthesia Record Procedure Summary Procedure Name Responsible [...] Antecubital; Site Prep: Chlorhexidine ; Local Anesth: [place]; Technique: Anatomical landmarks; Inserted by: susu; Insertion [...] and Family Not on file 03/19/2024 Attends Muslim Services Not on file 03/19 Active Member [...] Recorded Patient Health Questionnaire-2 Score 0 10/15/2024 [facility] of Occupat ional [facility] - Occupational Stress Questionnaire Answer Date Recorded [...] and Family Not on file 04/11/2025 Attends Muslim Services Not on file 04/11 Active Member [...] any time in the past 12 m [facility], were you homeless or living in a [facility] (including now)? No 04/11/2025 CAGE ASSESSMENT Answer [...] Have you had a drink first t trupit in the morning (EYE-ASSISTANT DEAN OF STUDENTS) to steady your nerves or to get [...] portions of the procedure(s) and immediately available [facility] services the entire duration. See resident note for details. * Anesthesia Preprocedure Evaluation - Rubens Guy MD - 04/09/2025 12:21 PM EDT No anesthesia staff entered. Patient: Thai Ponce HPI Thai Ponce is a 64 y.o. male with history of [place], anxiety/depression, smoker, COPD, and bodymass index is [...] graft RIGHT leg (Right: Leg Lower) Location: [facility] [place] [facility] [facility] Surgeons: Cristian [...] ABG No results found for: PHART , FCM1IQS , PO2ART , SO2ART , BEART , MFS3BZG , HCTART , SODIUMART , POTASSIUMART , POCTCL , POCGLU , IONCALART , LACTATE Lab Results Component Value Date HCTSYR 19.4 (LL) 12/13/2023 KSYR 3.8 12/13/2023 CLSYR 106 12/13/2023 GLUSYR 111 (H) 12/13/2023 CAION 4.3 (L) 12/13/2023 ECHO No echocardiogram results found for the past 12 months PFTs No results found for: ZNU3GQF , QPO5ECZM , IZW3MHO , FVCPRED BP Readings from Last 5 [...] to OR ROS Cardiovascular: Cardio additional comments: [facility] 60 to 70% LAD, normal circumflex, less than 10% RCA OS last Cards note 08/2022 1. Coronary artery disease involving [place] heart with other form of angina pectoris, unspecified vessel or lesion type ([facility]) (Primary), recurrent chest pain. Known [...] Date Anxiety COPD (chronic obstructive pulmonary disease) ([facility]) Coronary artery disease last cardiology appt. 08/2022 - patient states no longer sees cardiology Deep vein thrombosis ([facility]) 2023 Depression Dysphagia unknown reason as of 04/01/25 History of methicillin resistant Staphylococcus aureus HL (hearing loss) no hearing aids at this time Hyperlipidemia Hypertension Limited mobility holds on to furniture and paniagua Myocardial infarction ([facility]) 2018 Peripheral neuropathy PTSD (post-traumatic [...] Description 05/06/2025 1:30 PM EDT Office Visit [facility] [address] [place] [address] Catalina Ruiz, AZRA [address] [facility] [address] [place] [address] 05/06/2025 2:30 PM EDT Office Visit [facility] Orthopaedic Surgery & Sports Medicine [address], 1st Floor [address] [place] [address] Cristian Rea MD [address] [place] [address] 05/14/2025 Hospital Encounter [facility]PERATING ROOM [address] [place] [address] Jennifer Martinez MD [address] [address] 05/20/2025 1:00 PM EDT Office Visit [facility] [address] [place] [address] Catalina Ruiz, AZRA [address] [facility] [address] [place] [address] Scheduled Procedures Name Priority Associated Diagnoses Date/Ti me APPLICATION, GRAFT, SKIN, SPLIT-THICKNESS Open wound documented as of this encounter Procedures Procedure Name Priority Date/Time Associated Diagnosis Comments PB ANESTHESIA PLACEHOLDER Routine 04/09/2025 3:47 PM EDT LA AN ELECTIVE ENDOTRACHEAL AIRWAY Routine 04/09/2025 3:47 PM EDT documented in this encounter Results * LA AN ELECTIVE ENDOTRACHEAL AIRWAY, PB ANESTHESIA PLACEHOLDER (04/09/2025 3:47 PM EDT) Narrative Rubens Guy MD - 04/09/2025 3:47 PM EDT Rubesn Guy MD 04/11/2025 7:13 AM Airway Date/Time: [...] on Mon04/09/25 at 1559, Until Mon04/09/25 at 181, Routine, Anesthesia Intraprocedure Given 04/09/2025 3:59 PM [...] documented as of this encounter Care Teams Monumental Stonemason Relationship Specialty Start Date End Date Ruddy Branch MD PCP - General 12/14/22 documented as of this encounter
--- OUTSIDE RECORDS SUMMARY | 2025-04-14 14:30 | XMS_ITS | Encounter Summary ---
Author Organization [facility] Address [address] 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) 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) [M86.461] Procedures CA REMOVAL DEEP IMPLANT CA ADJ TISS XFER SCALP,EXTREM <10 SQCM CA MUSCLE-SKIN FLAP,LEG CA SPLIT GRFT TRUNK,ARM,LEG <100 SQCM CA ADJ TISS XFER SCALP,EXTREM <10 SQCM REMOVAL, HARDWARE Rotational Flap, Adjacent tissue transfer, split thickness skin graft RIGHT leg Cristian Rea MD [address] [facility] [address] [place] [address] Phone: tel: fax: P[facility] A OPERATING ROOM [address] [place] [address] Phone: tel: Referral ID Status Reason Start Date Expiration Date Visits Re quested Visits Authorized [id number] 1 1 Encounter Details Date Type Department Care Team (Late st Contact Info) Description 04/14/2025 2:30 PM EDT Office [facility] Plastic & Reconstructive Surgery [address] [place] [address] Jennifer Novak MD [address] [place] [address] Encounter for postoperative care (Primary Dx) [...] and Family Not on file 03/19/2024 Attends Zoroastrianism Services Not on file 03/19 Active Member [...] Recorded Patient Health Questionnaire-2 Score 0 10/15/2024 [facility] of Occupat ional Health - [...] and Family Not on file 04/11/2025 Attends Zoroastrianism Services Not on file 04/11 Active Member [...] any time in the past 12 m [facility], were you homeless or living in a intermediate (including now)? No 04/11/2025 CAGE ASSESSMENT Answer [...] drink first t trupti in the morning (EYE-LASER BEAM MACHINE OPERATOR) to steady your nerves or to get rid of a hangover? 0 03/14/2024 CAGE Questionnaire Score 0 024 Utilities Answer Date Recorded In the past 12 months has th [employer], gas, oil, or water company threatened to [...] from the original note were not included. [facility] Department of Surgery Division of Plastic and [...] R ankle pilon fracture who presents to [facility] on 04/14/25 for follow-up status-post ORIF [...] form which was reviewed and scanned into [employer]. Negative for bleeding disorders, clotting disorders, or [...] on to furniture and paniagua Myocardial infarction ([facility]) 2017 Peripheral neuropathy PTSD (post-traumatic [...] student. I discussed the case with the medical/DENIER CONTROL OPERATOR/PA student and agree with the findings and plan as documented. I personally performed the Exam and Medical Decision Making. documented in this encounter Plan of Treatment Upcoming Encounters Date Type Department Care Team (Late st Contact Info) Description 05/06/2025 1:30 PM EDT Office Visit [facility] [address] [place] [address] Catalina Ruiz, INDUSTRIAL COOK [address] [facility] [address] [place] [address] 05/06/2025 2:30 PM EDT Office Visit [facility] Orthopaedic Surgery & Sports Medicine [address], [address] [place] [address] Cristian Rea MD [address] [place] [address] 05/14/2025 Hospital Encounter [facility] [address] [place] [address] Jennifer Novak MD [address] [facility] [address] [place] [address] 05/20/2025 1:00 PM EDT Office Visit [facility] [address] [place] [address] Catalina Ruiz APRN [address] [facility] [address] [place] [address] Scheduled Procedures Name Priority Associated [...] documented as of this encounter Care Teams Residential Field Manager Relationship Specialty Start Date End Date Ruddy Branch MD PCP - General 12/14/22 documented as of this encounter
--- OUTSIDE RECORDS SUMMARY | 2025-04-25 10:20 | XMS_ITS | Encounter Summary ---
Author Organization Healthcare Address [address] [place] [address] Care Team Providers Care Automotive Glass Installer Name Role Phone Ruddy Branch MD Primary Care Provider [phone] Reason for Visit * Reason Comments Wound Check Encounter Details Date Type Department Care Team (Late st Contact Info) Description 04/25/2025 10:20 AM EDT Office Visit [place] [facility] [address] [facility] 5th Floor Wing [address], [address] [place] [address] Jennifer Novak MD [address] [facility] 2nd [place] [address] Open wound (Primary Dx) Social [...] Recorded Patient Health Questionnaire-2 Score 0 10/15/2024 [facility] - Occupational Stress Questionnaire Answer Date [...] any time in the past 12 m [facility], were you homeless or living in a care home (including now)? No 04/11/2025 CAGE ASSESSMENT [...] drink first t trupti in the morning (EYE-MOLDER AUTOMOBILE CARPETS) to steady your nerves or to get [...] Delarosa RN - 04/25/2025 10:20 AM EDT [facility] Physician Orders/Patient Instructions Should you notice [...] in clinic today with Dr. Novak. Her surgical assistant certified should reach out to you to set up a time and date for your procedure. If you have not been scheduled for surgery within two weeks, please call [phone] or [phone]. Wound Care/Dressing: Wound location: right foot/ankle Cleanse Wound With: Normal Saline Apply: Silver contact layer Cover With: Abdominal Secure With: Kerlix and Tape Dressing Changes: Every other day Compression Dressing Ryder bandage Compression Frequency Can apply in the morning and remove before bed * Progress Notes - Franco العلي - 04/25/2025 10:20 AM EDT Images from the original note were not included. [facility] Department of Surgery Division of Plastic [...] form which was reviewed and scanned into [employer]. Negative for bleeding disorders, clotting disorders, or [...] application of a STSG. Will meet with computer processing scheduler to get posted. The patient indicates understanding of these instructions and agrees with the plan. Franco العلي, MS4 [1] Past Medical History: Diagnosis Date Anxiety COPD (chronic obstructive pulmonary disease) ([facility]) Coronary artery disease last cardiology appt. 08/2022 - patient states no longer sees cardiology Deep vein thrombosis ([facility]) 2023 Depression Dysphagia unknown reason as of 04/01/25 History of methicillin resistant Staphylococcus aureus HL (hearing loss) no hearing aids at this time Hyperlipidemia Hypertension Limited mobility holds on to furniture and paniagua Myocardial infarction ([facility]) 2017 Peripheral neuropathy PTSD (post-traumatic stress disorder) [...] student. I discussed the case with the medical/COMMUNITY LIVING SPECIALIST/PA student and agree with the findings and plan as documented. I personally performed the Exam and Medical Decision Making. documented in this encounter Plan of Treatment Upcoming Encounters Date Type Department Care Team (Late st Contact Info) Description 05/06/2025 1:30 PM EDT Office Visit [facility] [address] [place] [address] Catalina Ruiz, AZRA [address] [facility] [address] [place] [address] 05/06/2025 2:30 PM EDT Office Visit [facility] Orthopaedic Surgery & Sports Medicine [address], 1st Floor [address] [place] [address] Cristian Rea MD [address] [place] [address] 05/14/2025 Hospital Encounter [facility]ATING ROOM [address] [place] [address] Jennifer Novak MD [address] [facility] [address] [place] [address] 05/20/2025 1:00 PM EDT Office Visit [facility] [address] [place] [address] Catalina Ruiz, DEHYDROGENATION OPERATOR [address] [facility] [address] [place] [address] Scheduled Procedures Name Priority Associated [...] as of this encounter Care Teams Automotive Glass Installer Relationship Specialty Start Date End Date Ruddy Branch MD PCP - General 12/14/22 documented as of this encounter
--- OUTSIDE RECORDS SUMMARY | 2025-05-01 23:59 | XMS_ITS | Encounter Summary ---
Author Organization [facility] Address [address] [id number] Care Team Providers Care Associate Chief Nurse Name Role Phone Ruddy Branch MD Primary Care Provider [phone] Encounter Details Date Type Department Care Team ([facility] st Contact Info) Description 05/02/2025 11:59 PM EDT Anesthesia Event [facility] [address] [place] [phone] Audrey Henriquez MD [address] [place] [address] Anesthesia Record Procedure Summary Procedure Name Responsible [...] and Family Not on file 03/19/2024 Attends Holiness Services Not on file 03/19 Active Member [...] Patient Health Questionnaire-2 Score 0 10/15/2024 [facility] of Occupat ional Health - Occupational Stress [...] and Family Not on file 04/11/2025 Attends Holiness Services Not on file 04/11 Active Member [...] any time in the past 12 m [facility], were you homeless or living in [...] drink first t trupti in the morning (EYE-COPY CAMERA OPERATOR) to steady your nerves or to [...] Description 05/06/2025 1:30 PM EDT Office Visit [facility] [address] [place] [address] Catalina Ruiz, AZRA [address] [facility] [address] [place] [address] 05/06/2025 2:30 PM EDT Office Visit [facility] Orthopaedic Surgery & Sports Medicine [address], 1[address] [place] [address] Cristian Rea MD [address] [place] [address] 05/14/2025 Hospital Encounter [facility] [address] [place] [address] Jennifer Martinez MD [address] [place] [address] 05/20/2025 1:00 PM EDT Office Visit [facility] [address] [place] [address] Catalina Ruiz, LIME KILN AND RECAUSTICIZING OPERATOR [address] [facility] [address] [place] [address] Scheduled Procedures Name Priority Associated Diagnoses Date/Ti me APPLICATION, GRAFT, SKIN, SPLIT-THICKNESS Open wound documented as of this encounter Goals Goal Patient Goal Type Associated Problems Recent Progress Patient-Stated? 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
--- OUTSIDE RECORDS SUMMARY | 2025-05-05 13:07 | XMS_ITS ---
Author Organization [facility] Address [address] [place] [id number] Care Team Providers Care Numerical Analysis Group Manager Name Role Phone Ruddy Branch MD Primary Care Provider [facility] Status:Enrolled (Active) Start date:01/08/2025 Enrollment date:01/09/2025 Enrollment reason:Identified using claims or encounter data Current support & services provided:Adherence- Cholesterol Linked medications:Rosuvastatin Calcium (Active) Linked problems:Hypercholesterolemia (Active) Case Team Name Relationship Phone Susan Noland LPN(Responsible Staff) Licensed Practical Nurse Continued Care and Services Coordination
--- OUTSIDE RECORDS SUMMARY | 2025-05-05 13:07 | XMS_ITS | Encounter Summary ---
Author Organization [facility] ([place], [place], [place], [place]) Address [address] [place] [address] Care Team Providers Care Preparation Supervisor Freezing Name Role Phone Unavailable Primary Care Provider Unavailabl e Reason for Referral * Consultation (Routine) - Canceled Specialty Diagnoses / Procedures Referred By Contac t Referred To Contact Psychology / Behavioral Health Diagnoses Other chronic pain Memory loss Segundo Zelaya MD [address] [address] [place] [address] Phone: tel: fax: [place], [place] [address] [place] [address] Phone: tel: fax: Referral ID Status Reason Start Date Expiration Date Visits Requested Visits Authorized [id number] Canceled Specialty Services Required 10/22/2024 10/22/2025 1 1 Encounter Details Date Type Department Care Team (Late st Contact Info) Description 10/22/2024 Outside Orders [facility] Scheduling [address] [place] [address] Segundo Zelaya MD [address] [address] [place] [address] Other chronic pain (Primary Dx); Memory loss Social History Tobacco Use Types Packs/Day Years Used Date Smoking Tobacco: Never Assessed Sex and Gender Information Value Date Recorded Sex Assigned at Not on file Legal Sex Male 12:33 PM ENGINEERING ASSOCIATE Gender Identity Not on file Sexual Orientation [...]
--- OUTSIDE RECORDS SUMMARY | 2025-05-05 13:07 | XMS_ITS | Encounter Summary ---
Author Organization [facility] Address [address] [place] [address] Care Team Providers Care Area Counselor Name Role Phone Ruddy Branch MD Primary Care Provider [phone] Encounter Details Date Type Department Care Team [...] Score 0 10/15/2024 [facility] [place] of Occupat ional Health - Occupational Stress [...] and Family Not on file 04/11/2025 Attends Alevism Services Not on file 04/11 Active Member [...] any time in the past 12 m [facility], were you homeless or [...] drink first t trupti in the morning (EYE-FREEZER PERSON) to steady your nerves or to get [...] Description 05/06/2025 1:30 PM EDT Office Visit [facility] [address] [place] [phone] Catalina Ruiz, FORMING FIXER [address] [facility] [address] [place] [phone] 05/06/2025 2:30 PM EDT Office Visit [facility] Orthopaedic Surgery & Sports Medicine [address], 1[address] [place] [address] Cristian Rea MD [address] [place] [address] 05/14/2025 Hospital Encounter [facility] [address] [place] [address] Jennifer Novak MD [address] [facility] [address] [place] [address] 05/20/2025 1:00 PM EDT Office Visit [facility] [address] [place] [address] Catalina Ruiz, FORMING FIXER [address] [facility] [address] [place] [address] Scheduled Procedures Name Priority Associated [...] documented as of this encounter Care Teams Area Counselor Relationship Specialty Start Date End Date Ruddy Branch MD PCP - General 12/14/22 documented as of this encounter
--- OUTSIDE RECORDS SUMMARY | 2025-05-05 13:07 | XMS_ITS | Encounter Summary ---
Author Organization [facility] Address [address] 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 0 03/14/2024 CAGE Questionnaire Score 0 024 Utilities Answer Date Recorded In the past 12 months has [employer], gas, oil, or water [employer] threatened to shut off services in your [...] Description 05/06/2025 1:30 PM EDT Office Visit [facility] [address] [place] [phone] Catalina Ruiz, SPOUT LINER HELPER [address] [facility] [address] [place] [address] 05/06/2025 2:30 PM EDT Office Visit [facility] Orthopaedic Surgery & Sports Medicine [address], 1[address] [place] [address] Cristian Rea MD [address] [place] [address] 05/14/2025 Hospital Encounter [facility] [address] [place] [phone] Jennifer Novak MD [address] [phone] 05/20/2025 1:00 PM EDT Office Visit [facility] [address] [place] [address] Catalina Ruiz, SPOUT LINER HELPER [address] [facility] [address] [place] [address] Scheduled Procedures Name Priority Associated [...] documented as of this encounter Care Teams Barytes Grinder Relationship Specialty Start Date End Date Ruddy Branch MD PCP - General 12/14/22 documented as of this encounter
--- OUTSIDE RECORDS SUMMARY | 2025-05-05 13:07 | XMS_ITS | Encounter Summary ---
Author Organization [facility] Address [address] [place] [address] Care Team Providers Care Screen Printing Cloth Spreader Name Role Phone Ruddy Branch MD Primary Care Provider [phone] Encounter Details Date Type Department Care Team [...] and Family Not on file 03/19/2024 Attends Faith Services Not on file 03/19 Active Member [...] Recorded Patient Health Questionnaire-2 Score 0 10/15/2024 [facility] [place] of Occupat ional Health - Occupational Stress [...] and Family Not on file 04/11/2025 Attends Faith Services Not on file 04/11 Active Member [...] any time in the past 12 m [facility], were you homeless or living in a prison (including now)? No 04/11/2025 CAGE ASSESSMENT Answer [...] drink first t trupti in the morning (EYE-SUBSTATION OPERATOR) to steady your nerves or to [...] Description 05/06/2025 1:30 PM EDT Office Visit [facility] [address] [place] [phone] Catalina Ruiz, ICT MANAGERS [address] [facility] [address] [place] [address] 05/06/2025 2:30 PM EDT Office Visit [facility] Orthopaedic Surgery & Sports Medicine [address], [address] [place] [address] Cristian Rea MD [address] [place] [address] 05/14/2025 Hospital Encounter [facility] [address] [place] [phone] Jennifer Novak MD [address] [facility] [address] [place] [address] 05/20/2025 1:00 PM EDT Office Visit [facility] [address] [place] [address] Catalina Ruiz, ICT MANAGERS [address] [facility] [address] [place] [address] Scheduled Procedures Name Priority Associated [...] documented as of this encounter Care Teams Screen Printing Cloth Spreader Relationship Specialty Start Date End Date Ruddy Branch MD PCP - General 12/14/22 documented as of this encounter
--- OUTSIDE RECORDS SUMMARY | 2025-05-05 13:07 | XMS_ITS | Referral Summary ---
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
--- OUTSIDE RECORDS SUMMARY | 2025-05-05 13:07 | XMS_ITS | Clinical Summary ---
Author Organization Healthcare Address [address] [place] [address] Care Team Providers Care Cloth Shrinking Tester Name Role Phone Ruddy Branch MD Primary Care Provider [phone] Allergies No known active allergies Medications gabapentin (Neurontin) 800 MG tablet Take 1 tablet by mouth nightly. Active Nutritional Supplements (Boost High Protein) liquidIndications :Poor nutrition Take 1 Bottle by mouth 3 times a day. 61945 mL 5 01/09/20 25 Active sulfamethoxazole- trimethoprim [...] a day. 28 tablet 04/11/20 25 Active Additional Information Patient taking differently:1 tablet OralAs needed, Reported on 04/30/2025 methocarbamol (Robaxin) 750 MG tablet Take 1 [...] Resume home meds as appropriate History of KS (myocardial infarction) 12/17/2023 Overview (12/17/2023): Resume ASA when appropriate CAD (coronary artery disease) 12/17/2023 Overview (12/17/2023): Resume home meds as appropriate Neuropathy 12/17/2023 Overview (12/17/2023): Resume gabapentin Anxiety and depression 12/17/2023 Overview (12/17/2023): Resume lexapro Scrotum swelling 12/17/2023 Overview (12/17/2023): Ecchymosis noted Can place sling or ice or comfort RN to upload picture in social media specialist ABLA (acute blood loss anemia) 12/16/2023 Overview [...] 12/31 @ 3:10 PM with Anurag Foster Metatarsal bone fracture 12/12/2023 Overview (12/14/2023): [...] malnutrition 03/20/2024 03/22/2024 Surgical site infection 01/30/2024 08/09/2023 Encounters Date Type Department Care Team Description 05/05/2025 Travel 05/01/2025 11:59 PM EDT Anesthesia Event [facility] [address] [place] [address] Audrey Henriquez MD 04/25/2025 10:20 AM EDT Office Visit [facility] [address] [place] [address] Jennifer Novak MD Open wound (Primary Dx) 04/25/2025 Travel 04/24/2025 Travel 04/15/2025 Telephone [facility] [address] [place] [address] Jennifer Novak MD 04/14/2025 2:30 PM EDT Office Visit [facility] Plastic & Reconstructive Surgery [address] [place] [address] Jennifer Novak MD Encounter for postoperative care (Primary Dx) 04/14/2025 Travel 04/14/2025 Clinical Support [facility] [address] [place] [address] Alondra Marsh, PharmD 04/09/2025 3:36 PM EDT Anesthesia Event [facility]PERATING ROOM [address] [place] [address] Rubens Guy MD Anwar, Amina S, MD 04/09/2025 1:30 PM EDT - 04/09/2025 4:00 PM EDT Surgery [facility]PERATING ROOM [address] [place] [address] Cristian Rea MD REMOVAL, HARDWARE [[id number] (CPT )] 04/09/2025 11:33 AM EDT - 04/11/2025 5:45 PM EDT Hospital Encounter NICHOLAS SUERO 9 T2 [address] [address] [place] [address] Cristian Rea MD 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) Discharge Disposition: Home or Self Care 04/09/2025 Travel 04/07/2025 Telephone [facility] Orthopaedic Surgery & Sports Medicine [address] [place] [address] Cristian Rea MD HCN - Patient Message 03/25/2025 2:30 PM EDT Office Visit [facility] Orthopaedic Surgery & Sports Medicine [address] [place] [address] Cristian Rea MD 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) (Primary Dx) 03/25/2025 Travel 03/10/2025 Telephone [facility] Plastic & Reconstructive Surgery [address] [place] [address] Jennifer Novak MD HCN Clinical Concern/Question 03/10/2025 Orders Only [facility] [address] [place] [address] Peter Delarosa, RN Open wound (Primary Dx) 03/07/2025 Telephone [facility] [address] [place] [address] Jennifer Novak MD HCN Clinical Concern/Question 02/26/2025 10:20 AM EDT Office Visit [facility] [address] [place] [address] Jennifer Novak MD Open wound (Primary Dx) 02/26/2025 Travel 02/04/2025 2:30 PM EDT Office Visit [facility] Orthopaedic Surgery & Sports Medicine [address] [place] [address] Cristian Rea MD Displaced pilon fx right tibia, init for opn fx type I/2 (Primary Dx) 02/04/2025 12:25 PM EDT - 02/04/2025 11:59 PM EDT Hospital Encounter [facility] [address] [place] [address] Displaced pilon fx right tibia, init for [...] and Family Not on file 03/19/2024 Attends Worship Services Not on file 03/19 Active Member [...] Recorded Patient Health Questionnaire-2 Score 0 10/15/2024 [facility] [place] of Occupat ional Health - Occupational Stress [...] and Family Not on file 04/11/2025 Attends Worship Services Not on file 04/11 Active Member [...] were you homeless or living in a long-term (including now)? No 04/11/2025 CAGE ASSESSMENT Answer [...] drink first t trupti in the morning (EYE-SECTION BEAMER) to steady your nerves or to get [...] Oxygen Concentration - - Weight 45.8 kg (101 lb) 04/30/2025 1:26 PM EDT Height 172.7 cm (5' 8 ) 04/30/2025 1:26 PM EDT Body Mass Index 15.36 04/30/2025 1:26 PM EDT Plan of Treatment Upcoming Encounters Date Type Department Care Team (Late st Contact Info) Description 05/06/2025 1:30 PM EDT Office Visit [facility] [address] [place] [address] Catalina Ruiz, AZRA [address] [facility] [address] [place] [address] 05/06/2025 2:30 PM EDT Office Visit [facility] Orthopaedic Surgery & Sports Medicine [address] [place] [address] Cristian Rea MD [address] [place] [address] 05/14/2025 Hospital Encounter [facility] [address] [place] [address] Jennifer Novak MD [address] [address] 05/20/2025 1:00 PM EDT Office Visit [facility] [address] [place] [address] Catalina Ruiz, AZRA [address] [facility] [address] [place] [address] Scheduled Procedures Name Priority Associated [...] series) 2022 [facility]-Lung Cancer Screening 12/11/20242023, 05/11/2023 [id number] Vaccine (3 - season) 2025 05/11/2021, 04/16/2021 [facility]-Influenza Vaccine (#1) [...] on patient's age to complete this topic Goals Goal Patient Goal Type Associated Problems Recent Progress Patient-Stated? Author Autogenera rona Goal Care Plan Autogenerated Problem No [employer] Implanted Type Area Lunchroom Operator Device Identifier Shelf Expiration Date Model / Serial / Lot Screw 2.7mm R3con Nonlocking Plate 24mm - [id number] Implanted:Qty: 2 on 12/13/2023 by Cristian Rea MD at [facility] Right: Leg [employer] [employer]-[id number] 24 / / Screw 2.5mm Baby Gorilla Ti Nonlock 38mm - [id number] Implanted:Qty: 1 on 12/13/2023 by Cristian Rea MD at [facility] Right: Leg [place] [employer]-[id number] 38 / / Screw 2.5mm Baby Gorilla Ti Nonlock 45mm - [id number] Implanted:Qty: 1 on 12/13/2023 by Cristian Rea MD at [facility] Right: Leg [employer] [employer]-[id number] [id number] 45 / / Screw 2.5mm Baby Gorilla Ti Nonlock 22mm - [id number] Implanted:Qty: 1 on 12/13/2023 by Cristian Rea MD at [facility] Right: Leg [employer] [employer]-[id number] 22 / / Plate Anterolat Distal Tibia Rt 21 Hole - [id number] Implanted:Qty: 1 on 12/13/2023 by Cristian Rea MD at [facility] Right: Leg [employer] [employer]-216373 [id number] 14 / / Screw 2.7mm R3con Nonlocking Plate 40mm - [id number] Implanted:Qty: 1 on 12/13/2023 by Cristian Rea MD at [facility] Right: Leg [employer] [employer]-525696 [id number] 40 / / Screw 3.5mm R3con Nonlocking Plate 36mm - [id number] Implanted:Qty: 1 on 12/13/2023 by Cristian Rea MD at [facility] Right: Leg [employer] [employer]-[id number] 36 / / Screw 3.5mm R3con Nonlocking Plate 42mm - [id number] Implanted:Qty: 1 on 12/13/2023 by Cristian Rea MD at [facility] Right: Leg [employer] [employer]-[id number] Q75-125-37 42 / / Screw 3.5mm R3con Nonlocking Plate 32mm - [id number] Implanted:Qty: 1 on 12/13/2023 by Cristian Rea MD at [facility] Right: Leg [employer] [employer]-823390 [id number] 32 / / Screw 3.5mm R3con Nonlocking Plate 38mm - [id number] Implanted:Qty: 1 on 12/13/2023 by Cristian Rea MD at [facility] Right: Leg [employer] [employer]-665452 [id number] 38 / / Screw 2.7mm R3con Nonlocking Plate 22mm - [id number] Implanted:Qty: 2 on 12/13/2023 by Cristian Rea MD at [facility] Right: Leg [employer] [employer]-216319 [id number] 22 / / Screw 2.7mm R3con Locking Plate 28mm - [id number] Implanted:Qty: 1 on 12/13/2023 by Cristian Rea MD at [facility] Right: Leg [employer] [employer]-[id number] 12/12/2024 [id number] 28 / / Screw 3.5mm R3con Nonlocking Plate 26mm - [id number] Implanted:Qty: 1 on 12/13/2023 by Cristian Rea MD at [facility] Right: Leg [employer] [employer]-[id number] 12/12/2024 T68-545-18 26 / / Screw 3.5mm R3con Nonlocking Plate 44mm - [id number] Implanted:Qty: 1 on 12/13/2023 by Cristian Rea MD at [facility] Right: Leg [employer] [employer]-[id number] 12/12/2024 M20-438-53 44 / / Screw 3.5mm R3con Nonlocking Plate 70mm - [id number] Implanted:Qty: 1 on 12/13/2023 by Cristian Rea MD at [facility] Right: Leg [employer] [employer]-[id number] 12/12/2024 X06-954-36 70 / / Screw 3.5mm R3con Nonlocking Plate 24mm - [id number] Implanted:Qty: 1 on 12/13/2023 by Sly Isaacs MD at [facility] Right: Leg [employer] [employer]-443041 [id number] 24 / / Screw 3.5mm R3con Nonlocking Plate 22mm - [id number] Implanted:Qty: 1 on 12/13/2023 by Sly Isaacs MD at [facility] Right: Leg [employer] [employer]-[id number] 22 / / Plate Fibular Straight 6 Hole - [id number] Implanted:Qty: 1 on 12/13/2023 by Cristian Rea MD at [facility] Right: Leg [employer] [employer]-803291 B26-299-65 06 / / Screw Locking Adv T2 T2 D5xl80 - [id number] Implanted:Qty: 1 on 12/13/2023 by Sly Isaacs MD at [facility] Right: Femur [employer] ([facility][id number] 8 10/18/2033 2361-5080S / / [id number] Screw Locking Adv T2 T2 D5xl65 - [id number] Implanted:Qty: 1 on 12/13/2023 by Sly Isaacs MD at [facility] Right: Femur [employer] ([facility][id number] 8 08/20/2033 2361-5065S / / [id number] Screw Locking Adv T2 T2 D5xl75 - [id number] Implanted:Qty: 1 on 12/13/2023 by Sly Isaacs MD at [facility] Right: Femur [employer] ([employer])-[id number] 8 07/20/2033 2361-5075S / / [id number] Screw Locking Adv T2 T2 D5xl75 - [id number] Implanted:Qty: 1 on 12/13/2023 by Sly Isaacs MD at [facility] Right: Femur [employer] ([facility][id number] 8 10/18/2033 2361-5075S / / [id number] Screw Locking T2 D5x35 - [id number] Implanted:Qty: 1 on 12/13/2023 by Sly Isaacs MD at [facility] Right: Femur [employer] ([facility])-[id number] 8 10/18/2033 2360-5035S / / Screw Locking T2 D5x40 - [id number] Implanted:Qty: 1 on 12/13/2023 by Sly Isaacs MD at [facility] Right: Femur [employer] ([facility][id number] 8 10/18/2033 2360-5040S / / Screw Locking T2 D5xl42.5 - [id number] Implanted:Qty: 1 on 12/13/2023 by Sly Isaacs MD at [facility] Right: Femur [employer] ([facility][id number] 8 10/15/2033 2360-5042S / / Screw 2.7mm R3con Nonlocking Plate 14mm - [id number] Implanted:Qty: 3 on 12/13/2023 by Cristian Rea MD at [facility] Right: Leg [employer] [employer]-450129 V32-894-67 14 / / Screw 2.7mm R3con Nonlocking Plate 12mm - [id number] Implanted:Qty: 2 on 12/13/2023 by Cristian Rea MD at [facility] Right: Leg [employer] [employer]-[id number] C12-900-59 12 / / Plate Straight 10 Hole - [id number] Implanted:Qty: 1 on 12/13/2023 by Cristian Rea MD at [facility] Right: Leg [employer] [employer]-255060 S10-215-67 10 / / Screw 2.5mm Baby Gorilla Ti Nonlock 24mm - [id number] Implanted:Qty: 2 on 12/13/2023 by Cristian Rea MD at [facility] Right: Leg [employer] [employer]-180962 [id number] 24 / / Screw 2.5mm Baby Gorilla Ti Nonlock 26mm - [id number] Implanted:Qty: 1 on 12/13/2023 by Cristian Rea MD at [facility] Right: Leg [place] [employer]-899333 H26-333-83 26 / / Screw 2.5mm Baby Gorilla Ti Nonlock 28mm - [id number] Implanted:Qty: 1 on 12/13/2023 by Cristian Rea MD at [facility] Right: Leg [employer] [employer]-448694 H73-538-43 28 / / Graft Cerament G With Gentamicin 10ml - [id number] Implanted:Qty: 1 on 04/09/2025 by Cristian Rea MD at [facility] Right: Tibia [employer]-[id number] 07/20/2027 D1866-12 / / [id number] Dressing Wound 2in X 2in - [id number] Implanted:Qty: 1 on 04/09/2025 by Jennifer Novak MD at [facility] Right: Leg [employer]-[id number] 01/18/2027 [id number] / / [id number] Explanted Type Area Lunchroom Operator Device Identifier Shelf Expiration Date Model / Serial / Lot Nail Femoral Retro T2 Alpha 10mm X 400mm - [id number] Explanted:Qty: 1 on 12/13/2023 by Sly Isaacs MD at [facility] Nail Right: Femur [employer] ([facility])-[id number] 8 09/20/2033 2339-1040S / / [id number] Post Angled 30 Deg 8mm - [id number] Explanted:Qty: 2 on 12/13/2023 by Sly Isacas MD at [facility] Right: Leg [employer] ([facility][id number] 8 12/12/2024 4922-2-140 / / Pin [id number] Blunt - [id number] Explanted:Qty: 2 on 12/13/2023 by Sly Isaacs MD at [facility] Right: Leg [employer] ([facility][id number] 8 12/12/2024 5020-3-150 / / Instrument Transfix 5/6 X300 X 50mm - [id number] Explanted:Qty: 1 on 12/13/2023 by Sly Isaacs MD at [facility] Right: Leg [employer] ([facility][id number] 8 12/12/2024 5050-5-300 / / Coupling Ángel To Ángel 8/8mm - [id number] Explanted:Qty: 1 on 12/13/2023 by Sly Isaacs MD at [facility] Right: Leg [employer] ([employer])-[id number] 8 12/12/2024 4922-1-010 / / Clamp Pin 5 Hole - [id number] Explanted:Qty: 1 on 12/13/2023 at [facility] Right: Leg [employer] ([employer])-[id number] 8 12/12/2024 4922-2-020 / / Procedures Procedure Name Priority Date/Time Associated Diagnosis Comments CK Routine 04/28/2025 CBC WITH AUTO DIFFERENTIAL Routine 04/28/2025 C-REACTIVE PROTEIN, PLASMA Routine 04/28/2025 UREA NITROGEN, PLASMA Routine 04/28/2025 CREATININE, PLASMA Routine 04/28/2025 HEPATIC FUNCTION PANEL Routine 04/28/2025 CK Routine 04/22/2025 CBC WITH AUTO DIFFERENTIAL [...] ANESTHESIA PLACEHOLDER Routine 04/09/2025 3:47 PM EDT VA AN ELECTIVE ENDOTRACHEAL AIRWAY Routine 04/09/2025 3:47 [...] of right tibia with draining sinus (CMS/HCC) VA REMOVAL DEEP IMPLANT 04/09/20 25 3:20 PM [...] to Health Maintenance Results * Creatinine, Plasma (04/28/2025) Only the most recent of3 resultswithin the time period is included. External Creatinine Blood 0.70 mg/dL Blood Venous blood specimen / Unknown 04/28/2025 Result [facility] Provider LAB BLOOD ORDERABLES Final R esult * CBC and Differential (04/28/2025) Only the most recent of3 resultswithin the time period is included. External WBC 5.9 4.8 - 10.8 K/mm3 External Red Blood Cell (RBC) 4.21 External Hemoglobin (Hgb) 12.40 External Hematocrit (Hct) 37.8 External Platelet Count (Plt) 330 External Neutrophil Abs 2.3 External Lymphocyte-Absol takotna 3.0 External Monocyte Absolute 0.5 External Eos-Absolute 0.1 External Basophil Abs 0.1 Blood Venous blood specimen / Unknown 04/28/2025 Result [facility] LAB BLOOD ORDERABLES Final R esult * C-Reactive Protein, Plasma (04/28/2025) Only the most recent of4 resultswithin the time period is included. External C-Reactive Protein(CRP) 2.0 0 - 4 mg/L Blood Venous blood specimen / Unknown 04/28/2025 Result [facility] Provider LAB BLOOD ORDERABLES Final R esult * Urea Nitrogen, Plasma (04/28/2025) Only the most recent of3 resultswithin the time period is included. External BUN 7 Blood Venous blood specimen / Unknown 04/28/2025 Result [facility] Provider LAB BLOOD ORDERABLES Final R esult * (ABNORMAL) CK (04/28/2025) Only the most recent of3 resultswithin the time period is included. External Creatine Kinase 27(A) 55 - 170 U/L Blood Venous blood specimen / Unknown 04/28/2025 Historical Provider LAB BLOOD ORDERABLES Final R esult * Hepatic Function Panel (04/28/2025) Only the most recent of3 resultswithin the time period is included. External Alkaline Phosphatase 71 External Bilirubin Total 0.6 mg/dL External ALT (SGPT) 16 External AST (SGOT) 28 Blood Venous blood specimen / Unknown 04/28/2025 Historical Provider LAB BLOOD ORDERABLES Final R esult * PICC SINGLE LUMEN (SMARTFORM LINK) (04/11/2025 3:49 PM EDT) Narrative Judi Lorenzo RN - 04/11/2025 3:49 PM EDT Judi Lorenzo RN 04/11/2025 3:51 PM Insert PICC line Date/Time: 04/11/2025 3:49 PM Performed by: Judi Lorenzo RN Authorized by: Cristian Rea MD [place] Protocol: Verbal consent obtained?: Yes Written consent [...] preference Patient position: Flat Catheter Lot #: [id number] Catheter pattern illustrator: Bard PowerPICC Solo Catheter placed: Single lumen [...] ult [facility] [address] [place] [address] * HIV 1 & 2 Antibody/Antigen Screen [...] MD LAB BLOOD ORDERABLES Final R esult [facility] [address] [place] [address] * (ABNORMAL) CBC (04/10/2025 2:29 AM EDT) [...] BLOOD ORDERABLES Final Result Performing Organization Address City/[facility]/ZIP Co de Phone Number [facility] [address] [place] [address] * (ABNORMAL) Prealbumin (04/10/2025 2:29 AM EDT) Prealbumin, Plasma 17.1(L) 20.0 - 41.0 mg/dL 04/10/2025 11:03 AM EDT [facility] Blood Venous blood specimen / Unknown Venipuncture / Unknown 04/10/2025 2:29 AM EDT 04/10/2025 2:39 AM EDT Cristian Rea MD LAB BLOOD ORDERABLES Final Result Performing Organization Address [facility] de Phone Number [facility] [address] [place] [address] * (ABNORMAL) Basic metabolic panel (04/10/2025 2:29 [...] BLOOD ORDERABLES Final Result Performing Organization Address City/[facility]/ZIP Co de Phone Number [facility] [address] [place] [address] * [place] Less than 1 Hour Intraoperative (04/09/2025 5:08 PM EDT) Narrative IMAGING - 04/09/2025 5:09 PM EDT Images were obtained for surgical purposes. See Cristian Rea's surgical note in the patient's chart for the findings. Cristian Rea MD IMG FLUOROSCOPY PROCEDURES Final Result Performing Organization Address City/[facility] Co de Phone Number IMAGING * (ABNORMAL) [...] Result Performing Organization Address City/[facility] Co de Phone Number [facility] [address] [place] [address] * Anaerobic Culture (04/09/2025 4:34 PM EDT) Culture No anaerobes isolated 04/13/2025 10:52 AM EDT [facility] Bone Topography unknown / Unknown 04/09/2025 4:34 PM EDT 04/09/2025 5:07 PM EDT Comment:Pre-op diagnosis: 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) [M86.461] Cristian Rea MD LAB MICROBIOLOGY - GENERAL ORDERABLES Final Result Performing Organization Address [facility] Co de Phone Number [facility] [address] [place] [address] * VA AN ELECTIVE ENDOTRACHEAL AIRWAY, PB ANESTHESIA PLACEHOLDER [...] ECG Atrial Rate 59 BPM MUSE ECG VA Interval 122 ms MUSE ECG QRSD Interval 82 ms MUSE ECG QT Interval 432 ms MUSE ECG QTC Interval 427 ms MUSE ECG P [place] 67 degrees MUSE ECG R [place] 92 degrees MUSE ECG T Wave [place] 76 degrees MUSE ECG Diagnosis Sinus bradycardia [...] ORDERABLE S Final Result BLOOD BANK [address] [place] [address], * CT Ankle Right wo IV Contrast [...] Antibody Negative Negative 12/12/2023 2:[address] [facility] Blood Venous blood specimen / Unknown Venipuncture / Unknown 12/12/2023 1:33 PM EDT 12/12/2023 1:44 PM EDT Ran Upton MD LAB BLOOD ORDERABLES Final Result 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 Yes Care Teams Cloth Shrinking Tester Relationship Specialty Start Date End Date Ruddy Branch MD PCP - General 12/14/22
--- OUTSIDE RECORDS SUMMARY | 2025-05-05 13:08 | XMS_ITS | Clinical Summary ---
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
--- OUTSIDE RECORDS SUMMARY | 2025-05-05 13:08 | XMS_ITS | Encounter Summary ---
Author Organization Healthcare Address [address] [place] [address] Care Team Providers Care Steam Finisher Name Role Phone Ruddy Branch MD Primary Care Provider [phone] Encounter Details Date Type Department Care Team [...] and Family Not on file 03/19/2024 Attends Rastafarian Services Not on file 03/19 Active Member [...] Recorded Patient Health Questionnaire-2 Score 0 10/15/2024 [facility] [place] of Occupat ional Health - Occupational Stress [...] drink first t trupti in the morning (EYE-COPIER TECHNICIAN) to steady your nerves or to get rid of a hangover? 0 03/14/2024 CAGE Questionnaire Score 0 024 Utilities Answer Date Recorded In the past 12 months has [employer], gas, oil, or water Known threatened to shut off services in your [...] Description 05/06/2025 1:30 PM EDT Office Visit [facility] [address] [place] [address] Catalina Ruiz, MANUFACTURING ENGINEER MACHINING [address] [facility] [address] [place] [address] 05/06/2025 2:30 PM EDT Office Visit [facility] Orthopaedic Surgery & Sports Medicine [address], 1st Floor [address] [place] [address] Cristian Rea MD [address] [place] [address] 05/14/2025 Hospital Encounter PAV A OPERATING ROOM [address] [place] [address] Jennifer Novak MD [address] [place] [address] 05/20/2025 1:00 PM EDT Office Visit [facility] [address] [place] [address] Catalina Ruiz, MANUFACTURING ENGINEER MACHINING 3101 [facility] [address] [place] [address] Scheduled Procedures Name Priority Associated [...] documented as of this encounter Care Teams Steam Finisher Relationship Specialty Start Date End Date Ruddy Branch MD PCP - General 12/14/22 documented as of this encounter
--- OUTSIDE RECORDS SUMMARY | 2025-05-05 13:08 | XMS_ITS | Encounter Summary ---
Author Organization Healthcare Address [address] [place] [address] Care Team Providers Care Performance Test Consultant Name Role Phone Ruddy Branch MD Primary Care Provider [phone] Encounter Details Date Type Department Care Team (Late st Contact Info) Description 04/14/2025 Clinical Support [facility] [address] [place] [address] Alondra Marsh, PharmD 3101 [facility] 100 [place] [address] Social History Tobacco Use Types Packs/Day Years [...] and Family Not on file 03/19/2024 Attends Spiritism Services Not on file 03/19 Active Member [...] Score 0 10/15/2024 [facility] - Occupational Stress Questionnaire [...] and Family Not on file 04/11/2025 Attends Spiritism Services Not on file 04/11 Active Member [...] any time in the past 12 m [facility], were you homeless or living in [...] drink first t trupti in the morning (EYE-HOUSE FELLOW) to steady your nerves or to get [...] Description 05/06/2025 1:30 PM EDT Office Visit [facility] [address] [place] [address] Catalina Ruiz, MANAGER INTELLIGENCE 3101 [facility] [address] [place] [address] 05/06/2025 2:30 PM EDT Office Visit [facility] Orthopaedic Surgery & Sports Medicine [address], 1st Floor [address] [place] [address] Cristian Rea MD [address] [place] [address] 05/14/2025 Hospital Encounter PAV A OPERATING ROOM [address] [place] [address] Jennifer Novak MD [address] [facility] [address]nd [place] [address] 05/20/2025 1:00 PM EDT Office Visit [address] [address] Catalina Ruiz, MANAGER INTELLIGENCE 310 [facility] [address] [place] [address] Scheduled Procedures Name Priority Associated [...] documented as of this encounter Care Teams Performance Test Consultant Relationship Specialty Start Date End Date Ruddy Branch MD PCP - General 12/14/22 documented as of this encounter
--- OUTSIDE RECORDS SUMMARY | 2025-05-05 13:08 | XMS_ITS | Encounter Summary ---
Author Organization [facility] Address [address] [place] [address] Care Team Providers Care Rehabilitation Director Name Role Phone Ruddy Branch MD Primary Care Provider [phone] Reason for Referral * Consultation (Routine) - Authorized Specialty Diagnoses / Procedures Referred By Contnadira t Referred To Contact Pain Medicine Diagnoses Open wound Jennifer Novak MD [address] [address] Phone: tel: fax: Referral ID Status Reason Start Date Expiration Date Visits Requested Visits Authorized [id number] Authorized Specialty Services Required 03/10/2025 09/09/2026 1 1 Encounter Details Date Type Department Care Team (Late st Contact Info) Description 03/10/2025 Orders Only [facility] [address] [facility] 5th Floor Wing D, [address] [place] [address] Peter Delarosa, RN Open wound [...] Patient Health Questionnaire-2 Score 0 10/15/2024 [facility] - Occupational Stress Questionnaire Answer Date [...] drink first t trupti in the morning (EYE-MEAT PACKER) to steady your nerves or to get [...] Office Visit [facility] [address] [place] [address] Catalina Ruiz, CAP PARTS CUTTER 3101 [facility] 100 [place] [address] 05/06/2025 2:30 PM EDT Office Visit [facility] Orthopaedic Surgery & Sports Medicine [address], 1st Floor [address] [place] [address] Cristian Rea MD [address] [place] [address] 05/14/2025 Hospital Encounter PAV A OPERATING ROOM [address] [place] [address] Jennifer Novak MD 2[address] [facility] 2nd [place] [address] 05/20/2025 1:00 PM EDT Office Visit [address] [address] Catalina Ruiz, CAP PARTS CUTTER 310 [facility] 100 [place] [address] Scheduled Procedures Name Priority Associated Diagnoses Date/Ti [...] documented as of this encounter Care Teams Rehabilitation Director Relationship Specialty Start Date End Date Ruddy Branch MD PCP - General 12/14/22 documented as of this encounter
--- OUTSIDE RECORDS SUMMARY | 2025-05-05 13:08 | XMS_ITS | Encounter Summary ---
Author Organization [facility] Address [address] [place] [address] Care Team Providers Care Mix House Operator Name Role Phone Ruddy Branch MD Primary Care Provider [phone] Encounter Details Date Type Department Care Team [...] Recorded Patient Health Questionnaire-2 Score 0 10/15/2024 [facility] [employer] of Occupat ional Health - Occupational Stress [...] any time in the past 12 m [facility], were you homeless or living in [...] drink first t trupti in the morning (EYE-SURVEILLANCE OBSERVER) to steady your nerves or to get [...] PM EDT Office Visit [facility] [address] [place] [address] Catalina Ruiz, PREPARATION CENTER COORDINATOR [address] [facility] [address] [place] [address] 05/06/2025 2:30 PM EDT Office Visit [facility] Orthopaedic Surgery & Sports Medicine [address], 1st Floor [address] [place] [address] Cristian Rea MD [address] [place] [address] 05/14/2025 Hospital Encounter PAV A OPERATING ROOM [address] [place] [address] Jennifer Novak MD 2[address] [facility] [address]nd [place] [address] 05/20/2025 1:00 PM EDT Office Visit [facility] [address] [place] [address] Catalina Ruiz, PREPARATION CENTER COORDINATOR [address] [facility] [address] [place] [address] Scheduled Procedures Name Priority Associated [...] documented as of this encounter Care Teams Mix House Operator Relationship Specialty Start Date End Date Ruddy Branch MD PCP - General 12/14/22 documented as of this encounter
--- OUTSIDE RECORDS SUMMARY | 2025-05-05 13:08 | XMS_ITS | Encounter Summary ---
Author Organization [facility] Address [address] [place] [address] Care Team Providers Care Hide Splitter Name Role Phone Ruddy Branch MD Primary Care Provider [phone] Encounter Details Date Type Department Care Team (Latest Contact Info) Description 05/05/2025 Travel Social History Tobacco Use Types Packs/Day [...] and Family Not on file 03/19/2024 Attends Adventist Services Not on file 03/19 Active Member [...] Recorded Patient Health Questionnaire-2 Score 0 10/15/2024 [facility] [place] of Occupat ional Health - Occupational Stress [...] and Family Not on file 04/11/2025 Attends Adventist Services Not on file 04/11 Active Member [...] any time in the past 12 m [facility], were you homeless or living [...] drink first t trupti in the morning (EYE-WAREHOUSE HANDLER) to steady your nerves or to get [...] Description 05/06/2025 1:30 PM EDT Office Visit [facility] [address] [place] [address] Catalina Ruiz, DIRECTOR PROFESSIONAL SERVICES [address] [facility] [address] [place] [address] 05/06/2025 2:30 PM EDT Office Visit [facility] Orthopaedic Surgery & Sports Medicine [address], 1st Floor [address] [place] [address] Cristian Rea MD [address] [place] [address] 05/14/2025 Hospital Encounter PAV A OPERATING ROOM [address] [place] [address] Jennifer Novak MD [address] [facility] 2nd [place] [address] 05/20/2025 1:00 PM EDT Office Visit [facility] [address] [place] [address] Catalina Ruiz, DIRECTOR PROFESSIONAL SERVICES 3101 [facility] [address] [place] [address] Scheduled Procedures Name Priority Associated [...] documented as of this encounter Care Teams Hide Splitter Relationship Specialty Start Date End Date Ruddy Branch MD PCP - General 12/14/22 documented as of this encounter
--- OUTSIDE RECORDS SUMMARY | 2025-05-05 13:08 | XMS_ITS | Encounter Summary ---
Author Organization [facility] Address [address] [place] [address] Care Team Providers Care Dermatology Technician Name Role Phone Ruddy Branch MD Primary Care Provider [phone] Reason for Visit * Reason Onset Date Comments HCN Clinical Concern/Question 03/10/2025 Encounter Details Date Type Department Care Team (Late st Contact Info) Description 03/10/2025 Telephone [facility] [address] [place] [address] Jennifer Novak MD [address] [address] HCN Clinical Concern/Question Social History [...] Recorded Patient Health Questionnaire-2 Score 0 10/15/2024 [facility] of Occupat ional Health - Occupational [...] place to sleep or slept in a correction (including now)? No 03/19/2024 PHQ-9 Answer Date [...] drink first t trupti in the morning (EYE-SOLDERER BARREL RIBS) to steady your nerves or to get [...] call at listed number Best contact number: [phone] (mobile) Optimal time of day to reach caller: ANYTIME Additional comments/information from caller: None Note: Please do not reply to this message. Follow-up communication and further actions as a result of this message need to be communicated with the patient directly, if the patient is not active onMyChart. If the patient is active on MyChart, they will receive notification of the communication/outcome via SureBookst. documented in this encounter Plan of Treatment Upcoming Encounters Date Type Department Care Team (Late st Contact Info) Description 05/06/2025 1:30 PM EDT Office Visit [facility] [address] [place] [address] Catalina Ruiz APRN [address] [facility] [address] [place] [address] 05/06/2025 2:30 PM EDT Office Visit [facility] Orthopaedic Surgery & Sports Medicine [address], 1st Floor [address] [place] [address] Cristian Rea MD [address] [place] [address] 05/14/2025 Hospital Encounter PAV A OPERATING ROOM [address] [place] [address] Jennifer Novak MD [address] [address] 05/20/2025 1:00 PM EDT Office Visit [facility] [address] [place], [place] [phone] Catalina Ruiz, CHROME TANNER [address] [facility] [address] [place] [address] Scheduled Procedures Name Priority Associated Diagnoses Date/Ti [...] documented as of this encounter Care Teams Dermatology Technician Relationship Specialty Start Date End Date Ruddy Branch MD PCP - General 12/14/22 documented as of this encounter
--- OUTSIDE RECORDS SUMMARY | 2025-05-05 13:08 | XMS_ITS | Encounter Summary ---
Author Organization [facility] Address [address] [place] [address] Care Team Providers Care Inspector Wire Rope Name Role Phone Ruddy Branch MD Primary Care Provider [phone] Reason for Visit * Reason Onset Date Comments HCN Clinical Concern/Question 03/07/2025 Encounter Details Date Type Department Care Team (Late st Contact Info) Description 03/07/2025 [facility]phone [facility] [address] [facility] 5th Floor Wing D, [address] [place] [address] Jennifer Novak MD [address] [address] HCN Clinical Concern/Question Social History [...] 0 10/15/2024 [facility] of Occupat ional [facility] - Occupational Stress Questionnaire Answer Date [...] drink first t trupti in the morning (EYE-MANDARIN TEACHER) to steady your nerves or to [...] to Dr.James Raymond office. Best contact number: [phone] Optimal time of day to reach caller: ANYTIME Additional comments/information from caller: None Note: Please do not reply to this message. Follow-up communication and further actions as a result of this message need to be communicated with the patient directly, if the patient is not active onMyChart. If the patient is active on MyChart, they will receive notification of the communication/outcome via Devunityhart. documented in this encounter Plan of Treatment Upcoming Encounters Date Type Department Care Team (Late st Contact Info) Description 05/06/2025 1:30 PM EDT Office Visit [facility] [address] [facility] [place] [address] Catalina Ruiz APRN [address] [facility] [address] [place] [address] 05/06/2025 2:30 PM EDT Office Visit [facility] Orthopaedic Surgery & Sports Medicine [address], 1st Floor [address] [place] [address] Cristian Rea MD [address] [place] [address] 05/14/2025 Hospital Encounter PAV A OPERATING ROOM [address] [place] [address] Jennifer Novak MD 2[address] [facility] 2nd [place] [address] 05/20/2025 1:00 PM EDT Office Visit [facility] [address] [place] [address] Catalina Ruiz, RN INTEGRATED [address] [facility] [address] [place] [address] Scheduled Procedures Name Priority Associated [...] documented as of this encounter Care Teams Inspector Wire Rope Relationship Specialty Start Date End Date Ruddy Branch MD PCP - General 12/14/22 documented as of this encounter
--- OUTSIDE RECORDS SUMMARY | 2025-05-05 13:08 | XMS_ITS | Encounter Summary ---
Author Organization [facility] Address [address] [place] [address] Care Team Providers Care Commercial Loan Coordinator Name Role Phone Ruddy Branch MD Primary Care Provider [phone] Reason for Visit * Reason Onset Date Comments HCN - Patient Message 04/07/2025 Encounter Details Date Type Department Care Team (Late st Contact Info) Description 04/07/[address] [facility] Orthopaedic Surgery & Sports Medicine [address], 1st Floor [address] [place] [address] Cristian Rea MD [address] [place] [address] HCN - Patient Message Social [...] Questionnaire-2 Score 0 10/15/2024 [facility] - Occupational Stress Questionnaire Answer Date [...] and Family Not on file 04/11/2025 Attends Jew Services Not on file 04/11 Active Member [...] any time in the past [address] [facility], were you homeless or living in a group home (including now)? No 04/11/2025 CAGE ASSESSMENT [...] drink first t trupti in the morning (EYE-PARACHUTE MANUFACTURING SUPERVISOR) to steady your nerves or to [...] before surgery please call Best contact number: [phone] (mobile) Optimal time of day to reach caller: ANYTIME Additional comments/information from caller: None Note: Please do not reply to this message. Follow-up communication and further actions as a result of this message need to be communicated with the patient directly, if the patient is not active onMyChart. If the patient is active on MyChart, they will receive notification of the communication/outcome via Kadoinkt. documented in this encounter Plan of Treatment Upcoming Encounters Date Type Department Care Team (Late st Contact Info) Description 05/06/2025 1:30 PM EDT Office Visit [facility] [address] [place] [address] Catalina Ruiz APRN [address]01 [facility] [address] [place] [address] 05/06/2025 2:30 PM EDT Office [facility] Orthopaedic Surgery & Sports Medicine [address], 1st Floor [address] [place] [address] Cristian Rea MD [address] [place] [address] 05/14/2025 Hospital Encounter PAV A OPERATING ROOM [address] [place] [address] Jennifer Novak MD 2[address] [facility] 2nd [place] [address] 05/20/2025 1:00 PM EDT Office Visit [facility] [address] [place] [address] Catalina Ruiz, OPERATIONS REPRESENTATIVE [address] [facility] [address] [place] [address] Scheduled Procedures Name Priority Associated [...] documented as of this encounter Care Teams Commercial Loan Coordinator Relationship Specialty Start Date End Date Ruddy Branch MD PCP - General 12/14/22 documented as of this encounter
--- OUTSIDE RECORDS SUMMARY | 2025-05-05 13:08 | XMS_ITS | Encounter Summary ---
Author Organization Healthcare Address [address] [place] [address] Care Team Providers Care Molded Goods Controls Operator Name Role Phone Ruddy Branch MD Primary Care Provider [phone] Encounter Details Date Type Department Care Team (Late st Contact Info) Description 04/15/2025 Telephone [facility] [address] [facility] [place] [facility] 5th Floor Wing [address], [address] [place] [address] Jennifer Novak MD [facility]5 [facility] 2nd [place] [address] Social History Tobacco Use Types Packs/Day Years [...] Recorded Patient Health Questionnaire-2 Score 0 10/15/2024 [facility] - Occupational Stress Questionnaire Answer Date [...] time in the past 12 m [facility], were you homeless or living in a correction (including now)? No 04/11/2025 CAGE ASSESSMENT Answer [...] drink first t trupti in the morning (EYE-LAUNDRY WORKER) to steady your nerves or to [...] Description 05/06/2025 1:30 PM EDT Office Visit [address] [phone] Catalina Ruiz, SALVAGE CLERK 310 [facility] [address] [place] 05/06/2025 2:30 PM EDT Office Visit [facility] Orthopaedic Surgery & Sports Medicine [address], 1st Floor [address] [place] [address] Cristian Rea MD [address] [place] [address] 05/14/2025 Hospital Encounter PAV A OPERATING ROOM [address] [place] [address] Jennifer Novak MD 2[address] [facility] [address] [place] [address] 05/20/2025 1:00 PM EDT Office Visit [address] [phone] Catalina Ruiz, SALVAGE CLERK [address] [facility] [address] [place], [place] Scheduled Procedures Name Priority Associated Diagnoses [...] documented as of this encounter Care Teams Molded Goods Controls Operator Relationship Specialty Start Date End Date Ruddy Branch MD PCP - General 12/14/22 documented as of this encounter
--- OUTSIDE RECORDS SUMMARY | 2025-05-05 13:08 | XMS_ITS | Clinical Summary ---
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 07/19/2021 Overview (03/14/2022): Had cath 202 at [facility] Tobacco abuse 07/19/2021 Neuropathy 07/19/2021 DDD (degenerative disc disease), cervical 2017 Encounters Date Type Department Care Team Description 02/10/2025 [facility] [address] [place] [address] Mireya Ann from Last 3 Months Immunizations [...] Description 05/14/2025 10:00 AM EDT Office Visit [facility] [address] [place] [phone] Ruddy Branch MD [address], [address] [...] 10:4 2 AM EST 10/22/2024 Narrative [facility] (AMBULATORY) - 10/23/2024 10:36 AM EST [facility]formed at: [facility] [address] [place] [id number] Dry Kiln Feeder: Zaire Fisher PhD, Phone: [phone] Patient Fasting: Y us Ruddy Branch MD LAB BLOOD ORDERABLES Final Resu lt [facility] (AMBULATORY) [address] [id number], [place] [phone] [facility] [address] [place] [address], * CT Chest Low Dose Cancer Screening [...] MD 05/11/2023 7:55 PM EDT Workstation ID: [id number] Narrative 05/11/2023 7:[address] CHEST [...] MD 05/11/2023 7:55 PM EDT Workstation ID: [id number] Ruddy Branch MD IMG CT ORDERABLES Final [...] with a HCV Nucleic Acid Amplification test ([id number]). 07/19/2021 11:1 5 AM EST 07/19/2021 Narrative [facility] (AMBULATORY) - 07/20/2021 8:12 AM EST Performed at: 02 - [address] [id number] Dry Kiln Feeder: Zaire Fisher PhD, Phone: [phone] Patient Fasting: Y Ruddy Branch MD LAB BLOOD ORDERABLES Final Resu lt Performing Organization Address City/State/[facility] Co de Phone Number [facility] [address] [place] [address], [facility] [address] [place] [address], from Last 3 Months or Most Recently Relevant to Health Maintenance Insurance [address] [place] [id number] [address] [facility] [employer] MEDICARE ADVANTAGE SNP HMO Care Teams Stripe Marker Relationship Specialty Start Date End Date Ruddy Branch MD [address] [place] [address] PCP - General Family Medicine 07/19/21
[2025-05-05 13:31] LABS: Hematocrit 36.4 % (42.0-52.0); Hemoglobin 11.9 g/dL (14.1-18.0); Immature Granulocytes % 0 %; Mean Corpuscular HGB Conc 32.7 g/dL (31.8-35.4); Mean Corpuscular Hemoglobin 29.5 pg (27.0-31.2); Mean Corpuscular Volume 90.3 fl (80-94); Nucleated Red Blood Cells % 0 %; Platelet Count 288 K/mm3 (142-424); Red Blood Count 4.03 M/mm3 (4.60-6.20); Red Cell Distribution Width-SD 44.4 fL; White Blood Count 5.5 K/mm3 (4.8-10.8)
[2025-05-05 13:36] LABS: Alanine Aminotransferase 15 U/L (12-78); Albumin Level 4.1 g/dl (3.5-5.0); Alkaline Phosphatase 68 U/L (38-126); Aspartate Amino Transferase 26 U/L (17-59); Bilirubin,Direct 0.2 mg/dl (0.0-0.4); Bilirubin,Indirect 0.5 mg/dL (0.0-0.9); Bilirubin,Total 0.7 mg/dl (0.2-1.3); Bilirubin,Unconjugated 0.4 mg/dL (0.0-1.1); Blood Urea Nitrogen 9 mg/dl (9-20); Creatine Kinase 33 U/L (55-170); Creatinine,Serum 0.80 mg/dl (0.66-1.25); Estimated Glomerular Filt Rate 98 ml/min (>60); GFR (African American) 119 ML/MIN (>60); Total Protein,Serum 6.9 g/dl (6.3-8.2)
[2025-05-05 13:42] LABS: C-Reactive Protein 2.9 mg/L (0-4)
== END 2025-05-05 13:20 | disposition home or self-care (01) ==
LOC: INF 13:03
PROVIDERS: Visit Provider Orthopaedic Surgery Orthopaedic Trauma
DX: M86.461 Chronic osteomyelitis with draining sinus, right tibia and fibula (principal)
CPT/HCPCS: 36592; 80076; 82550; 82565; 84520; 85025; 86140

== ENCOUNTER 2025-05-12 13:04 | Outpatient (CLI) | payer MEDICARE, SELFPAY ==
--- OUTSIDE RECORDS SUMMARY | 2025-03-25 14:30 | XMS_ITS | Encounter Summary ---
Author Organization [facility] Address [address] [place] [address] Care Team Providers Care Quality Control Auditor Name Role Phone Ruddy Branch MD Primary Care Provider [phone] Reason for Visit * Reason Comments Follow-up Encounter Details Date Type Department Care Team (Latest Contact Info) Description 03/25/2025 2:30 PM EDT Office Visit [place] [facility] [address] 1[address] [place] [address] Cristian Rea MD [address] [place] [address] Chronic osteomyelitis of right tibia [...] and Family Not on file 03/19/2024 Attends Anglican Services Not on file 03/19 Active Member [...] Recorded Patient Health Questionnaire-2 Score 0 10/15/2024 [facility] Occupat ional Health - Occupational [...] place to sleep or slept in a penitentiary (including now)? No 03/19/2024 PHQ-9 Answer Date [...] drink first t trupti in the morning (EYE-FREIGHT SALES BROKER) to steady your nerves or to get rid of a hangover? 0 03/14/2024 CAGE Questionnaire Score 0 024 Utilities Answer Date Recorded In the past 12 months has th e [employer], gas, oil, or water company threatened to [...] Care Team (Late st Contact Info) Description 05/14/2025 4:30 PM EDT Hospital Encounter [facility] [address] [place] [address] Jennifer Novak MD [address] [place] [phone] 05/14/2025 4:30 PM EDT - 05/14/2025 6:25 PM EDT Surgery [facility] [place] [address] Jennifer Novak MD [address] [place] [phone] Split Thickness Skin Graft To RIGHT Leg 05/20/2025 1:00 PM EDT Office Visit [facility] [address] [place] [address] Catalina Ruiz, CONVENIENCE STORE MANAGER [address] [facility] [address] [place] [address] 07/08/2025 9:30 AM EST Appointment [facility] [address] [place] [address] 07/08/2025 10:10 AM EST Office Visit [facility] Surgery [facility] [address] [place] [address] Cristian Rea MD [address] [place] [address] Scheduled Orders Name Type Priority Associated Diagnoses Orde r Schedule Methicillin Resistant Staphylococcus aureus (MRSA) by PCR Microbiology Routine 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) Ordered: 03/25/2025 Scheduled Procedures Name Priority Associated Diagnoses Date/Ti me APPLICATION, GRAFT, SKIN, SPLIT-THICKNESS Open wound 05/14/2025 4:30 PM EDT documented as of this encounter Visit Diagnoses Diagnosis 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)- Primary Open wound Open wound(s) (multiple) of unspecified site(s), without [...] documented as of this encounter Care Teams Quality Control Auditor Relationship Specialty Start Date End Date Ruddy Branch MD PCP - General 12/14/22 documented as of this encounter
--- OUTSIDE RECORDS SUMMARY | 2025-04-09 11:33 | XMS_ITS | Encounter Summary ---
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 History of methicillin resistant Staphylococcus aureus HL (hearing loss) no hearing aids at this time Hyperlipidemia Hypertension Limited mobility holds on to furniture and paniagua Myocardial infarction ([facility]) 2018 Peripheral neuropathy PTSD (post-traumatic [...] card, photo ID, along with power of baker doughnut, guardianship or advanced directives if applicable Do [...] welcome you, your family, and friends to [facility]. We offer access to more than [...] will help you be more comfortable with [facility] and the surgical process. This information [...] located on the first floor of the [facility] near the Pharmacy and main clinic entrance. We are open Monday-Monday from 8 a.m. to 4:30 p.m. A clinic retail representative can be reached at [phone]. Parking is available in the [facility] garage on [facility] or in the [facility] garage located at [address] [place] [address], directly across [facility] from [facility]. The day before surgery You will receive a phone call telling you what time you need to arrive at the hospital for surgery.If you miss the call, please call one of the following numbers (depending on where your surgery is scheduled): ? [facility]: [phone] or [phone] ? [facility]: [phone] or [phone] The day of surgery ? Arrive on time to avoid delays or cancellation. ? Park in the [facility] parking garage located at [address] It is directly across [facility] from the medical campus. ? If you are scheduled for surgery at [facility], take the hospital garage elevator to Level C, then cross the concourse bridge to the Surgery Waiting Room to register for your surgery. [facility] is located down the first hallway to the right at the end of the concourse bridge. If you need help crossing the concourse, you may worm picker the patient golf cart shuttle directlyto the right of the elevators on Level C. ? If you are scheduled for surgery at the [facility], take the garage elevator to Level A and catch the free shuttle to the hospital. (Be careful not to take the [facility] shuttle - there is an ambassador there [...] checked many times throughout your stay at [facility] to ensure your safety. ? Go [...] talk to them after your surgery. A library customer service clerk is available in the waiting room [...] living will, health care surrogate, power of baker doughnut or guardianship papers. ? Bring a responsible [...] makeup, jewelry (including body piercing) or nail haitian. ? Don?t bring money or valuables to [...] office and the Preoperative Anesthesia Clinic at [phone] or [phone]. If it is the day of surgery, call the location where you are scheduled to have your surgery: [facility] at [phone] or [phone] or [facility] at [phone] or [phone]. For more information Visit www.[facility], [facility] or call [phone] or [phone]. [facility] does not discriminate. [facility] complies with applicable Federal civil rights laws and does not discriminate on the basis of race, color, national origin, age, disability, or sex. * Beatrisari Vish - Negin Aguirre RN - 03/28/2025 10:14 AM EDT Images from the original note were not included. 489 Map to [facility] Facilities Directions Easy directions to and from [address] (from [address]) Directions from I-75/I-64 to the [facility] Parking Garage: ? From [address], turn right off the exit ramp onto [address] ([place] [address] [address]) toward [address]. ? In 4.1 miles, turn left onto [address] (at the [employer] station). ? In a half-mile, turn right onto [address]. ? In .3 miles, turn right onto [address] (just past the [employer] gas station). Garage entrance is on the left. ? Important: This garage address will change to [facility] on February 18, 2025. Directions from HealthCare Parking Garage to I-75/I-64: ? Turn left out of the garage onto [facility]. ? Turn left onto [address]. ? In .3 miles, turn left down [address] ? In a half-mile, turn right onto [address] (at the [employer] gas station). ? In 4.1 miles, merge onto [address] /[address] (near the [employer] [facility]). Parking Any patients or visitors of [facility] can park in the following areas: ? [facility] Parking Garage (main garage): [address] (Levels A-F) ? [facility] Garage: [address] (Levels 1-6) ? [facility] Cancer lot: Located off [employer] (limited parking for [facility] outpatients only). Upon Your Arrival ? Patients and visitors going [facility], and [facility] may walk across the pedway, located at [...] also be accessed via the pedway off [facility] garage on Level C. If you need a shuttle to the ED, one can be called for you at Level A of the main garage or contact any of the information desks, . Additional Information For additional information, please visit our information desks located throughout [facility]. Information desks have additional maps and resources. Information desks are located at the main entrances of: [facility] (first floor and ground floor), [facility], [facility] H, [facility]ilion CC, Pavilion , [facility] (first and third floor), and [facility]. Informationdesk number: [phone]. Important Addresses [address] [place] [address] ? [facility] entrance ? Pavilion A ? Pavilion G ([facility]) ? Emergency Department [address] ? Pavilion H ? Pavilion CC ([facility]) ? Pavilion WH ([facility]) ? [facility] [address] [facility] ? [facility] [address] [facility] ? [facility] [address] [facility] ? [facility] ? [facility] [...] split thickness skin [place] cpt [address], [id number], [address] [address] Rea (Right). [...] card, photo ID, along with power of baker doughnut, guardianship or advanced directives if applicable Do not bring money, jewelry (Including wedding rings) or other valuables. Do not wear any makeup, nail haitian, or contact lens the day of surgery. Hibiclens bathing instructions reviewed if applicable Notify surgeon of fever, illness, any changes or if you decide not to have surgery. If you have anysurgery specific questions or concerns, please contact your surgeon, * Cristian Rea - Anabela. If you are unable to keep your surgery day (04/02/2025) please contact your surgeon's office. If it is the day of surgery, call the location where you are scheduled to have your surgery: [facility] at [phone] or [phone] or [facility] at [phone] or [phone]. documented in this encounter Plan of Treatment Upcoming Encounters Date Type Department Care Team (Late st Contact Info) Description 05/14/2025 4:30 PM EDT Hospital Encounter [facility] [address] [place] [address] Jennifer Novak MD [address] [place] [phone] 05/14/2025 4:30 PM EDT - 05/14/2025 6:25 PM EDT Surgery [facility] [address] [place] [address] Jennifer Novak MD [address] [place] [phone] Split Thickness Skin Graft To RIGHT Leg 05/20/2025 1:00 PM EDT Office Visit [facility] [address] [facility] [place] [address] Catalina Ruiz, ACCOUNTING MANAGER ASSISTANT CONTROLLER [address] [place] [address] 07/08/2025 9:[address] [facility] Radiology [address] [place] [address] 07/08/2025 10:10 AM EST Office Visit [facility] Orthopaedic Surgery & Sports Medicine [address] 1st Floor [address] [place] [address] Cristian Rea MD [address] [place] [address] Scheduled Orders Name Type Priority Associated Diagnoses Orde r Schedule Multi Drug Resistance Test Microbiology Routine Once (Lab) for 1 Occurrences starting 04/09/2025 until 04/09/2025 Scheduled Procedures Name Priority Associated Diagnoses Date/Ti me APPLICATION, GRAFT, SKIN, SPLIT-THICKNESS Open wound 05/14/2025 4:30 PM EDT Scheduled Referrals Name Type Priority Associated Diagnoses Orde r Schedule Discharge Ambulatory referral to NON [facility] Outpatient Referral Routine Chronic osteomyelitis [...] of right tibia with draining sinus (CMS/HCC) [place] REMOVAL DEEP IMPLANT 04/09/20 25 3:20 PM [...] Lorenzo RN Authorized by: Cristian Rea MD [place] Protocol: Verbal consent obtained?: Yes Written consent [...] preference Patient position: Flat Catheter Lot #: [id number] Catheter curing press operator: Enubila PowerPICC Solo Catheter placed: Single lumen Catheter [...] - 320 U/L 04/11/2025 2:10 PM EDT [facility] Blood Venous blood specimen / Unknown Venipuncture / Unknown 04/11/2025 1:00 PM EDT 04/11/2025 1:41 PM EDT [facility] LAB BLOOD ORDERABLES Final Res ult Performing Organization Address City/[facility]/ZIP Co de Phone Number [facility] [address] [place] [address] * HIV 1 & 2 Antibody/Antigen Screen (04/11/2025 1:00 PM EDT) [facility] HIV 1 & 2 Antibody/Antigen Screen Non Reactive Non Reactive 04/11/2025 2:38 PM EDT [facility] Comment:Screening for HIV 1 & 2 antibodies, and P24 antigen is NONREACTIVE. No confirmatory testing is required. Blood Venous blood specimen / Unknown Venipuncture / Unknown 04/11/2025 1:00 PM EDT 04/11/2025 1:41 PM EDT George Fox MD LAB BLOOD ORDERABLES Final R esult Performing Organization Address City/[facility]/ZIP Co de Phone Number [facility] [address] [place] [address] * C-reactive protein (04/10/2025 2:29 AM EDT) CRP, Plasma <3.0 <=8.0 mg/L 04/10/2025 12:01 PM EDT [facility] Blood Venous blood specimen / Unknown Venipuncture / Unknown 04/10/2025 2:29 AM EDT 04/10/2025 2:39 AM EDT Narrative [facility] - 04/10/2025 12:01 PM EDT This CRP test is appropriate for assessment of infection, systemic inflammation and/or tissue injury. To assess cardiovascular disease risk order high sensitivity CRP (CRPH). us [facility] LAB BLOOD ORDERABLES Final Res ult [facility] [address] [place] [address] * (ABNORMAL) Prealbumin (04/10/2025 2:29 AM EDT) Prealbumin, Plasma 17.1(L) 20.0 - 41.0 mg/dL 04/10/2025 11:03 AM EDT [facility] Blood Venous blood specimen / Unknown Venipuncture / Unknown 04/10/2025 2:29 AM EDT 04/10/2025 2:39 AM EDT us Cristian Rea MD LAB BLOOD ORDERABLES Final Result Performing Organization Address City/[facility]/ZIP Co de Phone Number [facility] [address] [place] [address] * (ABNORMAL) Basic metabolic panel (04/10/2025 2:29 AM EDT) Glucose, Plasma 168(H) 74 - 99 mg/dL 04/10/2025 3:07 AM EDT [facility] BUN, Plasma 11 8 - 23 mg/dL 04/10/2025 3:07 AM EDT [facility] Creatinine, Plasma 0.80 0.70 - 1.20 mg/dL 04/10/2025 3:07 AM EDT [facility] BUN/Creatinine Ratio 14 04/10/2025 3:07 AM EDT [facility] Sodium, Plasma 138 136 - 145 mmol/L 04/10/2025 3:07 AM EDT [facility] Potassium, Plasma 4.8 3.6 - 4.9 mmol/L 04/10/2025 3:07 AM EDT [facility] Chloride, Plasma 106 97 - 107 mmol/L 04/10/2025 3:07 AM EDT [facility] CO2, Plasma 22 22 - 29 mmol/L 04/10/2025 3:07 AM EDT [facility] Anion Gap 10 6 - 16 mmol/L 04/10/2025 3:07 AM EDT [facility] Total Calcium, Plasma 8.8(L) 8.9 - 10.2 mg/dL 04/10/2025 3:07 AM EDT [facility] eGFRcr 100.1 mL/min/1.7 3m*2 04/10/2025 3:07 AM EDT [facility] Comment:Reported eGFRcr in m L/min/1.73m2 is based the CKD-EPI 2020 equation that does not use a race coefficient. Blood Venous blood specimen / Unknown Venipuncture / Unknown 04/10/2025 2:29 AM EDT 04/10/2025 2:39 AM EDT Cristian Rea MD LAB BLOOD ORDERABLES Final Result [facility] [address] [place] [address] * (ABNORMAL) CBC (04/10/2025 2:29 AM EDT) WBC Count 5.60 3.70 - 10.30 10*3/uL LAB HEMATOLOGY METHOD 04/10/2025 2:50 AM EDT [facility] RBC Count 4.18(L) 4.60 - 6.10 10*6/uL LAB HEMATOLOGY METHOD 04/10/2025 2:50 AM EDT [facility] HGB 12.5(L) 13.7 - 17.5 g/dL LAB HEMATOLOGY METHOD 04/10/2025 2:50 AM EDT [facility] HCT 37.2(L) 40.0 - 51.0 % LAB HEMATOLOGY METHOD 04/10/2025 2:50 AM EDT [facility] Platelet Count 251 155 - 369 10*3/uL LAB HEMATOLOGY METHOD 04/10/2025 2:50 AM EDT [facility] MCV 89 79 - 98 fL LAB HEMATOLOGY METHOD 04/10/2025 2:50 AM EDT [facility] MCH 29.9 26.0 - 32.0 pg LAB HEMATOLOGY METHOD 04/10/2025 2:50 AM EDT [facility] MCHC 33.6 30.7 - 35.5 g/dL LAB HEMATOLOGY METHOD 04/10/2025 2:50 AM EDT [facility] RDW 14.0 11.5 - 14.5 % LAB HEMATOLOGY METHOD 04/10/2025 2:50 AM EDT [facility] MPV 9.2 8.8 - 12.5 fL LAB HEMATOLOGY METHOD 04/10/2025 2:50 AM EDT [facility] nRBC 0.0 <=0.0 per 100 WBCs LAB HEMATOLOGY METHOD 04/10/2025 2:50 AM EDT [facility] Blood Venous blood specimen / Unknown Venipuncture / Unknown 04/10/2025 2:29 AM EDT 04/10/2025 2:39 AM EDT Cristian Rea MD LAB BLOOD ORDERABLES Final Result Performing Organization Address City/[facility]/ZIP Co de Phone Number [facility] [address] [place] [address] * [place] Less than 1 Hour Intraoperative (04/09/2025 5:08 PM EDT) Narrative IMAGING - 04/09/2025 5:09 PM EDT Images were obtained for surgical purposes. See Cristian Rea's surgical note in the patient's chart for the findings. 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 The organism value for this result has been updated. These results have been appended to the previously preliminary verified report. 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) [M86.461] Cristian Rea MD LAB MICROBIOLOGY - GENERAL ORDERABLES Final Result Performing Organization Address City/[facility]/ZIP Co de Phone Number [facility] [address] [place] [address] * Anaerobic Culture (04/09/2025 4:34 PM EDT) Culture No anaerobes isolated 04/13/2025 10:52 AM EDT [facility] Bone Topography unknown / Unknown 04/09/2025 4:34 PM EDT 04/09/2025 5:07 PM EDT Comment:Pre-op diagnosis: 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 The organism value for this result has been updated. These results have been appended to the previously preliminary verified report. <null> has been updated to reportable. 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) [M86.461] Cristian Rea MD LAB MICROBIOLOGY - GENERAL ORDERABLES Final Result Performing Organization Address City/[facility]/ZIP Co de Phone Number [facility] [address] [place] [address] * 12 Lead ECG (04/09/2025 3:13 PM EDT) EKG DIAGNOSIS CLASS Abnormal MUSE ECG Ventricular Rate 59 BPM MUSE ECG Atrial Rate 59 BPM MUSE ECG AZ Interval 122 ms MUSE ECG QRSD Interval 82 ms MUSE ECG QT Interval 432 ms MUSE ECG QTC Interval 427 ms MUSE ECG P [place] 67 degrees MUSE ECG R [place] 92 degrees MUSE ECG T Wave [place] 76 degrees MUSE ECG Diagnosis Sinus bradycardia MUSE ECG Diagnosis Rightward axis MUSE ECG Diagnosis Poor R-wave progression MUSE ECG Diagnosis Abnormal ECG MUSE ECG Diagnosis MUSE ECG Diagnosis Confirmed by Isacc Arciniega ([id number]) on 04/09/2025 5:30:16 PM MUSE ECG 04/09/2025 3:13 PM EDT 04/09/2025 5:30 PM EDT us Rubens Guy MD ECG ORDERABLES Final Result MUSE ECG * (ABNORMAL) CBC (04/09/2025 3:01 PM EDT) WBC Count 8.61 3.70 - 10.30 10*3/uL LAB HEMATOLOGY METHOD 04/09/2025 3:44 PM EDT [facility] RBC Count 4.58(L) 4.60 - 6.10 10*6/uL LAB HEMATOLOGY METHOD 04/09/2025 3:44 PM EDT [facility] HGB 13.4(L) 13.7 - 17.5 g/dL LAB HEMATOLOGY METHOD 04/09/2025 3:44 PM EDT [facility] HCT 41.0 40.0 - 51.0 % LAB HEMATOLOGY METHOD 04/09/2025 3:44 PM EDT [facility] Platelet Count 269 155 - 369 10*3/uL LAB HEMATOLOGY METHOD 04/09/2025 3:44 PM EDT [facility] MCV 90 79 - 98 fL LAB HEMATOLOGY METHOD 04/09/2025 3:44 PM EDT [facility] MCH 29.3 26.0 - 32.0 pg LAB HEMATOLOGY METHOD 04/09/2025 3:44 PM EDT [facility] MCHC 32.7 30.7 - 35.5 g/dL LAB HEMATOLOGY METHOD 04/09/2025 3:44 PM EDT [facility] RDW 14.0 11.5 - 14.5 % LAB HEMATOLOGY METHOD 04/09/2025 3:44 PM EDT [facility] MPV 9.2 8.8 - 12.5 fL LAB HEMATOLOGY METHOD 04/09/2025 3:44 PM EDT [facility] nRBC 0.0 <=0.0 per 100 WBCs LAB HEMATOLOGY METHOD 04/09/2025 3:44 PM EDT [facility] Blood Venous blood specimen / Unknown Venipuncture / Unknown 04/09/2025 3:01 PM EDT 04/09/2025 3:35 PM EDT Cristian Rea MD LAB BLOOD ORDERABLES Final Result [facility] [address] [place] [address] * Basic metabolic panel (04/09/2025 3:01 PM EDT) Glucose, Plasma 96 74 - 99 mg/dL 04/09/2025 4:02 PM EDT [facility] BUN, Plasma 8 8 - 23 mg/dL 04/09/2025 4:02 PM EDT [facility] Creatinine, Plasma 0.80 0.70 - 1.20 mg/dL 04/09/2025 4:02 PM EDT [facility] BUN/Creatinine Ratio 10 04/09/2025 4:02 PM EDT [facility] Sodium, Plasma 139 136 - 145 mmol/L 04/09/2025 4:02 PM EDT [facility] Potassium, Plasma 4.0 3.6 - 4.9 mmol/L 04/09/2025 4:02 PM EDT [facility] Chloride, Plasma 104 97 - 107 mmol/L 04/09/2025 4:02 PM EDT [facility] CO2, Plasma 24 22 - 29 mmol/L 04/09/2025 4:02 PM EDT [facility] Anion Gap 11 6 - 16 mmol/L 04/09/2025 4:02 PM EDT [facility] Total Calcium, Plasma 9.0 8.9 - 10.2 mg/dL 04/09/2025 4:02 PM EDT [facility] eGFRcr 100.1 mL/min/1.7 3m*2 04/09/2025 4:02 PM EDT [facility] Comment:Reported eGFRcr in m L/min/1.73m2 is based the CKD-EPI 2020 equation that does not use a race coefficient. Blood Venous blood specimen / Unknown Venipuncture / Unknown 04/09/2025 3:01 PM EDT 04/09/2025 3:31 PM EDT us Rubens Guy MD LAB BLOOD ORDERABLES Final Re sult Performing Organization Address [facility] Co de Phone Number [facility] [address] [place] [address] * Type and screen (04/09/2025 3:01 PM EDT) ABO/Rh A Positive 04/09/2025 2:52 PM EDT BLOOD BANK Antibody Screen Negative 04/09/2025 2:52 PM EDT BLOOD BANK Specimen Expiration 04/12/2025 23:59 04/09/2025 2:52 PM EDT BLOOD BANK Blood Venous blood specimen / Unknown Venipuncture / Unknown 04/09/2025 3:01 PM EDT 04/09/2025 3:06 PM EDT Rubens Guy MD LAB BLOOD BANK TEST ORDERABLE S Final Result Performing Organization Address [facility] de Phone Number BLOOD BANK [address] [place] [address] documented in this encounter Visit Diagnoses Diagnosis 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)- Primary Osteomyelitis of right tibia, unspecified type (CMS/HCC) Open wound Open wound(s) (multiple) of unspecified site(s), without mention of complication documented in this encounter Admitting Diagnoses Diagnosis [...] Intravenous, Every 24 hours, First dose on Mon04/10/25 at 1115, Until Discontinued, at 275 mL/hr, [...] Nuno RN)1117 (Given - Provider: Nesha Deng, RN)1727 (Given - Provider: Nesha Deng, RN) 0036 (Given - Provider: Bryan Gibbs [...] 1250 (New Bag - Provider: Christian Jay, TITUS) enoxaparin (Lovenox) syringe 30 mg 30 mg, [...] 04/10/25 at 1145, Until Discontinued, Routine 1112 (Not Given - Provider: Nesha Deng RN - Reason: Patient/family refused) 0859 (Not Given - Provider: Christian Jay RN - Reason: Patient/family refused)0901 (Not Given - Provider: Christian Jay RN - Reason: Patient/family refused) Povidone-Iodine 5 % swab solution 1 Application (COMPLETED) Nasal, Once, 1 dose, On Mon04/09/25 at 1545, Routine 1507 (Given - Provider: uSnny Dwyer RN) rosuvastatin (Crestor) tablet 20 mg 20 mg, Oral, Nightly, First dose on Mon04/10/25 at 2100, Until Discontinued, Routine 2156 (Given - Provider: Bryan Gibbs RN) senna-docusate [...] on Mon04/11/25 at 0437, Until Mon04/11/25 at 194, Routine, wheezing, shortness of breath methocarbamol (Robaxin) tablet 750 mg 750 mg, Oral, Every 6 hours PRN, Starting on Mon04/09/25 at 203, Until Mon04/11/25 at 194, Routine, Recovery(Phase II-Outpatient)/On Unit(Inpatient), muscle spasms 1045 [...] Provider: Nesha Deng RN - Reason: Patient/family refused)221 (Not Given - Provider: Bryan Gibbs RN [...] documented as of this encounter Care Teams Customer Care Professional Relationship Specialty Start Date End Date Ruddy Branch MD PCP - General 12/14/22 documented as of this encounter
--- OUTSIDE RECORDS SUMMARY | 2025-04-09 13:30 | XMS_ITS | Encounter Summary ---
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 [...] makeup, jewelry (including body piercing) or nail indonesian. ? Don?t bring money or valuables to [...] office and the Preoperative Anesthesia Clinic at [phone] or [phone]. If it is the day of surgery, call the location where you are scheduled to have your surgery: [facility] at [phone] or [phone] or [facility] at [phone] or [phone]. For more information Visit [email or web address] or call [phone] or [phone]. [facility] does not discriminate. HealthCare complies with applicable [...] right off the exit ramp onto [address] ([place] [address] [address]) toward [place]. ? In 4.1 miles, turn left onto [address] (at the [employer] gas station). ? In a half-mile, turn right onto [address]. ? In .3 miles, turn right onto [address] (just past the [employer] gas station). Garage entrance is on the left. ? Important: This garage address will change to [address] [place] [address] on February 18, 2025. Directions from HealthCare Parking Garage to I-75/I-64: ? Turn left out of the garage onto [facility]. ? Turn left onto [address]. ? In .3 miles, turn left down [address] ? In a half-mile, turn right onto [address] (at the [employer] gas station). ? In 4.1 miles, merge onto [address] /[address] (near the [facility]). Parking Any patients or visitors of [facility] can park in the following areas: ? [facility] Parking Garage (main garage): [address] (Levels A-F) ? [facility] Garage: [address] (Levels 1-6) ? [facility] lot: Located off [address] (limited parking for [facility] outpatients only). Upon Your Arrival ? Patients and visitors going to [place] [facility], and [facility] may walk across the pedway, located [...] also be accessed via the pedway off [facility] garage on Level C. If you need a shuttle to the ED, one can be called for you at Level A of the main garage or contact any of the information desks, . Additional Information For additional information, please visit our information desks located throughout [facility]. Information desks have additional maps and resources. Information desks are located at the main entrances of: [facility] (first floor and ground floor), [facility], [facility], [facility] CC, Pavilion , [facility] (first and third floor), and [facility]. Informationdesk number: [phone]. Important Addresses [address] [facility] ? [facility] entrance ? Pavilion A ? Pavilion G ([facility]) ? Emergency Department [address] ? [facility] H ? Pavilion CC ([facility]) ? Pavilion WH ([facility]) ? [employer] [address] [facility] ? [facility] [address] [facility] ? [address] ? [facility] ? [facility] [...] split thickness skin graft right leg cpt 59685, [address], [address] [address] Rea (Right). [...] card, photo ID, along with power of contracts attorney, guardianship or advanced directives if applicable Do not bring money, jewelry (Including wedding rings) or other valuables. Do not wear any makeup, nail indonesian, or contact lens the day of surgery. [...] you are scheduled to have your surgery: [facility] at [phone] or [phone] or [facility] at [phone] or [phone]. documented in this encounter Plan of Treatment Upcoming Encounters Date Type Department Care Team (Late st Contact Info) Description 05/14/2025 4:30 PM EDT Hospital Encounter [facility] [address] [place] [address] Jennifer Novak MD [address] [address] 05/14/2025 4:30 PM EDT - 05/14/2025 6:25 PM EDT Surgery [facility] [address] [place] [phone] Jennifer Novak MD [address] [address] Split Thickness Skin Graft To RIGHT Leg 05/20/2025 1:00 PM EDT Office Visit [facility] [address] [place] [address] Catalina Ruiz, SP[employer]AL [employer]ER [address] [facility] [address] [place] [phone] 07/08/2025 9:30 AM EST Appointment [facility] Radiology [address], [address] [place] [address] 07/08/2025 10:10 AM EST Office Visit [facility] Orthopaedic Surgery & Sports Medicine [address], 1[address] [place] [address] Cristian Rea MD [address] [facility] [address] [place] [phone] Scheduled Orders Name Type Priority Associated Diagnoses Orde r Schedule Multi Drug Resistance Test Microbiology Routine Once (Lab) for 1 Occurrences starting 04/09/2025 until 04/09/2025 Scheduled Procedures Name Priority Associated Diagnoses Date/Ti me APPLICATION, GRAFT, SKIN, SPLIT-THICKNESS Open wound 05/14/2025 4:30 PM EDT Scheduled Referrals Name Type Priority Associated Diagnoses Orde r Schedule Discharge [facility] Outpatient Referral Routine Chronic osteomyelitis of [...] sinus (CMS/HCC) [place] REMOVAL DEEP IMPLANT 04/09/20 3:20 PM EDT [...] Lorenzo RN Authorized by: Cristian Rea MD [place] Protocol: Verbal consent obtained?: Yes Written consent [...] preference Patient position: Flat Catheter Lot #: [id number] 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: 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 Catheter placed: Single lumen Catheter size: 4 Fr Catheter trimmed length: 43 Catheter threaded length: 43 Vein placed in: SVC Catheter cm indwellin Catheter cm outside: 0 Placement confirmed by: Ramamia 3CG technology Pre-procedure: Landmarks identified Ultrasound guidance: [...] - 320 U/L 04/11/2025 2:10 PM EDT [facility] Blood Venous blood specimen / Unknown Venipuncture / Unknown 04/11/2025 1:00 PM EDT 04/11/2025 1:41 PM EDT us [facility] LAB BLOOD ORDERABLES Final Res ult [facility] [address] [place] [address] * HIV 1 & 2 Antibody/Antigen Screen (04/11/2025 1:00 PM EDT) HIV 1 & 2 Antibody/Antigen Screen Non Reactive Non Reactive 04/11/2025 2:38 PM EDT [facility] Comment:Screening for HIV 1 & 2 antibodies, and P24 antigen is NONREACTIVE. No confirmatory testing is required. Blood Venous blood specimen / Unknown Venipuncture / Unknown 04/11/2025 1:00 PM EDT 04/11/2025 1:41 PM EDT us George Fox MD LAB BLOOD ORDERABLES Final R esult Performing Organization Address [facility] Co de Phone Number [facility] [address] [place] [phone] * C-reactive protein (04/10/2025 2:29 AM EDT) [facility] CRP, Plasma <3.0 <=8.0 mg/L 04/10/2025 12:01 PM EDT [facility] Blood Venous blood specimen / Unknown Venipuncture / Unknown 04/10/2025 2:29 AM EDT 04/10/2025 2:39 AM EDT Narrative [facility] - 04/10/2025 12:01 PM EDT This CRP test is appropriate for assessment of infection, systemic inflammation and/or tissue injury. To assess cardiovascular disease risk order high sensitivity CRP (CRPH). us [facility] LAB BLOOD ORDERABLES Final Res ult Performing Organization Address City/[facility] Co de Phone Number [facility] [address] [place] [address] * (ABNORMAL) Prealbumin (04/10/2025 2:29 AM EDT) [facility] Prealbumin, Plasma 17.1(L) 20.0 - 41.0 mg/dL 04/10/2025 11:03 AM EDT [facility] Blood Venous blood specimen / Unknown Venipuncture / Unknown 04/10/2025 2:29 AM EDT 04/10/2025 2:39 AM EDT Cristian Rea MD LAB BLOOD ORDERABLES Final Result [facility] [address] [place] [address] * (ABNORMAL) Basic metabolic panel (04/10/2025 2:29 AM EDT) Glucose, Plasma 168(H) 74 - 99 mg/dL 04/10/2025 3:07 AM EDT [facility] BUN, Plasma 11 8 - 23 mg/dL 04/10/2025 3:07 AM EDT [facility] Creatinine, Plasma 0.80 0.70 - 1.20 mg/dL 04/10/2025 3:07 AM EDT [facility] BUN/Creatinine Ratio 14 04/10/2025 3:07 AM EDT [facility] Sodium, Plasma 138 136 - 145 mmol/L 04/10/2025 3:07 AM EDT [facility] Potassium, Plasma 4.8 3.6 - 4.9 mmol/L 04/10/2025 3:07 AM EDT [facility] Chloride, Plasma 106 97 - 107 mmol/L 04/10/2025 3:07 AM EDT [facility] CO2, Plasma 22 22 - 29 mmol/L 04/10/2025 3:07 AM EDT [facility] Anion Gap 10 6 - 16 mmol/L 04/10/2025 3:07 AM EDT [facility] Total Calcium, Plasma 8.8(L) 8.9 - 10.2 mg/dL 04/10/2025 3:07 AM EDT [facility] eGFRcr 100.1 mL/min/1.7 3m*2 04/10/2025 3:07 AM EDT [facility] Comment:Reported eGFRcr in m L/min/1.73m2 is based the CKD-EPI 2020 equation that does not use a race coefficient. Blood Venous blood specimen / Unknown Venipuncture / Unknown 04/10/2025 2:29 AM EDT 04/10/2025 2:39 AM EDT Cristian Rea MD LAB BLOOD ORDERABLES Final Result [facility] [address] [place] [address] * (ABNORMAL) CBC (04/10/2025 2:29 AM EDT) WBC Count 5.60 3.70 - 10.30 10*3/uL LAB HEMATOLOGY METHOD 04/10/2025 2:50 AM EDT [facility] RBC Count 4.18(L) 4.60 - 6.10 10*6/uL LAB HEMATOLOGY METHOD 04/10/2025 2:50 AM EDT [facility] HGB 12.5(L) 13.7 - 17.5 g/dL LAB HEMATOLOGY METHOD 04/10/2025 2:50 AM EDT [facility] HCT 37.2(L) 40.0 - 51.0 % LAB HEMATOLOGY METHOD 04/10/2025 2:50 AM EDT [facility] Platelet Count 251 155 - 369 10*3/uL LAB HEMATOLOGY METHOD 04/10/2025 2:50 AM EDT [facility] MCV 89 79 - 98 fL LAB HEMATOLOGY METHOD 04/10/2025 2:50 AM EDT [facility] MCH 29.9 26.0 - 32.0 pg LAB HEMATOLOGY METHOD 04/10/2025 2:50 AM EDT [facility] MCHC 33.6 30.7 - 35.5 g/dL LAB HEMATOLOGY METHOD 04/10/2025 2:50 AM EDT [facility] RDW 14.0 11.5 - 14.5 % LAB HEMATOLOGY METHOD 04/10/2025 2:50 AM EDT [facility] MPV 9.2 8.8 - 12.5 fL LAB HEMATOLOGY METHOD 04/10/2025 2:50 AM EDT [facility] nRBC 0.0 <=0.0 per 100 WBCs LAB HEMATOLOGY METHOD 04/10/2025 2:50 AM EDT [facility] Blood Venous blood specimen / Unknown Venipuncture / Unknown 04/10/2025 2:29 AM EDT 04/10/2025 2:39 AM EDT Cristian Rea MD LAB BLOOD ORDERABLES Final Result Performing Organization Address [facility] Co de Phone Number [facility] [address] [place] [address] * [place] Less than 1 Hour Intraoperative (04/09/2025 5:08 PM EDT) Narrative IMAGING - 04/09/2025 5:09 PM EDT Images were obtained for surgical purposes. See Cristian Rea's surgical note in the patient's chart for the findings. 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 (CMS/[facility]) [M86.461] Result [facility] Cristian Rea MD LAB MICROBIOLOGY - GENERAL ORDERABLES Final Result Performing Organization Address [facility] de Phone Number [facility] [address] [place] [address] * (ABNORMAL) Bone Culture and Gram Stain (04/09/2025 4:34 PM EDT) Culture Light Growth 04/12/2025 7:38 AM EDT [facility] Culture Staphylococcus aureus(A) 04/12/2025 7:38 AM EDT [facility] Comment: (small colony variant) - Positive for MRSA by PBP2a assay. The organism value for this result has been updated. These results have been appended to the previously preliminary verified report. Gram Stain Result No organisms seen 04/12/2025 7:38 AM EDT [facility] Gram Stain Result No polymorphonuclear leukocytes seen 04/12/2025 7:38 AM EDT [facility] Bone Topography unknown / Unknown 04/09/2025 4:34 PM EDT 04/09/2025 5:07 PM EDT Comment:Pre-op diagnosis: 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) [M86.461] Cristian Rea MD LAB MICROBIOLOGY - GENERAL ORDERABLES Final Result Performing Organization Address City/[facility]/ZIP Co de Phone Number [facility] [address] [place] [address] * Anaerobic Culture (04/09/2025 4:34 PM EDT) Culture No anaerobes isolated 04/13/2025 10:52 AM EDT [facility] Bone Topography unknown / Unknown 04/09/2025 4:34 PM EDT 04/09/2025 5:07 PM EDT Comment:Pre-op diagnosis: 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) [M86.461] Cristian Rea MD LAB MICROBIOLOGY - GENERAL ORDERABLES Final Result Performing Organization Address [facility] Co de Phone Number [facility] [address] [place] [address] * (ABNORMAL) Bone Culture and Gram Stain (04/09/2025 4:16 PM EDT) Culture Light Growth 04/12/2025 12:25 PM EDT [facility] Culture Methicillin-Resistan t Staphylococcus aureus(AA) 04/12/2025 12:25 PM EDT [facility] Comment: (small colony variant) - Positive for MRSA by PBP2a assay. The organism value for this result has been updated. These results have been appended to the previously preliminary verified report. <null> has been updated to reportable. Gram Stain Result No organisms seen 04/12/2025 12:25 PM EDT [facility] Gram Stain Result No polymorphonuclear leukocytes seen 04/12/2025 12:25 PM EDT [facility] Bone Topography unknown / Unknown 04/09/2025 4:16 PM EDT 04/09/2025 5:06 PM EDT Comment:Pre-op diagnosis: 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) [M86.461] us Cristian Rea MD LAB MICROBIOLOGY - GENERAL ORDERABLES Final Result Performing Organization Address City/[facility]/ZIP Co de Phone Number [facility] [address] [place] [address] * 12 Lead ECG (04/09/2025 3:13 PM EDT) EKG DIAGNOSIS CLASS Abnormal MUSE ECG Ventricular Rate 59 BPM MUSE ECG Atrial Rate 59 BPM MUSE ECG WV Interval 122 ms MUSE ECG QRSD Interval 82 ms MUSE ECG QT Interval 432 ms MUSE ECG QTC Interval 427 ms MUSE ECG P [place] 67 degrees MUSE ECG R [place] 92 degrees MUSE ECG T Wave [place] 76 degrees MUSE ECG Diagnosis Sinus bradycardia MUSE ECG Diagnosis Rightward axis MUSE ECG Diagnosis Poor R-wave progression MUSE ECG Diagnosis Abnormal ECG MUSE ECG Diagnosis MUSE ECG Diagnosis Confirmed by Isacc Arciniega ([id number]) on 04/09/2025 5:30:16 PM MUSE ECG 04/09/2025 3:13 PM EDT 04/09/2025 5:30 PM EDT us Rubens Guy MD ECG ORDERABLES Final Result Performing Organization Address City/[facility]/ZIP Co de Phone Number MUSE ECG * (ABNORMAL) CBC (04/09/2025 3:01 PM EDT) WBC Count 8.61 3.70 - 10.30 10*3/uL LAB HEMATOLOGY METHOD 04/09/2025 3:44 PM EDT [facility] RBC Count 4.58(L) 4.60 - 6.10 10*6/uL LAB HEMATOLOGY METHOD 04/09/2025 3:44 PM EDT [facility] HGB 13.4(L) 13.7 - 17.5 g/dL LAB HEMATOLOGY METHOD 04/09/2025 3:44 PM EDT [facility] HCT 41.0 40.0 - 51.0 % LAB HEMATOLOGY METHOD 04/09/2025 3:44 PM EDT [facility] Platelet Count 269 155 - 369 10*3/uL LAB HEMATOLOGY METHOD 04/09/2025 3:44 PM EDT [facility] MCV 90 79 - 98 fL LAB HEMATOLOGY METHOD 04/09/2025 3:44 PM EDT [facility] MCH 29.3 26.0 - 32.0 pg LAB HEMATOLOGY METHOD 04/09/2025 3:44 PM EDT [facility] MCHC 32.7 30.7 - 35.5 g/dL LAB HEMATOLOGY METHOD 04/09/2025 3:44 PM EDT [facility] RDW 14.0 11.5 - 14.5 % LAB HEMATOLOGY METHOD 04/09/2025 3:44 PM EDT [facility] MPV 9.2 8.8 - 12.5 fL LAB HEMATOLOGY METHOD 04/09/2025 3:44 PM EDT [facility] nRBC 0.0 <=0.0 per 100 WBCs LAB HEMATOLOGY METHOD 04/09/2025 3:44 PM EDT [facility] Blood Venous blood specimen / Unknown Venipuncture / Unknown 04/09/2025 3:01 PM EDT 04/09/2025 3:35 PM EDT Cristian Rea MD LAB BLOOD ORDERABLES Final Result [facility] [address] [place] [address] * Basic metabolic panel (04/09/2025 3:01 PM EDT) Glucose, Plasma 96 74 - 99 mg/dL 04/09/2025 4:02 PM EDT [facility] BUN, Plasma 8 8 - 23 mg/dL 04/09/2025 4:02 PM EDT [facility] Creatinine, Plasma 0.80 0.70 - 1.20 mg/dL 04/09/2025 4:02 PM EDT [facility] BUN/Creatinine Ratio 10 04/09/2025 4:02 PM EDT [facility] Sodium, Plasma 139 136 - 145 mmol/L 04/09/2025 4:02 PM EDT [facility] Potassium, Plasma 4.0 3.6 - 4.9 mmol/L 04/09/2025 4:02 PM EDT [facility] Chloride, Plasma 104 97 - 107 mmol/L 04/09/2025 4:02 PM EDT [facility] CO2, Plasma 24 22 - 29 mmol/L 04/09/2025 4:02 PM EDT [facility] Anion Gap 11 6 - 16 mmol/L 04/09/2025 4:02 PM EDT [facility] Total Calcium, Plasma 9.0 8.9 - 10.2 mg/dL 04/09/2025 4:02 PM EDT [facility] eGFRcr 100.1 mL/min/1.7 3m*2 04/09/2025 4:02 PM EDT [facility] Comment:Reported eGFRcr in m L/min/1.73m2 is based the CKD-EPI 2020 equation that does not use a race coefficient. Blood Venous blood specimen / Unknown Venipuncture / Unknown 04/09/2025 3:01 PM EDT 04/09/2025 3:31 PM EDT us Rubens Guy MD LAB BLOOD ORDERABLES Final Re sult [facility] [address] [place] [address] * Type and screen (04/09/2025 3:01 PM [...] ORDERABLE S Final Result BLOOD BANK [address] [place] [address], documented in this encounter Visit Diagnoses Diagnosis 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)- Primary Osteomyelitis of right tibia, unspecified type (CMS/HCC) 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) Open wound Open wound(s) (multiple) of [...] Provider: Lilli Cisneros MD)1810 (Stopped - Provider: Llili Cisneros MD) mupirocin (Bactroban) 2 % ointment 1 Application Each Nostril, 2 times daily, 10 doses, First dose on Mon04/10/25 at 0900, Last dose on Mon04/14/25 at 2100, Routine 0949 (Given - Provider: Nseha Deng RN)2157 (Given - Provider: Bryan Gibbs [...] RN)1045 (See Alternative - Provider: Nesha Deng, TIUTS)1443 (See Alternative - Provider: Nesha Deng, TITUS)1852 (See Alternative - Provider: Nesha Deng RN)2206 [...] 1652, Until Mon04/09/25 at 1803, Routine, Intraprocedure 1652 (Given - Provider: Cristian Rea MD - [...] documented as of this encounter Care Teams Cheese Wrapper Relationship Specialty Start Date End Date Ruddy Branch MD PCP - General 12/14/22 documented as of this encounter"
--- OUTSIDE RECORDS SUMMARY | 2025-04-09 15:36 | XMS_ITS | Encounter Summary ---
Author Organization [facility] Address [address] [place] [address] Care Team Providers Care Patcher Helper Name Role Phone Ruddy Branch MD Primary Care Provider [phone] Reason for Visit * Auth/Cert (Routine) Specialty [...] RIGHT leg Cristian Rea MD [address] [facility] [address] [place] [address] Phone: tel: fax: P[facility] A OPERATING ROOM [address] [place] [address] Phone: tel: Referral ID Status Reason Start Date Expiration Date Visits Re quested Visits Authorized [id number] 1 1 Encounter Details Date Type Department Care Team (Late st Contact Info) Description 04/09/2025 3:36 PM EDT Anesthesia Event [facility] [address] [place] [address] Rubens Guy MD [address] [place] [address] Lilli Cisneros MD [address] [place] [address] Anesthesia Record Procedure Summary Procedure Name Responsible [...] Antecubital; Site Prep: Chlorhexidine ; Local Anesth: [place]; Technique: Anatomical landmarks; Inserted by: susu; Insertion [...] and Family Not on file 03/19/2024 Attends Mandaeism Services Not on file 03/19 Active Member [...] Recorded Patient Health Questionnaire-2 Score 0 10/15/2024 [facility] Occupat ional [facility] - Occupational Stress Questionnaire Answer Date [...] and Family Not on file 04/11/2025 Attends Mandaeism Services Not on file 04/11 Active Member [...] any time in the past 12 m [facility], were you homeless or living in a [...] drink first t trupti in the morning (EYE-GEOTHERMAL INSTALLER) to steady your nerves or to get [...] portions of the procedure(s) and immediately available [facility] services the entire duration. See resident note for details. * Anesthesia Preprocedure Evaluation - Rubens Guy MD - 04/09/2025 12:21 PM EDT No anesthesia staff entered. Patient: Thai Ponce HPI Thai Ponce is a 64 y.o. male with history of [place], anxiety/depression, smoker, COPD, and bodymass index is [...] graft RIGHT leg (Right: Leg Lower) Location: [facility] OR [place] / [place] [facility] Surgeons: Cristian [...] ABG No results found for: PHART , YVK9TMW , PO2ART , SO2ART , BEART , GSJ0HED , HCTART , SODIUMART , POTASSIUMART , POCTCL , POCGLU , IONCALART , LACTATE Lab Results Component Value Date HCTSYR 19.4 (LL) 12/13/2023 KSYR 3.8 12/13/2023 CLSYR 106 12/13/2023 GLUSYR 111 (H) 12/13/2023 CAION 4.3 (L) 12/13/2023 ECHO No echocardiogram results found for the past 12 months PFTs No results found for: EDD7JFF , LKB2JYEY , ZIE5CKE , FVCPRED BP Readings from Last 5 [...] to OR ROS Cardiovascular: Cardio additional comments: [facility] 60 to 70% LAD, normal circumflex, less than 10% RCA OS last Cards note 08/2022 1. Coronary artery disease involving [place] heart with other form of angina pectoris, unspecified vessel or lesion type ([facility]) (Primary), recurrent chest pain. Known [...] (chronic obstructive pulmonary disease) ([facility]) Coronary artery disease last cardiology appt. 08/2022 - patient states no longer sees cardiology Deep vein thrombosis ([facility]) 2023 Depression Dysphagia unknown reason as of 04/01/25 History of methicillin resistant Staphylococcus aureus HL (hearing loss) no hearing aids at this time Hyperlipidemia Hypertension Limited mobility holds on to furniture and paniagua Myocardial infarction ([facility]) 2018 Peripheral neuropathy PTSD [...] Hospital Encounter [facility] [address] [place] [address] Jennifer Martinez MD [address] [phone] 05/14/2025 4:30 PM EDT - 05/14/2025 6:25 PM EDT Surgery [facility] RO[facility] [address] [place] [phone] Jennifer Martinez MD [address] [address] Split Thickness Skin Graft To RIGHT Leg 05/20/2025 1:00 PM EDT Office Visit [facility] [address] [place] [address] Catalina Ruiz, CANCELING AND CUTTING CONTROL CLERK [address] [facility] [address] [place] [address] 07/08/2025 9:30 AM EST Appointment [facility] Radiology [address], 1st [place] [address] 07/08/2025 10:10 AM EST Office Visit [facility] Orthopaedic Surgery & Sports Medicine [address], 1st Floor [address] [place] [address] Cristian Rea MD [address] [place] [address] Scheduled Procedures Name Priority Associated Diagnoses Date/Ti me APPLICATION, GRAFT, SKIN, SPLIT-THICKNESS Open wound 05/14/2025 4:30 PM EDT documented as of this encounter Procedures Procedure Name Priority Date/Time Associated Diagnosis Comments PB ANESTHESIA PLACEHOLDER Routine 04/09/2025 3:47 PM EDT DE AN ELECTIVE ENDOTRACHEAL AIRWAY Routine 04/09/2025 3:47 PM EDT documented in this encounter Results * DE AN ELECTIVE ENDOTRACHEAL AIRWAY, PB ANESTHESIA PLACEHOLDER [...] documented as of this encounter Care Teams Patcher Helper Relationship Specialty Start Date End Date Ruddy Branch MD PCP - General 12/14/22 documented as of this encounter
--- OUTSIDE RECORDS SUMMARY | 2025-04-14 14:30 | XMS_ITS | Encounter Summary ---
Author Organization [facility] Address [address] [place] [address] Care Team Providers Care Healthcare Market Consultant Name Role Phone Ruddy Branch MD Primary Care Provider [phone] Reason for Visit * Auth/Cert (Routine) Specialty Diagnoses / Procedures Referred By Contac t Referred To Contact Diagnoses 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) 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) [M86.461] Procedures IL REMOVAL DEEP IMPLANT IL ADJ TISS XFER SCALP,EXTREM <10 SQCM IL MUSCLE-SKIN FLAP,LEG IL SPLIT GRFT TRUNK,ARM,LEG <100 SQCM IL ADJ TISS XFER SCALP,EXTREM <10 SQCM REMOVAL, HARDWARE Rotational Flap, Adjacent tissue transfer, split thickness skin graft RIGHT leg Cristian Rea MD [address] [facility] [address] [place] [address] Phone: tel: fax: P[facility] A OPERATING ROOM [address] [place] [address] Phone: tel: Referral ID Status Reason Start Date Expiration Date Visits Re quested Visits Authorized [id number] 1 1 Encounter Details Date Type Department Care Team (Late st Contact Info) Description 04/14/2025 2:30 PM EDT Office Visit [facility] Plastic & Reconstructive Surgery [address] [place] [address] Jennifer Novak MD [address] [place] [phone] Encounter for postoperative care (Primary Dx) [...] and Family Not on file 03/19/2024 Attends Jainism Services Not on file 03/19 Active Member [...] Recorded Patient Health Questionnaire-2 Score 0 10/15/2024 [facility] of Occupat ional Health - [...] and Family Not on file 04/11/2025 Attends Jainism Services Not on file 04/11 Active Member [...] any time in the past 12 m [facility], were you homeless or living in a residential (including now)? No 04/11/2025 CAGE ASSESSMENT Answer [...] drink first t trupti in the morning (EYE-PACKAGING SUPERVISOR) to steady your nerves or to get rid of a hangover? 0 03/14/2024 CAGE Questionnaire Score 0 024 Utilities Answer Date Recorded In the past 12 months has th [employer], gas, oil, or water company threatened to [...] from the original note were not included. [facility] of [facility] Department of Surgery Division of Plastic [...] R ankle pilon fracture who presents to [facility] on 04/14/25 for follow-up status-post ORIF on [...] form which was reviewed and scanned into [employer]. Negative for bleeding disorders, clotting disorders, or [...] on to furniture and paniagua Myocardial infarction ([facility]) 2017 Peripheral neuropathy PTSD (post-traumatic [...] 04/21/2025 9:16 PM EDT Associated attestation - Jennifer Novak MD - 04/21/2025 9:16 PM EDT I saw and evaluated the patient with the medical student. I discussed the case with the medical/CARTON COUNTER FEEDER/PA student and agree with the findings and plan as documented. I personally performed the Exam and Medical Decision Making. documented in this encounter Plan of Treatment Upcoming Encounters Date Type Department Care Team (Late st Contact Info) Description 05/14/2025 4:30 PM EDT Hospital Encounter [facility] [address] [place] [address] Jennifer Novak MD [address] [address] 05/14/2025 4:30 PM EDT - 05/14/2025 6:25 PM EDT Surgery [facility] [address] [place] [address] eJnnifer Novak MD [address] [place] [address] Split Thickness Skin Graft To RIGHT Leg 05/20/2025 1:00 PM EDT Office Visit [facility] [address] [facility] [place] [address] Catalina Ruiz, HOME COMFORT ADVISOR [address] [facility] [address] [place] [address] 07/08/2025 9:30 AM EST Appointment [facility] [address], 1[address] [place] [address] 07/08/2025 10:10 AM EST Office Visit [facility] Orthopaedic Surgery & Sports Medicine [address], 1[address] [place] [address] Cristian Rea MD [address] [facility] [address] [place] [address] Scheduled Procedures Name Priority Associated Diagnoses Date/Ti me APPLICATION, GRAFT, SKIN, SPLIT-THICKNESS Open wound 05/14/2025 4:30 PM EDT documented as of this encounter Visit Diagnoses Diagnosis Encounter for postoperative care- Primary Open wound Open wound(s) (multiple) of [...] documented as of this encounter Care Teams Healthcare Market Consultant Relationship Specialty Start Date End Date Ruddy Branch MD PCP - General 12/14/22 documented as of this encounter
--- OUTSIDE RECORDS SUMMARY | 2025-04-25 10:20 | XMS_ITS | Encounter Summary ---
Author Organization Healthcare Address [address] [place] [address] Care Team Providers Care Plum Packer Name Role Phone Ruddy Branch MD Primary Care Provider Reason for Visit * Reason Comments Wound Check Encounter Details Date Type Department Care Team (Late st Contact Info) Description 04/25/2025 10:20 AM EDT Office Visit [place] [facility] [address] [facility] 5th Floor Wing D, [address] [place] [phone] Jennifer Novak MD [address] [facility] 2nd [place] [address] Open wound (Primary Dx) Social [...] you are drinking? Patient does not drink 4 Q3: How often do you have si x or more drinks on one occasion? Never 03/19/2024 PHQ-2 Answer Date Recorded Patient Health Questionnaire-2 Score 0 10/15/2024 [facility] - Occupational Stress Questionnaire Answer Date Recorded [...] and Family Not on file 04/11/2025 Attends Religion Services Not on file 04/11 Active Member [...] you are drinking? Patient does not drink 08/22/202 5 Q3: How often do you have si [...] time in the past [address] [facility], were you homeless or living in a fci (including now)? No 04/11/2025 CAGE ASSESSMENT Answer [...] drink first t trupti in the morning (EYE-POUCH MAKER) to steady your nerves or to get [...] Sign Reading Time Taken Comments Blood Pressure 117/75 04/25/2025 10:47 AM EDT Pulse 70 04/25/2025 10:47 AM EDT Temperature 36.7 C (98 F) 04/25/2025 10:47 AM EDT Respiratory Rate - - Oxygen Saturation - - Inhaled Oxygen Concentration - - Weight 45.9 kg (101 lb 3.1 oz) 04/25/2025 10:47 AM EDT Height 172.7 cm (5' 8 ) 04/25/2025 10:47 AM EDT Body Mass Index 15.39 04/25/2025 10:47 AM EDT documented in this encounter Miscellaneous Notes * Patient Instructions - Peter Delarosa RN - 04/25/2025 10:20 AM EDT [facility] Physician Orders/Patient Instructions Should you notice a significant change in your wound(s) (such as increased drainage, foul odor, or pain) or have questions or problems following these instructions, please contact us at or call your primary care physician or the hospital emergency rooms. Discontinue wound vac. Contact the company to return the device. Surgical options discussed in clinic today with Dr. Novak. Her care team coordinator scheduler should reach out to you to set up a time and date for your procedure. If you have not been scheduled for surgery within two weeks, please call [phone] or [phone]. Wound Care/Dressing: Wound location: right foot/ankle Cleanse Wound With: Normal Saline Apply: Silver contact layer Cover With: Abdominal Secure With: Kerlix and Tape Dressing Changes: Every other day Compression Dressing Ryder bandage Compression Frequency Can apply in the morning and remove before bed * Progress Notes - Franco العلي - 04/25/2025 10:20 AM EDT Images from the original note were not included. [facility] Department of Surgery Division of Plastic and Reconstructive Surgery Outpatient Post-Operative Follow-Up Chief Complaint: Thai Ponce is a 64 y.o. male who presents to clinic today for an outpatient post-operative follow-up appointment. Subjective HISTORY OF PRESENT ILLNESS Patient is a 64 y.o. 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 Since his last visit, he has not had any issues with his Prevena WVAC. He reports that he has maintained abstinence from smoking. He reports his nutrition is improving since he has quit smoking and that he has gained a few pounds. His pain is minimal and well-controlled. PAST MEDICAL HISTORY Updated and documented in EMR, reviewed during this appointment. Past Medical History[1] PAST SURGICAL HISTORY Updated and documented in EMR, reviewed during this appointment. Surgical History[2] FAMILY HISTORY Family history is as noted on the history intake form which was reviewed and scanned into [employer]. Negative for bleeding disorders, clotting disorders, or [...] appropriate unless otherwise noted. Visit Vitals BP 117/75 (BP Location: Right arm, Patient Position: Sitting) Pulse 70 Temp 36.7 ??C (98 ??F) Ht 1.727 m (5' 8 ) Wt 45.9 kg (101 lb 3.1 oz) BMI 15.39 kg/m?? Physical Exam Constitutional: General: He is not in acute distress. Appearance: Normal appearance. He is not ill-appearing. HENT: Head: Atraumatic. Right Ear: External ear normal. Left Ear: External ear normal. Eyes: Extraocular Movements: Extraocular movements intact. Pulmonary: Effort: Pulmonary effort is normal. Musculoskeletal: Cervical back: Normal range of motion. Neurological: General: No focal deficit present. Mental Status: He is alert and oriented to person, place, and time. Psychiatric: Mood and Affect: Mood normal. RLE, focused: Fasciocutaneous flap on the medial ankle is intact and integrating well. Small area of dehiscence on the anterior aspect of the flap inset incision, with healthy granulation tissue underneath. Flap donor site skin edges are healthy and wound bed is well-healing, with Integra in place with healthy granulation tissue visible underneath but without full integration/ingrowth; without signs of fluid collection, erythema, drainage, or skin breakdown. IMAGING No radiographic imaging was obtained for this visit. Assessment/Plan ASSESSMENT AND PLAN Thai Ponce is a 64 y.o. male with history of R ankle pilon fracture and tibial osteomyelitis and a draining fistula requiring ORIF (12/13/23) c/b SSI requiring multiple I&D (01/30, 03/15 and03/20), ultimately requiring closure with fasciocutaneous flap and STSG (6 x 3 cm) on 04/03/25 with subsequent adjacent tissue transfer (4 x 1 cm), placement of Integra (5 x 2 cm), and incision WVAC on04/09/2025. Patient is progressing appropriately for the post-operative course. He has some dehiscence of the anterior aspect of his fasciocutaneous flap inset, which can be treated with local wound care. The donor site appears healthy, with Integra in place. Re-dressed with Dermanet Ag+, gauze, and RYDER wraps.He is getting close to being ready for application of a STSG. Will meet with scheduler conveyor to get posted. The patient indicates understanding of these instructions and agrees with the plan. Franco العلي, MS4 [1] Past Medical History: Diagnosis Date Anxiety COPD (chronic obstructive pulmonary disease) ([facility]) Coronary artery disease last cardiology appt. 08/2022 - patient states no longer sees cardiology Deep vein thrombosis ([facility]) 2023 Depression Dysphagia unknown reason as of 04/01/25 History of methicillin resistant Staphylococcus aureus HL (hearing loss) no hearing aids at this time Hyperlipidemia Hypertension Limited mobility holds on to furniture and paniagua Myocardial infarction ([facility]) 2017 Peripheral neuropathy PTSD (post-traumatic stress [...] Allergies Cosigned by Jennifer Novak MD at 04/27/2025 4:13 PM EDT Associated attestation - Jennifer Novak MD - 04/27/2025 4:13 PM EDT I saw and evaluated the patient with the medical student. I discussed the case with the medical/SOLUTION LEAD/PA student and agree with the findings and plan as documented. I personally performed the Exam and Medical Decision Making. documented in this encounter Plan of Treatment Upcoming Encounters Date Type Department Care Team (Late st Contact Info) Description 05/14/2025 4:30 PM EDT Hospital Encounter [facility] [address] [place] [address] Jennifer Novak MD [address] [phone] 05/14/2025 4:30 PM EDT - 05/14/2025 6:25 PM EDT Surgery [facility] [address] [place] [address] Jeninfer Novak MD [address] [phone] Split Thickness Skin Graft To RIGHT Leg 05/20/2025 1:00 PM EDT Office Visit [facility] [address] [facility] [place] [address] Catalina Ruiz, MAT GAUGER [address] [facility] [address] [place] [address] 07/08/2025 9:30 AM EST Appointment [facility] Radiology [address], 1st [place] [address] 07/08/2025 10:10 AM EST Office Visit [facility] Orthopaedic Surgery & Sports Medicine [address], 1st Floor [address] [place] [address] Cristian Rea MD [address] [facility] [address] [place] [phone] Scheduled Procedures Name Priority Associated Diagnoses Date/Ti me APPLICATION, GRAFT, SKIN, SPLIT-THICKNESS Open wound 05/14/2025 4:30 PM EDT documented as of this encounter Visit Diagnoses Diagnosis Open wound- Primary Open wound(s) (multiple) of unspecified site(s), without mention of complication Open wound Open wound(s) (multiple) of unspecified site(s), without mention of complication documented in this encounter Additional Health Concerns Infection Onset Date Last Indicated Resolved Time MRSA 01/31/2024 04/09/2025 Assessment Noted Time PHQ-9 Depression Total Score: 0 10/15/19 25 9:42 AM EST A fall risk assessment has been complete d for the patient 04/25/2025 10:52 AM EDT A Body Mass Index follow-up plan has been documented for the patient 04/25/2025 11:48 AM EDT documented as of this encounter Care Teams Plum Packer Relationship Specialty Start Date End Date Ruddy Branch MD PCP - General 12/14/22 documented as of this encounter
--- OUTSIDE RECORDS SUMMARY | 2025-05-01 23:59 | XMS_ITS | Encounter Summary ---
Author Organization [facility] Address [address] [id number] Care Team Providers Care Competitive Intelligence Manager Name Role Phone Ruddy Branch MD Primary Care Provider [phone] Encounter Details Date Type Department Care Team ([facility] st Contact Info) Description 05/02/2025 11:59 PM EDT Anesthesia Event [facility] [address] [place] [phone] uAdrey Henriquez MD [address] [place] [address] Anesthesia Record Procedure Summary Procedure Name Responsible Anesthesiologist Anesthesia Start Time Anesthesia Stop Time Split Thickness Skin Graft To RIGHT Leg (Right: Leg Lower) Events No events on file. Meds * Agents No agents on file. * Blood No blood administrations on file. Lines, Drains, and Airways Type Details Placement Removal Wound 04/09/25; Surgical; Open Surg; Pretibial; Distal, Right, Inner 04/09/25 0000 by Abbey Moreira RN Negative Pressure Wound Therapy 04/09/25; 1640; dr martinez; Yes; Surgical; Leg; Anterior, Distal, Lower, Right 04/09/25 1640 by Abbey Moreira, TITUS PICC Single Lumen Placement Date: 03/22 10/15; Placement Time: 1549 (created via procedure documentation); Hand Hygiene Completed: Yes; Cath Time Out Checklist Completed: Yes; Size: 4; Description: Single lumen PICC; Length: 43 cm; Orientation: Left; Location: Brachial vein; Site Prep: Chlorhexidine ; Local Anesth: Injectable; Initial Exposed Catheter: 0 cm; Inserted by: Judi Lorenzo RN; Insertion Attempts: 1; Patient Tolerance: Tolerated well; Placement Verification: ECG tip confirmation 04/11/25 1549 by Judi Lorenzo RN Wound 04/25/25; 1116; Yes; Surgical; Pretibial; Distal, Right, Anterior 04/25/25 1116 by Peter Delarosa RN documented in this encounter Social History Tobacco [...] and Family Not on file 03/19/2024 Attends Restorationist Services Not on file 03/19 Active Member [...] Recorded Patient Health Questionnaire-2 Score 0 10/15/2024 [facility] [place] of Occupat ional Health - Occupational Stress [...] and Family Not on file 04/11/2025 Attends Restorationist Services Not on file 04/11 Active Member [...] in the past 12 m [facility], were you homeless or living in a [...] drink first t trupti in the morning (EYE-CAN TOP SETTER) to steady your nerves or to get [...] Hospital Encounter [facility] [address] [place] [address] Jennifer Martinez MD [address] [place] [phone] 05/14/2025 4:30 PM EDT - 05/14/2025 6:25 PM EDT Surgery [facility] [address] [place] [address] Jennifer Martinez MD [address] [place] [phone] Split Thickness Skin Graft To RIGHT Leg 05/20/2025 1:00 PM EDT Office Visit [facility] [address] [facility] [place] [address] Catalina Ruiz, PRESIDENT & CEO [employer] [address] [facility] [address] [place] [address] 07/08/2025 9:[address] [facility] Radiology [address], 1st [place] [address] 07/08/2025 10:10 AM EST Office [facility] Orthopaedic Surgery & Sports Medicine [address], 1st [address] [place] [address] Cristian Rea MD [address] [place] [address] Scheduled Procedures Name Priority Associated [...] documented as of this encounter Care Teams Competitive Intelligence Manager Relationship Specialty Start Date End Date Ruddy Branch MD PCP - General 12/14/22 documented as of this encounter
--- OUTSIDE RECORDS SUMMARY | 2025-05-06 13:30 | XMS_ITS | Encounter Summary ---
Author Organization Healthcare Address [address] [place] [address] Care Team Providers Care Community Health Nurse Staff Name Role Phone Ruddy Branch MD Primary Care Provider [phone] Encounter Details Date Type Department Care Team (Late st Contact Info) Description 05/06/2025 1:30 PM EDT Office Visit [facility] [address] [place] [address] Catalina Ruiz, RESIDENTIAL BUILDING INSPECTOR [address] [facility] [address] [place] [address] Receiving intravenous antibiotic treatment at home (Primary Dx); Hospital discharge follow-up; Surgical site infection Social History Tobacco Use Types Packs/Day Years Used Date Smoking Tobacco: Some Days Cigarettes 0.7 73.8 Started: 11/19/1980; Last attempted to quit: 12/13/2023 [...] and Family Not on file 03/19/2024 Attends Buddhist Services Not on file 03/19 Active Member [...] Recorded Patient Health Questionnaire-2 Score 0 10/15/2024 [facility] - Occupational Stress Questionnaire Answer Date [...] and Family Not on file 04/11/2025 Attends Buddhist Services Not on file 04/11 Active Member [...] drink first t trupti in the morning (EYE-RELEASE OF INFORMATION SPECIALIST) to steady your nerves or to [...] Sign Reading Time Taken Comments Blood Pressure 100/71 05/06/2025 1:12 PM EDT Pulse 61 05/06/2025 1:12 PM EDT Temperature 36.4 C (97.6 F) 05/06/2025 1:12 PM EDT Respiratory Rate - - Oxygen Saturation 100% 05/06/2025 1:12 PM EDT Inhaled Oxygen Concentration - - Weight 45.4 kg (100 lb 1.4 oz) 05/06/2025 1:12 P M EDT Height - - Body Mass Index 15.22 04/30/2025 1:26 PM EDT documented in this encounter Miscellaneous Notes * Progress Notes - Catalina Ruiz APRN - 05/06/2025 1:30 PM EDT INFECTIOUS DISEASE HOSPITAL FOLLOW UP NOTE Patient Name: Thai Ponce [id number] male 64 y.o. Admission Dates: 04/09/25-04/11/25 ANTIMICROBIAL REVIEW: Current: Daptomycin 450mg IV q24h (04/09-->05/20/25) Prior: Vancomycin 04/09-04/11 Bactrim terminal makeup operator suppression [facility] HPI: Thai Ponce is a 64 y.o. male with a PMH of right distal tibia/fibular surgical site infection and OM s/p 01/31/24 I&D, cultures with MRSA. Prior to his I&D he received almost 21d of Bactrim (01/08-01/29). He then received 6 weeks of daptomycin and cefepime with normalization of CRP, which ended 03/13/24 and he was transitioned to PO doxycycline. He was re-treated with IVdaptomycin for another 6 weeks followed by transition to PO doxycycline (potentially lifelong) for suppression in Apr 2025. He later was transitioned to Bactrim suppression [...] 8:30 AM And 05/20 at 1 PM HPI: Today patient reports he has be completing his Daptomycin without missed doses and tolerating well. Reports PICC line is without issues. Denies chills/fevers. Reports he is presenting to the hospital for PICC line dressing changes and labs weekly. Reports RLE is without increased pain, erythema, drainage or swelling. Reports he is changing the dressing every other day. Per Plastics he is doing Dermanet Ag+, gauze, and MICKY wraps. Denies abdominal pain, nausea, vomiting and diarrhea. He is following with Plastic Surgery with last appointment (04/25) and plans for split thickness skin graft to the right leg on 05/14. REVIEW OF SYSTEMS: 14-point ROS negative except as stated above. ALLERGIES: Allergies[1] VITAL SIGNS: Visit Vitals BP 100/71 (BP Location: Right arm, Patient Position: Sitting, BP Cuff Size: Adult) Pulse 61 Temp 36.4 ??C (97.6 ??F) (Oral) Wt 45.4 kg (100 lb 1.4 oz) SpO2 100% BMI 15.22 kg/m?? PHYSICAL EXAM: Physical Exam Vitals reviewed. Constitutional: Appearance: Normal appearance. HENT: Head: Normocephalic. Nose: Nose normal. Cardiovascular: Heart sounds: Normal heart sounds. Pulmonary: Effort: Pulmonary effort is normal. Breath sounds: Normal breath sounds. Abdominal: General: Abdomen is flat. Palpations: Abdomen is soft. Musculoskeletal: Comments: Using a crutch Skin: Capillary Refill: Capillary refill takes less than 2 seconds. Comments: RLE wound without signs of infection (see image in media) PICC line in place. Dressing clean/dry/intact Neurological: Mental Status: He is alert and oriented to person, place, and time. Psychiatric: Mood and Affect: Mood normal. Behavior: Behavior normal. LABS:. Documentation on 05/05/2025 Component Date Value Ref Range Status External BUN 05/05/2025 9 Final External Creatinine Blood 05/05/2025 0.8 mg/dL Final External AST (SGOT) 05/05/2025 26 Final External ALT (SGPT) 05/05/2025 15 Final External Alkaline Phosphatase 05/05/2025 68 Final External Bilirubin Total 05/05/2025 0.7 mg/dL Final External C-Reactive Protein(CRP) 05/05/2025 2.9 0 - 4 mg/l Final External WBC 05/05/2025 5.5 4.8 - 10.8 k/mm3 Final External Red Blood Cell (RBC) 05/05/2025 4.03 Final External Hemoglobin (Hgb) 05/05/2025 11.90 Final External Platelet Count (Plt) 05/05/2025 288 Final External Neutrophil Abs 05/05/2025 1.7 Final External Lymphocyte-Absolute 05/05/2025 3.2 Final External Eos-Absolute 05/05/2025 0.1 0 - 0.4 k/mm3 Final External Creatine Kinase 05/05/2025 33 (A) 55 - 170 u/l Final MICROBIOLOGY: 04/09 Anaerobe bone culture: No anaerobes isolated 04/09 Bone culture: Staph aureus 04/09 Fungal bone culture: NG x 3 weeks 04/09 Bone culture: Light growth? MRSA ASSESSMENT/PLAN: Problem List Items Addressed This Visit None Thai Ponce is a 64 y.o. male [...] hardware is involved in his chronic infection). Discharged on Daptomycin x 6 weeks (04/09-->05/20/25) Recommendations: -continue Daptomycin. Recommended duration 6 weeks (04/09-->05/20/25) -upon completion of IV antibiotics, will transition to Bactrim 1DS tab PO BID, at least 3-6 months,possibly lifelong -continue to follow with OPAT and complete weekly labs and PICC line dressing changes -continue to follow with Plastics. Dressing changes per plastics -follow up 05/20 Time with patient + review of records + documentation = 30 minutes Catalina Ruiz APRN Infectious Diseases [1] No Known Allergies documented in this encounter Plan of Treatment Upcoming Encounters Date Type Department Care Team (Late st Contact Info) Description 05/14/2025 4:30 PM EDT Hospital Encounter [facility] [address] [place] [address] Jennifer Novak MD [address] [place] [address] 05/14/2025 4:30 PM EDT - 05/14/2025 6:25 PM EDT Surgery [facility] [address] [place] [address] Jennifer Novak MD [address] [address] Split Thickness Skin Graft To RIGHT Leg 05/20/2025 1:00 PM EDT Office Visit [facility] [address] [place] [address] Catalina Ruiz APRN [address] [facility] [address] [place] [address] 07/08/2025 9:30 AM EST Appointment [facility] Radiology [address], [address] [place] [address] 07/08/2025 10:10 AM EST Office Visit [facility] Orthopaedic Surgery & Sports Medicine [address], [address] [place] [address] Cristian Rea MD [address] [place] [address] Scheduled Procedures Name Priority Associated Diagnoses Date/Ti me APPLICATION, GRAFT, SKIN, SPLIT-THICKNESS Open wound 05/14/2025 4:30 PM EDT documented as of this encounter Visit Diagnoses Diagnosis Receiving intravenous antibiotic treatment at home- Primary Hospital discharge follow-up Other follow-up examination Surgical site infection Open wound Open wound(s) (multiple) of unspecified site(s), without mention of complication documented in this encounter Additional Health Concerns Infection Onset Date Last Indicated Resolved Time MRSA 01/31/2024 04/09/2025 Assessment Noted Time PHQ-9 Depression Total Score: 0 10/15/19 9:42 AM EST A fall risk assessment has been complete d for the patient 05/06/2025 2:43 PM EDT A Body Mass Index follow-up plan has been documented for the patient 05/06/2025 3:41 PM EDT documented as of this encounter Care Teams Community Health Nurse Staff Relationship Specialty Start Date End Date Ruddy Branch MD PCP - General 12/14/22 documented as of this encounter
--- OUTSIDE RECORDS SUMMARY | 2025-05-06 14:30 | XMS_ITS | Encounter Summary ---
Author Organization Healthcare Address [address] 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) (Primary Dx); Displaced pilon fx right tibia, init for opn fx type I/2 Social History Tobacco Use Types Packs/Day Years [...] and Family Not on file 03/19/2024 Attends Scientology Services Not on file 03/19 Active Member [...] Recorded Patient Health Questionnaire-2 Score 0 10/15/2024 [facility] Occupat ional [facility] - Occupational Stress Questionnaire Answer Date [...] and Family Not on file 04/11/2025 Attends Scientology Services Not on file 04/11 Active Member [...] any time in the past 12 m [facility], were you homeless or living in [...] drink first t trupti in the morning (EYE-HOT TAR ROOFER HELPER) to steady your nerves or to [...] Sign Reading Time Taken Comments Blood Pressure 125/76 05/06/2025 2:45 PM EDT Pulse 64 05/06/2025 2:45 PM EDT Temperature 36.6 C (97.8 F) 05/06/2025 2:45 PM EDT Respiratory Rate - - Oxygen Saturation 97% 05/06/2025 2:45 PM EDT Inhaled Oxygen Concentration - - Weight 45.4 kg (100 lb) 05/06/2025 2:45 PM EDT Height 172.7 cm (5' 8 ) 05/06/2025 2:45 PM EDT Body Mass Index 15.2 05/06/2025 2:45 PM EDT documented in this encounter Miscellaneous Notes * Progress Notes - Steph Velazquez PA - 05/06/2025 2:30 PM EDT Chief Complaint: S/p EUGENE right distal tibia, I&D of osteomyelitis (Dr. Rea) with adjacent tissue transfer and wound vac placement with plastics (DOS: 04/09/25) HPI: Thai Ponce is a 64 y.o. male who presents to clinic for postoperative follow up s/p the above stated procedure. Patient has been doing well since discharge. Patient has been NWB on the RLE. Patient has continued to follow with plastics who is planning for a STSG on 05/14. He has been doing dressing changes every other day now that the wound vac has been removed. He was seen by ID earlier today and patient is currently on IV Daptomycin until 05/20 when he will transition to oral abx. They state their pain has been well controlled. Denies fevers, chills, nausea, vomiting. Denies any numbness, tingling. Denies any further trauma or injury. Focused MSK Exam: Right lower extremity Inspection: Well healing surgical incision with sutures in place, no erythema, swelling or drainage. Donor site is well appearing without active drainage or erythema Ankle ROM: 20 DF - 20 PF Motor: Intact KF/KE/Habd/Hadd/EHL/FHL/GSC/TA Sensation: SILT s/s/sp/dp/t Vascular: Digits WWP, +2 dp/pt pulses XRAY: No new images Assessment: 64 y.o. male who presents s/p EUGENE right distal tibia, I&D of osteomyelitis (Dr. Rea) with adjacent tissue transfer and wound vac placement with plastics (DOS: 04/09/25) Plan: Patient is progressing well. Discussed that he may be WBAT on the RLE. Will defer suture removal toplastics. Continue with wound care per plastics recommendations. Continue with IV antibiotics per ID. Encouraged ROMAT of the ankle. Recommend ice/elevation/OTC medications prn pain/swelling. FU 2 months, with imaging, with EM The patient was given an opportunity to ask questions and all their questions were answered to their satisfaction. Steph Velazquez PA-C Department of Orthopaedic Surgery and Sports Medicine Cosigned by Cristian Rea MD at 05/06/2025 3:41 PM EDT Associated attestation - Cristian Rea MD - 05/06/2025 3:41 PM EDT I attest to being involved in providing substantive part of the medical decision making in patient care. documented in this encounter Plan of Treatment Upcoming Encounters Date Type Department Care Team (Late st Contact Info) Description 05/14/2025 4:30 PM EDT Hospital Encounter [facility] [address] [place] [address] Jennifer Novak MD [facility] [address] [address] 05/14/2025 4:30 PM EDT - 05/14/2025 6:25 PM EDT Surgery [facility] [facility] [place] [address] Jennifer Novak MD [address] [place] [address] Split Thickness Skin Graft To RIGHT Leg 05/20/2025 1:00 PM EDT Office Visit [facility] [address] [facility] [place] [address] Catalina Ruiz, 1ST PRESSMAN ON WEB PRESS [address] [facility] [address] [place] [address] 07/08/2025 9:30 AM EST Appointment [facility] Radiology [address], 1st [place] [address] 07/08/2025 10:10 AM EST Office Visit [facility] Orthopaedic Surgery & Sports Medicine [address], 1[address] [place] [address] Cristian Rea MD [address] [place] [address] Scheduled Orders Name Type Priority Associated Diagnoses Orde r Schedule XR Tibia Fibula Right 2+ Views Imaging Routine 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) Displaced pilon fx right tibia, init for opn fx type I/2 1 Occurrences starting 05/06/2025 until 11/07/2026 Scheduled Procedures Name Priority Associated Diagnoses Date/Ti me APPLICATION, GRAFT, SKIN, SPLIT-THICKNESS Open wound 05/14/2025 4:30 PM EDT documented as of this encounter Visit Diagnoses Diagnosis 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
--- OUTSIDE RECORDS SUMMARY | 2025-05-12 13:09 | XMS_ITS | Encounter Summary ---
Author Organization [facility] Address [address] [place] [address] Care Team Providers Care Tin Flipper Name Role Phone Ruddy Branch MD Primary Care Provider [phone] Encounter Details Date Type Department Care Team [...] and Family Not on file 03/19/2024 Attends Uatsdin Services Not on file 03/19 Active Member [...] Recorded Patient Health Questionnaire-2 Score 0 10/15/2024 [facility] of Occupat ional Health - Occupational Stress [...] and Family Not on file 04/11/2025 Attends [employer]atsdin Services Not on file 04/11 Active Member [...] any time in the past 12 m [facility], were you homeless or living [...] drink first t trupti in the morning (EYE-BURR BENCH OPERATOR) to steady your nerves or to [...] Hospital Encounter [facility] [address] [place] [address] Jennifer Novak MD [facility] [address] [address] 05/14/2025 4:30 PM EDT - 05/14/2025 6:25 PM EDT Surgery [facility] [address] [place] [address] Jennifer Novak MD [address] [facility] [address] [place] [address] Split Thickness Skin Graft To RIGHT Leg 05/20/2025 1:00 PM EDT Office Visit [facility] [address] [facility] [place] [address] Catalina Ruiz, AZRA [address] [facility] [address] [place] [address] 07/08/2025 9:[address] [facility] Radiology [address], [address] [place] [address] 07/08/2025 10:10 AM EST Office [facility] Orthopaedic Surgery & Sports Medicine [address], [address] [place] [address] Cristian Rea MD [address] [place] [address] Scheduled Procedures Name Priority Associated Diagnoses Date/Ti [...] documented as of this encounter Care Teams Tin Flipper Relationship Specialty Start Date End Date Ruddy Branch MD PCP - General 12/14/22 documented as of this encounter
--- OUTSIDE RECORDS SUMMARY | 2025-05-12 13:09 | XMS_ITS | Encounter Summary ---
Author Organization [facility] Address [address] [place] [address] Care Team Providers Care Mask Former Name Role Phone Ruddy Branch MD Primary Care Provider [phone] Encounter Details Date Type Department Care Team [...] and Family Not on file 03/19/2024 Attends Voodoo Services Not on file 03/19 Active Member [...] Recorded Patient Health Questionnaire-2 Score 0 10/15/2024 [facility] of Occupat ional Health - Occupational Stress [...] and Family Not on file 04/11/2025 Attends Voodoo Services Not on file 04/11 Active Member [...] any time in the past 12 m [facility], were you homeless or living in a fdc (including now)? No 04/11/2025 CAGE ASSESSMENT Answer [...] drink first t trupti in the morning (EYE-PATIENT RELATIONS COORDINATOR) to steady your nerves or to get [...] Hospital Encounter [facility]PER[facility] RO[facility] [address] [place] [address] Jennifer Novak MD [facility] [address] 05/14/2025 4:30 PM EDT - 05/14/2025 6:25 PM EDT Surgery [address] [place] [address] Jennifer Novak MD [address] [facility] [address] [place] [address] Split Thickness Skin Graft To RIGHT Leg 05/20/2025 1:00 PM EDT Office Visit [facility] [address] [facility] [place] [address] Catalina Ruiz, AZRA [address] [facility] [address] [place] [address] 07/08/2025 9:30 AM EST Appointment [facility] Radiology [address], 1st [place] [address] 07/08/2025 10:10 AM EST Office Visit [facility] Orthopaedic Surgery & Sports Medicine [address], [address] [place] [address] Cristian Rea MD [address] [place] [address] Scheduled Procedures Name Priority Associated Diagnoses Date/Ti [...] documented as of this encounter Care Teams Mask Former Relationship Specialty Start Date End Date Ruddy Branch MD PCP - General 12/14/22 documented as of this encounter
--- OUTSIDE RECORDS SUMMARY | 2025-05-12 13:10 | XMS_ITS ---
Author Organization [facility] Address [address] [place] [id number] Care Team Providers Care Tag Writer Name Role Phone Ruddy Branch MD Primary Care Provider [facility] Status:Enrolled (Active) Start date:01/08/2025 Enrollment date:01/09/2025 Enrollment reason:Identified using claims or encounter data Current support & services provided:Adherence- Cholesterol Linked medications:Rosuvastatin Calcium (Active) Linked problems:Hypercholesterolemia (Active) Case Team Name Relationship Phone Susan Noland LPN(Responsible Staff) Licensed Practical Nurse Continued Care and Services Coordination
--- OUTSIDE RECORDS SUMMARY | 2025-05-12 13:10 | XMS_ITS | Encounter Summary ---
Author Organization [facility] Address [address] [place] [address] Care Team Providers Care Electric Frying Pan Repairer Name Role Phone Ruddy Branch MD Primary Care Provider [phone] Encounter Details Date Type Department Care Team [...] Recorded Patient Health Questionnaire-2 Score 0 10/15/2024 [facility] [place] of Occupat ional Health - Occupational Stress [...] any time in the past 12 m [facility], were you homeless or living in a [...] drink first t trupti in the morning (EYE-ASSEMBLY ROOM SUPERVISOR) to steady your nerves or to [...] Hospital Encounter [facility] RO[facility] [address] [place] [address] Jennifer Novak MD [facility] [address] 05/14/2025 4:30 PM EDT - 05/14/2025 6:25 PM EDT Surgery [facility] [address] [place] [address] Jennifer Novak MD [address] [facility] [address] [place] [address] Split Thickness Skin Graft To RIGHT Leg 05/20/2025 1:00 PM EDT Office Visit [facility] [address] [facility] [place] [address] Catalina Riuz, AZRA [address] [facility] [address] [place] [address] 07/08/2025 9:[address] [facility] Radiology [address], [address] [place] [address] 07/08/2025 10:10 AM EST Office [facility] Orthopaedic Surgery & Sports Medicine [address], [address] [place] [address] Cristian Rea MD [address] [place] [address] Scheduled Procedures Name Priority Associated Diagnoses Date/Ti [...] documented as of this encounter Care Teams Electric Frying Pan Repairer Relationship Specialty Start Date End Date Ruddy Branch MD PCP - General 12/14/22 documented as of this encounter
--- OUTSIDE RECORDS SUMMARY | 2025-05-12 13:10 | XMS_ITS | Encounter Summary ---
Author Organization Healthcare Address [address] [place] [address] Care Team Providers Care Coal Conveyor Operator Name Role Phone Ruddy Branch MD Primary Care Provider [phone] Encounter Details Date Type Department Care Team (Late st Contact Info) Description 04/14/2025 Clinical Support [facility] [address] [place] [address] Alondra Marsh, PharmD [address] [facility] [address] [place] [address] Social History Tobacco Use Types [...] Patient Health Questionnaire-2 Score 0 10/15/2024 [facility] - Occupational Stress Questionnaire Answer [...] drink first t trupti in the morning (EYE-AERIAL GUNNER SUPERINTENDENT) to steady your nerves or to get [...] Hospital Encounter [facility] RO[facility] [address] [place] [address] Jennifer Novak MD [address] [address] 05/14/2025 4:30 PM EDT - 05/14/2025 6:25 PM EDT Surgery [address] [address] [place] [address] Jennifer Novak MD [address] [address] Split Thickness Skin Graft To RIGHT Leg 05/20/2025 1:00 PM EDT Office Visit [facility] [address] [place] [address] Catalina Ruiz, DELICATESSEN SLICER [address] [facility] [address] [place] [address] 07/08/2025 9:30 AM EST Appointment [facility] Radiology [address], [address] [place] [address] 07/08/2025 10:10 AM EST Office Visit [facility] Orthopaedic Surgery & Sports Medicine [address], [address] [place] [address] Cristian Rea MD [address] [place] [address] Scheduled Procedures Name Priority Associated [...] documented as of this encounter Care Teams Coal Conveyor Operator Relationship Specialty Start Date End Date Ruddy Branch MD PCP - General 12/14/22 documented as of this encounter
--- OUTSIDE RECORDS SUMMARY | 2025-05-12 13:10 | XMS_ITS | Encounter Summary ---
Author Organization Healthcare Address [address] [place] [address] Care Team Providers Care Receiving Manager Name Role Phone Ruddy Branch MD Primary Care Provider [phone] Encounter Details Date Type Department Care Team [...] Recorded Patient Health Questionnaire-2 Score 0 10/15/2024 [facility] - Occupational Stress [...] drink first t trupti in the morning (EYE-APPLICATIONS SCIENTIST) to steady your nerves or to get rid of a hangover? 0 03/14/2024 CAGE Questionnaire Score 0 024 Utilities Answer Date Recorded In the past 12 months has [employer], gas, oil, or water [employer] threatened to shut off services in your [...] Hospital Encounter [facility] [address] [place] [address] Jennifer Novak MD [address] [place] [phone] 05/14/2025 4:30 PM EDT - 05/14/2025 6:25 PM EDT Surgery [facility] [address] [place] [address] Jennifer Novak MD [address] [place] [phone] Split Thickness Skin Graft To RIGHT Leg 05/20/2025 1:00 PM EDT Office Visit [facility] [address] [facility] [place] [address] Catalina Ruiz, ROUTING MACHINE OPERATOR [address] [facility] [address] [place] [address] 07/08/2025 9:30 AM EST Appointment [facility] Radiology [address], [address] [place] [address] 07/08/2025 10:10 AM EST Office Visit [facility] Orthopaedic Surgery & Sports Medicine [address] [place] [address] Cristian Rea MD [address] [place] [address] Scheduled Procedures Name Priority Associated [...] documented as of this encounter Care Teams Receiving Manager Relationship Specialty Start Date End Date Ruddy Branch MD PCP - General 12/14/22 documented as of this encounter
--- OUTSIDE RECORDS SUMMARY | 2025-05-12 13:10 | XMS_ITS | Encounter Summary ---
Author Organization [facility] Address [address] [place] [address] Care Team Providers Care Tobacco Cloth Reclaimer Name Role Phone Ruddy Branch MD Primary Care Provider [phone] Reason for Visit * Reason Onset Date Comments HCN - Patient Message 04/07/2025 Encounter Details Date Type Department Care Team (Late st Contact Info) Description 04/07/2025 Telephone [facility] Orthopa[facility] Surgery [facility] Medicine [address] [place] [address] Cristian Rea MD [address] [place] [address] HCN - Patient Message Social [...] Score 0 10/15/2024 [facility] - Occupational Stress Questionnaire Answer Date [...] time in the past 12 m [facility], were you homeless or living [...] 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 Follow-up communication and further actions as a result of this message need to be communicated with the patient directly, if the patient is not active onMyChart. If the patient is active on MyChart, they will receive notification of the communication/outcome via [employer]. documented in this encounter Plan of Treatment Upcoming Encounters Date Type Department Care Team (Late st Contact Info) Description 05/14/2025 4:30 PM EDT Hospital Encounter [facility] [address] [place] [address] Jennifer Novak MD [address] [phone] 05/14/2025 4:30 PM EDT - 05/14/2025 6:25 PM EDT Surgery [facility] [address] [place] [address] Jennifer Novak MD [address] [phone] Split Thickness Skin Graft To RIGHT Leg 05/20/2025 1:00 PM EDT Office Visit [facility] [address] [facility] [place] [address] Catalina Ruiz, EPIC TRAINER [address] [facility] [address] [place] [address] 07/08/2025 9:30 AM EST Appointment [facility] Radiology [address] [place] [address] 07/08/2025 10:10 AM EST Office Visit [facility] [address] [place] [address] Cristian Rea MD [address] [facility] [address] [place] [address] Scheduled Procedures Name Priority Associated [...] documented as of this encounter Care Teams Tobacco Cloth Reclaimer Relationship Specialty Start Date End Date Ruddy Branch MD PCP - General 12/14/22 documented as of this encounter
--- OUTSIDE RECORDS SUMMARY | 2025-05-12 13:10 | XMS_ITS | Clinical Summary ---
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 These results have been appended to the previously preliminary verified report. 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) [M86.461] us Cristian Rea MD LAB MICROBIOLOGY - GENERAL ORDERABLES Final Result Performing Organization Address City/[facility] Co de Phone Number [facility] [address] [place] [address] * Anaerobic Culture (04/09/2025 4:34 PM EDT) Culture No anaerobes isolated 04/13/2025 10:52 AM EDT [facility] Bone Topography unknown / Unknown 04/09/2025 4:34 PM EDT 04/09/2025 5:07 PM EDT Comment:Pre-op diagnosis: 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) [M86.461] us Cristian Rea MD LAB MICROBIOLOGY - GENERAL ORDERABLES Final Result Performing Organization Address [facility] Co de Phone Number [facility] [address] [place] [address] * ID AN ELECTIVE ENDOTRACHEAL AIRWAY, PB [...] ECG Atrial Rate 59 BPM MUSE ECG ID Interval 122 ms MUSE ECG QRSD Interval 82 ms MUSE ECG QT Interval 432 ms MUSE ECG QTC Interval 427 ms MUSE ECG P [place] 67 degrees MUSE ECG R [place] 92 degrees MUSE ECG T Wave [place] 76 degrees MUSE ECG Diagnosis Sinus bradycardia MUSE ECG Diagnosis Rightward axis MUSE ECG Diagnosis Poor R-wave progression MUSE ECG Diagnosis Abnormal ECG MUSE ECG Diagnosis MUSE ECG Diagnosis Confirmed by Isacc Arciniega (5) on 04/09/2025 5:30:16 PM MUSE ECG 04/09/2025 [...] ORDERABLE S Final Result BLOOD BANK [address] [place] [address], * CT Angio Chest (12/12/2023 2:21 PM [...] Antibody Negative Negative 12/12/2023 2:27 PM EDT [facility] Blood Venous blood specimen / Unknown Venipuncture / Unknown 12/12/2023 1:33 PM EDT 12/12/2023 1:44 PM EDT Ran Upton MD LAB BLOOD ORDERABLES Final Result [facility] [address] [place] [phone] from Last 3 Months or Most Recently Relevant to Health Maintenance Additional Health Concerns Infection Onset Date Last 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 Yes Care Teams Environmental Services Specialist Relationship Specialty Start Date End Date Ruddy Branch MD PCP - General 12/14/22
--- OUTSIDE RECORDS SUMMARY | 2025-05-12 13:10 | XMS_ITS | Encounter Summary ---
Author Organization Healthcare Address [address] [place] [address] Care Team Providers Care Paragliding Instructor Name Role Phone Ruddy Branch MD Primary Care Provider [phone] Encounter Details Date Type Department Care Team [...] and Family Not on file 03/19/2024 Attends [employer] Services Not on file 03/19 Active Member [...] Recorded Patient Health Questionnaire-2 Score 0 10/15/2024 [facility] - Occupational Stress Questionnaire Answer Date [...] drink first t trupti in the morning (EYE-FOUR SLIDE MACHINE SETTER) to steady your nerves or to get rid of a hangover? 0 03/14/2024 CAGE Questionnaire Score 0 024 Utilities Answer Date Recorded In the past 12 months has [employer], gas, oil, or water [employer] threatened to shut off services in your [...] EDT Hospital Encounter [facility] [address] [place] [address] Jennifer Novak MD [address] [place] [phone] 05/14/2025 4:30 PM EDT - 05/14/2025 6:25 PM EDT Surgery [facility] RO[facility] [address] [place] [address] Jennifer Novak MD [address] [place] [phone] Split Thickness Skin Graft To RIGHT Leg 05/20/2025 1:00 PM EDT Office Visit [facility] [address] [place] [address] Catalina Ruiz, JUNIOR ACCOUNTANT [address] [facility] [address] [place] [address] 07/08/2025 9:30 AM EST Appointment [facility] Radiology [address], 1st [place] [address] 07/08/2025 10:10 AM EST Office Visit [facility] Orthopaedic Surgery & Sports Medicine [address], 1st [address] [place] [address] Cristian Rea MD [address] [place] [address] Scheduled Procedures Name Priority Associated [...] documented as of this encounter Care Teams Paragliding Instructor Relationship Specialty Start Date End Date Ruddy Branch MD PCP - General 12/14/22 documented as of this encounter
--- OUTSIDE RECORDS SUMMARY | 2025-05-12 13:10 | XMS_ITS | Encounter Summary ---
Author Organization [facility] Address [address] [place] [address] Care Team Providers Care Information Coordinator Name Role Phone Ruddy Branch MD Primary Care Provider [phone] Reason for Referral * Consultation (Routine) - Authorized Specialty Diagnoses / Procedures Referred By Contnadira t Referred To Contact Pain Medicine Diagnoses Open wound Jennifer Novak MD [address] [address] Phone: tel: fax: Referral ID Status Reason Start Date Expiration Date Visits Requested Visits Authorized [id number] Authorized Specialty Services Required 03/10/2025 09/09/2026 1 1 Encounter Details Date Type Department Care Team (Late st Contact Info) Description 03/10/2025 Orders Only [facility] [address] [facility] 5th Floor Wing [address], [address] [place] [address] Peter Delarosa, RN Open wound [...] and Family Not on file 03/19/2024 Attends [employer] Not on file 03/19 Active Member [...] Score 0 10/15/2024 [facility] - Occupational Stress Questionnaire Answer Date Recorded [...] drink first t trupti in the morning (EYE-THROAT CUTTER) to steady your nerves or to get [...] Hospital Encounter [facility] OPERATING ROOM [address] [place] [phone] Jennifer Novak MD [address] [phone] 05/14/2025 4:30 PM EDT - 05/14/2025 6:25 PM EDT Surgery [facility]PERATING ROOM [address] [place] [address] Jennifer Novak MD [address] [place] [phone] Split Thickness Skin Graft To RIGHT Leg 05/20/2025 1:00 PM EDT Office Visit [facility] [address] [place] [address] Catalnia Ruiz, CONTACT CENTER ASSOCIATE [address] [facility] [address] [place] [address] 07/08/2025 9:30 AM EST Appointment [facility] Radiology [address], 1st [place] [address] 07/08/2025 10:10 AM EST Office Visit [facility] Orthopaedic Surgery & Sports Medicine [address], 1st Floor [address] [place] [phone] Cristian Rea MD [address] [facility] [address] [place] [address] Scheduled Procedures Name Priority Associated [...] documented as of this encounter Care Teams Information Coordinator Relationship Specialty Start Date End Date Ruddy Branch MD PCP - General 12/14/22 documented as of this encounter
--- OUTSIDE RECORDS SUMMARY | 2025-05-12 13:11 | XMS_ITS | Encounter Summary ---
Author Organization [facility] Address [address] [place] [address] Care Team Providers Care Brim Edge Trimmer Name Role Phone Ruddy Branch MD Primary Care Provider [phone] Encounter Details Date Type Department Care Team [...] Health Questionnaire-2 Score 0 10/15/2024 [facility] Occupat ional Health - Occupational Stress [...] any time in the past 12 m [facility], were you homeless or living in a assisted (including now)? No 04/11/2025 CAGE ASSESSMENT Answer [...] drink first t trupti in the morning (EYE-B2B SALES CONSULTANT) to steady your nerves or to [...] Hospital Encounter PAV A OPERATING ROOM [address] [place] [address] Jennifer Novak MD [facility] [address] [address] 05/14/2025 4:30 PM EDT - 05/14/2025 6:25 PM EDT Surgery P[facility] A OPERATING ROOM [address] [place] [address] Jennifer Novak MD [address] [facility] 2nd [place] [address] Split Thickness Skin Graft To RIGHT Leg 05/20/2025 1:00 PM EDT Office Visit [facility] [address] [facility] [place] [address] Catalina Ruiz, AZRA [address] [facility] [address] [place] [address] 07/08/2025 9:30 AM EST Appointment [facility] Radiology [address], 1st [place] [address] 07/08/2025 10:10 AM EST Office Visit [facility] Orthopaedic Surgery & Sports Medicine [address], 1st Floor [address] [place] [address] Cristian Rea MD [address] [place] [address] Scheduled Procedures Name Priority Associated Diagnoses Date/Ti [...] documented as of this encounter Care Teams Brim Edge Trimmer Relationship Specialty Start Date End Date Ruddy Branch MD PCP - General 12/14/22 documented as of this encounter
--- OUTSIDE RECORDS SUMMARY | 2025-05-12 13:11 | XMS_ITS | Encounter Summary ---
Author Organization Healthcare Address [address] [facility] [place] [address] Care Team Providers Care Insurance Sales Manager Name Role Phone Ruddy Branch MD Primary Care Provider [phone] Encounter Details Date Type Department Care Team (Latest Contact Info) Description 05/06/2025 Travel Social History Tobacco Use Types Packs/Day [...] Recorded Patient Health Questionnaire-2 Score 0 10/15/2024 [facility] - Occupational Stress Questionnaire Answer Date [...] any time in the past 12 m [facility], were you homeless or living in [...] drink first t trupti in the morning (EYE-DROP FORGE HAND) to steady your nerves or to get [...] Hospital Encounter PAV A OPERATING ROOM [address] [place] [address] Jennifer Novak MD [address] [place] [address] 05/14/2025 4:30 PM EDT - 05/14/2025 6:25 PM EDT Surgery P[facility] A OPERATING ROOM [address] [place] [address] Jennifer Novak MD [address] [place] [address] Split Thickness Skin Graft To RIGHT Leg 05/20/2025 1:00 PM EDT Office Visit [facility] [address] [facility] [address] Catalina Ruiz, WATER PLANT PUMP OPERATOR SUPERVISOR [address] [facility] [address] [place] [address] 07/08/2025 9:30 AM EST Appointment [facility] Radiology [address], 1st [place] [address] 07/08/2025 10:10 AM EST Office Visit [facility] Orthopaedic Surgery & Sports Medicine [address], 1st Floor [address] [place] [address] Cristian Rea MD [address] [facility] [address] [place] [address] Scheduled Procedures Name Priority Associated Diagnoses Date/Ti [...] as of this encounter Care Teams Insurance Sales Manager Relationship Specialty Start Date End Date Ruddy Branch MD PCP - General 12/14/22 documented as of this encounter
--- OUTSIDE RECORDS SUMMARY | 2025-05-12 13:11 | XMS_ITS | Encounter Summary ---
Author Organization Healthcare Address [address] [place] [address] Care Team Providers Care Grounds Cleaner Name Role Phone Ruddy Branch MD Primary Care Provider [phone] Encounter Details Date Type Department Care Team (Late st Contact Info) Description 04/15/2025 [facility]phone [facility] [address] [facility] 5th Floor Wing [address], [address] [place] [address] Jennifer Novak MD Critical access hospital5 [facility] [address] [place] [address] Social History Tobacco Use Types Packs/Day Years [...] Score 0 10/15/2024 [facility] - Occupational Stress Questionnaire Answer [...] and Family Not on file 04/11/2025 Attends Jewish Services Not on file 04/11 Active Member [...] drink first t trupti in the morning (EYE-FUNCTIONAL ARCHITECT) to steady your nerves or to get [...] Hospital Encounter PAV A OPERATING ROOM [address] [place] [address] Jennifer Novak MD [address] [address] 05/14/2025 4:30 PM EDT - 05/14/2025 6:25 PM EDT Surgery PAV A OPERATING ROOM [address] [place] [address] Jennifer Novak MD [address] [address] Split Thickness Skin Graft To RIGHT Leg 05/20/2025 1:00 PM EDT Office Visit [facility] [address] [place] [address] Catalina Ruiz, MEXICAN FOOD MACHINE TENDER [address] [facility] [address] [place] [address] 07/08/2025 9:30 AM EST Appointment [facility] Radiology [address], 1st [place] [address] 07/08/2025 10:10 AM EST Office Visit [facility] Orthopaedic Surgery & Sports Medicine [address], 1st Floor [address] [place] [address] Cristian Rea MD [address] [place] [address] Scheduled Procedures Name Priority Associated [...] documented as of this encounter Care Teams Grounds Cleaner Relationship Specialty Start Date End Date Ruddy Branch MD PCP - General 12/14/22 documented as of this encounter
--- OUTSIDE RECORDS SUMMARY | 2025-05-12 13:11 | XMS_ITS | Encounter Summary ---
[facility] Organization [facility] Address [address] [place] [address] Care Team Providers Care Brush Clearing Laborer Name Role Phone Ruddy Branch MD Primary Care Provider [phone] Reason for Visit * Reason Comments Med Refill Encounter Details Date Type Department Care Team (Late st Contact Info) Description 05/12/2025 Refill [facility] FAMILY MEDICINE [address] [place] [address] Ruddy Branch MD [address] [place] [address] Generalized anxiety disorder Social History Tobacco Use Types Packs/Day Years Used Date Smoking Tobacco: Light Smoker Cigarettes 1 45.7 Started: 08/21/1979 Smokeless Tobacco: Never Comments:Life long Alcohol Use Standard Drinks/Week Comments [...] file Not on file Not on file documented as of this encounter Plan of Treatment Not on file documented as of this encounter Visit Diagnoses Diagnosis Generalized anxiety disorder documented in this encounter Additional Health Concerns Assessment Noted Time PHQ-2 Depression Total Score: 3 04/24/20 24 12:10 PM EDT documented as of this encounter Care Teams Brush Clearing Laborer Relationship Specialty Start Date End Date Ruddy Branch MD [address] [place] [address] PCP - General Family Medicine 07/19/21 documented as of this encounter
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
[2025-05-12 13:25] LABS: Hematocrit 37.7 % (42.0-52.0); Hemoglobin 12.6 g/dL (14.1-18.0); Immature Granulocytes % 1.1 %; Mean Corpuscular HGB Conc 33.4 g/dL (31.8-35.4); Mean Corpuscular Hemoglobin 30.3 pg (27.0-31.2); Mean Corpuscular Volume 90.6 fl (80-94); Nucleated Red Blood Cells % 0 %; Platelet Count 245 K/mm3 (142-424); Red Blood Count 4.16 M/mm3 (4.60-6.20); Red Cell Distribution Width-SD 44.6 fL; White Blood Count 6.4 K/mm3 (4.8-10.8)
[2025-05-12 13:35] LABS: Albumin Level 4.3 g/dl (3.5-5.0)
[2025-05-12 13:38] LABS: Alanine Aminotransferase 13 U/L (12-78); Aspartate Amino Transferase 29 U/L (17-59); Bilirubin,Unconjugated 0.5 mg/dL (0.0-1.1); Blood Urea Nitrogen 7 mg/dl (9-20); Creatinine,Serum 0.70 mg/dl (0.66-1.25); Estimated Glomerular Filt Rate 114 ml/min (>60); GFR (African American) 138 ML/MIN (>60); Total Protein,Serum 7.2 g/dl (6.3-8.2)
[2025-05-12 13:39] LABS: Alkaline Phosphatase 70 U/L (38-126); Bilirubin,Direct 0.0 mg/dl (0.0-0.4); Bilirubin,Indirect 0.5 mg/dL (0.0-0.9); Bilirubin,Total 0.5 mg/dl (0.2-1.3); Creatine Kinase 29 U/L (55-170)
[2025-05-12 14:10] LABS: C-Reactive Protein 1.4 mg/L (0-4)
== END 2025-05-12 23:59 | disposition home or self-care (01) ==
LOC: INF 13:05
PROVIDERS: Visit Provider Orthopaedic Surgery Orthopaedic Trauma
DX: M86.461 Chronic osteomyelitis with draining sinus, right tibia and fibula (principal)
CPT/HCPCS: 36592; 80076; 82550; 82565; 84520; 85025; 86140